=== PATIENT | female | born 1945 ===

== ENCOUNTER 2020-02-02 07:06 | Outpatient (REF) | payer MEDICARE, MEDICAID, SELFPAY ==
[2020-02-02 08:24] LABS: Alanine Aminotransferase 38 U/L (0-31); Albumin Level 3.8 g/dL (3.5-5.0); Alkaline Phosphatase 150 U/L (39-117); Anion Gap 13 (12-20); Aspartate Amino Transferase 25 U/L (5-31); Bilirubin Total 0.4 mg/dL (0.0-1.0); Blood Urea Nitrogen 14 mg/dL (9-16); Calcium 9.6 mg/dL (8.4-10.2); Carbon Dioxide 29 mmol/L (22-29); Chloride 102 mmol/L (96-108); Cholesterol 146 mg/dL; Estimated Glomerular Filt Rate > 60; Glucose Fasting 146 mg/dL (60-99); HDL Cholesterol 46 mg/dL; LDL Cholesterol Calculated 81 mg/dl; Potassium 4.8 mmol/l (3.3-5.1); Sodium 139 mmol/L (135-145); Total Protein 7.1 g/dL (6.5-8.0); Triglycerides 97 mg/dL
[2020-02-02 08:45] LABS: Vitamin D 25-OH Total 25.9 ng/mL (>30)
== END 2020-02-02 07:07 | disposition home or self-care (01) ==
LOC: HO.LAB 07:06
PROVIDERS: PCP Internal Medicine; Visit Provider Internal Medicine
DX: E78.00 Pure hypercholesterolemia, unspecified (principal); E03.9 Hypothyroidism, unspecified; E55.9 Vitamin D deficiency, unspecified; E11.9 Type 2 diabetes mellitus without complications
CPT/HCPCS: 80053; 80061; 82306; 84443

== ENCOUNTER → 2020-03-22 08:16 | Outpatient (BNVA) | payer MEDICARE, MEDICAID, SELFPAY | PROVIDERS: PCP Internal Medicine; Referring Provider Internal Medicine; Visit Provider Nurse Practitioner Gerontology | DX: Z13.89 Encounter for screening for other disorder (principal) | CPT/HCPCS: Q3014 ==

== ENCOUNTER → 2020-03-30 10:53 | Outpatient (BNV) | payer MEDICARE, MEDICAID, SELFPAY | PROVIDERS: PCP Internal Medicine; Referring Provider Internal Medicine; Visit Provider Internal Medicine | DX: Z86.718 Personal history of other venous thrombosis and embolism (principal) | CPT/HCPCS: 99202; 99203; 99213; 99442; G2211 ==

== ENCOUNTER 2020-03-31 14:22 | Outpatient (REF) | payer MEDICARE, MEDICAID, SELFPAY ==
--- NOTE | 2020-03-31 14:24 | MR_ITS ---
EXAMINATION: BRAIN MRI WITHOUT CONTRAST CLINICAL INFORMATION: Amnesia. COMPARISON: Brain MRI 01/03/2019. TECHNIQUE: Multiplanar MR imaging of the brain was performed without contrast. FINDINGS: There are scattered nonspecific foci of T2 FLAIR signal hyperintensity within the periventricular white matter. No acute territorial infarct. No pathological magnetic susceptibility artifact. Intracranial vascular flow voids are maintained. There is no intracranial mass effect or midline shift. No abnormal extra-axial collection. Of note there appears to be disproportionate loss of parenchymal volume within the temporal lobes causing ex vacuo enlargement of the temporal horns. No hydrocephalus. Midline structures including the cervicomedullary junction are normal. No acute bone marrow signal changes. There is no mastoid or middle ear effusion. No active paranasal sinus disease. MR/MR head/brain wo con IMPRESSION: There is disproportionate enlargement of parenchymal volume within the temporal lobes causing ex vacuo enlargement of the temporal horns. There are scattered chronic small vessel ischemic changes within the periventricular white matter. Otherwise unremarkable examination in that there is no evidence of acute territorial infarct or hemorrhage.
== END 2020-03-31 14:23 | disposition home or self-care (01) ==
LOC: HO.MRI 14:22
PROVIDERS: PCP Internal Medicine; Visit Provider Internal Medicine
DX: R41.3 Other amnesia (principal)
CPT/HCPCS: 70551

== ENCOUNTER → 2020-06-20 08:34 | Outpatient (BNVA) | payer MEDICARE, MEDICAID, SELFPAY | PROVIDERS: PCP Internal Medicine; Visit Provider Nurse Practitioner Gerontology | DX: E11.42 Type 2 diabetes mellitus with diabetic polyneuropathy (principal); E66.09 Other obesity due to excess calories; E78.5 Hyperlipidemia, unspecified; Z68.35 Body mass index [BMI] 35.0-35.9, adult; I10 Essential (primary) hypertension | CPT/HCPCS: 82947; Q3014 ==

== ENCOUNTER → 2020-06-23 09:45 | Outpatient (BNVA) | payer MEDICARE, MEDICAID, SELFPAY | PROVIDERS: PCP Internal Medicine; Visit Provider Obstetrics & Gynecology ==

== ENCOUNTER 2020-08-12 06:46 | Outpatient (REF) | payer MEDICARE, MEDICAID, SELFPAY ==
[2020-08-12 08:00] LABS: Alanine Aminotransferase 39 U/L (0-31); Albumin Level 3.7 g/dL (3.5-5.0); Alkaline Phosphatase 166 U/L (39-117); Anion Gap 15 (12-20); Aspartate Amino Transferase 26 U/L (5-31); Bilirubin Total 0.7 mg/dL (0.0-1.0); Blood Urea Nitrogen 16 mg/dL (9-16); Carbon Dioxide 27 mmol/L (22-29); Chloride 106 mmol/L (96-108); Cholesterol 104 mg/dL; Estimated Glomerular Filt Rate > 60; Glucose Fasting 131 mg/dL (60-99); HDL Cholesterol 36 mg/dL; LDL Cholesterol Calculated 57 mg/dl; Potassium 4.9 mmol/L (3.3-5.1); Sodium 143 mmol/L (135-145); Triglycerides 59 mg/dL
[2020-08-12 08:21] LABS: TSH reflex Free T4 2.49 uIU/mL (0.32-4.0)
[2020-08-12 08:26] LABS: Creatinine Urine 67.86 mg/dL; Microalbum/Creatinine Ratio Ur 10.3 ug/mg cr
[2020-08-12 09:22] LABS: Estimated Average Glucose 169 mg/dL; Hemoglobin A1c % 7.5 %
== END 2020-08-12 06:47 | disposition home or self-care (01) ==
LOC: HO.LAB 06:46
PROVIDERS: PCP Internal Medicine; Visit Provider Internal Medicine
DX: E11.42 Type 2 diabetes mellitus with diabetic polyneuropathy (principal); E78.5 Hyperlipidemia, unspecified; R41.3 Other amnesia
CPT/HCPCS: 36415; 80053; 80061; 82043; 83036; 84443

== ENCOUNTER → 2020-10-14 08:37 | Outpatient (BNVA) | payer MEDICARE, MEDICAID, SELFPAY | PROVIDERS: PCP Internal Medicine; Visit Provider Nurse Practitioner Gerontology | DX: E11.42 Type 2 diabetes mellitus with diabetic polyneuropathy (principal); E78.5 Hyperlipidemia, unspecified; E66.09 Other obesity due to excess calories; I10 Essential (primary) hypertension; Z68.35 Body mass index [BMI] 35.0-35.9, adult | CPT/HCPCS: 82947; 99212 ==

== ENCOUNTER 2020-12-09 08:15 | Outpatient (REF) | payer MEDICARE, MEDICAID, SELFPAY ==
--- NOTE | ~2020-12-09 | MM_ITS ---
EXAMINATION: MM SCREENING DIGITAL BREAST TOMOSYNTHESIS, BILATERAL CLINICAL INFORMATION: Screening. Asymptomatic. The lifetime risk of breast cancer based on the Tyrer-Cuzick Model is 3.0%. COMPARISON: Mammography: December 08, 2019 and studies dating back to April 26, 2016 TECHNIQUE: Digital breast tomosynthesis is performed in both the craniocaudal and mediolateral oblique views along with computer-aided detection (CAD). Synthesized 2D images are generated from the tomosynthesis. FINDINGS: There are scattered areas of fibroglandular density (ACR BI-RADS breast composition Category b). There are no significant masses, abnormal calcifications, or other abnormalities. MM/MM tomosynthesis screening BI IMPRESSION: There are no significant changes from prior study. ASSESSMENT: BI-RADS 1: Negative RECOMMENDATION: Routine annual mammography screening. This patient's information was entered into a reminder system with a target due date for their next mammogram.
--- NOTE | ~2020-12-09 | MM_ITS ---
EXAMINATION: BONE DENSITOMETRY CLINICAL INDICATION: Asymptomatic menopausal state. COMPARISON: None (current study represents initial baseline exam). TECHNIQUE: Using a [employer] DXA System (software version: 13.1) manufactured by [employer], dual-energy x-ray absorptiometry was performed of the lumbar spine and left hip. The images are of good technical quality. Summary results are attached. FINDINGS: AP SPINE L1-L4: BMD 1.018 g/cm2, Z-score -0.4, T-score -1.3, osteopenia. LEFT FEMUR, NECK: BMD 0.689 g/cm2, Z-score -1.0, T-score -2.5, osteoporosis. LEFT FEMUR, TOTAL: BMD 0.677 g/cm2, Z-score -1.4, T-score -2.6, osteoporosis. IDENTIFIED RISK FACTORS: Menopause. HISTORY OF FRACTURE: None listed. MEDICATIONS: Multivitamin. MM/XR DEXA axial skeleton IMPRESSION: 1. DIAGNOSIS: Osteoporosis based on the lowest T-score value of -2.6 in the total femur applying World Health Organization criteria. 2. 10-YEAR FRACTURE RISK PREDICTION, FRAX: Major osteoporotic fracture (clinical spine, forearm, hip or shoulder) 9.8%. Hip fracture 3.0%. 3. Treatment Recommendations: NOF guidelines recommend consideration for treatment in postmenopausal women and men age 50 and older presenting with the following: -A hip or vertebral (clinical or morphometric) fracture. -T-score less than or equal to -2.5 at the femoral neck or spine after appropriate evaluation to exclude secondary causes. -Low bone mass at the hip or spine and a 10-year fracture probability by FRAX of greater than or equal to 3% for hip fracture or greater than or equal to 20% for major osteoporotic fracture based on the [place] adapted WHO algorithm. 4. Other Recommendations: All treatment decisions require clinical judgment and consideration of individual patient factors, including patient preferences, comorbidities, previous drug use, risk factors not captured in the FRAX model (e.g. frailty, falls, vitamin D deficiency, increased bone turnover, interval significant decline in bone density) and possible under or overestimation of fracture risk by FRAX. Additional medical evaluation for secondary cause of low bone mineral density may be appropriate. FUTURE SCAN RECOMMENDATION: People with diagnosed cases of osteoporosis or at high risk for fracture should have regular bone mineral density tests. For patients eligible for Medicare, routine testing is allowed once every 2 years. The testing frequency can be increased to one year for patients who have rapidly progressing disease, those who are receiving or discontinuing medical therapy to restore bone mass, or have additional risk factors.
== END 2020-12-09 08:16 | disposition home or self-care (01) ==
LOC: HO.MAMMO 08:15
PROVIDERS: PCP Internal Medicine; Visit Provider Obstetrics & Gynecology
DX: Z12.31 Encounter for screening mammogram for malignant neoplasm of breast (principal); Z13.820 Encounter for screening for osteoporosis; Z78.0 Asymptomatic menopausal state
CPT/HCPCS: 77063; 77067; 77080

== ENCOUNTER → 2020-12-14 13:06 | Outpatient (BNVA) | payer MEDICARE, MEDICAID, SELFPAY | PROVIDERS: PCP Internal Medicine; Visit Provider Obstetrics & Gynecology | DX: M81.0 Age-related osteoporosis without current pathological fracture (principal) | CPT/HCPCS: 99212 ==

== ENCOUNTER 2021-02-18 07:03 | Outpatient (REF) | payer MEDICARE, MEDICAID, SELFPAY ==
[2021-02-18 07:15] LABS: MANUAL DIFF FLAG NO
[2021-02-18 08:00] LABS: Basophils Percent Auto 0.2 % (0-2); Eosinophils Absolute Auto 0.1 X10*3/uL (0.0-0.4); Eosinophils Percent Auto 1.1 % (0-4); Hematocrit 42.3 % (37.0-47.0); Hemoglobin 13.1 g/dl (12.0-16.0); Imm Gran Abs Auto 0.02 X10*3/uL (0.00-0.03); Imm Gran Pct Auto 0.2 % (0.0-0.4); Lymphocytes Absolute Auto 2.1 X10*3/uL (1.2-4.9); Lymphocytes Percent Auto 22.6 % (20-40); Mean Corpuscular Volume 87.2 fL (80.0-98.0); Mean Platelet Volume 10.2 fL (9.4-12.3); Monocytes Absolute Auto 0.7 X10*3/uL (0.1-1.2); Monocytes Percent Auto 6.9 % (2-11); Neutrophils Absolute Auto 6.5 x10*3/uL (2.0-8.3); Platelet Count 315 X10*3/uL (160-400); Red Blood Count 4.85 X10*6/uL (4.20-5.50); Red Cell Distribution Width 15.2 % (11.0-16.0); White Blood Count 9.4 X10*3/uL (4.8-10.8)
[2021-02-18 08:49] LABS: Alanine Aminotransferase 34 U/L (0-31); Albumin Level 3.9 g/dL (3.5-5.0); Alkaline Phosphatase 114 U/L (39-117); Anion Gap 16 (12-20); Aspartate Amino Transferase 25 U/L (5-31); Bilirubin Total 0.5 mg/dL (0.0-1.0); Blood Urea Nitrogen 14 mg/dL (9-16); Calcium 9.7 mg/dL (8.4-10.2); Carbon Dioxide 24 mmol/L (22-29); Chloride 105 mmol/L (96-108); Cholesterol 99 mg/dL; Estimated Glomerular Filt Rate > 60; Glucose Fasting 129 mg/dL (60-99); HDL Cholesterol 37 mg/dL; LDL Cholesterol Calculated 49 mg/dl; Potassium 4.1 mmol/L (3.3-5.1); Sodium 141 mmol/L (135-145); Total Protein 7.1 g/dL (6.5-8.0); Triglycerides 68 mg/dL
[2021-02-18 08:52] LABS: TSH reflex Free T4 3.45 uIU/mL (0.32-4.0)
[2021-02-18 09:49] LABS: Creatinine Urine 158.92 mg/dL; Microalbum/Creatinine Ratio Ur 40.2 ug/mg cr
[2021-02-20 09:31] LABS: Folate > 20.0 ng/mL (> or = 4.0); Vitamin B12 831 pg/mL (200-900)
[2021-02-21 17:37] LABS: Vitamin D 25-OH, D2 <4 ng/mL; Vitamin D 25-OH, D3 29 ng/mL; Vitamin D 25-OH, Total 29 ng/mL (30-100)
== END 2021-02-18 07:04 | disposition home or self-care (01) ==
LOC: HO.LAB 07:03
PROVIDERS: PCP Internal Medicine; Visit Provider Internal Medicine
DX: E55.9 Vitamin D deficiency, unspecified (principal); E11.42 Type 2 diabetes mellitus with diabetic polyneuropathy; R41.3 Other amnesia; E78.5 Hyperlipidemia, unspecified
CPT/HCPCS: 36415; 80053; 80061; 82043; 82306; 82607; 82746; 84443; 85025

== ENCOUNTER → 2021-03-01 08:46 | Outpatient (BNVA) | payer MEDICARE, MEDICAID, SELFPAY | PROVIDERS: PCP Internal Medicine; Visit Provider Nurse Practitioner Gerontology | DX: E11.42 Type 2 diabetes mellitus with diabetic polyneuropathy (principal); E78.5 Hyperlipidemia, unspecified; E66.09 Other obesity due to excess calories; I10 Essential (primary) hypertension; Z68.34 Body mass index [BMI] 34.0-34.9, adult; Z79.84 Long term (current) use of oral hypoglycemic drugs | CPT/HCPCS: 82947; 99212 ==

== ENCOUNTER → 2021-06-27 09:44 | Outpatient (BNVA) | payer MEDICARE, MEDICAID, SELFPAY | PROVIDERS: Visit Provider Obstetrics & Gynecology | DX: Z01.419 Encounter for gynecological examination (general) (routine) without abnormal findings (principal); M81.0 Age-related osteoporosis without current pathological fracture; Z90.710 Acquired absence of both cervix and uterus | CPT/HCPCS: 99212 ==

== ENCOUNTER 2021-11-17 06:43 | Outpatient (REF) | payer MEDICARE, MEDICAID, SELFPAY ==
[2021-11-17 07:46] LABS: Alanine Aminotransferase 16 U/L (0-31); Albumin Level 3.7 g/dL (3.5-5.0); Alkaline Phosphatase 88 U/L (39-117); Anion Gap 17 (12-20); Aspartate Amino Transferase 18 U/L (5-31); Bilirubin Total 0.6 mg/dL (0.0-1.0); Blood Urea Nitrogen 16 mg/dL (9-16); Calcium 9.2 mg/dL (8.4-10.2); Carbon Dioxide 22 mmol/L (22-29); Chloride 104 mmol/L (96-108); Cholesterol 113 mg/dL; Estimated Glomerular Filt Rate > 60; Glucose Fasting 113 mg/dL (60-99); HDL Cholesterol 37 mg/dL; LDL Cholesterol Calculated 55 mg/dl; Potassium 4.2 mmol/L (3.3-5.1); Sodium 139 mmol/L (135-145); Total Protein 6.7 g/dL (6.5-8.0); Triglycerides 109 mg/dL
[2021-11-17 08:07] LABS: Vitamin D 25-OH Total 45.7 ng/mL (>30)
[2021-11-17 09:09] LABS: Creatinine Urine 78.26 mg/dL; Microalbum/Creatinine Ratio Ur 16.6 ug/mg cr
== END 2021-11-17 06:44 | disposition home or self-care (01) ==
LOC: HO.LAB 06:43
PROVIDERS: PCP Internal Medicine; Visit Provider Internal Medicine
DX: E78.5 Hyperlipidemia, unspecified (principal); E55.9 Vitamin D deficiency, unspecified; M81.0 Age-related osteoporosis without current pathological fracture; E11.42 Type 2 diabetes mellitus with diabetic polyneuropathy
CPT/HCPCS: 36415; 80053; 80061; 82043; 82306

== ENCOUNTER 2021-12-22 08:43 | Outpatient (REF) | payer MEDICARE, MEDICAID, SELFPAY ==
--- NOTE | ~2021-12-22 | MM_ITS ---
EXAMINATION: MM SCREENING DIGITAL BREAST TOMOSYNTHESIS, BILATERAL CLINICAL INFORMATION: Screening. Asymptomatic. The lifetime risk of breast cancer based on the Tyrer-Cuzick Model is 3%. COMPARISON: Mammography: 12/09/2020, 12/08/2019, 12/02/2018, 11/13/2017, 04/26/2016 TECHNIQUE: Digital breast tomosynthesis is performed in both the craniocaudal and mediolateral oblique views along with computer-aided detection (CAD). Synthesized 2D images are generated from the tomosynthesis. FINDINGS: There are scattered areas of fibroglandular density (ACR BI-RADS breast composition Category b). There are no significant masses, abnormal calcifications, or other abnormalities. Parenchymal pattern is similar to prior studies. There is no developing density or architectural abnormality. There are scattered benign ductal secretory calcifications. Incidental small low left axillary tail nodes. There is a dermal lesion overlying the posterior 7:00 left breast again noted. No significant changes. MM/MM tomosynthesis screening BI IMPRESSION: No mammographic evidence of malignancy. ASSESSMENT: BI-RADS 2: Benign RECOMMENDATION: Routine annual mammography screening. This patient's information was entered into a reminder system with a target due date for their next mammogram.
== END 2021-12-22 08:44 | disposition home or self-care (01) ==
LOC: HO.MAMMO 08:43
PROVIDERS: PCP Internal Medicine; Visit Provider Internal Medicine
DX: Z12.31 Encounter for screening mammogram for malignant neoplasm of breast (principal)
CPT/HCPCS: 77063; 77067

== ENCOUNTER 2022-02-17 12:07 | Inpatient (IN) | payer MEDICARE, MEDICAID, SELFPAY ==
[2022-02-17] VITALS (8 sets, daily range): BP systolic 96–133; BP diastolic 42–58; PULSE 68–112; RESP 14–22; TEMP 32.8–36.8; O2SAT 96–100; BMI 34.5
--- NOTE | ~2022-02-17 | US_ITS ---
EXAMINATION: US ABDOMEN LIMITED CLINICAL INFORMATION: Elevated LFTs.. COMPARISON: None TECHNIQUE: Real-time imaging of the right upper quadrant abdominal viscera. FINDINGS: GALLBLADDER: The gallbladder is contracted. On some of the images there are echogenic dependent shadows suspicious for gravel. No wall thickening suspected. No pericystic fluid collection. US/US abdomen limited IMPRESSION: Limited exam as patient ate before the exam. Echogenic gravel suspected along the dependent portion of the gallbladder. The gallbladder is contracted.
--- NOTE | ~2022-02-17 | XR_ITS ---
EXAMINATION: XR CHEST CLINICAL INFORMATION: Altered mental status COMPARISON: None TECHNIQUE: 2 views of the chest were obtained. FINDINGS: No significant abnormality is noted involving the heart, lungs, mediastinum, bony thorax or soft tissues. XR/XR chest 2V IMPRESSION: Unremarkable examination.
--- NOTE | ~2022-02-17 | CT_ITS ---
EXAMINATION: CT head/brain wo IV con CLINICAL INFORMATION: Reason for Exam altered mental status COMPARISON: MR brain without contrast 03/31/2020 TECHNIQUE: Contiguous axial imaging was performed from the skull base to vertex without intravenous contrast. Sagittal and coronal reformatted images were obtained. This CT examination was performed using dose optimization techniques as appropriate, variously including the following: * Automated exposure control * Adjustment of mA and/or kV according to patient size (this includes techniques or standardized protocols for targeted exams where dose is matched to indication/reason for exam; i.e. extremities or head) Use of iterative reconstruction technique DLP: 560 mGy-cm FINDINGS: No acute osseous or soft tissue abnormality. The mastoid air cells and visualized portions of the paranasal sinuses are well aerated. There is no evidence of acute intracranial hemorrhage or territorial infarction. No abnormal mass effect or midline shift is seen. Flores to white matter differentiation is well preserved. No extra-axial fluid collections are identified. No hydrocephalus. Mild generalized volume loss with some disproportionate volume loss in the frontal and temporal lobes with ex vacuo dilatation of the frontal and temporal horns. Patchy periventricular and deep white matter hypoattenuation is consistent with mild small vessel ischemic changes. CT/CT head/brain wo IV con IMPRESSION: No acute intracranial abnormality including hemorrhage, mass effect, hydrocephalus, or acute territorial edematous infarction.
--- NOTE | 2022-02-17 12:15 | ED.GENADULT ---
HPI - General Adult General Chief complaint: Altered Mental Status Stated complaint: nerou complaints Time Seen by Provider: 02/17/22 12:54 Related Data Home Medications Medication Instructions Recorded Confirmed aspirin 81 mg tablet,delayed 81 mg PO DAILY 02/08/20 02/18/22 release (Adult Low Dose Aspirin) multivitamin 1 tab PO DAILY 03/22/20 02/18/22 donepezil 10 mg tablet 10 mg PO DAILY 11/20/21 02/18/22 Previous Rx's Medication Instructions Recorded dulaglutide 3 mg/0.5 mL 3 mg (0.5 mL) subcut QWEEK 84 days 03/01/21 subcutaneous pen injector #6 mL (Trulicity) omeprazole 20 mg capsule,delayed 20 mg PO DAILY 90 days #90 caps 03/11/21 release alendronate 70 mg tablet 70 mg PO QWEEK #14 tabs 06/27/21 atorvastatin 40 mg tablet 40 mg PO BEDTIME #90 tabs 09/04/21 amlodipine 2.5 mg tablet 2.5 mg PO DAILY #90 tabs 01/31/22 glipizide 5 mg tablet 5 mg PO DAILY #30 tabs 02/19/22 Allergies Allergy/AdvReac Type Severity Reaction Status Date / Time No Known Allergies Allergy Verified 11/20/21 08:18 [No Known Allergies*] [facility] Past Medical History Medical History Cough Diabetes mellitus Essential hypertension GERD (gastroesophageal reflux disease) History of DVT (deep vein thrombosis) Hyperlipidemia LDL goal <70 Long-term use of aspirin therapy Memory loss Microalbuminuria Obesity due to excess calories Type 2 diabetes mellitus with diabetic polyneuropathy Surgical History History of cataract surgery History of total abdominal hysterectomy and bilateral salpingo-oophorectomy Family History Family History Father No problems noted. Mother Colon cancer Son Diabetes Social History Social History Household Members: Caregiver Housing: Apartment Alcohol intake: never Patient Tobacco Use Status: Never used Tobacco e-Cigarette/Vaping Use: Never Used Second Hand Smoke Exposure: No Advance Directives Date on File: 02/23/21 service: No Current occupational status: disabled Cognitive needs: No Hearing needs: No Vision needs: No Physical Exam ED Vital Signs: Vital Signs - 24 hr 02/17/22 12:31 Pulse Rate 68 Respiratory Rate 18 Blood Pressure 96/42 L Pulse Oximetry 100 Oxygen Delivery Method Room Air BMI result Body Mass Index 34.5 Course Course Course Narrative: RME: Patient is a 76-year-old female with a past medical history type 2 diabetes, hypertension, GERD history of DVT, mild cognitive impairment presents emergency department for evaluation of altered mental status since yesterday morning per her son. He states that she is been having confusion with prepping food, take has been shaky typical for her. She seems to be off balance. Patient has denied any headache, dizziness, lightheadedness, chest pain, palpitations, shortness breath, nausea, vomiting, abdominal pain. Denies dysuria urinary frequency. Denies any numbness or tingling to the extremities PE: Move all extremities, no focal neurological deficits, follows commands. Oriented only to person. unable to obtain oral or axillary temperature despite multiple attempts, temporal 86.5. ABD exam benign, LS diminished bilaterally, no respiratory distress. Plan: CBC, CMP, EKG, troponin, chest x-ray, lactic acid, blood cultures, urinalysis, will require rectal temperature Medications Administered Discontinued Medications Generic Name Dose Route Start Last Admin Trade Name Chapinq PRN Reason Stop Dose Admin Amlodipine Besylate 2.5 mg 02/18/22 09:15 02/19/22 09:11 Amlodipine Besylate 2.5 Mg Tablet PO 2.5 mg DAILY HUGO Administration Protocol Aspirin 81 mg 02/18/22 09:15 02/19/22 09:11 Aspirin Enteric Coated 81 Mg Tablet. PO 81 mg DAILY HUGO Administration Atorvastatin Calcium 40 mg 02/18/22 21:00 02/18/22 21:11 Atorvastatin Calcium 40 Mg Tablet PO 40 mg BEDTIME HUGO Administration Donepezil HCl 10 mg 02/18/22 09:15 02/18/22 12:33 Donepezil Hcl 10 Mg Tablet PO 10 mg DAILY HUGO Administration Donepezil HCl 10 mg 02/18/22 21:00 02/18/22 21:12 Donepezil Hcl 10 Mg Tablet PO 10 mg BEDTIME HUGO Administration Enoxaparin Sodium 40 mg 02/17/22 18:00 02/18/22 20:14 Enoxaparin Sodium 40 Mg/0.4 Ml Syringe SUBCUT Not Given Q24H [facility] Sodium Chloride 1,000 mls @ 999 mls/hr 02/17/22 14:04 02/17/22 16:27 Ns IV 02/17/22 15:04 Infused .Q1H1M ONE Infusion Ceftriaxone Sodium 1 gm/ 50 mls @ 100 mls/hr 02/17/22 16:00 02/17/22 18:09 Sodium Chloride IV 02/17/22 16:29 Infused ONCE ONE Infusion Ceftriaxone Sodium 1 gm/ 50 mls @ 100 mls/hr 02/18/22 16:00 02/18/22 18:58 Sodium Chloride IV Infused Q24H [facility] Infusion Insulin Human Lispro 0 unit 02/17/22 21:00 02/19/22 11:19 Insulin Lispro 100 Unit/Ml 3 Ml Vial SUBCUT 4 unit QIDACHS [facility] Administration Protocol Levothyroxine Sodium 100 mcg 02/17/22 16:19 02/17/22 16:44 Levothyroxine Sodium 100 Mcg Tablet PO 02/17/22 16:20 100 mcg ONCE ONE Administration Multivitamins/Vitamin C 1 tab 02/18/22 09:15 02/19/22 09:11 Multivitamin Tablet PO 1 tab DAILY [facility] Administration Omeprazole 20 mg 02/19/22 09:00 02/19/22 09:11 Omeprazole 20 Mg Capsule.Dr PO 20 mg DAILY [facility] Administration Sodium Chloride 3 ml 02/18/22 00:00 02/19/22 09:12 0.9 % Sodium Chloride Flush 3 Ml Syringe IVFLUSH 3 ml QSHIFT [facility] Administration Medical Decision Making Lab Data Result diagrams: 02/19/22 07:02 02/19/22 07:02 Labs: Lab Results 02/17/22 02/17/22 02/17/22 Range/Units 13:01 13:01 13:01 WBC 7.0 (4.8-10.8) X10*3/uL RBC 4.75 (4.20-5.50) X10*6/uL Hgb 12.0 (12.0-16.0) g/dl Hct 38.9 (37.0-47.0) % MCV 81.9 (80.0-98.0) fL MCH 25.3 L (27.0-33.0) pg MCHC 30.8 L (31.0-35.0) g/dl RDW 15.6 (11.0-16.0) % Plt Count 249 (160-400) X10*3/uL MPV 9.8 (9.4-12.3) fL Immature Gran % (Auto) 0.4 (0.0-0.4) % Neut % (Auto) 82.0 H (45-73) % Lymph % (Auto) 13.2 L (20-40) % [place] % (Auto) 3.9 (2-11) % Eos % (Auto) 0.4 (0-4) % Baso % (Auto) 0.1 (0-2) % Lymph # (Auto) 0.9 L (1.2-4.9) X10*3/uL [place] # (Auto) 0.3 (0.1-1.2) X10*3/uL Eos # (Auto) 0.0 (0.0-0.4) X10*3/uL Baso # (Auto) 0.0 (0.0-0.2) X10*3/uL Abs Immat Gran (auto) 0.03 (0.00-0.03) X10*3/uL Absolute Neuts (auto) 5.7 (2.0-8.3) x10*3/uL Absolute Nucleated RBC 0.000 (0.0-0.012) X10*3/uL Nucleated RBC % (auto) 0.0 (0.0-0.2) /100WBC Sodium 140 (135-145) mmol/L Potassium 5.0 (3.3-5.1) mmol/L Chloride 105 (96-108) mmol/L Carbon Dioxide 21 L (22-29) mmol/L Anion Gap 19 (12-20) BUN 18 H (9-16) mg/dL Creatinine 0.69 (0.5-1.4) mg/dL Estim Creat Clear Calc 72.0 Estimated GFR > 60 Random Glucose 173 H (60-115) mg/dL Lactic Acid (0.5-2.0) mmol/L Lactic Acid F/U @ 2Hr (0.5-2.0) mmol/L Calcium 9.5 (8.4-10.2) mg/dL Magnesium 1.7 (1.6-2.6) mg/dL Total Bilirubin 0.2 (0.0-1.0) mg/dL AST 70 H (5-31) U/L ALT 124 H (0-31) U/L Alkaline Phosphatase 172 H D (39-117) U/L Troponin I High Sens 3.6 (<3.5-17.0) ng/L Total Protein 6.7 (6.5-8.0) g/dL Albumin 3.6 (3.5-5.0) g/dL TSH 4.76 H (0.32-4.0) uIU/mL Urine Color Urine Appearance Urine pH (5.0-9.0) Ur Specific [place] (1.005-1.025) Urine Protein (Neg-Trace) mg/dL Urine Glucose (UA) (Negative) mg/dL Urine Ketones (Negative) mg/dL Urine Blood (Negative) Urine Nitrite (Negative) Ur Leukocyte Esterase (Negative) Urine RBC (0-2) /HPF Urine WBC (0-5) /HPF Ur Squamous Epith Cells (0-2) /HPF Urine Bacteria (None Seen) Hyaline Casts (0-2) /LPF COVID-19 (JOHN) (Negative) COVID-19 Clin Com Influenza Type A (YUVAL) (Negative) Influenza Type B (YUVAL) (Negative) Influenza A & B Note 02/17/22 02/17/22 02/17/22 Range/Units 13:02 13:02 13:02 WBC (4.8-10.8) X10*3/uL RBC (4.20-5.50) X10*6/uL Hgb (12.0-16.0) g/dl Hct (37.0-47.0) % MCV (80.0-98.0) fL MCH (27.0-33.0) pg MCHC (31.0-35.0) g/dl RDW (11.0-16.0) % Plt Count (160-400) X10*3/uL MPV (9.4-12.3) fL Immature Gran % (Auto) (0.0-0.4) % Neut % (Auto) (45-73) % Lymph % (Auto) (20-40) % [place] % (Auto) (2-11) % Eos % (Auto) (0-4) % Baso % (Auto) (0-2) % Lymph # (Auto) (1.2-4.9) X10*3/uL [place] # (Auto) (0.1-1.2) X10*3/uL Eos # (Auto) (0.0-0.4) X10*3/uL Baso # (Auto) (0.0-0.2) X10*3/uL Abs Immat Gran (auto) (0.00-0.03) X10*3/uL Absolute Neuts (auto) (2.0-8.3) x10*3/uL Absolute Nucleated RBC (0.0-0.012) X10*3/uL Nucleated RBC % (auto) (0.0-0.2) /100WBC Sodium (135-145) mmol/L Potassium (3.3-5.1) mmol/L Chloride (96-108) mmol/L Carbon Dioxide (22-29) mmol/L Anion Gap (12-20) BUN (9-16) mg/dL Creatinine (0.5-1.4) mg/dL Estim Creat Clear Calc Estimated GFR Random Glucose (60-115) mg/dL Lactic Acid 6.4 H* (0.5-2.0) mmol/L Lactic Acid F/U @ 2Hr (0.5-2.0) mmol/L Calcium (8.4-10.2) mg/dL Magnesium (1.6-2.6) mg/dL Total Bilirubin (0.0-1.0) mg/dL AST (5-31) U/L ALT (0-31) U/L Alkaline Phosphatase (39-117) U/L Troponin I High Sens (<3.5-17.0) ng/L Total Protein (6.5-8.0) g/dL Albumin (3.5-5.0) g/dL TSH (0.32-4.0) uIU/mL Urine Color Urine Appearance Urine pH (5.0-9.0) Ur Specific [place] (1.005-1.025) Urine Protein (Neg-Trace) mg/dL Urine Glucose (UA) (Negative) mg/dL Urine Ketones (Negative) mg/dL Urine Blood (Negative) Urine Nitrite (Negative) Ur Leukocyte Esterase (Negative) Urine RBC (0-2) /HPF Urine WBC (0-5) /HPF Ur Squamous Epith Cells (0-2) /HPF Urine Bacteria (None Seen) Hyaline Casts (0-2) /LPF COVID-19 (JOHN) Negative (Negative) COVID-19 Clin Com See Note Influenza Type A (YUVAL) Negative (Negative) Influenza Type B (YUVAL) Negative (Negative) Influenza A & B Note See Note 02/17/22 02/17/22 02/17/22 Range/Units 14:37 15:53 15:53 WBC (4.8-10.8) X10*3/uL RBC (4.20-5.50) X10*6/uL Hgb (12.0-16.0) g/dl Hct (37.0-47.0) % MCV (80.0-98.0) fL MCH (27.0-33.0) pg MCHC (31.0-35.0) g/dl RDW (11.0-16.0) % Plt Count (160-400) X10*3/uL MPV (9.4-12.3) fL Immature Gran % (Auto) (0.0-0.4) % Neut % (Auto) (45-73) % Lymph % (Auto) (20-40) % [place] % (Auto) (2-11) % Eos % (Auto) (0-4) % Baso % (Auto) (0-2) % Lymph # (Auto) (1.2-4.9) X10*3/uL [place] # (Auto) (0.1-1.2) X10*3/uL Eos # (Auto) (0.0-0.4) X10*3/uL Baso # (Auto) (0.0-0.2) X10*3/uL Abs Immat Gran (auto) (0.00-0.03) X10*3/uL Absolute Neuts (auto) (2.0-8.3) x10*3/uL Absolute Nucleated RBC (0.0-0.012) X10*3/uL Nucleated RBC % (auto) (0.0-0.2) /100WBC Sodium (135-145) mmol/L Potassium (3.3-5.1) mmol/L Chloride (96-108) mmol/L Carbon Dioxide (22-29) mmol/L Anion Gap (12-20) BUN (9-16) mg/dL Creatinine (0.5-1.4) mg/dL Estim Creat Clear Calc Estimated GFR Random Glucose (60-115) mg/dL Lactic Acid (0.5-2.0) mmol/L Lactic Acid F/U @ 2Hr 5.7 H* (0.5-2.0) mmol/L Calcium (8.4-10.2) mg/dL Magnesium (1.6-2.6) mg/dL Total Bilirubin (0.0-1.0) mg/dL AST (5-31) U/L ALT (0-31) U/L Alkaline Phosphatase (39-117) U/L Troponin I High Sens (<3.5-17.0) ng/L Total Protein (6.5-8.0) g/dL Albumin (3.5-5.0) g/dL TSH 3.66 (0.32-4.0) uIU/mL Urine Color Yellow Urine Appearance Cloudy Urine pH 5.0 (5.0-9.0) Ur Specific [place] 1.025 (1.005-1.025) Urine Protein Trace (Neg-Trace) mg/dL Urine Glucose (UA) Negative (Negative) mg/dL Urine Ketones Trace (Negative) mg/dL Urine Blood Negative (Negative) Urine Nitrite Negative (Negative) Ur Leukocyte Esterase Moderate (2+) H (Negative) Urine RBC 0-2 (0-2) /HPF Urine WBC 6-10 (0-5) /HPF Ur Squamous Epith Cells 6-10 (0-2) /HPF Urine Bacteria None Seen (None Seen) Hyaline Casts 6-10 (0-2) /LPF COVID-19 (JOHN) (Negative) COVID-19 Clin Com Influenza Type A (YUVAL) (Negative) Influenza Type B (YUVAL) (Negative) Influenza A & B Note Discharge Plan Discharge Clinical Impression: Hypothermia, UTI (urinary tract infection), Acidosis, lactic Patient Disposition: Admitted As Inpatient Discharge Date/Time: 02/18/22 20:00
--- NOTE | 2022-02-17 12:31 | ECG_ITS ---
Test Reason : AMS Blood Pressure : / mmHG Vent. Rate : 072 BPM Atrial Rate : 072 BPM P-R Int : 198 ms QRS Dur : 078 ms QT Int : 410 ms P-R-T Axes : 039 007 046 degrees QTc Int : 448 ms Normal sinus rhythm Nonspecific ST abnormality Anterior leads Left axis deviation Abnormal ECG No previous ECGs available Referred By: Fany Calvo Electronically Signed By:SHABBIR LOWERY MD
[2022-02-17 13:09] LABS: MANUAL DIFF FLAG NO
[2022-02-17 13:13] LABS: Basophils Percent Auto 0.1 % (0-2); Eosinophils Percent Auto 0.4 % (0-4); Hematocrit 38.9 % (37.0-47.0); Imm Gran Abs Auto 0.03 X10*3/uL (0.00-0.03); Imm Gran Pct Auto 0.4 % (0.0-0.4); Lymphocytes Absolute Auto 0.9 X10*3/uL (1.2-4.9); Lymphocytes Percent Auto 13.2 % (20-40); Mean Corpuscular HGB Conc 30.8 g/dl (31.0-35.0); Mean Corpuscular Hemoglobin 25.3 pg (27.0-33.0); Mean Corpuscular Volume 81.9 fL (80.0-98.0); Mean Platelet Volume 9.8 fL (9.4-12.3); Monocytes Absolute Auto 0.3 X10*3/uL (0.1-1.2); Monocytes Percent Auto 3.9 % (2-11); Neutrophils Absolute Auto 5.7 x10*3/uL (2.0-8.3); Platelet Count 249 X10*3/uL (160-400); Red Blood Count 4.75 X10*6/uL (4.20-5.50); Red Cell Distribution Width 15.6 % (11.0-16.0)
[2022-02-17 13:29] LABS: COVID-19 Test Negative (Negative); IDNOW Serial# 16C4AD1C; IDNOW Serial# BCCEAD1C; Influenza A Negative (Negative); Influenza B2 Negative (Negative)
[2022-02-17 13:37] LABS: Alanine Aminotransferase 124 U/L (0-31); Albumin Level 3.6 g/dL (3.5-5.0); Alkaline Phosphatase 172 U/L (39-117); Anion Gap 19 (12-20); Aspartate Amino Transferase 70 U/L (5-31); Bilirubin Total 0.2 mg/dL (0.0-1.0); Blood Urea Nitrogen 18 mg/dL (9-16); Calcium 9.5 mg/dL (8.4-10.2); Carbon Dioxide 21 mmol/L (22-29); Chloride 105 mmol/L (96-108); Estimated Glomerular Filt Rate > 60; Glucose Random 173 mg/dL (60-115); Magnesium 1.7 mg/dL (1.6-2.6); Sodium 140 mmol/L (135-145); Total Protein 6.7 g/dL (6.5-8.0)
[2022-02-17 13:44] LABS: Troponin-I High Sensitivity 3.6 ng/L (<3.5-17.0)
--- NOTE | 2022-02-17 13:57 | ED_ITS ---
HPI - General Adult General Chief complaint: Altered Mental Status Stated complaint: nerou complaints Time Seen by Provider: 02/17/22 12:54 Source: patient and family (Son) Mode of arrival: ambulatory Limitations: no limitations History of Present Illness HPI narrative: 76-year-old female came in with her son for concern of patient being confused and forgetful and off balance. Son started to notice that since yesterday, patient otherwise has no complain, reportedly patient live in the building where it is cold with no heating system on, otherwise no fall or head injury, no CP, no SOB, no abdominal pain. Related Data Home Medications Medication Instructions Recorded Confirmed aspirin 81 mg tablet,delayed 81 mg PO DAILY 02/08/20 11/20/21 release (Adult Low Dose Aspirin) multivitamin 1 tab PO DAILY 03/22/20 11/20/21 calcium carbonate 600 mg-vitamin cap PO 02/21/21 11/20/21 D3 12.5 mcg (500 unit) capsule (Calcium 600 with Vitamin D3) donepezil 10 mg tablet 10 mg PO DAILY 11/20/21 11/20/21 Previous Rx's Medication Instructions Recorded dulaglutide 3 mg/0.5 mL 3 mg (0.5 mL) subcut QWEEK 84 days 03/01/21 subcutaneous pen injector #6 mL (Trulicity) lancets 28 gauge (FreeStyle 28 gauge miscellaneous DAILY 3 03/08/21 Lancets) months #100 caps omeprazole 20 mg capsule,delayed 20 mg PO DAILY 90 days #90 caps 03/11/21 release alendronate 70 mg tablet 70 mg PO QWEEK #14 tabs 06/27/21 atorvastatin 40 mg tablet 40 mg PO BEDTIME #90 tabs 09/04/21 metformin 500 mg tablet,extended 1,000 mg PO BID #360 tabs 01/06/22 release 24 hr amlodipine 2.5 mg tablet 2.5 mg PO DAILY #90 tabs 01/31/22 Allergies Allergy/AdvReac Type Severity Reaction Status Date / Time No Known Allergies Allergy Verified 11/20/21 08:18 [No Known Allergies*] Review of Systems Review of Systems: All other systems are reviewed and are negative Constitutional: Reports as per HPI and Reports no additional constitutional complaints Eyes: Reports as per HPI and Reports no additional eye complaints Reports system reviewed and no additional complaints, except as documented Cardiovascular: Reports as per HPI and Reports no additional cardiovascular complaints Respiratory: Reports as per HPI and Reports no additional respiratory complaints Gastrointestinal: Reports as per HPI and Reports no additional gastrointestinal complaints Genitourinary: Reports no additional female genitourinary complaints Musculoskeletal: Reports no additional musculoskeletal complaints Skin/Breast: Reports system reviewed and no additional complaints, except as docu Psychiatric: Reports no additional psychiatric complaints Endocrine: Reports no additional endocrine complaints Hematologic/Lymphatic: Reports no additional hematologic/lymphatic complaints Allergic/Immunologic: Reports no additional allergic/immunologic complaints Reports system reviewed and no additional complaints, except as documented and Reports Abnormal speech present [facility] Past Medical History Medical History Cough Diabetes mellitus Essential hypertension GERD (gastroesophageal reflux disease) History of DVT (deep vein thrombosis) Hyperlipidemia LDL goal <70 Long-term use of aspirin therapy Memory loss Microalbuminuria Obesity due to excess calories Type 2 diabetes mellitus with diabetic polyneuropathy Surgical History History of cataract surgery History of total abdominal hysterectomy and bilateral salpingo-oophorectomy Family History Family History Father No problems noted. Mother Colon cancer Son Diabetes Social History Social History Household Members: Family Housing: Apartment Alcohol intake: never Patient Tobacco Use Status: Never used Tobacco e-Cigarette/Vaping Use: Never Used Second Hand Smoke Exposure: No Advance Directives: Yes Advance Directives on File: Yes Advance Directives Date on File: 02/23/21 service: No Current occupational status: disabled Cognitive needs: No Hearing needs: No Vision needs: No Physical Exam ED Vital Signs: Vital Signs - 24 hr 02/17/22 12:31 02/17/22 13:17 02/17/22 14:11 Temperature 91.1 F L 91.3 F L Pulse Rate 68 69 Respiratory Rate 18 14 Blood Pressure 96/42 L 119/46 L Pulse Oximetry 100 100 Oxygen Delivery Method Room Air Room Air 02/17/22 16:03 Temperature 93.0 F L Pulse Rate 86 Respiratory Rate 17 Blood Pressure Pulse Oximetry 98 Oxygen Delivery Method Room Air BMI result Body Mass Index 34.5 Vital signs have been reviewed as appeared to be correct. Blood pressure normal. Heart rate normal. Respiration rate normal. Temperature hypothermic. Oxygen saturation normal. Appearance: Alert. Oriented X3. No acute distress. Head: Normal external exam. Normocephalic. Atraumatic. No Basilio signs noted. No raccoon eyes noted Eyes: PERRLA. EOMI. Conjunctiva and sclera normal. Eyelids normal. ENT: TM's Normal. Pharynx normal. Uvula midline. Moist mucous membranes. No trismus noted. No drooling noted. No muffled voice noted. Neck: Normal inspection. Neck supple. FROM. No adenopathy. Thyroid Normal. No meningeal signs. No neck mass noted. CVS: Normal heart rate and rhythm. Heart sound normal. No murmurs noted. Pulses normal throughout. Respiratory: No respiratory distress. Painless inspiration. Breath sounds normal . No wheezes/rales/rhonchi noted. Chest nontender. No accessory muscle usage noted or decreased air movement noted. Abdomen: Soft and nontender. Bowel sounds normal in all 4 quadrants. No distention noted. No organomegaly noted. No visible injury noted. Back: No CVA tenderness. Full range of motion noted. Skin: Skin warm and dry. Normal skin color. Normal skin turgor. No rashes/lesions/lacerations noted. Extremities: No lower extremity edema. Extremities exhibit normal range of motion. Extremities nontender. Neuro: Oriented. Cranial nerve exam: II-XII are grossly intact No motor deficit. No sensory deficit. Reflexes normal. Course Course Course Narrative: Hypothermia, lactic acidosis, mild UTI, hypothyroidism. Hypothermia unclear etiology no obvious source of infection except mild UTI patient was covered with ceftriaxone, patient did not meet criteria for SIRS and lactic acidosis is secondary to prolonged hypothermia and is improving after IV fluid no severe sepsis or septic shock. Will give a dose of levothyroxine, elevated LFTs with nondiagnostic ultrasound, well admit. Medications Administered Discontinued Medications Generic Name Dose Route Start Last Admin Trade Name Freq PRN Reason Stop Dose Admin Sodium Chloride 1,000 mls @ 999 mls/hr 02/17/22 14:04 02/17/22 14:42 Ns IV 02/17/22 15:04 999 mls/hr .Q1H1M ONE Administration Medical Decision Making Lab Data Lab results reviewed: Yes I reviewed the patient's lab results. Result diagrams: 02/17/22 13:01 02/17/22 13:01 Labs: Lab Results 02/17/22 02/17/22 02/17/22 Range/Units 13: 13: 13:01 WBC 7.0 (4.8-10.8) X10*3/uL RBC 4.75 (4.20-5.50) X10*6/uL Hgb 12.0 (12.0-16.0) g/dl Hct 38.9 (37.0-47.0) % MCV 81.9 (80.0-98.0) fL MCH 25.3 L (27.0-33.0) pg MCHC 30.8 L (31.0-35.0) g/dl RDW 15.6 (11.0-16.0) % Plt Count 249 (160-400) X10*3/uL MPV 9.8 (9.4-12.3) fL Immature Gran % (Auto) 0.4 (0.0-0.4) % Neut % (Auto) 82.0 H (45-73) % Lymph % (Auto) 13.2 L (20-40) % [place] % (Auto) 3.9 (2-11) % Eos % (Auto) 0.4 (0-4) % Baso % (Auto) 0.1 (0-2) % Lymph # (Auto) 0.9 L (1.2-4.9) X10*3/uL [place] # (Auto) 0.3 (0.1-1.2) X10*3/uL Eos # (Auto) 0.0 (0.0-0.4) X10*3/uL Baso # (Auto) 0.0 (0.0-0.2) X10*3/uL Abs Immat Gran (auto) 0.03 (0.00-0.03) X10*3/uL Absolute Neuts (auto) 5.7 (2.0-8.3) x10*3/uL Absolute Nucleated RBC 0.000 (0.0-0.012) X10*3/uL Nucleated RBC % (auto) 0.0 (0.0-0.2) /100WBC Sodium 140 (135-145) mmol/L Potassium 5.0 (3.3-5.1) mmol/L Chloride 105 (96-108) mmol/L Carbon Dioxide 21 L (22-29) mmol/L Anion Gap 19 (12-20) BUN 18 H (9-16) mg/dL Creatinine 0.69 (0.5-1.4) mg/dL Estim Creat Clear Calc 72.0 Estimated GFR > 60 Random Glucose 173 H (60-115) mg/dL Lactic Acid (0.5-2.0) mmol/L Lactic Acid F/U @ 2Hr (0.5-2.0) mmol/L Calcium 9.5 (8.4-10.2) mg/dL Magnesium 1.7 (1.6-2.6) mg/dL Total Bilirubin 0.2 (0.0-1.0) mg/dL AST 70 H (5-31) U/L ALT 124 H (0-31) U/L Alkaline Phosphatase 172 H D (39-117) U/L Troponin I High Sens 3.6 (<3.5-17.0) ng/L Total Protein 6.7 (6.5-8.0) g/dL Albumin 3.6 (3.5-5.0) g/dL TSH 4.76 H (0.32-4.0) uIU/mL Urine Color Urine Appearance Urine pH (5.0-9.0) Ur Specific [place] (1.005-1.025) Urine Protein (Neg-Trace) mg/dL Urine Glucose (UA) (Negative) mg/dL Urine Ketones (Negative) mg/dL Urine Blood (Negative) Urine Nitrite (Negative) Ur Leukocyte Esterase (Negative) Urine RBC (0-2) /HPF Urine WBC (0-5) /HPF Ur Squamous Epith Cells (0-2) /HPF Urine Bacteria (None Seen) Hyaline Casts (0-2) /LPF COVID-19 (JOHN) (Negative) COVID-19 Clin Com Influenza Type A (YUVAL) (Negative) Influenza Type B (YUVAL) (Negative) Influenza A & B Note 02/17/22 02/17/22 02/17/22 Range/Units 13:02 13:02 13:02 WBC (4.8-10.8) X10*3/uL RBC (4.20-5.50) X10*6/uL Hgb (12.0-16.0) g/dl Hct (37.0-47.0) % MCV (80.0-98.0) fL MCH (27.0-33.0) pg MCHC (31.0-35.0) g/dl RDW (11.0-16.0) % Plt Count (160-400) X10*3/uL MPV (9.4-12.3) fL Immature Gran % (Auto) (0.0-0.4) % Neut % (Auto) (45-73) % Lymph % (Auto) (20-40) % [place] % (Auto) (2-11) % Eos % (Auto) (0-4) % Baso % (Auto) (0-2) % Lymph # (Auto) (1.2-4.9) X10*3/uL [place] # (Auto) (0.1-1.2) X10*3/uL Eos # (Auto) (0.0-0.4) X10*3/uL Baso # (Auto) (0.0-0.2) X10*3/uL Abs Immat Gran (auto) (0.00-0.03) X10*3/uL Absolute Neuts (auto) (2.0-8.3) x10*3/uL Absolute Nucleated RBC (0.0-0.012) X10*3/uL Nucleated RBC % (auto) (0.0-0.2) /100WBC Sodium (135-145) mmol/L Potassium (3.3-5.1) mmol/L Chloride (96-108) mmol/L Carbon Dioxide (22-29) mmol/L Anion Gap (12-20) BUN (9-16) mg/dL Creatinine (0.5-1.4) mg/dL Estim Creat Clear Calc Estimated GFR Random Glucose (60-115) mg/dL Lactic Acid 6.4 H* (0.5-2.0) mmol/L Lactic Acid F/U @ 2Hr (0.5-2.0) mmol/L Calcium (8.4-10.2) mg/dL Magnesium (1.6-2.6) mg/dL Total Bilirubin (0.0-1.0) mg/dL AST (5-31) U/L ALT (0-31) U/L Alkaline Phosphatase (39-117) U/L Troponin I High Sens (<3.5-17.0) ng/L Total Protein (6.5-8.0) g/dL Albumin (3.5-5.0) g/dL TSH (0.32-4.0) uIU/mL Urine Color Urine Appearance Urine pH (5.0-9.0) Ur Specific [place] (1.005-1.025) Urine Protein (Neg-Trace) mg/dL Urine Glucose (UA) (Negative) mg/dL Urine Ketones (Negative) mg/dL Urine Blood (Negative) Urine Nitrite (Negative) Ur Leukocyte Esterase (Negative) Urine RBC (0-2) /HPF Urine WBC (0-5) /HPF Ur Squamous Epith Cells (0-2) /HPF Urine Bacteria (None Seen) Hyaline Casts (0-2) /LPF COVID-19 (JOHN) Negative (Negative) COVID-19 Clin Com See Note Influenza Type A (YUVAL) Negative (Negative) Influenza Type B (YUVAL) Negative (Negative) Influenza A & B Note See Note 02/17/22 02/17/22 Range/Units 14:37 15:53 WBC (4.8-10.8) X10*3/uL RBC (4.20-5.50) X10*6/uL Hgb (12.0-16.0) g/dl Hct (37.0-47.0) % MCV (80.0-98.0) fL MCH (27.0-33.0) pg MCHC (31.0-35.0) g/dl RDW (11.0-16.0) % Plt Count (160-400) X10*3/uL MPV (9.4-12.3) fL Immature Gran % (Auto) (0.0-0.4) % Neut % (Auto) (45-73) % Lymph % (Auto) (20-40) % [place] % (Auto) (2-11) % Eos % (Auto) (0-4) % Baso % (Auto) (0-2) % Lymph # (Auto) (1.2-4.9) X10*3/uL [place] # (Auto) (0.1-1.2) X10*3/uL Eos # (Auto) (0.0-0.4) X10*3/uL Baso # (Auto) (0.0-0.2) X10*3/uL Abs Immat Gran (auto) (0.00-0.03) X10*3/uL Absolute Neuts (auto) (2.0-8.3) x10*3/uL Absolute Nucleated RBC (0.0-0.012) X10*3/uL Nucleated RBC % (auto) (0.0-0.2) /100WBC Sodium (135-145) mmol/L Potassium (3.3-5.1) mmol/L Chloride (96-108) mmol/L Carbon Dioxide (22-29) mmol/L Anion Gap (12-20) BUN (9-16) mg/dL Creatinine (0.5-1.4) mg/dL Estim Creat Clear Calc Estimated GFR Random Glucose (60-115) mg/dL Lactic Acid (0.5-2.0) mmol/L Lactic Acid F/U @ 2Hr 5.7 H* (0.5-2.0) mmol/L Calcium (8.4-10.2) mg/dL Magnesium (1.6-2.6) mg/dL Total Bilirubin (0.0-1.0) mg/dL AST (5-31) U/L ALT (0-31) U/L Alkaline Phosphatase (39-117) U/L Troponin I High Sens (<3.5-17.0) ng/L Total Protein (6.5-8.0) g/dL Albumin (3.5-5.0) g/dL TSH (0.32-4.0) uIU/mL Urine Color Yellow Urine Appearance Cloudy Urine pH 5.0 (5.0-9.0) Ur Specific [place] 1.025 (1.005-1.025) Urine Protein Trace (Neg-Trace) mg/dL Urine Glucose (UA) Negative (Negative) mg/dL Urine Ketones Trace (Negative) mg/dL Urine Blood Negative (Negative) Urine Nitrite Negative (Negative) Ur Leukocyte Esterase Moderate (2+) H (Negative) Urine RBC 0-2 (0-2) /HPF Urine WBC 6-10 (0-5) /HPF Ur Squamous Epith Cells 6-10 (0-2) /HPF Urine Bacteria None Seen (None Seen) Hyaline Casts 6-10 (0-2) /LPF COVID-19 (JOHN) (Negative) COVID-19 Clin Com Influenza Type A (YUVAL) (Negative) Influenza Type B (YUVAL) (Negative) Influenza A & B Note Imaging Data Head CT: Attestation: I personally reviewed and interpreted this imaging study as follows: Radiologist's impression: No acute intracranial abnormality including hemorrhage, mass effect, hydrocephalus, or acute territorial edematous infarction. Chest x-ray: Attestation: I personally reviewed and interpreted this imaging study as follows: Radiologist's impression: Unremarkable examination. Abdominal ultrasound: Attestation: I personally reviewed and interpreted this imaging study as follows: Radiologist's impression: Limited due to gallbladder is contracted. Discharge Plan Discharge Clinical Impression: Hypothermia, UTI (urinary tract infection), Acidosis, lactic Patient Disposition: Admitted As Inpatient
[2022-02-17 14:02] LABS: Lactic Acid 6.4 mmol/L (0.5-2.0)
[2022-02-17 14:41] LABS: Thyroid Stimulating Hormone 4.76 uIU/mL (0.32-4.0)
[2022-02-17] MEDS: 0.9 % Sodium Chloride 1,000 ML 999 ML IV (14:42)
[2022-02-17 15:00] LABS: Appearance Urine Cloudy; Color Urine Yellow; Glucose Urine UA Negative (Negative); Leukocyte Esterase Urine Moderate (2+) (Negative); Nitrite Urine Negative (Negative); Specific Gravity - Urine 1.025 (1.005-1.025); UMIC TRIGGER UACC YES; Urine Blood Negative (Negative); Urine Ketones Trace mg/dL (Negative); Urine Protein Trace mg/dL (Neg-Trace)
[2022-02-17 15:06] LABS: Reflex Lactate? Lactic Acid Added
[2022-02-17 15:09] LABS: Bacteria Urine None Seen (None Seen); RBC Urine 0-2 /HPF (0-2); UACC Culture Trigger YES
[2022-02-17 16:17] LABS: ~Lactic Acid-LAB USE ONLY 5.7 mmol/L (0.5-2.0)
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
[2022-02-17 16:40] LABS: TSH reflex Free T4 3.66 uIU/mL (0.32-4.0)
[2022-02-17] MEDS: cefTRIAXone sodium 1 GM in 0.9 % Sodium Chloride 50 ML IV (16:42)
[2022-02-17] MEDS: Levothyroxine Sodium 100 MCG TABLET PO (16:44)
--- NOTE | 2022-02-17 17:14 | PM.IMHP ---
History of Present Illness Date of Service: 02/17/22 Attending physician on admission: Beck Weir Chief Complaint: AMS, off balance 76-year-old female with history of hypertension, woy-[id number] type 2 diabetes, hyperlipidemia, unspecified dementia, microalbuminuria, osteoporosis, and GERD presented to the ED earlier this morning with her son with complaints of confusion, forgetfulness, and gait imbalance. Her son provided most of the history to the ED provider and myself on the phone as patient is disoriented and unable to provide much history. Her son states that the building where she lives is very cold with an improper functioning heating system though the patient denies being cold. Denies any recent fall or injury. On arrival, temperature 91.1 degrees placed on Christian Hugger with improvement to 93.9 on admission. Heart rate tachycardic to 92, no hypotension or hypoxia. WBC 7.0, no anemia. Renal function and electrolyte levels normal. Glucose 173. Lactic acid 6.4 initially and 5.7 on 2 hour recheck. AST 70, ALT 124, alk-phos 172, bilirubin 0.2. Troponin negative. TSH 3.66. Urinalysis only remarkable for 2+ leukocytes, negative nitrites, negative blood, negative bacteria. She was given single dose 1 g ceftriaxone as well as levothyroxine 100 mcg. Review of Systems Review of Systems: Yes Unobtainable due to mental condition [facility] Medical History Cough Diabetes mellitus Essential hypertension GERD (gastroesophageal reflux disease) History of DVT (deep vein thrombosis) Hyperlipidemia LDL goal <70 Long-term use of aspirin therapy Memory loss Microalbuminuria Obesity due to excess calories Type 2 diabetes mellitus with diabetic polyneuropathy Family History Father No problems noted. Mother Colon cancer Son Diabetes Surgical History History of cataract surgery History of total abdominal hysterectomy and bilateral salpingo-oophorectomy Social History Household Members: Family Housing: Apartment Alcohol intake: never Patient Tobacco Use Status: Never used Tobacco e-Cigarette/Vaping Use: Never Used Second Hand Smoke Exposure: No Advance Directives: Yes Advance Directives on File: Yes Advance Directives Date on File: 02/23/21 service: No Current occupational status: disabled Cognitive needs: No Hearing needs: No Vision needs: No Meds Allergies Allergy/AdvReac Type Severity Reaction Status Date / Time No Known Allergies Allergy Verified 11/20/21 08:18 [No Known Allergies*] Active Medications: Current Medications Acetaminophen (Acetaminophen 325 Mg Tablet) 650 mg PO Q6H PRN PRN Reason: Pain, Mild (Pain Scale 1-3) Docusate Sodium (Docusate Sodium 100 Mg Capsule) 100 mg PO DAILY PRN PRN Reason: Constipation Enoxaparin Sodium (Enoxaparin Sodium 40 Mg/0.4 Ml Syringe) 40 mg SUBCUT Q24H HUGO Ceftriaxone Sodium 1 gm/ (Sodium Chloride) 50 mls @ 100 mls/hr IV Q24H HUGO Ondansetron HCl (Ondansetron Hcl 4 Mg/2 Ml Vial) 4 mg IVPUSH Q8H PRN PRN Reason: Nausea and Vomiting Pharmacy Consult (Consult Rx Perform Med Rec) 1 each MISCELLANE ONCE PRN PRN Reason: Consult order Sodium Chloride (0.9 % Sodium Chloride Flush 3 Ml Syringe) 3 ml IVFLUSH QSHIFT [facility] Home Medications Medication Instructions Recorded Confirmed Last Taken Type aspirin 81 mg tablet,delayed 81 mg PO DAILY 02/08/20 11/20/21 Unknown History release (Adult Low Dose Aspirin) multivitamin 1 tab PO DAILY 03/22/20 11/20/21 Unknown History calcium carbonate 600 mg-vitamin cap PO 02/21/21 11/20/21 Unknown History D3 12.5 mcg (500 unit) capsule (Calcium 600 with Vitamin D3) donepezil 10 mg tablet 10 mg PO DAILY 11/20/21 11/20/21 Unknown History Physical Exam Vital Signs and Narrative: Vital Signs: Last Vital Signs Temp 93.9 F L 02/17/22 16:35 Pulse 92 02/17/22 16:35 Resp 15 02/17/22 16:35 BP 126/58 L 02/17/22 16:35 Pulse Ox 98 02/17/22 16:35 O2 Del Method 02/17/22 16:35 BMI result Body Mass Index 34.5 Constitutional - Awake and Alert, No apparent distress Eyes - PERRLA, EOMI Cardiovascular - S1S2, RRR, No edema Respiratory - Normal lung expansion, Normal respiratory effort, No respiratory distress, CTA bilaterally Gastrointestinal - NT / ND; +BS; No rebound or guarding - No CVA tenderness Extremities - no calf tenderness bilaterally, no swelling Musculoskeletal - Normal inspection, normal ROM Skin - Warm/Dry Neurological - Alert & oriented to self only, able to answer simple questions with short answers, CN II-XII in tact,4/5 strength BUE and BLE Psychological - Appropriate affect Results Labs CBC and Chem 7: 02/17/22 13:01 02/17/22 13:01 Labs: Laboratory Results - last 24 hr 02/17/22 02/17/22 02/17/22 13:01 13:01 13:01 MCV 81.9 MCH 25.3 L MCHC 30.8 L RDW 15.6 Plt Count 249 MPV 9.8 Immature Gran % (Auto) 0.4 Neut % (Auto) 82.0 H Lymph % (Auto) 13.2 L [place] % (Auto) 3.9 Eos % (Auto) 0.4 Baso % (Auto) 0.1 Lymph # (Auto) 0.9 L [place] # (Auto) 0.3 Eos # (Auto) 0.0 Baso # (Auto) 0.0 Abs Immat Gran (auto) 0.03 Absolute Neuts (auto) 5.7 Absolute Nucleated RBC 0.000 Nucleated RBC % (auto) 0.0 Anion Gap 19 Estim Creat Clear Calc 72.0 Estimated GFR > 60 Random Glucose 173 H Lactic Acid Lactic Acid F/U @ 2Hr Calcium 9.5 Magnesium 1.7 Total Bilirubin 0.2 AST 70 H ALT 124 H Alkaline Phosphatase 172 H D Troponin I High Sens 3.6 Total Protein 6.7 Albumin 3.6 TSH 4.76 H Urine Color Urine Appearance Urine pH Ur Specific [place] Urine Protein Urine Glucose (UA) Urine Ketones Urine Blood Urine Nitrite Ur Leukocyte Esterase Urine RBC Urine WBC Ur Squamous Epith Cells Urine Bacteria Hyaline Casts COVID-19 (JOHN) COVID-19 Clin Com Influenza Type A (YUVAL) Influenza Type B (YUVAL) Influenza A & B Note 02/17/22 02/17/22 02/17/22 13:02 13:02 13:02 MCV MCH MCHC RDW Plt Count MPV Immature Gran % (Auto) Neut % (Auto) Lymph % (Auto) [place] % (Auto) Eos % (Auto) Baso % (Auto) Lymph # (Auto) [place] # (Auto) Eos # (Auto) Baso # (Auto) Abs Immat Gran (auto) Absolute Neuts (auto) Absolute Nucleated RBC Nucleated RBC % (auto) Anion Gap Estim Creat Clear Calc Estimated GFR Random Glucose Lactic Acid 6.4 H* Lactic Acid F/U @ 2Hr Calcium Magnesium Total Bilirubin AST ALT Alkaline Phosphatase Troponin I High Sens Total Protein Albumin TSH Urine Color Urine Appearance Urine pH Ur Specific [place] Urine Protein Urine Glucose (UA) Urine Ketones Urine Blood Urine Nitrite Ur Leukocyte Esterase Urine RBC Urine WBC Ur Squamous Epith Cells Urine Bacteria Hyaline Casts COVID-19 (JOHN) Negative COVID-19 Clin Com See Note Influenza Type A (YUVAL) Negative Influenza Type B (YUVAL) Negative Influenza A & B Note See Note 02/17/22 02/17/22 02/17/22 14:37 15:53 15:53 MCV MCH MCHC RDW Plt Count MPV Immature Gran % (Auto) Neut % (Auto) Lymph % (Auto) [place] % (Auto) Eos % (Auto) Baso % (Auto) Lymph # (Auto) [place] # (Auto) Eos # (Auto) Baso # (Auto) Abs Immat Gran (auto) Absolute Neuts (auto) Absolute Nucleated RBC Nucleated RBC % (auto) Anion Gap Estim Creat Clear Calc Estimated GFR Random Glucose Lactic Acid Lactic Acid F/U @ 2Hr 5.7 H* Calcium Magnesium Total Bilirubin AST ALT Alkaline Phosphatase Troponin I High Sens Total Protein Albumin TSH 3.66 Urine Color Yellow Urine Appearance Cloudy Urine pH 5.0 Ur Specific [place] 1.025 Urine Protein Trace Urine Glucose (UA) Negative Urine Ketones Trace Urine Blood Negative Urine Nitrite Negative Ur Leukocyte Esterase Moderate (2+) H Urine RBC 0-2 Urine WBC 6-10 Ur Squamous Epith Cells 6-10 Urine Bacteria None Seen Hyaline Casts 6-10 COVID-19 (JOHN) COVID-19 Clin Com Influenza Type A (YUVAL) Influenza Type B (YUVAL) Influenza A & B Note Imaging Radiologist's Impressions: Impressions Head CT 02/17/22 13:48 IMPRESSION: No acute intracranial abnormality including hemorrhage, mass effect, hydrocephalus, or acute territorial edematous infarction. Chest X-Ray 02/17/22 13:55 IMPRESSION: Unremarkable examination. Abdomen Ultrasound 02/17/22 15:09 IMPRESSION: Limited exam as patient ate before the exam. Echogenic gravel suspected along the dependent portion of the gallbladder. The gallbladder is contracted. Assessment and Plan (1) Hypothermia: Status: Acute (2) UTI (urinary tract infection): Status: Acute (3) Severe sepsis: Status: Acute Plan 76-year-old female with history of hypertension, [id number] type 2 diabetes, hyperlipidemia, unspecified dementia, microalbuminuria, osteoporosis, and GERD admitted for probable UTI with severe sepsis and hypothermia. #Severe sepsis- secondary to probable UTI -Hypothermic to 91.1 degrees with HR >90, and lactic acidosis 6.4 -> 5.7 following 1L IVF -Lactic acidosis also secondary to hypothermia, not infection alone -Repeat lactic acid pending -Admit to telemetry for close monitoring VS -Continue christian hugger #Probable UTI -UA 2+ leukocytes, negative nitrites, negative blood, no bacteria on UA -follow UC and blood cultures -continue ceftriaxone 1 g daily # metabolic encephalopathy with baseline unspecified dementia-likely secondary to UTI with severe sepsis -confusion increased from baseline per her son -CT head negative for any acute intracranial abnormality -continued in donepazil # yfq-heuanfo-cetniwacc type 2 diabetes -POC glucose -diabetic diet -Humalog on sliding scale -hold metformin # hypertension-reasonably controlled -continue amlodipine # hyperlipidemia -continue statin # osteoporosis -continue alendronate weekly # GERD -continue PPI DVT prophylaxis-Lovenox Full code her healthcare proxy, sonKemar Patient requires inpatient stay of at least 2 midnights for management of probable UTI with severe sepsis with metabolic encephalopathy and hypothermia requiring Christian Hugger, IV antibiotics, and IV fluids Quality Stroke Does the patient have a stroke diagnosis?: No VTE Prior VTE?: No VTE Risk Level:: Medical - moderate - high VTE Device Contraindication: Treatment Not Indicated VTE Drug Contraindication: N/A - Med Ordered
[2022-02-17 17:57] LABS: Reflex Lactate? 2 Y
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
[2022-02-17 18:27] LABS: ~Lactic Acid-LAB USE ONLY 3.4 mmol/L (0.5-2.0)
[2022-02-17 19:20] LABS: Glucose, Whole Blood 82 mg/dL (60-115)
--- NOTE | 2022-02-17 20:05 | PC.NURSE ---
Assumed care for pt. Pt alert and oriented to self and place. No apparent distress noted. Bear hugger in place. Current core temp 97.9F. Son, Yohannes Asher, at bedside. Pt and son aware of plan of care.
[2022-02-17] MEDS: Enoxaparin Sodium 40 MG/0.4 ML SYRINGE SUBCUT (20:08)
--- NOTE | 2022-02-17 20:45 | PC.NURSE ---
Thanh valdez removed. Current core temp 98.4F Pt aox3. No apparent distress noted. Pt and son aware of plan of care.
[2022-02-17 22:11] LABS: Glucose, Whole Blood 95 mg/dL (60-115)
[2022-02-17] MEDS: 0.9 % Sodium Chloride Flush 3 ML SYRINGE IVFLUSH (23:21)
--- NOTE | 2022-02-18 05:07 | PC.NURSE ---
Pt incontinent of urine. Pericare provided.
[2022-02-18 07:01] LABS: MANUAL DIFF FLAG NO
[2022-02-18 07:04] LABS: Basophils Percent Auto 0.1 % (0-2); Eosinophils Percent Auto 0.3 % (0-4); Hematocrit 35.8 % (37.0-47.0); Hemoglobin 11.1 g/dl (12.0-16.0); Imm Gran Abs Auto 0.02 X10*3/uL (0.00-0.03); Imm Gran Pct Auto 0.3 % (0.0-0.4); Lymphocytes Absolute Auto 1.5 X10*3/uL (1.2-4.9); Lymphocytes Percent Auto 21.5 % (20-40); Mean Corpuscular Hemoglobin 24.9 pg (27.0-33.0); Mean Corpuscular Volume 80.4 fL (80.0-98.0); Mean Platelet Volume 10.4 fL (9.4-12.3); Monocytes Absolute Auto 0.7 X10*3/uL (0.1-1.2); Monocytes Percent Auto 9.5 % (2-11); Neutrophils Absolute Auto 4.8 x10*3/uL (2.0-8.3); Neutrophils Percent Auto 68.3 % (45-73); Platelet Count 268 X10*3/uL (160-400); Red Blood Count 4.45 X10*6/uL (4.20-5.50); Red Cell Distribution Width 16.1 % (11.0-16.0)
[2022-02-18 07:09] VITALS: BP 127/52; PULSE 102; RESP 19; TEMP 36.7; O2SAT 95
[2022-02-18 07:27] LABS: Alanine Aminotransferase 118 U/L (0-31); Albumin Level 3.2 g/dL (3.5-5.0); Alkaline Phosphatase 145 U/L (39-117); Anion Gap 14 (12-20); Aspartate Amino Transferase 71 U/L (5-31); Bilirubin Total 0.2 mg/dL (0.0-1.0); Blood Urea Nitrogen 21 mg/dL (9-16); Calcium 9.1 mg/dL (8.4-10.2); Carbon Dioxide 23 mmol/L (22-29); Chloride 107 mmol/L (96-108); Creatinine Clr Calc Pharmacy 65.4; Estimated Glomerular Filt Rate > 60; Glucose Random 82 mg/dL (60-115); Potassium 4.9 mmol/L (3.3-5.1); Sodium 139 mmol/L (135-145); Total Protein 5.9 g/dL (6.5-8.0)
[2022-02-18 07:41] LABS: Glucose, Whole Blood 89 mg/dL (60-115)
--- NOTE | 2022-02-18 08:27 | PC.NURSE ---
report taken from liban rn pt here for si thoughts withut specific plan per previous shift rn. pt given medications to relax, resting at this time rr even unlabored w sitter at bedside for safety. bhn smart sheet sent for crisis eval by this rn. pt compliant with lab draw for tech, calm and cooperative at this time.
--- NOTE | 2022-02-18 08:31 | PC.NURSE ---
report taken from liban mcdonald pt here for cough and upper resp s/s, flu+. hx of diabetes and asthma, rr even unlabored on room air. offers no new complaints at this time, sts cough is improving. tolerating po without issue, seen by hospitalist today and fluids dc as well as advancing diet, potential for discharge this afternoon. pt agreeable to care plan at this time.
--- NOTE | 2022-02-18 08:41 | PHA.MEDREC ---
Pharmacy Consult ? Medication Reconciliation Pharmacy has completed the medication reconciliation. Patient's daughter has medication list that match claim history. Richard GibbsD
--- NOTE | 2022-02-18 09:13 | HO.PM.IMPN ---
Subjective Subjective Date of Service: 02/18/22 Interval History: Seen in follow up for hypothermia, AMS, ?UTI Interval history: Pt seen at bedside with her son who is healthcare proxy. He reports mental status today is baseline (oriented to self and place). Apparently there has been a question as to whether patient's heat has been working appropriately for some time and her son has not brought this up to the [facility]. Apparently when he has his sister go to the patient's apartment, they put sweatshirts on and are comfortable. The mother has asked for a blanket at times but has otherwise not stated she is cold. Today, the patient reports feeling much better than yesterday. Reports general weakness. No cp, palps, lightheadedness, sob, abd pain, n/v, diarrhea, or urinary symtoms. Review of Systems General: No fevers, malaise, unintentional weight loss HEENT: No blurred vision, diplopia. Cardiovascular: No chest pain, palpitations Respiratory: No shortness of breath, wheezing, cough GI: No abdominal pain, nausea, vomiting, diarrhea, constipation, melena, hematochezia : No dysuria, hematuria, increased urinary frequency MSK: No myalgia, back pain Neuro: +generalized weakness. No headaches, paresthesias Skin: No rashes or lesions Physical Exam Vital Signs: Vital Signs: Last Vital Signs Temp 98.0 F 02/18/22 07:09 Pulse 102 H 02/18/22 07:09 Resp 19 02/18/22 07:09 BP 127/52 L 02/18/22 07:09 Pulse Ox 95 02/18/22 07:09 O2 Del Method 02/18/22 07:09 BMI result Body Mass Index 34.5 Constitutional - Awake and Alert, No apparent distress Eyes - PERRLA, EOMI Cardiovascular - S1S2, RRR, 1+ ble edema Respiratory - Normal lung expansion, Normal respiratory effort, No respiratory distress, CTA bilaterally Gastrointestinal - NT / ND; +BS; No rebound or guarding Extremities - no calf tenderness bilaterally, no swelling Skin - Warm/Dry Neurological - Alert & oriented to self and place, able to answer simple questions, 4/5 strength BUE and 3/5 strength BLE Psychological - Appropriate affect Objective Data Active Medications Acetaminophen (Acetaminophen 325 Mg Tablet) 650 mg PO Q6H PRN PRN Reason: Pain, Mild (Pain Scale 1-3) Dextrose (Dextrose 50 % 25 Gm/50 Ml Syringe) 25 gm IVPUSH Q15M PRN; Protocol PRN Reason: per Hypoglycemia Standing Ord. Docusate Sodium (Docusate Sodium 100 Mg Capsule) 100 mg PO DAILY PRN PRN Reason: Constipation Enoxaparin Sodium (Enoxaparin Sodium 40 Mg/0.4 Ml Syringe) 40 mg SUBCUT Q24H [facility] Last Admin: 02/17/22 20:08 Dose: 40 mg Documented By: ANNABELLE Glucose (Glucose Gel 15 Gm Gel..Gram.) 15 gm PO Q15M PRN; Protocol PRN Reason: per Hypoglycemia Standing Ord. Ceftriaxone Sodium 1 gm/ (Sodium Chloride) 50 mls @ 100 mls/hr IV Q24H [facility] Insulin Human Lispro (Insulin Lispro 100 Unit/Ml 3 Ml Vial) 0 unit SUBCUT QIDACHS [facility]; Protocol Last Admin: 02/18/22 07:37 Dose: Not Given Documented By: EDUARDO Non-Admin Reason: No Insulin Coverage Ondansetron HCl (Ondansetron Hcl 4 Mg/2 Ml Vial) 4 mg IVPUSH Q8H PRN PRN Reason: Nausea and Vomiting Pharmacy Consult (Consult Rx Perform Med Rec) 1 each MISCELLANE ONCE PRN PRN Reason: Consult order Sodium Chloride (0.9 % Sodium Chloride Flush 3 Ml Syringe) 3 ml IVFLUSH QSHIFT [facility] Last Admin: 02/18/22 06:48 Dose: Not Given Documented By: EDUARDO Non-Admin Reason: Med Not Available Labs CBC & Chem 7: 02/18/22 06:19 02/18/22 06:19 Labs: Laboratory Results - last 24 hr 02/17/22 02/17/22 02/17/22 13:01 13:01 13:01 MCV 81.9 MCH 25.3 L MCHC 30.8 L RDW 15.6 Plt Count 249 MPV 9.8 Immature Gran % (Auto) 0.4 Neut % (Auto) 82.0 H Lymph % (Auto) 13.2 L [place] % (Auto) 3.9 Eos % (Auto) 0.4 Baso % (Auto) 0.1 Lymph # (Auto) 0.9 L [place] # (Auto) 0.3 Eos # (Auto) 0.0 Baso # (Auto) 0.0 Abs Immat Gran (auto) 0.03 Absolute Neuts (auto) 5.7 Absolute Nucleated RBC 0.000 Nucleated RBC % (auto) 0.0 Anion Gap 19 Estim Creat Clear Calc 72.0 Estimated GFR > 60 POC Glucose Random Glucose 173 H Lactic Acid Lactic Acid F/U @ 2Hr Lactic Acid F/U @ 4Hr Calcium 9.5 Magnesium 1.7 Total Bilirubin 0.2 AST 70 H ALT 124 H Alkaline Phosphatase 172 H D Troponin I High Sens 3.6 Total Protein 6.7 Albumin 3.6 TSH 4.76 H Urine Color Urine Appearance Urine pH Ur Specific [place] Urine Protein Urine Glucose (UA) Urine Ketones Urine Blood Urine Nitrite Ur Leukocyte Esterase Urine RBC Urine WBC Ur Squamous Epith Cells Urine Bacteria Hyaline Casts COVID-19 (JOHN) COVID-19 Clin Com Influenza Type A (YUVAL) Influenza Type B (YUVAL) Influenza A & B Note 02/17/22 02/17/22 02/17/22 13:02 13:02 13:02 MCV MCH MCHC RDW Plt Count MPV Immature Gran % (Auto) Neut % (Auto) Lymph % (Auto) [place] % (Auto) Eos % (Auto) Baso % (Auto) Lymph # (Auto) [place] # (Auto) Eos # (Auto) Baso # (Auto) Abs Immat Gran (auto) Absolute Neuts (auto) Absolute Nucleated RBC Nucleated RBC % (auto) Anion Gap Estim Creat Clear Calc Estimated GFR POC Glucose Random Glucose Lactic Acid 6.4 H* Lactic Acid F/U @ 2Hr Lactic Acid F/U @ 4Hr Calcium Magnesium Total Bilirubin AST ALT Alkaline Phosphatase Troponin I High Sens Total Protein Albumin TSH Urine Color Urine Appearance Urine pH Ur Specific [place] Urine Protein Urine Glucose (UA) Urine Ketones Urine Blood Urine Nitrite Ur Leukocyte Esterase Urine RBC Urine WBC Ur Squamous Epith Cells Urine Bacteria Hyaline Casts COVID-19 (JOHN) Negative COVID-19 [place] Com See Note Influenza Type A (YUVAL) Negative Influenza Type B (YUVAL) Negative Influenza A & B Note See Note 02/17/22 02/17/22 02/17/22 14:37 15:53 15:53 MCV MCH MCHC RDW Plt Count MPV Immature Gran % (Auto) Neut % (Auto) Lymph % (Auto) [place] % (Auto) Eos % (Auto) Baso % (Auto) Lymph # (Auto) [place] # (Auto) Eos # (Auto) Baso # (Auto) Abs Immat Gran (auto) Absolute Neuts (auto) Absolute Nucleated RBC Nucleated RBC % (auto) Anion Gap Estim Creat Clear Calc Estimated GFR POC Glucose Random Glucose Lactic Acid Lactic Acid F/U @ 2Hr 5.7 H* Lactic Acid F/U @ 4Hr Calcium Magnesium Total Bilirubin AST ALT Alkaline Phosphatase Troponin I High Sens Total Protein Albumin TSH 3.66 Urine Color Yellow Urine Appearance Cloudy Urine pH 5.0 Ur Specific [place] 1.025 Urine Protein Trace Urine Glucose (UA) Negative Urine Ketones Trace Urine Blood Negative Urine Nitrite Negative Ur Leukocyte Esterase Moderate (2+) H Urine RBC 0-2 Urine WBC 6-10 Ur Squamous Epith Cells 6-10 Urine Bacteria None Seen Hyaline Casts 6-10 COVID-19 (JOHN) COVID-19 Clin Com Influenza Type A (YUVAL) Influenza Type B (YUVAL) Influenza A & B Note 02/17/22 02/17/22 02/17/22 18:10 19:16 21:57 MCV MCH MCHC RDW Plt Count MPV Immature Gran % (Auto) Neut % (Auto) Lymph % (Auto) [place] % (Auto) Eos % (Auto) Baso % (Auto) Lymph # (Auto) [place] # (Auto) Eos # (Auto) Baso # (Auto) Abs Immat Gran (auto) Absolute Neuts (auto) Absolute Nucleated RBC Nucleated RBC % (auto) Anion Gap Estim Creat Clear Calc Estimated GFR POC Glucose 82 95 Random Glucose Lactic Acid Lactic Acid F/U @ 2Hr Lactic Acid F/U @ 4Hr 3.4 H* Calcium Magnesium Total Bilirubin AST ALT Alkaline Phosphatase Troponin I High Sens Total Protein Albumin TSH Urine Color Urine Appearance Urine pH Ur Specific [place] Urine Protein Urine Glucose (UA) Urine Ketones Urine Blood Urine Nitrite Ur Leukocyte Esterase Urine RBC Urine WBC Ur Squamous Epith Cells Urine Bacteria Hyaline Casts COVID-19 (JOHN) COVID-19 Clin Com Influenza Type A (YUVAL) Influenza Type B (YUVAL) Influenza A & B Note 02/18/22 02/18/22 02/18/22 06:19 06:19 07:15 MCV 80.4 MCH 24.9 L MCHC 31.0 RDW 16.1 H Plt Count 268 MPV 10.4 Immature Gran % (Auto) 0.3 Neut % (Auto) 68.3 Lymph % (Auto) 21.5 [place] % (Auto) 9.5 Eos % (Auto) 0.3 Baso % (Auto) 0.1 Lymph # (Auto) 1.5 [place] # (Auto) 0.7 Eos # (Auto) 0.0 Baso # (Auto) 0.0 Abs Immat Gran (auto) 0.02 Absolute Neuts (auto) 4.8 Absolute Nucleated RBC 0.000 Nucleated RBC % (auto) 0.0 Anion Gap 14 Estim Creat Clear Calc 65.4 Estimated GFR > 60 POC Glucose 89 Random Glucose 82 Lactic Acid Lactic Acid F/U @ 2Hr Lactic Acid F/U @ 4Hr Calcium 9.1 Magnesium Total Bilirubin 0.2 AST 71 H ALT 118 H Alkaline Phosphatase 145 H Troponin I High Sens Total Protein 5.9 L Albumin 3.2 L TSH Urine Color Urine Appearance Urine pH Ur Specific [place] Urine Protein Urine Glucose (UA) Urine Ketones Urine Blood Urine Nitrite Ur Leukocyte Esterase Urine RBC Urine WBC Ur Squamous Epith Cells Urine Bacteria Hyaline Casts COVID-19 (JOHN) COVID-19 Clin Com Influenza Type A (YUVAL) Influenza Type B (YUVAL) Influenza A & B Note Assessment and Plan (1) Severe sepsis: Status: Acute (2) Hypothermia: Status: Acute (3) UTI (urinary tract infection): Status: Acute Plan 76-year-old female with history of hypertension, [id number]-mleluembq type 2 diabetes, hyperlipidemia, unspecified dementia, microalbuminuria, osteoporosis, and GERD admitted for probable UTI with severe sepsis and hypothermia. #SIRS criteria- likely all secondary to hypothermia, rather than severe sepsis -Hypothermia has resolved, remains tachycardic which is in response to stress r/t the hypothermia. Lactic acid secondary to hypothermia, down to 3.4 likely due to oxidative stress -Admit to telemetry for close monitoring VS -Discontinue christian hugger- patient normothermic #Hypothermia- most likely environmental rather than related to severe sepsis -There is question of slight question of UTI, but patient is asymptomatic. Less likely to cause such a severe sepsis response -Discussed with son the heat in the patient's apt. It appears it has not been working well for some time. He and his sister requrie sweatshirts and his mother has asked for a blanket though does deny being cold. 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 Nursing has reported case to [facility] -I am recommending PT for pt given generalized weakness and considersation for STR while her housing/heat can be evaluated. -CPK 355. Trop negative. Treated with IVF. Encourage PO fluids -Continue telemetry #?UTI -UA 2+ leukocytes, negative nitrites, negative blood, no bacteria on UA -follow UC and blood cultures -continue ceftriaxone 1 g daily # metabolic encephalopathy- resolved to baseline unspecified dementia-likely secondary to hypothermia -CT head negative for any acute intracranial abnormality -continued in donepazil # nyp-yfnmxla-keibtsxoe type 2 diabetes -POC glucose -diabetic diet -Humalog on sliding scale -hold metformin # hypertension-reasonably controlled -continue amlodipine # hyperlipidemia -continue statin # osteoporosis -continue alendronate weekly # GERD -continue PPI DVT prophylaxis-Lovenox Full code her healthcare proxy, son, Kemar Patient requires ongoing inpt stay for management of hypothermia with patient still experiencing evidence of stress reaction to environmental hypothermia with tachycardia requiring ongoing cardiac monitoring as patient is at risk for arryhthmia. Quality Stroke Does the patient have a stroke diagnosis?: No VTE Prior VTE?: No VTE Risk Level:: Medical - moderate - high VTE Device Contraindication: Treatment Not Indicated VTE Drug Contraindication: N/A - Med Ordered
[2022-02-18 11:45] LABS: Glucose, Whole Blood 105 mg/dL (60-115)
[2022-02-18] MEDS: amLODIPine Besylate 2.5 MG TABLET PO (12:33)
[2022-02-18] MEDS: Multivitamin TABLET 1 TAB PO (12:33)
[2022-02-18] MEDS: Donepezil HCl 10 MG TABLET PO ×2 (12:33→21:12)
[2022-02-18] MEDS: Aspirin Enteric Coated 81 MG TABLET.DR PO (12:33)
[2022-02-18 14:20] VITALS: BP 146/60; PULSE 97; RESP 14; TEMP 36.8; O2SAT 98
[2022-02-18] MEDS: cefTRIAXone sodium 1 GM in 0.9 % Sodium Chloride 50 ML IV (17:19)
[2022-02-18 20:08] LABS: Glucose, Whole Blood 103 mg/dL (60-115)
[2022-02-18 20:52] LABS: Glucose, Whole Blood 190 mg/dL (60-115)
[2022-02-18 21:02] VITALS: BMI 34.5
[2022-02-18] MEDS: Atorvastatin Calcium 40 MG TABLET PO (21:11)
[2022-02-18] MEDS: Insulin Lispro 100 UNIT/ML 3 ML VIAL SUBCUT (21:12)
[2022-02-18] MEDS: 0.9 % Sodium Chloride Flush 3 ML SYRINGE IVFLUSH (21:20)
[2022-02-19] VITALS: BP 160/73; PULSE 96; RESP 18; TEMP 36.3; O2SAT 95
[2022-02-19 04:00] VITALS: BP 163/75; PULSE 96; RESP 18; TEMP 36.7; O2SAT 96
[2022-02-19 07:13] LABS: MANUAL DIFF FLAG NO
[2022-02-19 07:17] LABS: Basophils Percent Auto 0.2 % (0-2); Eosinophils Percent Auto 0.2 % (0-4); Hematocrit 36.3 % (37.0-47.0); Hemoglobin 11.4 g/dl (12.0-16.0); Imm Gran Abs Auto 0.02 X10*3/uL (0.00-0.03); Imm Gran Pct Auto 0.2 % (0.0-0.4); Lymphocytes Absolute Auto 2.2 X10*3/uL (1.2-4.9); Lymphocytes Percent Auto 26.5 % (20-40); Mean Corpuscular HGB Conc 31.4 g/dl (31.0-35.0); Mean Corpuscular Hemoglobin 25.1 pg (27.0-33.0); Mean Corpuscular Volume 79.8 fL (80.0-98.0); Mean Platelet Volume 9.6 fL (9.4-12.3); Monocytes Absolute Auto 0.8 X10*3/uL (0.1-1.2); Monocytes Percent Auto 9.5 % (2-11); Neutrophils Absolute Auto 5.3 x10*3/uL (2.0-8.3); Neutrophils Percent Auto 63.4 % (45-73); Platelet Count 258 X10*3/uL (160-400); Red Blood Count 4.55 X10*6/uL (4.20-5.50); Red Cell Distribution Width 16.2 % (11.0-16.0); White Blood Count 8.3 X10*3/uL (4.8-10.8)
[2022-02-19 07:32] LABS: Alanine Aminotransferase 127 U/L (0-31); Albumin Level 3.3 g/dL (3.5-5.0); Alkaline Phosphatase 146 U/L (39-117); Anion Gap 13 (12-20); Aspartate Amino Transferase 69 U/L (5-31); Bilirubin Total 0.3 mg/dL (0.0-1.0); Blood Urea Nitrogen 19 mg/dL (9-16); Calcium 9.4 mg/dL (8.4-10.2); Carbon Dioxide 24 mmol/L (22-29); Chloride 103 mmol/L (96-108); Creatinine Clr Calc Pharmacy 62.9; Estimated Glomerular Filt Rate > 60; Glucose Random 109 mg/dL (60-115); Potassium 4.5 mmol/L (3.3-5.1); Sodium 135 mmol/L (135-145); Total Protein 6.2 g/dL (6.5-8.0)
[2022-02-19 07:39] VITALS: BP 144/64; PULSE 91; RESP 20; TEMP 36.3; O2SAT 96
[2022-02-19 07:49] LABS: Glucose, Whole Blood 107 mg/dL (60-115)
[2022-02-19] MEDS: Omeprazole 20 MG CAPSULE.DR PO (09:11)
[2022-02-19] MEDS: Multivitamin TABLET 1 TAB PO (09:11)
[2022-02-19] MEDS: Aspirin Enteric Coated 81 MG TABLET.DR PO (09:11)
[2022-02-19] MEDS: amLODIPine Besylate 2.5 MG TABLET PO (09:11)
[2022-02-19] MEDS: 0.9 % Sodium Chloride Flush 3 ML SYRINGE IVFLUSH (09:12)
[2022-02-19 10:01] VITALS: BP 144/64; PULSE 91; O2SAT 96
[2022-02-19 11:07] LABS: Glucose, Whole Blood 226 mg/dL (60-115)
[2022-02-19] MEDS: Insulin Lispro 100 UNIT/ML 3 ML VIAL SUBCUT (11:19)
[2022-02-19 11:30] VITALS: BP 136/65; PULSE 83; RESP 20; TEMP 36.6; O2SAT 96
--- NOTE | 2022-02-19 12:59 | MHC.CM.PN ---
Addendum entered by Caity Josue 02/19/22 13:40: Her son is [employer] and HCP. Per MD Son will provide transportation at discharge. Spoke with patient via park interpreter. The patient stated that she was not cold at home. A message has been received from Tiffany XINTEC [phone]. A VM was left informing of discharge today. Contact info left for return call. Original Note: IMM 02/18/22 Female 76 Is discharged home today. Family provides assist. Patients son is [employer]
--- NOTE | 2022-02-19 13:18 | W.MHC.F2F ---
Service Date Service Date: 02/19/22 Encounter Date of encounter: 02/19/22 Reasons for Services Signs and symptoms assessed: generalized weakness/hypothermia Reason for intermediate: diabetic teaching and medication management Reason for occupational therapy: home safety and mobility and gait/transfer training Homebound: Leaving the home is medically contraindicated at this time without the asist of a device and/or another person due th the listed conditions above and below. Reason homebound: unsteady gait / fall risk Certification: Based on the above findings, I certify that this patient is confined to the home and needs intermittent intermediate care, physical therapy and/or speech therapy, or continues to need occupational therapy. The patient is under my care, and I have initiated the establishment of the plan of care. The patient will be followed by a physician who will periodically review the plan of care.
--- NOTE | 2022-02-19 13:20 | PM.DS ---
DS: Providers Provider Date of Service: 02/19/22 Date of admission: 02/17/22 17:05 Primary care physician: Rachna Lewis MD DS: Diagnosis Discharge Diagnosis (1) Severe sepsis: Status: Acute (2) Hypothermia: Status: Acute (3) UTI (urinary tract infection): Status: Acute DS: Summary Hospital Course Hospital Course: history of presenting illness Chief Complaint: AMS, off balance 76-year-old female with history of hypertension, pcd-iwjvhhy-bvxwfaeis type 2 diabetes, hyperlipidemia, unspecified dementia, microalbuminuria, osteoporosis, and GERD presented to the ED earlier this morning with her son with complaints of confusion, forgetfulness, and gait imbalance.? Her son provided most of the history to the ED provider and myself on the phone as patient is disoriented and unable to provide much history.? Her son states that the building where she lives is very cold with an improper functioning heating system though the patient denies being cold.? Denies any recent fall or injury.? On arrival, temperature 91.1 degrees placed on Estefanía Hugger with improvement to 93.9 on admission.? Heart rate tachycardic to 92, no hypotension or hypoxia.? WBC 7.0, no anemia.? Renal function and electrolyte levels normal.? Glucose 173.? Lactic acid 6.4 initially and 5.7 on 2 hour recheck.? AST 70, ALT 124, alk-phos 172, bilirubin 0.2.? Troponin negative.? TSH 3.66.? Urinalysis only remarkable for 2+ leukocytes, negative nitrites, negative blood, negative bacteria.? She was given single dose 1 g ceftriaxone as well as levothyroxine 100 mcg. hospital course 76-year-old female with history of hypertension, yzj-ehhglhq-gbnbwftoh type 2 diabetes, hyperlipidemia, unspecified dementia, microalbuminuria, osteoporosis, and GERD admitted for probable UTI and hypothermia. #SIRS criteria- likely all secondary to hypothermia, rather than severe sepsis, hypothermia and tachycardia resolved, lactic acid down to 3.4, recommended to stop metformin. #Hypothermia- most likely environmental rather than related to infection initially thought to have severe sepsis but that was ruled out, urine culture grew mixed ariane hypothermia resolved, hypothermia likely related to home heating not functioning well, as per son heat is functioning fine at home, patient seems to be at her baseline, was evaluated by Physical therapy due to generalized weakness they recommend home PT, at present patient is feeding herself offers no acute complaints, is hemodynamically stable therefore being discharged home with family son is healthcare proxy she is being discharged with VNA and PT service # metabolic encephalopathy- resolved to baseline unspecified dementia-likely secondary to hypothermia,CT head negative for any acute intracranial abnormality,continue donepazil # vfn-ihpjcyo-fpkztejpd type 2 diabetes, blood sugars stable due to elevated lactic acid will discontinue metformin and place patient on glipizide 5 mg daily dose of glipizide can be increased to b.i.d. recommend to continue diabetic diet and Trulicity # hypertension-continue amlodipine # hyperlipidemia -continue statin # osteoporosis -continue alendronate weekly # GERD -continue PPI Time Spent with Patient Time attestation: Total time spent providing and/or coordinating discharge services: Discharge coordination time: Greater than 30 minutes Quality: Safe Use of Opioids Does Pt have an Active Cancer Diagnosis on the Problem List?: No Quality: Stroke Does the patient have a stroke diagnosis?: No Physical Exam Vital Signs: Vital Signs: Last Vital Signs Temp 97.9 F 02/19/22 11:30 Pulse 83 02/19/22 11:30 Resp 20 02/19/22 11:30 BP 136/65 02/19/22 11:30 Pulse Ox 96 02/19/22 11:30 O2 Del Method 02/19/22 11:30 BMI result Body Mass Index 34.5 Const: Other: Constitutional - A wake and Alert, No apparent distress Cardiovascular - S1S2, RRR, 1+ ble edema Respiratory - Normal lung expa nsion, Normal resp iratory effort, No respiratory distr ess, CTA bilateral ly Gastrointestina l - soft nontende r bowel sounds aud ible Extremities - no calf tendernes s bilaterally, no swelling Skin - Wa rm/Dry Neurologica l - Alert & orient ed to self and irving ce, able to answer simple questions, 4/5 strength BUE and 3/5 strength B LE Psychological - Appropriate affec t DS: Data Data Completed and Pending Labs on day of discharge: Laboratory Results - last 24 hr 02/18/22 02/18/22 02/19/22 19:20 20:47 07:02 WBC 8.3 RBC 4.55 Hgb 11.4 L Hct 36.3 L MCV 79.8 L MCH 25.1 L MCHC 31.4 RDW 16.2 H Plt Count 258 MPV 9.6 Immature Gran % (Auto) 0.2 Neut % (Auto) 63.4 Lymph % (Auto) 26.5 [place] % (Auto) 9.5 Eos % (Auto) 0.2 Baso % (Auto) 0.2 Lymph # (Auto) 2.2 [place] # (Auto) 0.8 Eos # (Auto) 0.0 Baso # (Auto) 0.0 Abs Immat Gran (auto) 0.02 Absolute Neuts (auto) 5.3 Absolute Nucleated RBC 0.000 Nucleated RBC % (auto) 0.0 Sodium Potassium Chloride Carbon Dioxide Anion Gap BUN Creatinine Estim Creat Clear Calc Estimated GFR POC Glucose 103 190 H Random Glucose Calcium Total Bilirubin AST ALT Alkaline Phosphatase Total Protein Albumin 02/19/22 02/19/22 02/19/22 07:02 07:43 10:58 WBC RBC Hgb Hct MCV MCH MCHC RDW Plt Count MPV Immature Gran % (Auto) Neut % (Auto) Lymph % (Auto) [place] % (Auto) Eos % (Auto) Baso % (Auto) Lymph # (Auto) [place] # (Auto) Eos # (Auto) Baso # (Auto) Abs Immat Gran (auto) Absolute Neuts (auto) Absolute Nucleated RBC Nucleated RBC % (auto) Sodium 135 Potassium 4.5 Chloride 103 Carbon Dioxide 24 Anion Gap 13 BUN 19 H Creatinine 0.79 Estim Creat Clear Calc 62.9 Estimated GFR > 60 POC Glucose 107 226 H Random Glucose 109 Calcium 9.4 Total Bilirubin 0.3 AST 69 H ALT 127 H Alkaline Phosphatase 146 H Total Protein 6.2 L Albumin 3.3 L Preliminary micro results at discharge 02/17/22 13:00 Blood Culture - Preliminary Blood - Venous No growth after 24 hours. 02/17/22 13:01 Blood Culture - Preliminary Blood - Venous No growth after 24 hours. Discharge Plan Discharge Anticipated Discharge Date/Time: 02/19/22 13:02 Patient Disposition: Home Health Service Discharge Diagnosis: hypothermia lactic acidosis Referrals: Rachna Corral MD [Primary Care Provider] - 1 Week Discharge Medications: New glipizide 5 mg tablet 5 mg PO DAILY Qty: 30 0RF Continued omeprazole 20 mg capsule,delayed release(DR/EC) 20 mg PO DAILY 90 Days Qty: 90 3RF atorvastatin 40 mg tablet 40 mg PO BEDTIME Qty: 90 1RF amlodipine 2.5 mg tablet 2.5 mg PO DAILY Qty: 90 0RF aspirin [Adult Low Dose Aspirin] 81 mg tablet,delayed release (DR/EC) 81 mg PO DAILY donepezil 10 mg tablet 10 mg PO DAILY multivitamin Tablet 1 tab PO DAILY alendronate 70 mg tablet 70 mg PO QWEEK Qty: 14 3RF Trulicity 3 mg/0.5 mL pen injector 3 mg subcut QWEEK 84 Days Qty: 6 1RF Discontinued metformin 500 mg tablet extended release 24 hr 1,000 mg PO BID Qty: 360 1RF Discharge Orders: Discharge Order (Routine); Ordered 02/19/22 Ordered By: Tra Oscar Diet: Diabetic diet Activity on Discharge: As tolerated Stand Alone Forms: Patient Portal Discharge page Care Plan Goals: hypothermia resolved, stay warm, noted to have lactic acidosis stop using metformin you have been started on glipizide in place of metformin follow diabetic diet generalized weakness being discharged home with physical therapy Health Concerns: diabetes mellitus, unspecified dementia continue all home medication , stop metformin Plan of Treatment: outpatient follow-up with primary care physician call for appointment Assessment: as above
== END 2022-02-19 15:13 | disposition home health service (06) | DRG 922 ==
LOC: HO.ED 16:11 → HO.EDOVER 17:17 → HO.IMC 02-18 17:31
PROVIDERS: Nurse Practitioner Family; Admitting Provider Physician Assistant; Emergency Provider Emergency Medicine; PCP Internal Medicine; Visit Provider Hospitalist
DX: T68.XXXA Hypothermia, initial encounter (principal); G93.41 Metabolic encephalopathy; E87.20 Acidosis, unspecified; R65.10 Systemic inflammatory response syndrome (SIRS) of non-infectious origin without acute organ dysfunction; X31.XXXA Exposure to excessive natural cold, initial encounter; K21.9 Gastro-esophageal reflux disease without esophagitis; E78.5 Hyperlipidemia, unspecified; E03.9 Hypothyroidism, unspecified; F03.90 Unspecified dementia, unspecified severity, without behavioral disturbance, psychotic disturbance, mood disturbance, and anxiety; M81.0 Age-related osteoporosis without current pathological fracture; E11.42 Type 2 diabetes mellitus with diabetic polyneuropathy; Z86.718 Personal history of other venous thrombosis and embolism; Z79.82 Long term (current) use of aspirin; Z79.84 Long term (current) use of oral hypoglycemic drugs; Z79.899 Other long term (current) drug therapy
CPT/HCPCS: 36415; 70450; 71046; 76705; 80053; 81001; 81003; 82550; 82947; 83605; 83735; 84443; 84484; 85025; 87040; 87086; 87502; 87635; 93005; 97161; 99285; J0696; J1650

== ENCOUNTER 2022-05-29 06:53 | Outpatient (REF) | payer MEDICARE, MEDICAID, SELFPAY ==
[2022-05-29 08:18] LABS: Alanine Aminotransferase 30 U/L (0-31); Albumin Level 3.5 g/dL (3.5-5.0); Alkaline Phosphatase 196 U/L (39-117); Anion Gap 17 (12-20); Aspartate Amino Transferase 22 U/L (5-31); Bilirubin Total 0.4 mg/dL (0.0-1.0); Blood Urea Nitrogen 19 mg/dL (9-16); Calcium 9.4 mg/dL (8.4-10.2); Carbon Dioxide 24 mmol/L (22-29); Chloride 103 mmol/L (96-108); Cholesterol 194 mg/dL; Estimated Glomerular Filt Rate > 60; Glucose Fasting 116 mg/dL (60-99); HDL Cholesterol 53 mg/dL; LDL Cholesterol Calculated 126 mg/dl; Potassium 4.9 mmol/L (3.3-5.1); Sodium 139 mmol/L (135-145); Triglycerides 78 mg/dL
[2022-05-29 08:50] LABS: Folate 15.9 ng/mL (> or = 4.0); Thyroid Stimulating Hormone 7.71 uIU/mL (0.32-4.0); Vitamin B12 1554 pg/mL (200-900)
== END 2022-05-29 06:54 | disposition home or self-care (01) ==
LOC: HO.LAB 06:53
PROVIDERS: PCP Internal Medicine; Visit Provider Internal Medicine
DX: E11.9 Type 2 diabetes mellitus without complications (principal); E78.5 Hyperlipidemia, unspecified; E53.8 Deficiency of other specified B group vitamins; R41.3 Other amnesia; E55.9 Vitamin D deficiency, unspecified
CPT/HCPCS: 36415; 80053; 80061; 82306; 82607; 82746; 84443

== ENCOUNTER 2022-05-30 08:39 | Outpatient (REF) | payer MEDICARE, MEDICAID, SELFPAY ==
[2022-05-30 09:34] LABS: Creatinine Urine 25.68 mg/dL; Microalbumin Urine < 5.0 mg/L
== END 2022-05-30 08:40 | disposition home or self-care (01) ==
LOC: HO.LNP 08:39
PROVIDERS: Visit Provider Internal Medicine
DX: E11.9 Type 2 diabetes mellitus without complications (principal)
CPT/HCPCS: 82043

== ENCOUNTER 2022-07-20 06:45 | Outpatient (REF) | payer MEDICARE, MEDICAID, SELFPAY ==
[2022-07-20 08:19] LABS: Creatinine Urine 31.84 mg/dL; Microalbum/Creatinine Ratio Ur 18.8 ug/mg cr
[2022-07-20 09:24] LABS: Free T4 (Free Thyroxine) 0.92 ng/dL (0.71-1.85); Thyroid Stimulating Hormone 5.93 uIU/mL (0.32-4.0); Vitamin D 25-OH Total 42.6 ng/mL (>30)
[2022-07-20 10:12] LABS: Alanine Aminotransferase 28 U/L (0-31); Albumin Level 3.6 g/dL (3.5-5.0); Alkaline Phosphatase 185 U/L (39-117); Anion Gap 16 (12-20); Aspartate Amino Transferase 24 U/L (5-31); Bilirubin Total 0.3 mg/dL (0.0-1.0); Blood Urea Nitrogen 21 mg/dL (9-16); Calcium 9.4 mg/dL (8.4-10.2); Carbon Dioxide 24 mmol/L (22-29); Chloride 102 mmol/L (96-108); Cholesterol 180 mg/dL; Estimated Glomerular Filt Rate > 60; Glucose Fasting 122 mg/dL (60-99); HDL Cholesterol 47 mg/dL; LDL Cholesterol Calculated 115 mg/dl; Potassium 5.1 mmol/L (3.3-5.1); Sodium 137 mmol/L (135-145); Total Protein 7.2 g/dL (6.5-8.0); Triglycerides 94 mg/dL
[2022-07-23 13:13] LABS: Thyroglobulin Antibodies <1 IU/mL (< or = 1); Thyroid Peroxidase Antibodies <1 IU/mL (<9)
== END 2022-07-20 06:46 | disposition home or self-care (01) ==
LOC: HO.LAB 06:45
PROVIDERS: PCP Internal Medicine; Visit Provider Internal Medicine
DX: E55.9 Vitamin D deficiency, unspecified (principal); R79.89 Other specified abnormal findings of blood chemistry; E11.9 Type 2 diabetes mellitus without complications; E78.5 Hyperlipidemia, unspecified
CPT/HCPCS: 36415; 80053; 80061; 82043; 82306; 84439; 84443; 86376; 86800

== ENCOUNTER → 2022-09-26 10:19 | Outpatient (BNVA) | payer MEDICARE, MEDICAID, SELFPAY | PROVIDERS: PCP Internal Medicine; Visit Provider Obstetrics & Gynecology ==

== ENCOUNTER 2022-11-02 06:48 | Outpatient (REF) | payer MEDICARE, MEDICAID, SELFPAY ==
[2022-11-02 07:05] LABS: MANUAL DIFF FLAG NO
[2022-11-02 07:41] LABS: Basophils Percent Auto 0.4 % (0-2); Eosinophils Absolute Auto 0.2 X10*3/uL (0.0-0.4); Eosinophils Percent Auto 2.4 % (0-4); Hematocrit 36.9 % (37.0-47.0); Hemoglobin 10.9 g/dl (12.0-16.0); Imm Gran Abs Auto 0.03 X10*3/uL (0.00-0.03); Imm Gran Pct Auto 0.3 % (0.0-0.4); Lymphocytes Absolute Auto 1.8 X10*3/uL (1.2-4.9); Lymphocytes Percent Auto 18.5 % (20-40); Mean Corpuscular HGB Conc 29.5 g/dl (31.0-35.0); Mean Platelet Volume 9.8 fL (9.4-12.3); Monocytes Absolute Auto 0.8 X10*3/uL (0.1-1.2); Monocytes Percent Auto 7.8 % (2-11); Neutrophils Absolute Auto 6.9 x10*3/uL (2.0-8.3); Neutrophils Percent Auto 70.6 % (45-73); Platelet Count 321 X10*3/uL (160-400); Red Blood Count 4.73 X10*6/uL (4.20-5.50); Red Cell Distribution Width 18.1 % (11.0-16.0); White Blood Count 9.7 X10*3/uL (4.8-10.8)
[2022-11-02 08:04] LABS: Alanine Aminotransferase 35 U/L (0-31); Albumin Level 3.4 g/dL (3.5-5.0); Anion Gap 11 (12-20); Aspartate Amino Transferase 32 U/L (5-31); Bilirubin Total 0.4 mg/dL (0.0-1.0); Blood Urea Nitrogen 16 mg/dL (9-16); Calcium 9.6 mg/dL (8.4-10.2); Carbon Dioxide 26 mmol/L (22-29); Chloride 105 mmol/L (96-108); Cholesterol 94 mg/dL; Estimated Glomerular Filt Rate 57; Glucose Fasting 112 mg/dL (60-99); HDL Cholesterol 38 mg/dL; Iron 34 mcg/dL (30-160); LDL Cholesterol Calculated 39 mg/dl; Percent Iron Saturation 12 % (15-50); Potassium 4.3 mmol/L (3.3-5.1); Sodium 138 mmol/L (135-145); Total Iron Binding Capacity 277 mcg/dL (228-428); Total Protein 7.2 g/dL (6.5-8.0); Triglycerides 86 mg/dL; Unsaturated Iron Binding 243 ug/dL
[2022-11-02 08:05] LABS: Alkaline Phosphatase 136 U/L (39-117)
[2022-11-02 08:26] LABS: Free T4 (Free Thyroxine) 0.84 ng/dL (0.71-1.85); Thyroid Stimulating Hormone 2.93 uIU/mL (0.32-4.0); Vitamin D 25-OH Total 45.7 ng/mL (>30)
[2022-11-02 08:47] LABS: Appearance Urine Clear; Color Urine Yellow; Glucose Urine UA Negative (Negative); Leukocyte Esterase Urine Moderate (2+) (Negative); Nitrite Urine Negative (Negative); Specific Gravity - Urine <= 1.005 (1.005-1.025); UMIC TRIGGER UA YES; Urine Blood Negative (Negative); Urine Ketones Negative (Negative); Urine Protein Negative (Neg-Trace)
[2022-11-02 08:55] LABS: Bacteria Urine Trace (None Seen); Hyaline Casts Urine 0-2 /LPF (0-2); RBC Urine 0-2 /HPF (0-2); WBC Urine 0-5 /HPF (0-5)
[2022-11-02 09:29] LABS: Microalbumin Urine < 5.0 mg/L
== END 2022-11-02 06:49 | disposition home or self-care (01) ==
LOC: HO.LAB 06:48
PROVIDERS: Absent Provider Internal Medicine; PCP Internal Medicine; Visit Provider Internal Medicine Nephrology
DX: E78.5 Hyperlipidemia, unspecified (principal); R79.89 Other specified abnormal findings of blood chemistry; E11.22 Type 2 diabetes mellitus with diabetic chronic kidney disease; N18.2 Chronic kidney disease, stage 2 (mild); D63.1 Anemia in chronic kidney disease; E55.9 Vitamin D deficiency, unspecified
CPT/HCPCS: 36415; 80053; 80061; 81001; 82043; 82306; 83540; 84439; 84443; 85025

== ENCOUNTER → 2022-11-15 07:41 | Outpatient (BNVA) | payer MEDICARE, MEDICAID, SELFPAY | PROVIDERS: PCP Internal Medicine; Visit Provider Physician Assistant ==

== ENCOUNTER 2022-11-20 07:54 | Outpatient (AMB) | payer MEDICARE, MEDICAID, SELFPAY ==
--- NOTE | 2022-11-20 07:55 | MHC.PC.OV ---
Vital Signs 11/20/22 07:56 Height 5 ft 3 in Weight 208 lb BMI 36.8 BP 118/58 L Blood Pressure Location Lt brachial Position Sitting Intake Visit Reasons: dm Intake Note: Patient here for a follow up DM Physical Therapy Nurse Required: No Accompanied by: Son Allergies No Known Allergies [No Known Allergies*] Allergy (Verified 11/20/22 08:12) Medication List - Last Reconciled 11/20/22 by Rachna Lewis MD amlodipine 2.5 mg PO DAILY aspirin (Adult Low Dose Aspirin) 81 mg PO DAILY dulaglutide (Trulicity) 3 mg (0.5 mL) subcut QWEEK 90 days glipizide 5 mg PO DAILY 90 days memantine 10 mg PO BID 30 days multivitamin 1 tab PO DAILY omeprazole 20 mg PO DAILY 90 days peg-electrolyte soln 420 gram 240 mL PO ONCE PRN 1 day rosuvastatin 20 mg PO DAILY 90 days Tobacco use date assessed: 03/27/22 Fall risk assessment: No Falls in past year Last assessed Fall Risk: 11/20/22 Dental Screening Dental Screen Date: 11/20/22 Did you have a dental visit in the last 12 months?: No Did you have a dental problem in the last 6 months where you did not have access to dental care?: No Was dental information given to patient?: Patient has dentist HPI HPI Comments History of Present Illness Details This is a 77-year-old female with diabetes mellitus type 2, hypertension, hyperlipidemia and iron-deficiency anemia that comes today accompanied by son which is the student accounts coordinator for follow-up on her conditions. A1c within goal. LDL within goal. Blood pressure within goal being less than 130/80. Hemoglobin is decreasing with elevated MCV and RDW. I will start her on ferrous sulfate once a day along with vitamin-C. Last colonoscopy was 2016 and will have another colonoscopy soon. She denies any active bleeding. Will be referred to Hematology-Oncology for this matter. [facility] Medical History (Updated 11/20/22 @ 08:22 by Rachna Lewis MD) Cough Diabetes mellitus Essential hypertension GERD (gastroesophageal reflux disease) History of DVT (deep vein thrombosis) Hyperlipidemia LDL goal <70 Long-term use of aspirin therapy Memory loss Microalbuminuria Obesity due to excess calories Type 2 diabetes mellitus with diabetic polyneuropathy Surgical History History of cataract surgery History of total abdominal hysterectomy and bilateral salpingo-oophorectomy Family History Father No problems noted. Mother Colon cancer Son Diabetes Social History Household Members: Caregiver Housing: Apartment Alcohol intake: never Patient Tobacco Use Status: Never used Tobacco e-Cigarette/Vaping Use: Never Used Second Hand Smoke Exposure: No Advance Directives Date on File: 02/23/21 service: No Current occupational status: disabled Cognitive needs: No Hearing needs: No Vision needs: No Female Reproductive History Menstrual Age of Menarche: 11 Questionnaire Thrive Questionnaire Date Thrive assessed: 07/17/21 RICK-7 AMB Questionnaire RICK-7 Date RICK - 7 assessed: 03/27/22 Source: Developed by Drs. Han Hurley, Naya Forbes, Florencio Ahumada and colleagues, with an educational tony from [employer]. Review of Systems Const All systems reviewed & are unremarkable except as noted in HPI and below Eyes Reports no additional complaints, Denies change in vision and Denies other visual disturbances Card Denies chest pain at rest, Denies chest pain with activity, Denies edema, Denies irregular heart rhythm, Denies claudication, Denies dyspnea, Denies dyspnea on exertion, Denies orthopnea, Denies paroxysmal nocturnal dyspnea and Denies slow heart rate Resp Denies cough, Denies dyspnea and Denies dyspnea on exertion GI Reports abdominal pain, Reports bloating, Denies change in bowel habits, Denies excessive flatus, Denies nausea and Denies vomiting Denies urinary incontinence, Denies urinary hesitancy and Denies urinary urgency Musc Denies abnormal gait, Denies atrophy, Denies deformity and Denies limited range of motion Skin/Breast Denies bleeding lesions, Denies changing lesions and Denies rash Neuro Denies abnormal gait and Denies lack of coordination Physical exam (Primary Care) Vital Signs: Last Vital Signs BP 118/58 L 11/20/22 07:56 BMI result Body Mass Index 36.8 Tobacco/Smoking Status: Tobacco use Status Tobacco use date assessed 03/27/22 11/20/22 07:57 Patient Tobacco Use Status Never used Tobacco 11/20/22 07:57 e-Cigarette/Vaping Use Never Used 11/20/22 07:57 Thrive Assessment: Date of Thrive Assessment Date Thrive assessed 07/17/21 11/20/22 07:57 Eyes General: appearance normal, both eyes and all related structures Eyelids: Yes eyelids normal Conjunctivae: conjunctivae normal Neck Neck: Yes normal visual inspection and Yes supple Resp Effort & Inspection: normal respiratory effort Auscultation: clear to auscultation bilaterally Cardio Jugular venous distension: no JVD Rate: regular rate Rhythm: regular rhythm Heart sounds: S1 normal heart sound present and S2 normal heart sound present GI Inspection: Yes distended Palpation (GI): Tenderness to palpation present (GI) in the epigastrum, in the LLQ, in the RLQ, in the LUQ, in the RUQ and periumbilically Extrem General: Yes full ROM Results AMB Hemoglobin A1c AMB Hemoglobin A1c 6.4 % Last Edit by BETY Ayala on 11/20/22 08:11 Assessment and Plan Assessment & Plan (1) Diabetes mellitus: Code(s): E11.9 - Type 2 diabetes mellitus without complications Plan: Continue Trulicity and glipizide. A1c goal is equal or less than 7%. (2) Anemia: Comment: Mild iron deficiency History ulcer unclear Code(s): D64.9 - Anemia, unspecified Plan: Start ferrous sulfate once a day. Referred to Hematology-Oncology. (3) Essential hypertension: Code(s): I10 - Essential (primary) hypertension Plan: Continue amlodipine. Blood pressure goal is equal or less than 130/80. (4) Hyperlipidemia LDL goal <70: Code(s): E78.5 - Hyperlipidemia, unspecified Plan: Continue statins. LDL goal is less than 70. Orders: Orders US abdomen complete Today R10.9 - Unspecified abdominal pain Lipid Panel 4 Months E78.5 - Hyperlipidemia, unspecified Microalbumin, Random (w Creat) 4 Months E11.9 - Type 2 diabetes mellitus without complications Complete Blood Count Auto Diff 4 Months D64.9 - Anemia, unspecified IRON PROFILE 4 Months D64.9 - Anemia, unspecified Comprehensive [place]. Panel Fast 4 Months E11.9 - Type 2 diabetes mellitus without complications AMB Hemoglobin A1c Today E11.9 - Type 2 diabetes mellitus without complications Referrals Hematology & Oncology Referral D64.9 - Anemia, unspecified Medications: New ferrous sulfate 325 mg PO DAILY 90 days 90 tabs 1RF D64.9 - Anemia, unspecified ascorbic acid (vitamin C) 500 mg PO DAILY 90 days 90 caps 1RF Coding Level of Care Code Est Pt Level 4 (06981) Diagnoses Diabetes mellitus E11.9 Anemia D64.9 Essential hypertension I10 Hyperlipidemia LDL goal <70 E78.5 Time Spent (min) 23
[2022-11-20 07:56] VITALS: BP 118/58; BMI 36.8
== END 2022-11-20 08:22 | disposition home or self-care (01) ==
PROVIDERS: Visit Provider Internal Medicine
DX: E11.9 Type 2 diabetes mellitus without complications (principal); D64.9 Anemia, unspecified; I10 Essential (primary) hypertension; E78.5 Hyperlipidemia, unspecified
CPT/HCPCS: 83036; 99214

== ENCOUNTER 2022-12-20 08:02 | Outpatient (REF) | payer MEDICARE, MEDICAID, SELFPAY ==
--- NOTE | ~2022-12-20 | US_ITS ---
EXAMINATION: US ABDOMEN COMPLETE CLINICAL INFORMATION: Unspecified abdominal pain. COMPARISON: Ultrasound abdomen limited 02/17/2022. TECHNIQUE: Real-time imaging of the abdominal viscera. FINDINGS: PANCREAS: Visualized portions of the pancreas are unremarkable. The pancreatic tail is obscured by bowel gas. ABDOMINAL AORTA: Visualized aorta is normal in caliber however portions are obscured by bowel gas. INFERIOR VENA CAVA: Visualized portions are normal. LIVER: The liver is normal in size. The liver contour is normal. Parenchymal echogenicity is normal. No focal hepatic lesion. There is no intrahepatic biliary duct dilatation seen. GALLBLADDER: The gallbladder is physiologically distended. Multiple mobile gallstones are present. Mosaic Technician reports patient has tenderness however does not document if this elicited a sonographic Rios sign, and there is no evidence of gallbladder wall thickening or pericholecystic fluid. COMMON BILE DUCT: Normal in caliber measuring 0.6 cm in diameter. RIGHT KIDNEY: Normal. No hydronephrosis. No renal calculi or focal parenchymal lesions. The kidney measures 9.6 cm in maximum dimension. LEFT KIDNEY: Left kidney appears atrophic and malrotated. No hydronephrosis. No renal calculi or focal parenchymal lesions. The kidney measures 8.5 cm in maximum dimension. SPLEEN: Normal. The spleen measures 10.1 cm in maximum dimension. FREE FLUID: None. US/US abdomen complete IMPRESSION: 1. Cholelithiasis. Mosaic Technician reports patient has tenderness however does not document if this elicited a sonographic Rios sign, and there is no evidence of gallbladder wall thickening, pericholecystic fluid or significant gallbladder distention to favor an imaging diagnosis of acute cholecystitis however given reported symptoms of pain recommend correlation with clinical Rios sign and if any clinical concern a HIDA scan could be obtained. 2. Left kidney appears atrophic and malrotated.
== END 2022-12-20 08:03 | disposition home or self-care (01) ==
LOC: HO.US 08:02
PROVIDERS: PCP Internal Medicine; Visit Provider Internal Medicine
DX: R10.9 Unspecified abdominal pain (principal)
CPT/HCPCS: 76700

== ENCOUNTER 2022-12-25 08:40 | Outpatient (REF) | payer MEDICARE, MEDICAID, SELFPAY ==
--- NOTE | ~2022-12-25 | MM_ITS ---
EXAMINATION: MM SCREENING DIGITAL BREAST TOMOSYNTHESIS, BILATERAL CLINICAL INFORMATION: Screening. Asymptomatic. COMPARISON: Mammography: This study is compared with prior exams dating back to 2019. TECHNIQUE: Digital breast tomosynthesis is performed in both the craniocaudal and mediolateral oblique views along with computer-aided detection (CAD). Synthesized 2D images are generated from the tomosynthesis. FINDINGS: There are scattered areas of fibroglandular density (ACR BI-RADS breast composition Category b). There are no significant masses, abnormal calcifications, or other abnormalities. Few, benign, secretory calcifications are present in each breast. MM/MM tomosynthesis screening BI IMPRESSION: No mammographic evidence of malignancy. ASSESSMENT: BI-RADS BI-RADS 2 - Benign Findings RECOMMENDATION: Routine annual mammography screening. 1 year F/U This examination should not preclude the clinical evaluation of a suspicious palpable abnormality. This patient's information was entered into a reminder system with a target due date for their next mammogram.
== END 2022-12-25 08:41 | disposition home or self-care (01) ==
LOC: HO.MAMMO 08:40
PROVIDERS: PCP Internal Medicine; Visit Provider Obstetrics & Gynecology
DX: Z12.31 Encounter for screening mammogram for malignant neoplasm of breast (principal); Z13.820 Encounter for screening for osteoporosis; Z78.0 Asymptomatic menopausal state
CPT/HCPCS: 77063; 77067; 77080

== ENCOUNTER → 2022-12-25 09:15 | Outpatient (BNV) | payer MEDICARE, MEDICAID, SELFPAY | PROVIDERS: PCP Internal Medicine; Visit Provider Radiology Diagnostic Radiology | DX: Z12.31 Encounter for screening mammogram for malignant neoplasm of breast (principal) | CPT/HCPCS: 77063; 77067 ==

== ENCOUNTER 2023-01-08 10:29 | Outpatient (AMB) | payer MEDICARE, MEDICAID, SELFPAY ==
--- NOTE | 2023-01-08 10:30 | A.OFFVIS_ITS ---
Intake Vital Signs 01/08/23 10:33 Height 5 ft 3 in Weight 211 lb 10.3 oz BMI 37.5 BP 122/60 Intake Visit Reasons: DEXA results Part Time Flexible Clerk Required: Yes Part Time Flexible Clerk Language: Windows Architect Name: Mayra ALBERT Information Interpreted: non-clinical & clinical Accompanied by: Son Allergies No Known Allergies [No Known Allergies*] Allergy (Verified 01/08/23 10:34) Post menopausal: Yes HPI HPI Comments History of Present Illness Details The patient is presenting for follow up regarding DEXA scan results. T score @ spine and femoral Neck respectively were=-1.4 /-2.2 and 10 year FRAX risk for severe osteoporosis and fracture was not calculated. The patient has been on alendronate since 2020. BMD was +16.2% at the femur level and-0.5% at the spine level compared to 12/13 DEXA scan [facility] Medical History Diabetes mellitus Microalbuminuria GERD (gastroesophageal reflux disease) Hyperlipidemia LDL goal <70 Type 2 diabetes mellitus with diabetic polyneuropathy Obesity due to excess calories Memory loss Cough Essential hypertension Long-term use of aspirin therapy History of DVT (deep vein thrombosis) Surgical History History of total abdominal hysterectomy and bilateral salpingo-oophorectomy History of cataract surgery Family History Father No problems noted. Mother Colon cancer Son Diabetes Social History Household Members: Caregiver Housing: Apartment Alcohol intake: never Patient Tobacco Use Status: Never used Tobacco e-Cigarette/Vaping Use: Never Used Second Hand Smoke Exposure: No Advance Directives Date on File: 02/23/21 service: No Current occupational status: disabled Cognitive needs: No Hearing needs: No Vision needs: No Female Reproductive History Menstrual Age of Menarche: 11 Review of Systems Const All systems reviewed & are unremarkable except as noted in HPI and below Reports as per HPI and Reports no additional complaints GI Reports no additional complaints Reports no additional complaints Physical Exam Vital Signs: Last Vital Signs BP 122/60 01/08/23 10:33 BMI result Body Mass Index 37.5 Assessment & Plan Assessment & Plan (1) Osteopenia: Code(s): M85.80 - Other specified disorders of bone density and structure, unspecified site Plan: Discussed with the patient the DEXA results +16.5% BMD at the femur level and - 0.5% the spinal on alendronate recommended the patient to stay on alendronate 70 mg p.o. q.week with calcium/vitamin-D 1200 mg/800 international daily peer. The patient verbalized understanding and agreed plan will repeat DEXA in 2 years. Medications: New alendronate (Fosamax) 70 mg PO QWEEK 14 tabs 3RF Coding Level of Care Code Est Pt Level 3 (65945) Diagnoses Osteopenia M85.80
[2023-01-08 10:33] VITALS: BP 122/60; BMI 37.5
== END 2023-01-08 10:45 | disposition home or self-care (01) ==
PROVIDERS: PCP Internal Medicine; Visit Provider Obstetrics & Gynecology
DX: M85.80 Other specified disorders of bone density and structure, unspecified site (principal)
CPT/HCPCS: 99213

== ENCOUNTER → 2023-01-08 10:29 | Outpatient (BNVA) | payer MEDICARE, MEDICAID, SELFPAY | PROVIDERS: PCP Internal Medicine; Visit Provider Obstetrics & Gynecology | DX: M85.80 Other specified disorders of bone density and structure, unspecified site (principal); Z90.710 Acquired absence of both cervix and uterus; Z90.79 Acquired absence of other genital organ(s); Z90.722 Acquired absence of ovaries, bilateral | CPT/HCPCS: 99212 ==

== ENCOUNTER 2023-01-14 09:10 | Outpatient (AMB) | payer MEDICARE, MEDICAID, SELFPAY ==
--- NOTE | 2023-01-14 09:12 | MHC.OFFVIS ---
Intake Vital Signs 01/14/23 09:19 Height 5 ft 3 in Weight 213 lb BMI 37.7 BP 122/59 L Blood Pressure Location Rt brachial Position Sitting Intake Visit Reasons: calculus of gallbladder Intake Note: This patient presents for an assessment for calculus of the gallbladder. Patient c/o; reports no RUQ, reports no nausea or vomiting, reports no loss of appetite, reports changes in bowel habits. Telephone Plant Power Operator Required: Yes Telephone Plant Power Operator Language: Basket Filler Name: Declined seismic interpreter Accompanied by: Other Relationship Allergies No Known Allergies [No Known Allergies*] Allergy (Verified 01/14/23 09:20) Medication List - Last Reconciled 01/14/23 by Ifeanyi Cornejo MD alendronate (Fosamax) 70 mg PO QWEEK amlodipine 2.5 mg PO DAILY ascorbic acid (vitamin C) 500 mg PO DAILY 90 days aspirin (Adult Low Dose Aspirin) 81 mg PO DAILY dulaglutide (Trulicity) 3 mg (0.5 mL) subcut QWEEK 90 days ferrous sulfate 325 mg PO DAILY 90 days glipizide 5 mg PO DAILY 90 days memantine 10 mg PO BID 30 days multivitamin 1 tab PO DAILY omeprazole 20 mg PO DAILY 90 days peg-electrolyte soln 420 gram 240 mL PO ONCE PRN 1 day rosuvastatin 20 mg PO DAILY 90 days HPI calculus of gallbladder HPI Details 77-year-old female referred for gallstones. She apparently had an ultrasound last month periods her son says that this was done because he mention to him their family doctor that she seemed to have some abdominal distension. However, she denies any episodes of pain or tenderness. She has good oral intake. She denies any problems bowel movements. She says she feels well overall although does have multiple medical problems. She also mentions that her mother had been diagnosed with ovarian cancer. PENDING SALE TO [facility] Medical History (Updated 01/14/23 @ 09:42 by Ifeanyi Cornejo MD) Family history of ovarian cancer Diabetes mellitus Microalbuminuria GERD (gastroesophageal reflux disease) Hyperlipidemia LDL goal <70 Type 2 diabetes mellitus with diabetic polyneuropathy Obesity due to excess calories Memory loss Cough Essential hypertension Long-term use of aspirin therapy History of DVT (deep vein thrombosis) Surgical History History of total abdominal hysterectomy and bilateral salpingo-oophorectomy History of cataract surgery Family History Father No problems noted. Mother Colon cancer Son Diabetes Social History Household Members: Caregiver Housing: Apartment Alcohol intake: never Patient Tobacco Use Status: Never used Tobacco e-Cigarette/Vaping Use: Never Used Second Hand Smoke Exposure: No Advance Directives Date on File: 02/23/21 service: No Current occupational status: disabled Cognitive needs: No Hearing needs: No Vision needs: No Female Reproductive History Menstrual Age of Menarche: 11 Review of Systems Const Denies chills and Denies fever(s) Card Denies chest pain, Denies dyspnea and Denies dyspnea on exertion Resp Denies cough, Denies dyspnea and Denies dyspnea on exertion GI Denies hematochezia and Denies change in bowel habits Denies hematuria Musc Denies back pain and Denies limited range of motion Neuro Denies focal weakness and Denies convulsions Psych Denies depression and Denies mood swings Physical Exam Vital Signs: Last Vital Signs BP 122/59 L 01/14/23 09:19 BMI result Body Mass Index 37.7 Const Other: Obese General: comfortable and no acute distress Orientation/consciousness: patient oriented x3 Neck Neck: Yes no lymphadenopathy Resp Auscultation: clear to auscultation bilaterally Cardio Rhythm: regular rhythm GI Palpation (GI): Soft to palpation, nontender and no guarding Neuro General: patient oriented x3 Assessment & Plan Assessment & Plan (1) Cholelithiasis: Code(s): K80.20 - Calculus of gallbladder without cholecystitis without obstruction Plan: She had an ultrasound showing gallstones. The patient and her son however state that she really has had no pain or any symptoms that may be related to her gallbladder. Has good oral intake. She denies problems with bowel movements Physical exam does reveal any tenderness. I did explain to the patient and her son the option of laparoscopic cholecystectomy for symptomatic gallstones. I explained the technique of this procedure including the possibility of conversion to open procedure. I reviewed the risks, benefits, and alternatives They did stated that they would like to avoid any surgical intervention in view of the patient's multiple medical problems. They do understand that she may need to be re-evaluated for this option if she starts to have symptoms. (2) Family history of ovarian cancer: Code(s): Z80.41 - Family history of malignant neoplasm of ovary Plan: The patient's mother had ovarian cancer. I therefore explained to him the option of proceeding with genetic testing. I discussed the implications of this test to the patient and her family. She is interested so we will schedule her for counseling and genetic testing here in the office. Coding Level of Care Code New Pt Level 4 (46830) Diagnoses Cholelithiasis K80.20 Family history of ovarian cancer Z80.41
[2023-01-14 09:19] VITALS: BP 122/59; BMI 37.7
== END 2023-01-14 09:49 | disposition home or self-care (01) ==
PROVIDERS: PCP Internal Medicine; Visit Provider Surgery
DX: K80.20 Calculus of gallbladder without cholecystitis without obstruction (principal); Z80.41 Family history of malignant neoplasm of ovary
CPT/HCPCS: 99204

== ENCOUNTER → 2023-01-14 09:10 | Outpatient (BNVA) | payer MEDICARE, MEDICAID, SELFPAY | PROVIDERS: PCP Internal Medicine; Visit Provider Surgery ==

== ENCOUNTER → 2023-01-17 08:50 | Outpatient (BNVA) | payer MEDICARE, MEDICAID, SELFPAY | PROVIDERS: PCP Internal Medicine; Visit Provider Surgery | DX: Z13.79 Encounter for other screening for genetic and chromosomal anomalies (principal) | CPT/HCPCS: 99211 ==

== ENCOUNTER 2023-02-12 08:53 | Outpatient (AMB) | payer MEDICARE, MEDICAID, SELFPAY ==
--- NOTE | 2023-02-12 09:07 | A.OFFVIS_ITS ---
Intake Vital Signs 02/12/23 09:18 Height 5 ft 3 in Weight 217 lb 4 oz BMI 38.5 BP 120/60 Blood Pressure Location Lt brachial Position Sitting Pulse 90 Pulse Source Pulse Oximeter Pulse Oximetry (%) 98 Oxygen Delivery Method Room Air Intake Visit Reasons: AWV Intake Note: Patient is here for an Annual Wellness Visit. Occupational Health Nursing Director Required: Yes Occupational Health Nursing Director Language: Redevelopment Specialist Name: Yohannes (son) String Studies Director: String Studies Director Present and String Studies Director offered & declined Accompanied by: Self / Same As Patient Allergies No Known Allergies [No Known Allergies*] Allergy (Verified 02/12/23 09:29) Medication List - Last Reconciled 02/12/23 by JAYNA Mast alendronate (Fosamax) 70 mg PO QWEEK amlodipine 2.5 mg PO DAILY ascorbic acid (vitamin C) 500 mg PO DAILY 90 days aspirin (Adult Low Dose Aspirin) 81 mg PO DAILY dulaglutide (Trulicity) 3 mg (0.5 mL) subcut QWEEK 90 days ferrous sulfate 325 mg PO DAILY 90 days glipizide 5 mg PO DAILY 90 days memantine 10 mg PO BID 30 days multivitamin 1 tab PO DAILY omeprazole 20 mg PO DAILY 90 days peg-electrolyte soln 420 gram 240 mL PO ONCE PRN 1 day rosuvastatin 20 mg PO DAILY 90 days HPI AWV HPI Details Patient is a 77-year-old female who presents today for initial wellness visit. Patient of Dr. Parrish. Up-to-date with immunizations. Patient will be having colonoscopy at [facility] 04/2023. Mammogram normal 12/2022. Bone density screen 12/2022 with osteopenia. [place] of care was reviewed with the patient and her son and she was provided with a screening schedule. Healthcare proxy is on file and they were provided with a MOLST form. Patient is a Chinese-speaking and her son Kemar was helping with interpretation. [facility] Medical History Family history of ovarian cancer Diabetes mellitus Microalbuminuria GERD (gastroesophageal reflux disease) Hyperlipidemia LDL goal <70 Type 2 diabetes mellitus with diabetic polyneuropathy Obesity due to excess calories Memory loss Cough Essential hypertension Long-term use of aspirin therapy History of DVT (deep vein thrombosis) Surgical History History of total abdominal hysterectomy and bilateral salpingo-oophorectomy History of cataract surgery Family History Father No problems noted. Mother Colon cancer Son Diabetes Household Members: Caregiver Housing: Apartment Alcohol intake: never Patient Tobacco Use Status: Never used Tobacco e-Cigarette/Vaping Use: Never Used Second Hand Smoke Exposure: No Advance Directives Date on File: 02/23/21 service: No Current occupational status: disabled Cognitive needs: No Hearing needs: No Vision needs: No Female Reproductive History Menstrual Age of Menarche: 11 Questionnaire Medicare Wellness Checkup [age] What gender do you identify with?: female During the past 4 weeks, how much have you been bothered by emotional problems such as feeling anxious, depressed, irritable, sad or downhearted, and blue?: not at all During the past 4 weeks, has your physical & emotional health limited your social activities with family, friends, neighbors, or groups?: not at all During the past 4 weeks, how much bodily pain have you generally had?: no pain During the past 4 weeks, was someone available to help you if you needed & wanted help?: yes, as much as I wanted During the past 4 weeks, what was the hardest physical activity you could do for at least 2 minutes?: light Can you get to places out of walking distance without help? (For eg., can you travel alone on buses, taxis or drive your car?): No Can you go shopping for groceries or clothes without someone's help?: No Can you prepare your own meals?: Yes Can you do your housework without help?: No Because of any health problems, do you need the help of another person with your personal care needs such as eating, bathing, dressing or getting around the house?: No Can you handle your own money without help?: No During the past 4 weeks, how would you rate your health in general?: very good During the past 4 weeks how have things been going for you?: very well; could hardly better Are you having difficulties driving your car?: not applicable, I don't use a car Do you always fasten your seat belt when you are in a car?: yes, usually During past 4 weeks, have you been bothered by the following: never: Falling or dizzy when standing up, Sexual problems?, Trouble eating well?, Teeth or denture problems?, Problems using the telephone? and Tiredness or fatigue? Have you fallen 2 or more times in the past year?: No Are you a smoker?: no During the past 4 weeks, how many drinks of wine, beer, or other alcoholic beverages did you have?: no alcohol at all Do you exercise for about 20 minutes 3 or more times a week?: yes, most of the time Have you been given information to help with the following?: yes: Keeping track of your medications? and no: Hazards in your house that might hurt you? How often do you have trouble taking medicines the way you have been told to take them?: I always take medicine as prescribed How confident are you that you can control & manage most of your health problems?: very confident What is your race?: or origin or descent Mini Mental State Exam (MMSE) Orientation What is the (year) (season) (date) (day) (month)?: month (a and o x 2 ) Score Score: 1 Activity of Daily Living Bathing - sponge bath, tub bath or shower: receives no assistance (gets in/out by self, if usual bathing means Dressing - getting clothes from closets & drawers, including inner/outer garments & fasteners.: gets clothes & gets completely dressed without help Toileting - going to the 'toilet room' for urine/bowel elimination & cleaning self/arranging clothes: goes to toilet room, cleans self, arranges clothes without help Transfer: moves in & out of bed and chair without help (may use support object) Continence: controls urination/bowel movements completely by self Feeding: feeds self without help Total Score: 0 Information obtained from: patient Using telephone: independent Traveling: dependent Shopping: dependent Preparing meals: independent Housework: dependent Taking medicine: needs assistance Managing money: dependent PHQ-9 Over the last 2 weeks, how often have you been bothered by any of the following problems? 1. Little interest or pleasure in doing things: not at all 2. Feeling down, depressed, or hopeless: not at all 3. Trouble falling or staying asleep, or sleeping too much: not at all 4. Feeling tired or having little energy: not at all 5. Poor appetite or overeating: not at all 6. Feeling bad about yourself - or that you are a failure or have let yourself or your family down: not at all 7. Trouble concentrating on things, such as reading the newspaper or watching television: not at all 8. Moving or speaking so slowly that other people could have noticed. Or the opposite - being so fidgety or restless that you have been moving around a lot more than usual: not at all 9. Thoughts that you would be better off or of hurting yourself in some way: not at all Total score: 0 Depression Screening Interpretation: Negative Depression Screening Done: Yes 48584 - PHQ-9 Billing: Yes Source: Developed by Drs. Han Hurley, Naya Forbes, Florencio Ahumada and colleagues, with an educational tony from [employer]. Thrive Questionnaire Date Thrive assessed: 02/12/23 I am a: Patient What is your living situation today?: I have a steady place to live Within the past 12 months, did the food you bought not last and you didn't have the money to get more?: Never true Within the past 12 months, did you worry whether your food would run out before you got money to buy more?: Never true Do you have trouble paying for medicines?: No Do you have trouble getting transportation to medical appointments?: No Do you have trouble paying your heating and electricity bill?: No Do you have trouble taking care of your child, family member or friend?: No Do you have trouble with day-to-day activities such as bathing, preparing meals, shopping, managing finances, etc.?: No Are you currently unemployed and looking for a job?: No Are you interested in more education?: No Currently or been in a relationship where the following occur: no concerns reported RICK-7 AMB Questionnaire RICK-7 Date RICK - 7 assessed: 03/27/22 Source: Developed by Drs. Han Hurley, Naya Forbes, Florencio Ahumada and colleagues, with an educational tony from [employer]. Physical Exam Vital Signs: Last Vital Signs Pulse 90 02/12/23 09:18 BP 120/60 02/12/23 09:18 Pulse Ox 98 02/12/23 09:18 Oxygen Delivery Method Room Air 02/12/23 09:18 BMI result Body Mass Index 38.5 Const General: cooperative and no acute distress Orientation/consciousness: oriented to person and oriented to place HEENT Other: Whisper test: pass Neuro Other: Balance: Normal Get up and walk: unable to Romberg: negative Tandem gait: unable to General: oriented to person and oriented to place Results AMB Hemoglobin A1c AMB Hemoglobin A1c 7.4 % Last Edit by BETY Khan on 02/12/23 09:28 Assessment & Plan Assessment & Plan (1) Osteopenia: Code(s): M85.80 - Other specified disorders of bone density and structure, unspecified site Plan: On Fosamax (2) Anemia: Comment: Mild iron deficiency History ulcer unclear Code(s): D64.9 - Anemia, unspecified Plan: Continue to follow-up with Dr. Ford Continue iron (3) Mild cognitive impairment with memory loss: Code(s): G31.84 - Mild cognitive impairment of uncertain or unknown etiology Plan: Continue to follow-up with Dr. Gilliland On memantine (4) Subclinical hypothyroidism: Code(s): E03.8 - Other specified hypothyroidism Plan: Recent thyroid blood work stable (5) Diabetes mellitus: Code(s): E11.9 - Type 2 diabetes mellitus without complications Plan: A1c 7.4 today, goal less than 7 Continue current treatment Low-carbohydrate diet (6) GERD (gastroesophageal reflux disease): Code(s): K21.9 - Gastro-esophageal reflux disease without esophagitis Qualifiers: Esophagitis presence: esophagitis presence not specified Qualified Code(s): K21.9 - Gastro-esophageal reflux disease without esophagitis Plan: Continue omeprazole Avoid GERD trigger foods Do not lay down 2-3 hours after evening meal (7) Hyperlipidemia LDL goal <70: Code(s): E78.5 - Hyperlipidemia, unspecified Plan: Continue rosuvastatin Low-cholesterol diet (8) History of DVT (deep vein thrombosis): Code(s): Z86.718 - Personal history of other venous thrombosis and embolism Plan: Continue to follow-up with Hematology Dr. Ford (9) Medicare annual wellness visit, initial: Code(s): Z00.00 - Encounter for general adult medical examination without abnormal findings Plan: Repeat in 1 year Plan Keep appointment with PCP as scheduled Orders: Orders AMB Hemoglobin A1c Today E11.42 - Type 2 diabetes mellitus with diabetic polyneuropathy Quality Reporting (2019) Depression/Bipolar (159/160/161/177) PHQ-9: Total score: 0 Coding Level of Care Code Medicare Subsequent (G0439) Diagnoses Osteopenia M85.80 Anemia D64.9 Mild cognitive impairment with memory loss G31.84 Subclinical hypothyroidism E03.8 Diabetes mellitus E11.9 Gastroesophageal reflux disease, unspecified whether esophagitis present K21.9 Esophagitis presence: esophagitis presence not specified Hyperlipidemia LDL goal <70 E78.5 History of DVT (deep vein thrombosis) Z86.718 Medicare annual wellness visit, initial Z00.00 CPT Codes Advance Care Planning - Advance Care Planning discussion: On file, no changes ([id number]) Advance Care Planning - Time spent: 1-15 minutes, on File ([id number]) Advance Care Planning Advance Care Planning discussion: On file, no changes Date of discussion: 02/12/23 Who was present: pt, son, cook dessert Forms completed: None Time spent: 1-15 minutes, on File Actual minutes spent: 2 Did not discuss due to Cultural/Spiritual beliefs: No
[2023-02-12 09:18] VITALS: BP 120/60; PULSE 90; O2SAT 98; BMI 38.5
== END 2023-02-12 09:42 | disposition home or self-care (01) ==
PROVIDERS: PCP Internal Medicine; Visit Provider Nurse Practitioner Family
DX: M85.80 Other specified disorders of bone density and structure, unspecified site (principal); D64.9 Anemia, unspecified; G31.84 Mild cognitive impairment of uncertain or unknown etiology; E11.42 Type 2 diabetes mellitus with diabetic polyneuropathy; E03.8 Other specified hypothyroidism; K21.9 Gastro-esophageal reflux disease without esophagitis; E78.5 Hyperlipidemia, unspecified; Z86.718 Personal history of other venous thrombosis and embolism; Z00.00 Encounter for general adult medical examination without abnormal findings
CPT/HCPCS: 1123F; 83036; G0439

== ENCOUNTER → 2023-02-28 09:30 | Outpatient (BNVA) | payer MEDICARE, MEDICAID, SELFPAY | PROVIDERS: PCP Internal Medicine; Visit Provider Surgery ==

== ENCOUNTER 2023-03-09 14:16 | Inpatient (IN) | payer MEDICARE, MEDICAID, SELFPAY ==
--- NOTE | ~2023-03-09 | CT_ITS ---
EXAMINATION: CT HEAD WITHOUT CONTRAST CLINICAL INFORMATION: Dysarthria COMPARISON: CT head on 02/17/2022 TECHNIQUE: Contiguous axial imaging was performed from the skull base to vertex without intravenous administration of contrast. This CT examination was performed using dose optimization techniques as appropriate, variously including the following: *Automated exposure control *Adjustment of mA and/or kV according to patient size (this includes techniques or standardized protocols for targeted exams where dose is matched to indication/reason for exam; i.e. extremities or head) *Use of iterative reconstruction technique DLP: 587.30 mGy-cm FINDINGS: No acute intracranial hemorrhage or infarct. The sanchez-white matter differentiation is preserved. Diffuse widening of the sulci with associated ex vacuo dilation of the ventricles compatible with global cerebral atrophy. No midline shift or hydrocephalus. No acute extra-axial fluid collections. The osseous structures are unremarkable. Sequela bilateral lens replacement. Otherwise, no orbital pathology. The paranasal sinuses and mastoid air cells are clear. Atherosclerotic calcifications of the bilateral carotid siphons and visualized intracranial vertebral arteries. CT/CT head/brain wo IV con IMPRESSION: No acute intracranial pathology.
--- NOTE | ~2023-03-09 | MR_ITS ---
EXAMINATION: MRI OF THE BRAIN WITHOUT CONTRAST CLINICAL INFORMATION: Concern for TIA. COMPARISON: CT scan of the head 03/09/2023. MRI scan of the brain 03/31/2020. TECHNIQUE: MRI of the brain was obtained using routine sequences without contrast. FINDINGS: There is a punctate focus of increased diffusion signal with mildly decreased ADC map signal in the left periventricular white matter, consistent with a small acute infarct. At present, there is no corresponding abnormal T2 or FLAIR signal. There is no evidence of hemorrhage. No mass effect or midline shift is seen. The ventricles and sulci are commensurately prominent consistent with diffuse volume loss. As presented described, there is prominence of the temporal horns of the lateral ventricles bilaterally with loss of brain volume in the temporal lobes. There are also moderate scattered foci of hyperintense T2 and FLAIR signal in the periventricular subcortical white matter, slightly increased compared to prior imaging, consistent with mild progressive chronic microvascular ischemic disease. No extra-axial fluid collections are seen. The brainstem and cerebellum are normal. No pathologic magnetic susceptibility artifact is identified elsewhere on the gradient refocused acquisition. The craniovertebral junction, marrow signal, and midline structures are normal. The major intracranial flow-voids at the level of the [place] are preserved. The dural venous sinus flow-voids are maintained. There have been bilateral lens extractions. The mastoid air cells are well-aerated bilaterally. There is mild mucoperiosteal thickening in the bilateral ethmoid sinuses. MR/MR head/brain wo con IMPRESSION: 1. There is a punctate focus of increased diffusion signal with mildly decreased ADC map signal in the left periventricular white matter, consistent with a small acute infarct. There is no evidence of hemorrhage. 2. There is diffuse volume loss with prominence of the temporal horns of the lateral ventricles bilaterally. There is loss of brain volume in the temporal lobes bilaterally. 3. There are progressive chronic microvascular ischemic changes.
--- NOTE | ~2023-03-09 | XR_ITS ---
EXAMINATION: XR CHEST CLINICAL INFORMATION: Pain. COMPARISON: Chest x-ray 02/17/2022 TECHNIQUE: 2 views of the chest were obtained. FINDINGS: Lungs are well-expanded and clear. The heart size and pulmonary vascularity is normal. There is moderate spondylosis of dorsal spine. No aggressive lytic or sclerotic process seen. XR/XR chest 2V IMPRESSION: Unremarkable chest exam.
--- NOTE | ~2023-03-09 | US_ITS ---
EXAMINATION: US EXTRACRANIAL CAROTID DUPLEX, BILATERAL CLINICAL INFORMATION: Question TIA COMPARISON: None available. TECHNIQUE: Real-time ultrasound and Doppler techniques (integrating B-mode 2-D vascular images, Doppler spectral analysis and color-flow Doppler imaging) were utilized to interrogate the extracranial carotid arteries, the vertebral arteries and proximal subclavian arteries bilaterally. The degree of stenosis is determined by criteria similar to NASCET. FINDINGS: Right Side: 1. There is minimal atherosclerotic plaque seen in the bifurcation/proximal ICA region. 2. The common carotid artery PSV proximally is 77 cm/s and distally 77 cm/s. 3. The proximal internal carotid artery velocities are 71 cm/s systolic and 12 cm/s diastolic. 4. The proximal external carotid artery PSV is 111 cm/s. 5. The vertebral artery shows antegrade flow. Left Side: 1. There is minimal atherosclerotic plaque seen in the bifurcation/proximal ICA region. 2. The common carotid artery PSV proximally is 67 cm/s and distally 68 cm/s. 3. The proximal internal carotid artery velocities are 53 cm/s systolic and 8 cm/s diastolic. 4. The proximal external carotid artery PSV is 72 cm/s. 5. The vertebral artery shows antegrade flow. US/US carotid duplex BI IMPRESSION: 1. RIGHT: Minimal, non-hemodynamically significant stenosis of the proximal right internal carotid artery corresponding to a 0-49% stenosis by velocity criteria. 2. LEFT: Minimal, non-hemodynamically significant stenosis of the proximal left internal carotid artery corresponding to a 0-49% stenosis by velocity criteria.
--- NOTE | ~2023-03-09 | US_ITS ---
EXAMINATION: US ABDOMEN LIMITED CLINICAL INFORMATION: Elevated liver enzymes. COMPARISON: Ultrasound abdomen complete 12/20/2022. Ultrasound abdomen limited 02/17/2022. TECHNIQUE: Real-time imaging of the right upper quadrant abdominal viscera. FINDINGS: PANCREAS: Normal. LIVER: The liver is normal in size. The liver contour is normal. Increased hepatic echogenicity suggesting hepatic steatosis. No focal hepatic lesion. There is no intrahepatic biliary duct dilatation seen. GALLBLADDER: Intraluminal gallbladder calculi. The gallbladder is physiologically distended without evidence of sludge, polyps, wall thickening or pericholecystic fluid. Sonographic Rios sign is negative. COMMON BILE DUCT: Normal in caliber measuring 0.4 cm in diameter. RIGHT KIDNEY: Normal. No hydronephrosis. No renal calculi or focal parenchymal lesions. The kidney measures 10.1 cm in maximum dimension. FREE FLUID: None. US/US abdomen limited IMPRESSION: 1. Increased hepatic echogenicity suggesting hepatic steatosis. 2. Cholelithiasis without sonographic evidence of acute cholecystitis.
[2023-03-09 14:20] VITALS: BP 127/58; PULSE 84; RESP 18; TEMP 37.1; O2SAT 100; BMI 39.0
--- NOTE | 2023-03-09 14:23 | ECG_ITS ---
Test Reason : STROKE Blood Pressure : / mmHG Vent. Rate : 076 BPM Atrial Rate : 076 BPM P-R Int : 198 ms QRS Dur : 118 ms QT Int : 410 ms P-R-T Axes : 029 007 019 degrees QTc Int : 461 ms Normal sinus rhythm Incomplete right bundle branch block Borderline ECG When compared with ECG of 17-FEB-2022 14:54, Incomplete right bundle branch block is now Present Referred By: Chuck Dumont Electronically Signed By:Fausto Little
--- NOTE | 2023-03-09 14:23 | ED.GENADULT ---
HPI - General Adult General Chief complaint: Neuro Symptoms/Deficit Stated complaint: stroke? Time Seen by Provider: 03/09/23 18:15 Source: patient, family, RN notes reviewed and old records reviewed Mode of arrival: ambulatory History of Present Illness HPI narrative: 77-year-old female with a past medical history of diabetes, GERD, HLD, HTN, DVT, presenting to the ED complaining of altered mental status with increasing confusion, heavy tongue & slurred speech x2 days. History obtained from son who states patient has been withdrawn, slow, out of her normal routine/habits, does not remember seeing sister yesterday. Denies known injury, trauma or fall. Patient denies any complaints at present Onset (ago): day(s) Related Data Home Medications Medication Instructions Recorded Confirmed aspirin 81 mg tablet,delayed 81 mg PO DAILY 02/08/20 02/12/23 release (Adult Low Dose Aspirin) multivitamin 1 tab PO DAILY 03/22/20 02/12/23 Previous Rx's Medication Instructions Recorded omeprazole 20 mg capsule,delayed 20 mg PO DAILY 90 days #90 caps 03/10/22 release rosuvastatin 20 mg tablet 20 mg PO DAILY 90 days #90 tabs 07/24/22 dulaglutide 3 mg/0.5 mL 3 mg (0.5 mL) subcut QWEEK 90 days 09/05/22 subcutaneous pen injector #6.5 mL (Trulicity) peg-electrolyte solution 420 gram 240 ml PO ONCE PRN laxative effect 11/15/22 oral solution 1 day #4,000 mL ascorbic acid (vitamin C) 500 mg 500 mg PO DAILY 90 days #90 caps 11/20/22 capsule ferrous sulfate 325 mg (65 mg 325 mg PO DAILY 90 days #90 tabs 11/20/22 iron) tablet alendronate 70 mg tablet (Fosamax) 70 mg PO QWEEK #14 tabs 01/08/23 glipizide 5 mg tablet 5 mg PO DAILY 90 days #90 tabs 01/17/23 amlodipine 2.5 mg tablet 2.5 mg PO DAILY #90 tabs 02/01/23 memantine 10 mg tablet 10 mg PO BID 30 days #60 tabs 02/19/23 Allergies Allergy/AdvReac Type Severity Reaction Status Date / Time No Known Allergies Allergy Verified 02/28/23 09:33 [No Known Allergies*] Review of Systems Review of Systems: Neuro: +AMS ROS limited due to patient's acute mental status, history obtained from son. Please refer to HPI Yes all other systems are reviewed and are negative Constitutional: Constitutional: Reports as per HPI [facility] Past Medical History Attestation statement: The following information was validated with the patient. Source: old records reviewed Medical History Family history of ovarian cancer Diabetes mellitus Microalbuminuria GERD (gastroesophageal reflux disease) Hyperlipidemia LDL goal <70 Type 2 diabetes mellitus with diabetic polyneuropathy Obesity due to excess calories Memory loss Cough Essential hypertension Long-term use of aspirin therapy History of DVT (deep vein thrombosis) Surgical History History of total abdominal hysterectomy and bilateral salpingo-oophorectomy History of cataract surgery Family History Family History Father No problems noted. Mother Colon cancer Son Diabetes Social History Social History Household Members: Caregiver Housing: Apartment Alcohol intake: never Patient Tobacco Use Status: Never used Tobacco e-Cigarette/Vaping Use: Never Used Second Hand Smoke Exposure: No Advance Directives: Yes Advance Directives on File: Yes Advance Directives Date on File: 02/23/21 service: No Current occupational status: disabled Cognitive needs: No Hearing needs: No Vision needs: No Physical Exam ED Vital Signs: Vital Signs - 24 hr 03/09/23 14:20 Temperature 98.7 F Pulse Rate 84 Respiratory Rate 18 Blood Pressure 127/58 L Pulse Oximetry 100 Oxygen Delivery Method Room Air BMI result Body Mass Index 39.0 Const General: cooperative, healthy appearing and no acute distress Orientation/consciousness: oriented to place Limitations: no limitations HENMT Head: Yes normal to inspection and Yes atraumatic Ears: hearing grossly normal bilaterally General nose exam: Normal external nose present Face and sinus: Yes normal facial exam Eyes General: appearance normal, both eyes and all related structures EOM: EOMs intact bilaterally Neck Neck: Yes normal visual inspection and Yes no meningeal signs Resp Effort & Inspection: normal respiratory effort and no respiratory distress Auscultation: clear to auscultation bilaterally Cardio Rate: regular rate Heart sounds: S1 normal heart sound present and S2 normal heart sound present GI Inspection: Yes normal to inspection Palpation (GI): Soft to palpation, nontender, no guarding and not rigid General: Yes no CVA tenderness Back/Spine/Pelvis Back: no CVA tenderness Skin Rashes: no rashes Wounds: no wounds Neuro General: oriented to place, tone normal, moves all extremities and no meningeal signs Cranial nerves: Yes CN's II-XII intact bilaterally Cognition (Neuro): abnormal cognition Motor exam (neuro): 5/5 motor strength present throughout Extrem General: Yes normal to inspection NIH Stroke Scale Internal: Initial- Upon Arrival Level of Consciousness: Alert Level of Consciousness Questions: Answers one question correctly Level of Consciousness Commands: Performs both tasks correctly Best Gaze: Normal Visual: No visual loss Facial Palsy: Normal Motor Arm (Right): No drift Motor Arm (Left): No drift Motor Leg (Right): No drift Motor Leg (Left): No drift Limb Ataxia: Absent Sensory: Normal Best Language: No aphasia Dysarthia: Normal Extinction and Inattention: No abnormality Score: 1 Course Course Course Narrative: RME- 77 year old female presents for evaluation of altered mental status, slurred speech. Per the patient's son, the patient has seen ?slower and confused over the last 2 days. ? He feels as though her speech is not as clear as usual. On exam she has an NIH stroke score of 0. She is well-appearing. She is well outside of the window for TNK as her symptoms started 48 hours ago and her stroke score is 0. Plan for labs, CT brain -1818--no leukocytosis. H&H stable. BUN acute on chronically elevated. Troponin negative. -AST/ALT and alk-phos acute on chronically elevated -TSH elevated 7.88, T4 WNL -COVID/FLU/RSV negative XR chest 2V IMPRESSION: Unremarkable chest exam. CT head/brain wo IV con IMPRESSION: No acute intracranial pathology. > plan to admit for further management Medical Decision Making Medical Decision Making MDM Narrative: 77-year-old female with a past medical history of diabetes, GERD, HLD, HTN, DVT, presenting to the ED complaining of altered mental status with increasing confusion, heavy tongue & slurred speech x2 days. On exam vital signs stable, NAD, A&Ox2 (oriented to place) [son reports patient always incorrectly states birthday], no focal neuro deficits. Concern for subacute CVA vs metabolic/infectious etiology. Lower suspicion for ICH NIH stroke scale =1, patient is out of the window for TNK Plan: EKG, labs, UA, CXR, head CT, admission Please refer to course for remaining clinical decision making, interpretation of labs/imaging results, and discussions with consultants and/or family members. Differential Diagnosis Differential Diagnoses: The differential diagnosis associated with the presentation includes As above Admission/Observation Consideration of admission/observation: Escalation of care including admission/observation considered Consult Healthcare Provider Management of the patient was discussed with: Hospitalist Lab Data MDM Lab Attestation statement: I reviewed the patient's lab results. 03/09/23 14:37 03/09/23 14:37 Labs: Lab Results 03/09/23 Range/Units 14:37 WBC 7.5 (4.8-10.8) X10*3/uL RBC 5.37 (4.20-5.50) X10*6/uL Hgb 14.0 (12.0-16.0) g/dl Hct 44.3 (37.0-47.0) % MCV 82.5 (80.0-98.0) fL MCH 26.1 L (27.0-33.0) pg MCHC 31.6 (31.0-35.0) g/dl RDW 19.5 H (11.0-16.0) % Plt Count 149 L D (160-400) X10*3/uL MPV 9.9 (9.4-12.3) fL Immature Gran % (Auto) 0.1 (0.0-0.4) % Neut % (Auto) 81.6 H (45-73) % Lymph % (Auto) 11.8 L (20-40) % [place] % (Auto) 5.6 (2-11) % Eos % (Auto) 0.8 (0-4) % Baso % (Auto) 0.1 (0-2) % Lymph # (Auto) 0.9 L (1.2-4.9) X10*3/uL [place] # (Auto) 0.4 (0.1-1.2) X10*3/uL Eos # (Auto) 0.1 (0.0-0.4) X10*3/uL Baso # (Auto) 0.0 (0.0-0.2) X10*3/uL Abs Immat Gran (auto) 0.01 (0.00-0.03) X10*3/uL Absolute Neuts (auto) 6.1 (2.0-8.3) x10*3/uL Absolute Nucleated RBC 0.000 (0.0-0.012) X10*3/uL Nucleated RBC % (auto) 0.0 (0.0-0.2) /100WBC PT 11.9 (11.1-13.3) SEC INR 1.0 (0.9-1.1) APTT 39.7 H (26.0-36.4) SEC Sodium 139 (135-145) mmol/L Potassium 4.8 (3.3-5.1) mmol/L Chloride 106 (96-108) mmol/L Carbon Dioxide 24 (22-29) mmol/L Anion Gap 14 (12-20) BUN 26 H (9-16) mg/dL Creatinine 0.82 (0.5-1.4) mg/dL Estim Creat Clear Calc 63.7 Estimated GFR > 60 Random Glucose 121 H (60-115) mg/dL Calcium 10.0 (8.4-10.2) mg/dL Magnesium 2.0 (1.6-2.6) mg/dL Total Bilirubin 0.2 (0.0-1.0) mg/dL AST 78 H (5-31) U/L ALT 129 H (0-31) U/L Alkaline Phosphatase 245 H (39-117) U/L Troponin I High Sens < 2.7 (<3.5-17.0) ng/L Total Protein 7.6 (6.5-8.0) g/dL Albumin 3.6 (3.5-5.0) g/dL Lipase 60 (8-78) U/L TSH 7.88 H (0.32-4.0) uIU/mL Free T4 0.84 (0.71-1.85) ng/dL Influenza Type A (PCR) NEGATIVE (Negative) Influenza Type B (PCR) NEGATIVE (Negative) RSV RNA Qual (PCR) NEGATIVE (Negative) SARS-CoV-2 RNA (RT-PCR) NEGATIVE (Negative) Independent Interpretation I performed an independent interpretation of an: EKG (My interpretation EKG normal sinus rhythm rate of 76. WV interval 198. QTC 461. Incomplete right bundle-branch block now present) Radiology Impression Discussion of test interpretation with radiology: I have reviewed the radiologist's reading. Independent Historian Clinical information obtained from an independent historian. History obtained from or confirmed by: Other (Son) External Record Review External record reviewed: Inpatient record, Office record, Outpatient record, Prior outpatient labs, Prior outpatient radiology, Primary care record and Outside ED record Tests considered The following testing was considered but not selected: As above Chronic Conditions Patient?s care impacted by: Hypertension Critical Care Time Critical Care Time Critical Care Time: Yes Total Critical Care Time: 40 Attestation: I have personally provided critical care time exclusive of time spent on separately billable procedures. Time includes review of lab data, radiology results, discussion with consultants, and monitoring for potential decompensation. Intervention performed as documented. Discharge Plan Discharge Clinical Impression: Acute alteration in mental status Patient Disposition: Admitted As Inpatient
[2023-03-09 14:43] LABS: MANUAL DIFF FLAG NO
[2023-03-09 14:51] LABS: Prothrombin Time 11.9 SEC (11.1-13.3)
[2023-03-09 14:53] LABS: Partial Thromboplastin Time 39.7 SEC (26.0-36.4)
[2023-03-09 14:57] LABS: Basophils Percent Auto 0.1 % (0-2); Eosinophils Absolute Auto 0.1 X10*3/uL (0.0-0.4); Eosinophils Percent Auto 0.8 % (0-4); Hematocrit 44.3 % (37.0-47.0); Imm Gran Abs Auto 0.01 X10*3/uL (0.00-0.03); Imm Gran Pct Auto 0.1 % (0.0-0.4); Lymphocytes Absolute Auto 0.9 X10*3/uL (1.2-4.9); Lymphocytes Percent Auto 11.8 % (20-40); Mean Corpuscular HGB Conc 31.6 g/dl (31.0-35.0); Mean Corpuscular Hemoglobin 26.1 pg (27.0-33.0); Mean Corpuscular Volume 82.5 fL (80.0-98.0); Mean Platelet Volume 9.9 fL (9.4-12.3); Monocytes Absolute Auto 0.4 X10*3/uL (0.1-1.2); Monocytes Percent Auto 5.6 % (2-11); Neutrophils Absolute Auto 6.1 x10*3/uL (2.0-8.3); Neutrophils Percent Auto 81.6 % (45-73); Platelet Count 149 X10*3/uL (160-400); Red Blood Count 5.37 X10*6/uL (4.20-5.50); Red Cell Distribution Width 19.5 % (11.0-16.0); White Blood Count 7.5 X10*3/uL (4.8-10.8)
[2023-03-09 15:07] LABS: Alanine Aminotransferase 129 U/L (0-31); Albumin Level 3.6 g/dL (3.5-5.0); Alkaline Phosphatase 245 U/L (39-117); Anion Gap 14 (12-20); Aspartate Amino Transferase 78 U/L (5-31); Bilirubin Total 0.2 mg/dL (0.0-1.0); Blood Urea Nitrogen 26 mg/dL (9-16); Carbon Dioxide 24 mmol/L (22-29); Chloride 106 mmol/L (96-108); Creatinine Clr Calc Pharmacy 63.7; Estimated Glomerular Filt Rate > 60; Glucose Random 121 mg/dL (60-115); Lipase 60 U/L (8-78); Potassium 4.8 mmol/L (3.3-5.1); Sodium 139 mmol/L (135-145); Total Protein 7.6 g/dL (6.5-8.0)
[2023-03-09 15:17] LABS: Troponin-I High Sensitivity < 2.7 ng/L (<3.5-17.0)
[2023-03-09 15:21] LABS: Influenza A PCR NEGATIVE (Negative); Influenza B PCR NEGATIVE (Negative); Resp Syncy Virus RNA Qual PCR NEGATIVE (Negative); SARS COV2 PCR INHOUSE NEGATIVE (Negative)
[2023-03-09 15:29] LABS: TSH reflex Free T4 7.88 uIU/mL (0.32-4.0)
[2023-03-09 16:32] LABS: Free T4 (Free Thyroxine) 0.84 ng/dL (0.71-1.85)
[2023-03-09 20:00] VITALS: BP 144/69; PULSE 61; RESP 16; TEMP 36.8; O2SAT 98
[2023-03-09 20:01] LABS: Appearance Urine Clear; Color Urine Yellow; Glucose Urine UA Negative (Negative); Leukocyte Esterase Urine Negative (Negative); Nitrite Urine Negative (Negative); PH 5.5 (5.0-9.0); Urine Blood Negative (Negative); Urine Ketones Negative (Negative); Urine Protein Negative (Neg-Trace)
[2023-03-09 20:04] LABS: Bacteria Urine None Seen (None Seen); Hyaline Casts Urine 0-2 /LPF (0-2); WBC Urine 0-5 /HPF (0-5)
--- NOTE | 2023-03-09 20:05 | PC.NURSE ---
this rn assumed care pf pt @ 1900. pt ambulatory to restroom. difficulty following commands despite use of etcher photoengraving. pt repositioned back to bed
--- NOTE | 2023-03-09 21:36 | P.HPHOSP_ITS ---
History of Present Illness Date of Service: 03/09/23 Attending physician on admission: Shabbir Schwartz Chief Complaint: Slurred speech x1 day Patient is a 77 year old obese (BMI 39) female with PMH of dementia, type 2 diabetes mellitus, hypertension, hyperlipidemia and osteoporosis and who currently lives at home with son is brought to the ER for evaluation after her son noticed that her speech was slurred - she spoke with a heavy tongue and seemed to have word finding difficulty - which was new. He was also concerned that she appeared to be struggle when trying to stand up from a sitting position and was unsteady on her feet for a few moments after standing up. Yesterday, she did not recognize her daughter who lives next door and had come to see her. He was therefore concerned that she may be having a stroke and so brought her in for evaluation. Work up done in the emergency room has so far been unrevealing except for mildly elevated liver enzymes (AST 78; ALT 129 and ALP 245) and elevated TSH at 7.88 with a normal Free T4 (old). A CT scan of the brain did not show any acute pathology. During my evaluation, she denied any other symptoms and he speech was normal and fluent. Admission was requested for overnight observation. Review of Systems 2 Review of Systems: Yes all other systems are reviewed and are negative [facility] Medical History Family history of ovarian cancer Diabetes mellitus Microalbuminuria GERD (gastroesophageal reflux disease) Hyperlipidemia LDL goal <70 Type 2 diabetes mellitus with diabetic polyneuropathy Obesity due to excess calories Memory loss Cough Essential hypertension Long-term use of aspirin therapy History of DVT (deep vein thrombosis) Functional capacity: independent ambulation Patient : No Family History Father No problems noted. Mother Colon cancer Son Diabetes Surgical History History of total abdominal hysterectomy and bilateral salpingo-oophorectomy History of cataract surgery Social History Household Members: Caregiver Housing: Apartment Alcohol intake: never Patient Tobacco Use Status: Never used Tobacco e-Cigarette/Vaping Use: Never Used Second Hand Smoke Exposure: No Advance Directives Date on File: 02/23/21 service: No Current occupational status: disabled Cognitive needs: No Hearing needs: No Vision needs: No Meds Allergies Allergy/AdvReac Type Severity Reaction Status Date / Time No Known Allergies Allergy Verified 02/28/23 09:33 [No Known Allergies*] Home Medications Medication Instructions Recorded Confirmed Last Taken Type aspirin 81 mg tablet,delayed 81 mg PO DAILY 02/08/20 02/12/23 02/17/22 History release (Adult Low Dose Aspirin) multivitamin 1 tab PO DAILY 03/22/20 03/09/23 02/17/22 History metformin 500 mg tablet,extended 1,000 mg PO BID 03/09/23 03/09/23 Unknown History release 24 hr Physical Exam 2 Vital Signs and Narrative: Vital Signs: Last Vital Signs Temp 98.3 F 03/09/23 20:00 Pulse 61 03/09/23 20:00 Resp 16 03/09/23 20:00 BP 144/69 H 03/09/23 20:00 Pulse Ox 98 03/09/23 20:00 O2 Del Method Room Air 03/09/23 20:00 BMI result Body Mass Index 39.0 General: Well nourished. Awake, alert and oriented to person only. No apparent distress Eyes: No pallor or jaundice. PERRLA, EOMI HENT: Moist oral mucus membranes. No oropharyngeal lesions. Neck: Supple. No cervical adenopathy. No JVD Cardiovascular: Regular rate and rhythm. Normal heart sounds. No murmurs, rubs or gallops. No JVD. No peripheral edema. Respiratory: Normal respiratory effort with no accessory muscle use. CTAB. Gastrointestinal: Abdomen is soft, non-tender, non-distended. NABS. No hepatosplenomegaly Extremities: No edema. No calf tenderness. Good peripheral pulses Skin: Warm/Dry. No rashes. No mottling. Capillary refill is < 2 seconds Neurological: AAOx4. Intact speech & cognition. Normal gait & balance. CN II - XII grossly intact but not individually tested. No motor or sensory deficits Hematologic: No bleeding. No ecchymosis. No swollen or tender lymph nodes. Psychiatric: Cooperative. Appropriate mood and affect . Results Labs 03/09/23 14:37 03/09/23 14:37 Labs: Laboratory Results - last 24 hr 03/09/23 03/09/23 14:37 19:42 MCV 82.5 MCH 26.1 L MCHC 31.6 RDW 19.5 H Plt Count 149 L D MPV 9.9 Immature Gran % (Auto) 0.1 Neut % (Auto) 81.6 H Lymph % (Auto) 11.8 L [place] % (Auto) 5.6 Eos % (Auto) 0.8 Baso % (Auto) 0.1 Lymph # (Auto) 0.9 L [place] # (Auto) 0.4 Eos # (Auto) 0.1 Baso # (Auto) 0.0 Abs Immat Gran (auto) 0.01 Absolute Neuts (auto) 6.1 Absolute Nucleated RBC 0.000 Nucleated RBC % (auto) 0.0 PT 11.9 INR 1.0 APTT 39.7 H Anion Gap 14 Estim Creat Clear Calc 63.7 Estimated GFR > 60 Random Glucose 121 H Calcium 10.0 Magnesium 2.0 Total Bilirubin 0.2 AST 78 H ALT 129 H Alkaline Phosphatase 245 H Total Protein 7.6 Albumin 3.6 Lipase 60 TSH 7.88 H Free T4 0.84 Urine Color Yellow Urine Appearance Clear Urine pH 5.5 Ur Specific [place] 1.020 Urine Protein Negative Urine Glucose (UA) Negative Urine Ketones Negative Urine Blood Negative Urine Nitrite Negative Ur Leukocyte Esterase Negative Urine RBC 3-5 H Urine WBC 0-5 Ur Squamous Epith Cells 6-10 Urine Bacteria None Seen Hyaline Casts 0-2 Influenza Type A (PCR) NEGATIVE Influenza Type B (PCR) NEGATIVE RSV RNA Qual (PCR) NEGATIVE SARS-CoV-2 RNA (RT-PCR) NEGATIVE ECG ECG interpretation date: 03/09/23 ECG interpretation time: 22:54 Interpretation: NSR at 76 bpm with normal IA interval and no acute ischemic changes Imaging Radiologist's Impressions: Impressions Chest X-Ray 03/09/23 15:07 IMPRESSION: Unremarkable chest exam. Head CT 03/09/23 15:42 IMPRESSION: No acute intracranial pathology. Assessment and Plan (1) TIA (transient ischemic attack): Status: Acute (2) Dementia: Qualifiers: Dementia type: Alzheimer's Dementia severity: mild Dementia behavioral or psychological symptom: without behavioral, psychotic, or mood disturbance or anxiety Alzheimer's disease onset: late onset Qualified Code(s): G30.1 - Alzheimer's disease with late onset; F02.A0 - Dementia in other diseases classified elsewhere, mild, without behavioral disturbance, psychotic disturbance, mood disturbance, and anxiety Status: Acute (3) Weakness: Status: Acute (4) Hypertension, essential: Status: Acute (5) Hyperlipidemia: Qualifiers: Hyperlipidemia type: unspecified Qualified Code(s): E78.5 - Hyperlipidemia, unspecified Status: Acute (6) Type 2 diabetes mellitus: Qualifiers: Diabetes mellitus intermodal customer service insulin use: without intermodal customer service use Diabetes mellitus complication status: without complication Qualified Code(s): E11.9 - Type 2 diabetes mellitus without complications Status: Acute Plan 77 year old obese (BMI 39) female with PMH of dementia, type 2 diabetes mellitus, hypertension, hyperlipidemia and osteoporosis here with 1. TIA - noted with transient episode of slurred speech - work up is negative and speech is normal at this time - admit for TIA - consider getting MRI brain, MRA head and neck and 2 D echo - check lipid panel in AM - continue Aspirin 2. Dementia - with ongoing memory loss (could not remember daughter) - continue Namenda 3. Hypertension - BP control is fair - resume anti-hypertensive medications - Amlodipine 4. Hyperlipidemia ]- resume Rosuvastatin 5. Type 2 diabetes mellitus - resume Glipizide and Metformin DVT: SC Lovenox CODE STATUS: Full code Admission for observation for further evaluation opf possible TIA Total time managing care of this patient today: 55 minutes. Quality Stroke Does the patient have a stroke diagnosis?: No VTE Prior VTE?: No VTE Risk Level:: Medical - moderate - high VTE Device Contraindication: N/A - Device Ordered VTE Drug Contraindication: N/A - Med Ordered
[2023-03-09 22:00] VITALS: BP 144/61; PULSE 61; RESP 16; TEMP 36.7; O2SAT 98
[2023-03-09] MEDS: Enoxaparin Sodium 40 MG/0.4 ML SYRINGE SUBCUT (23:39)
[2023-03-09] MEDS: Memantine HCl 10 MG TABLET PO (23:40)
[2023-03-09] MEDS: 0.9 % Sodium Chloride Flush 3 ML SYRINGE IVFLUSH (23:40)
[2023-03-10] VITALS (7 sets, daily range): BP systolic 123–166; BP diastolic 56–74; PULSE 66–83; RESP 16–20; TEMP 36.2–37.2; O2SAT 94–100
--- NOTE | 2023-03-10 | PC.NURSE ---
swallow eval performed pt passed. pt medicated according to mar tolerated well. pt son remains at bedside
--- NOTE | 2023-03-10 01:00 | PC.NURSE ---
med rec performed by this rn utilizing medical record
--- NOTE | 2023-03-10 05:28 | PC.NURSE ---
written report given @ [phone]. this rn asked by accepting electrical discharge machine operator genia boyce to allow for time prior to transfer to floor. this rn discussed with electrical discharge machine operator and nursing pilot plant supervisor if this was okay. per charge and pilot plant supervisor this was okay.
[2023-03-10 07:08] LABS: MANUAL DIFF FLAG NO
[2023-03-10 07:11] LABS: Basophils Percent Auto 0.2 % (0-2); Eosinophils Absolute Auto 0.1 X10*3/uL (0.0-0.4); Eosinophils Percent Auto 1.2 % (0-4); Hematocrit 44.4 % (37.0-47.0); Imm Gran Abs Auto 0.01 X10*3/uL (0.00-0.03); Imm Gran Pct Auto 0.2 % (0.0-0.4); Lymphocytes Absolute Auto 0.9 X10*3/uL (1.2-4.9); Mean Corpuscular HGB Conc 31.5 g/dl (31.0-35.0); Mean Corpuscular Hemoglobin 25.9 pg (27.0-33.0); Mean Corpuscular Volume 82.2 fL (80.0-98.0); Mean Platelet Volume 9.5 fL (9.4-12.3); Monocytes Absolute Auto 0.5 X10*3/uL (0.1-1.2); Monocytes Percent Auto 9.3 % (2-11); Neutrophils Absolute Auto 4.2 x10*3/uL (2.0-8.3); Neutrophils Percent Auto 73.1 % (45-73); Platelet Count 141 X10*3/uL (160-400); Red Cell Distribution Width 19.3 % (11.0-16.0); White Blood Count 5.7 X10*3/uL (4.8-10.8)
[2023-03-10 07:26] LABS: Alanine Aminotransferase 119 U/L (0-31); Albumin Level 3.5 g/dL (3.5-5.0); Alkaline Phosphatase 222 U/L (39-117); Anion Gap 14 (12-20); Aspartate Amino Transferase 68 U/L (5-31); Bilirubin Total 0.3 mg/dL (0.0-1.0); Blood Urea Nitrogen 26 mg/dL (9-16); Calcium 9.9 mg/dL (8.4-10.2); Carbon Dioxide 23 mmol/L (22-29); Chloride 107 mmol/L (96-108); Cholesterol 111 mg/dL (<200); Estimated Glomerular Filt Rate > 60; Glucose Random 76 mg/dL (60-115); HDL Cholesterol 59 mg/dL (>40); LDL Cholesterol Calculated 43 mg/dL (<100); Magnesium 2.1 mg/dL (1.6-2.6); Sodium 139 mmol/L (135-145); Total Protein 7.2 g/dL (6.5-8.0); Triglycerides 45 mg/dL (<150)
--- NOTE | 2023-03-10 08:10 | PHA.MEDREC ---
Pharmacy Consult ? Medication Reconciliation Pharmacy has completed the medication reconciliation. Spoke to patient's son Yohannes to confirm meds.
[2023-03-10 09:16] LABS: Estimated Average Glucose 166 mg/dL; Hemoglobin A1c % 7.4 % (<6.0)
[2023-03-10] MEDS: 0.9 % Sodium Chloride Flush 3 ML SYRINGE IVFLUSH ×2 (10:04→23:27)
[2023-03-10] MEDS: Docusate Sodium 100 MG CAPSULE PO ×2 (10:04→20:33)
[2023-03-10] MEDS: Multivitamin TABLET 1 TAB PO (10:04)
[2023-03-10] MEDS: Atorvastatin Calcium 80 MG TABLET PO (10:04)
[2023-03-10] MEDS: Ascorbic Acid 500 MG TABLET PO (10:04)
[2023-03-10] MEDS: Omeprazole 20 MG CAPSULE.DR PO (10:04)
[2023-03-10] MEDS: Memantine HCl 10 MG TABLET PO ×2 (10:04→20:34)
[2023-03-10] MEDS: amLODIPine Besylate 2.5 MG TABLET PO (10:04)
[2023-03-10] MEDS: Aspirin 81 MG TAB.CHEW PO (10:05)
--- NOTE | 2023-03-10 13:32 | P.PNIM_ITS ---
Subjective Subjective Date of Service: 03/10/23 Interval History: disoriented- knows her name but not where she is, nor the date speech is fluent no weakness This history was taken in [place] from the patient and her family at bedside. Review of Systems Review of Systems: Yes all other systems are reviewed and are negative Physical Exam 2 Vital Signs: Vital Signs: Last Vital Signs Temp 98 F 03/10/23 07:04 Pulse 70 03/10/23 07:04 Resp 16 03/10/23 07:04 BP 152/74 H 03/10/23 07:04 Pulse Ox 94 03/10/23 07:04 O2 Del Method Room Air 03/10/23 07:04 BMI result Body Mass Index 39.0 Gen: in no acute distress HEENT: sclera anicteric, moist mucus membranes Neck: supple Lungs: clear to auscultation bilaterally Heart: regular rate and rhythm, no murmurs Abd: soft, non-tender, non-distended Ext: no edema Skin: warm/well-perfused Neuro: alert and oriented only to self, no focal weakness, no pronator drift Psych: impaired insight Objective Data Active Medications Acetaminophen (Acetaminophen 325 Mg Tablet) 650 mg PO Q6H PRN PRN Reason: Pain, Mild (Pain Scale 1-3) Amlodipine Besylate (Amlodipine Besylate 2.5 Mg Tablet) 2.5 mg PO DAILY [facility]; Protocol Last Admin: 03/10/23 10:04 Dose: 2.5 mg Documented By: DACIA Ascorbic Acid (Ascorbic Acid 500 Mg Tablet) 500 mg PO DAILY [facility] Last Admin: 03/10/23 10:04 Dose: 500 mg Documented By: DACIA Aspirin (Aspirin 81 Mg Tab.Chew) 81 mg PO DAILY [facility] Last Admin: 03/10/23 10:05 Dose: 81 mg Documented By: DACIA Atorvastatin Calcium (Atorvastatin Calcium 80 Mg Tablet) 80 mg PO DAILY [facility] Last Admin: 03/10/23 10:04 Dose: 80 mg Documented By: DACIA Dextrose (Dextrose 50 % 25 Gm/50 Ml Syringe) 25 gm IVPUSH Q15M PRN; Protocol PRN Reason: per Hypoglycemia Standing Ord. Dextrose (Dextrose 50 % 25 Gm/50 Ml Syringe) 25 gm IVPUSH Q15M PRN; Protocol PRN Reason: per Hypoglycemia Standing Ord. Docusate Sodium (Docusate Sodium 100 Mg Capsule) 100 mg PO BID [facility] Last Admin: 03/10/23 10:04 Dose: 100 mg Documented By: DACIA Enoxaparin Sodium (Enoxaparin Sodium 40 Mg/0.4 Ml Syringe) 40 mg SUBCUT Q24H [facility] Last Admin: 03/09/23 23:39 Dose: 40 mg Documented By: PETE Glucose (Glucose Gel 15 Gm Gel..Gram.) 15 gm PO Q15M PRN; Protocol PRN Reason: per Hypoglycemia Standing Ord. Insulin Human Lispro (Insulin Lispro 100 Unit/Ml 3 Ml Vial) 0 unit SUBCUT QIDACHS [facility]; Protocol Last Admin: 03/10/23 12:56 Dose: Not Given Documented By: DACIA Non-Admin Reason: off unit Melatonin (Melatonin 3 Mg Tablet) 6 mg PO BEDTIME PRN PRN Reason: Insomnia Memantine (Memantine Hcl 10 Mg Tablet) 10 mg PO BID [facility] Last Admin: 03/10/23 10:04 Dose: 10 mg Documented By: DACIA Multivitamins/Vitamin C (Multivitamin Tablet) 1 tab PO DAILY [facility] Last Admin: 03/10/23 10:04 Dose: 1 tab Documented By: DACIA Omeprazole (Omeprazole 20 Mg Capsule.Dr) 20 mg PO DAILY [facility] Last Admin: 03/10/23 10:04 Dose: 20 mg Documented By: DACIA Ondansetron HCl (Ondansetron Hcl 4 Mg/2 Ml Vial) 4 mg IVPUSH Q8H PRN PRN Reason: Nausea and Vomiting Sodium Chloride (0.9 % Sodium Chloride Flush 3 Ml Syringe) 3 ml IVFLUSH QSHIFT [facility] Last Admin: 03/10/23 10:04 Dose: 3 ml Documented By: DACIA Labs 03/10/23 06:50 03/10/23 06:50 Labs: Laboratory Results - last 24 hr 03/09/23 03/09/23 03/10/23 14:37 19:42 06:50 MCV 82.5 82.2 MCH 26.1 L 25.9 L MCHC 31.6 31.5 RDW 19.5 H 19.3 H Plt Count 149 L D 141 L MPV 9.9 9.5 Immature Gran % (Auto) 0.1 0.2 Neut % (Auto) 81.6 H 73.1 H Lymph % (Auto) 11.8 L 16.0 L [place] % (Auto) 5.6 9.3 Eos % (Auto) 0.8 1.2 Baso % (Auto) 0.1 0.2 Lymph # (Auto) 0.9 L 0.9 L [place] # (Auto) 0.4 0.5 Eos # (Auto) 0.1 0.1 Baso # (Auto) 0.0 0.0 Abs Immat Gran (auto) 0.01 0.01 Absolute Neuts (auto) 6.1 4.2 Absolute Nucleated RBC 0.000 0.000 Nucleated RBC % (auto) 0.0 0.0 PT 11.9 INR 1.0 APTT 39.7 H Anion Gap 14 14 Estim Creat Clear Calc 63.7 66.0 Estimated GFR > 60 > 60 Random Glucose 121 H 76 Estimat Average Glucose 166 Hemoglobin A1c % 7.4 H Calcium 10.0 9.9 Magnesium 2.0 2.1 Total Bilirubin 0.2 0.3 AST 78 H 68 H ALT 129 H 119 H Alkaline Phosphatase 245 H 222 H Total Protein 7.6 7.2 Albumin 3.6 3.5 Triglycerides 45 Cholesterol 111 LDL Cholesterol, Calc 43 HDL Cholesterol 59 Lipase 60 TSH 7.88 H Free T4 0.84 Urine Color Yellow Urine Appearance Clear Urine pH 5.5 Ur Specific [place] 1.020 Urine Protein Negative Urine Glucose (UA) Negative Urine Ketones Negative Urine Blood Negative Urine Nitrite Negative Ur Leukocyte Esterase Negative Urine RBC 3-5 H Urine WBC 0-5 Ur Squamous Epith Cells 6-10 Urine Bacteria None Seen Hyaline Casts 0-2 Influenza Type A (PCR) NEGATIVE Influenza Type B (PCR) NEGATIVE RSV RNA Qual (PCR) NEGATIVE SARS-CoV-2 RNA (RT-PCR) NEGATIVE Assessment and Plan (1) Acute alteration in mental status: Status: Acute Plan d2 77yo F with dementia, DM2, HTN, HLD presented after transient episode of slurred speech that has resolved transient aphasia - resolved; MRI/carotid doppler/TTE/Neuro consult/PT/OT/SETTER OFF pending; continue ASA/aspirin dementia, unspecified - continue memantine HTN - continue amlodipine HLD - continue statin DM2 - correction-dose lispro, hold OHGs VTE ppx - LMWH dispo - TBD In my clinical judgment, the patient requires continued inpatient hospitalization for the following reasons: TIA workup Total time managing care of this patient today: 40 minutes. Quality Stroke Does the patient have a stroke diagnosis?: No VTE Prior VTE?: No VTE Risk Level:: Medical - moderate - high VTE Device Contraindication: N/A - Device Ordered VTE Drug Contraindication: N/A - Med Ordered
--- NOTE | 2023-03-10 15:19 | MHC.CM.PN ---
05/11/22, PT S/P TIA AND DEMENTIA, CM MET W/PT'S SON/TAILOR APPRENTICE TIA AT BEDSIDE, TIA REPORTS HE LIVES W/PT AND IS HER DAILY PCAM PT AMBULATES INDEP, HAS A GLUCOMETER/GLIPIZIDE AND TRULICITY FOR DME AND HAS [employer] FOR TAILOR APPRENTICE AND CM WHO VISITS [facility]2M[facility], TIA REPORTS GOAL IS HOME W/SERVICES. PCP VERIFIED, TIA REPORTS HIS SISTER ASHIA AVILA [phone] IS PT'S HCP, COPY REQUESTED
[2023-03-10 16:34] LABS: Glucose, Whole Blood 123 mg/dL (60-115)
[2023-03-10 20:12] LABS: Glucose, Whole Blood 118 mg/dL (60-115)
[2023-03-10] MEDS: Enoxaparin Sodium 40 MG/0.4 ML SYRINGE SUBCUT (23:26)
[2023-03-11 03:36] VITALS: BP 140/71; PULSE 86; RESP 18; TEMP 36.6; O2SAT 97
--- NOTE | 2023-03-11 07:00 | CA_ITS ---
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 Normal LV ejection fraction of 60 65% with mild LVH with impaired relaxation filling pattern 2. Cardiac valvular Dopplers within normal limits 3. Normal RV systolic pressure 4. Trivial pericardial effusion Findings Procedure Information Contrast agent, definity, is being given per protocol without apparent complications. Left Ventricle Normal left ventricular size and systolic function. There is mildly increased left ventricular wall thickness. The visually estimated ejection fraction is between 60-65%. Spectral Doppler is indicative of an impaired relaxation filling pattern. E/E prime ratio is between 8 and 15 consistent with indeterminate filling pressures. Right Ventricle Normal right ventricular cavity size and systolic function. Atria The left atrium is normal in size. Interatrial shunt cannot be excluded. The right atrium was not well visualized. Aortic Valve Normal aortic valve structure and function. There is no aortic valve stenosis. There is no aortic valve regurgitation. Mitral Valve There is mild anterior and posterior mitral leaflet thickening. There is mild mitral annular calcification. There is trace mitral valve regurgitation. There is no mitral valve stenosis. Pulmonic Valve The pulmonic valve was not well visualized. Tricuspid Valve Likely normal tricuspid valve structure and function. There is mild tricuspid valve regurgitation. The right ventricular systolic pressure is normal. The right ventricular systolic pressure is 21 mmHg. Normal right atrial pressure. There is no evidence of pulmonary hypertension. Great Vessels The pulmonary artery was not well visualized. There is no dilatation of the ascending aorta. Venous The inferior vena cava is normal in size and collapses greater than 50% with inspiration. Pericardium/Pleural There is a trivial loculated pericardial effusion overlying the left ventricle. Prior Study Comparison No prior study available for comparison. Measurements 2D Linear Measurements IVSd: 1.31 0.6-0.9/0.6-1.0 cm LVIDd: 3.46 3.9-5.3/4.2-5.9 cm LVIDd Index: 1.72 2.4-3.2/2.2-3.1 cm/m2 LVIDs: 2.53 2.0-3.6 cm LVPWd: 1.31 0.7-1.1 cm LA Diam: 2.10 2.7-3.8/3.0-4.0 cm LAIDs Index: 1.04 1.5-2.3 cm/m2 LV Mass: 190.67 67-162/88-224 g LV Mass Index: 94.86 43-95/49-115 g/m2 LVOT Diam: 1.70 3.0+(-)1.3 cm Mitral Valve MV Pk E: 0.72 MV PK A: 1.12 MV Decel Time: 130.00 E/A: 0.60 E'Lateral: 5.33 E'Medial: 4.35 E/E' Med: 16.60 E/E' Lat: 13.60 PHT: 38.00 MVA PHT: 5.79 Decel [place]: 5.56 Aortic Valve AoV Pk Ricardo: 1.49 AoV Mn Ricardo: 0.93 AoV VTI: 0.31 AoV Pk Grad: 9.00 Aov Mn Grad: 4.00 WALDEMAR Cont.VTI: 1.45 LVOT LVOT Pk Ricardo: 0.87 LVOT Mn Ricardo: 0.55 LVOT VTI: 0.20 LVOT Pk Grad: 3.00 LVOT Mn Grad: 1.00 LVOT Diam: 1.70 LVOT Area: 2.27 Diastolic Function MV Pk E: 0.72 MV Pk A: 1.12 E/A: 0.60 E'Medial: 4.35 E/E' Med: 16.60 E' Laterial: 5.33 E/E' Lat: 13.60 Right Ventricle TAPSE (mm): 18.20 TVS' Ricardo: 9.90 Tricuspid Valve TR Pk Ricardo: 2.10 TR Pk Grad: 18.00 RA Press: 3.00 RVSP: 21.00 Great Vessels Aorta Sinus of Valsalva: 2.70 2.0-3.5 cm Ao Asc: 3.20 2.1-3.4 cm Updated in Other Vendor System with Status of Final Miguel Ortega MD electronically signed on 03/11/2023 4:32:13 PM with status of Final
[2023-03-11 07:22] VITALS: BP 122/59; PULSE 87; RESP 18; TEMP 36.7; O2SAT 96
[2023-03-11 07:57] LABS: Alanine Aminotransferase 119 U/L (0-31); Albumin Level 3.3 g/dL (3.5-5.0); Alkaline Phosphatase 250 U/L (39-117); Aspartate Amino Transferase 80 U/L (5-31); Bilirubin Direct 0.1 mg/dL (0.0-0.5); Bilirubin Total 0.3 mg/dL (0.0-1.0)
[2023-03-11 07:59] LABS: Glucose, Whole Blood 76 mg/dL (60-115)
[2023-03-11 08:17] LABS: HBS Num1 0.37 mIU/mL (0-7.99); HBc Num1 0.17 S/CO (0.00-0.79); HBsAGNum1 0.24 S/CO (0.00-0.99); Hepatitis B Core Antibody Nonreactive (Nonreactive); Hepatitis B Surface Antigen Negative (Negative); ~HepC Num1 0.33 S/CO (0.00-0.79); ~Hepatitis B Surface Antibody NONREACTIVE (Nonreactive); ~Hepatitis C Antibody Nonreactive (Nonreactive)
[2023-03-11] MEDS: Memantine HCl 10 MG TABLET PO ×2 (10:22→22:07)
[2023-03-11] MEDS: Ascorbic Acid 500 MG TABLET PO (10:23)
[2023-03-11] MEDS: Aspirin 81 MG TAB.CHEW PO (10:23)
[2023-03-11] MEDS: amLODIPine Besylate 2.5 MG TABLET PO (10:23)
[2023-03-11] MEDS: Atorvastatin Calcium 80 MG TABLET PO (10:23)
[2023-03-11] MEDS: Multivitamin TABLET 1 TAB PO (10:23)
[2023-03-11] MEDS: Omeprazole 20 MG CAPSULE.DR PO (10:23)
[2023-03-11] MEDS: 0.9 % Sodium Chloride Flush 3 ML SYRINGE IVFLUSH ×2 (10:24→22:07)
--- NOTE | 2023-03-11 10:40 | P.CNNE_ITS ---
History of Present Illness Data of Consult Service Date: 03/11/23 Primary Care Provider: Rachna Lewis MD [facility] Reason for consult: ?stroke 77 year old obese (BMI 39) female with PMH of dementia, type 2 diabetes mellitus, hypertension, hyperlipidemia and osteoporosis and who currently lives at home with son is brought to the ER for evaluation after her son noticed that her speech was slurred - she spoke with a heavy tongue and seemed to have word finding difficulty. The symptoms started few days prior to coming to hospital. Now she was feeling better with no active symptoms. There was no complaint of headache or cold or flu-like illness Review of Systems 2 Review of Systems: No recent cold or flu-like illness trauma or headache per PMFSH Past Medical History Medical History Family history of ovarian cancer Diabetes mellitus Microalbuminuria GERD (gastroesophageal reflux disease) Hyperlipidemia LDL goal <70 Type 2 diabetes mellitus with diabetic polyneuropathy Obesity due to excess calories Memory loss Cough Essential hypertension Long-term use of aspirin therapy History of DVT (deep vein thrombosis) Family History Family History Father No problems noted. Mother Colon cancer Son Diabetes Surgical History Surgical History History of total abdominal hysterectomy and bilateral salpingo-oophorectomy History of cataract surgery Social History Social History Household Members: Unknown / Unable to assess Housing: Unknown / Unable to assess Unable to assess alcohol history related to: Unknown Alcohol intake: never Patient Tobacco Use Status: Never used Tobacco Smoked in Last 30 Days: No e-Cigarette/Vaping Use: Never Used Second Hand Smoke Exposure: No Use of substances other than those prescribed or required for medical reasons: Unknown Currently Displaying Signs/Symptoms of Drug Intoxication Withdrawal: No Advance Directives: Yes Advance Directives on File: Yes Advance Directives Date on File: 02/23/21 Nutrition Risks: No Nutritional Risk Patient : No service: No Current occupational status: disabled Cognitive needs: No Hearing needs: No Vision needs: No Meds Allergies Allergy/AdvReac Type Severity Reaction Status Date / Time No Known Allergies Allergy Verified 02/28/23 09:33 [No Known Allergies*] Active Medications: Current Medications Acetaminophen (Acetaminophen 325 Mg Tablet) 650 mg PO Q6H PRN PRN Reason: Pain, Mild (Pain Scale 1-3) Amlodipine Besylate (Amlodipine Besylate 2.5 Mg Tablet) 2.5 mg PO DAILY [facility]; Protocol Last Admin: 03/11/23 10:23 Dose: 2.5 mg Ascorbic Acid (Ascorbic Acid 500 Mg Tablet) 500 mg PO DAILY [facility] Last Admin: 03/11/23 10:23 Dose: 500 mg Aspirin (Aspirin 81 Mg Tab.Chew) 81 mg PO DAILY [facility] Last Admin: 03/11/23 10:23 Dose: 81 mg Atorvastatin Calcium (Atorvastatin Calcium 80 Mg Tablet) 80 mg PO DAILY [facility] Last Admin: 03/11/23 10:23 Dose: 80 mg Dextrose (Dextrose 50 % 25 Gm/50 Ml Syringe) 25 gm IVPUSH Q15M PRN; Protocol PRN Reason: per Hypoglycemia Standing Ord. Dextrose (Dextrose 50 % 25 Gm/50 Ml Syringe) 25 gm IVPUSH Q15M PRN; Protocol PRN Reason: per Hypoglycemia Standing Ord. Docusate Sodium (Docusate Sodium 100 Mg Capsule) 100 mg PO BID [facility] Last Admin: 03/11/23 10:28 Dose: Not Given Enoxaparin Sodium (Enoxaparin Sodium 40 Mg/0.4 Ml Syringe) 40 mg SUBCUT Q24H [facility] Last Admin: 03/10/23 23:26 Dose: 40 mg Glucose (Glucose Gel 15 Gm Gel..Gram.) 15 gm PO Q15M PRN; Protocol PRN Reason: per Hypoglycemia Standing Ord. Insulin Human Lispro (Insulin Lispro 100 Unit/Ml 3 Ml Vial) 0 unit SUBCUT QIDACHS [facility]; Protocol Last Admin: 03/11/23 08:37 Dose: Not Given Melatonin (Melatonin 3 Mg Tablet) 6 mg PO BEDTIME PRN PRN Reason: Insomnia Memantine (Memantine Hcl 10 Mg Tablet) 10 mg PO BID [facility] Last Admin: 03/11/23 10:22 Dose: 10 mg Multivitamins/Vitamin C (Multivitamin Tablet) 1 tab PO DAILY [facility] Last Admin: 03/11/23 10:23 Dose: 1 tab Omeprazole (Omeprazole 20 Mg Capsule.Dr) 20 mg PO DAILY [facility] Last Admin: 03/11/23 10:23 Dose: 20 mg Ondansetron HCl (Ondansetron Hcl 4 Mg/2 Ml Vial) 4 mg IVPUSH Q8H PRN PRN Reason: Nausea and Vomiting Sodium Chloride (0.9 % Sodium Chloride Flush 3 Ml Syringe) 3 ml IVFLUSH QSHIFT [facility] Last Admin: 03/11/23 10:24 Dose: 3 ml Home Medications Medication Instructions Recorded Confirmed Last Taken Type aspirin 81 mg tablet,delayed 81 mg PO DAILY 02/08/20 03/10/23 03/09/23 History release (Adult Low Dose Aspirin) multivitamin 1 tab PO DAILY 03/22/20 03/10/23 03/09/23 History alendronate 70 mg tablet 70 mg PO WE@0900 03/10/23 03/10/23 03/06/23 History dulaglutide 3 mg/0.5 mL 3 mg subcut WE@0900 03/10/23 03/10/23 03/06/23 History subcutaneous pen injector (Trulicity) omeprazole 20 mg capsule,delayed 20 mg PO DAILY@0630 03/10/23 03/10/23 03/09/23 History release Physical Exam 2 Vital Signs: Vital Signs: Last Vital Signs Temp 98.1 F 03/11/23 07:22 Pulse 87 03/11/23 07:22 Resp 18 03/11/23 07:22 BP 122/59 L 03/11/23 07:22 Pulse Ox 96 03/11/23 07:22 O2 Del Method Room Air 03/11/23 07:22 BMI result Body Mass Index 39.0 Neuro: Other: He is alert and awake with normal spontaneity of speech fluency comprehension and affect. Face is symmetrical. There is no obvious focal weakness. Speech is normal. Visual lucia are full. Results Labs 03/10/23 06:50 03/10/23 06:50 Labs: Liver Function 03/11/23 Range/Units 07:07 Total Bilirubin 0.3 (0.0-1.0) mg/dL Direct Bilirubin 0.1 (0.0-0.5) mg/dL AST 80 H (5-31) U/L ALT 119 H (0-31) U/L Alkaline Phosphatase 250 H (39-117) U/L Albumin 3.3 L (3.5-5.0) g/dL MRI of brain revealed a small punctate left parietal white matter lesion probably a subacute infarct Assessment and Plan (1) Stroke: Qualifiers: CVA mechanism: unspecified Qualified Code(s): I63.9 - Cerebral infarction, unspecified Status: Acute 77 years old woman with a small subacute ischemic infarct of brain. This type of and infarcts could be atherothrombotic from hypertension blurred but could also be embolic. No significant residual deficit is expected from this. Mainstay of management is blood pressure control, anti-platelet agents and statin and exploration for cardiac source of embolism. Procedures Date of Service Date of Service: 03/11/23
--- NOTE | 2023-03-11 10:45 | MHC.SL.SWA ---
Speech Pathologist Impression: WFL Risk of Aspiration Due to: Neurological Condition Reduced Cognition Dysphasia Diet Status: No changes to diet order Liquid Consistency and Strategies for Safe Swallow: Liquid Intake Recommendation: Thin Liquid Intake Strategies: Small Sips Solid Food Consistency: Dietary Recommendations: Regular Additional Modifications to Solid Foods: Pt seen for bedside swallow eval. Pt and family member deny trouble swallowing. Pt reportedly passed nursing swallow screening previously. Pt seen at breakfast, was able to feed herself without difficulty. Pt has missing central incisors, but is still able to bite food, demonstrates mildly prolonged period of mastication, with good overall clearance and no overt s/s of aspiration. Pt tolerated sequential sips of thin liquid by straw. Recommend continue on REGULAR solids and THIN liquids, pills WHOLE in LIQUID, with aspiration precautions and periodic check ins to ensure tolerance. Further ST intervention is no longer warranted as pt is at reported baseline. Please re-refer with any changes or if MANAGER SHELL can be of further assistance. Oral Medication Intake: Whole with Liquid Please contact the pharmacy regarding appropriate crushable or liquid drug formulations that are available whenever modified delivery is recommended. Compensatory Strategies and Precautions to be Taken for Safe Swallow: Sitting Upright (90 deg) Double Swallow Small Bites and Sips Alternate Liquids/Solids Rate of Ingestion Change Avoid Specific Foods Supervision While Eating and Drinking for Safe Swallow: Intermittent Supervision Foods to Avoid: Hard, tough to chew textures Swallowing Recommended Treatments: Compens. Strategy Educat. Recommendation for Speech: NA:Typical Evaluation Contact Worker Lithography Clinican/Clinical Fellow: No Supervisory Statement: I have reviewed and agree with the student/clinical fellow's documentation: N/A Speech Language Pathologist: Ana Cannon M.A., CCC-MANAGER SHELL
[2023-03-11 10:59] LABS: Glucose, Whole Blood 101 mg/dL (60-115)
[2023-03-11 11:38] VITALS: BP 108/52; PULSE 88; RESP 16; TEMP 36.1; O2SAT 98
--- NOTE | 2023-03-11 13:13 | HO.PM.IMPN ---
Subjective Subjective Date of Service: 03/11/23 Interval History: disoriented- knows her name but not where she is, nor the date speech is fluent no weakness Review of Systems Review of Systems: Yes all other systems are reviewed and are negative Physical Exam Vital Signs: Vital Signs: Last Vital Signs Temp 97 F 03/11/23 11:38 Pulse 88 03/11/23 11:38 Resp 16 03/11/23 11:38 BP 108/52 L 03/11/23 11:38 Pulse Ox 98 03/11/23 11:38 O2 Del Method Room Air 03/11/23 11:38 BMI result Body Mass Index 39.0 Appearing in no acute distress lung sounds are clear to auscultation heart regular rate rhythm, clear S1, S2 positive bowel sounds, abdomen is soft, nontender neuro patient is alert x3, no focal deficits Objective Data Active Medications Acetaminophen (Acetaminophen 325 Mg Tablet) 650 mg PO Q6H PRN PRN Reason: Pain, Mild (Pain Scale 1-3) Amlodipine Besylate (Amlodipine Besylate 2.5 Mg Tablet) 2.5 mg PO DAILY [facility]; Protocol Last Admin: 03/11/23 10:23 Dose: 2.5 mg Documented By: MONIKA Ascorbic Acid (Ascorbic Acid 500 Mg Tablet) 500 mg PO DAILY [facility] Last Admin: 03/11/23 10:23 Dose: 500 mg Documented By: MONIKA Aspirin (Aspirin 81 Mg Tab.Chew) 81 mg PO DAILY [facility] Last Admin: 03/11/23 10:23 Dose: 81 mg Documented By: MONIKA Atorvastatin Calcium (Atorvastatin Calcium 80 Mg Tablet) 80 mg PO DAILY [facility] Last Admin: 03/11/23 10:23 Dose: 80 mg Documented By: MONIKA Dextrose (Dextrose 50 % 25 Gm/50 Ml Syringe) 25 gm IVPUSH Q15M PRN; Protocol PRN Reason: per Hypoglycemia Standing Ord. Dextrose (Dextrose 50 % 25 Gm/50 Ml Syringe) 25 gm IVPUSH Q15M PRN; Protocol PRN Reason: per Hypoglycemia Standing Ord. Docusate Sodium (Docusate Sodium 100 Mg Capsule) 100 mg PO BID [facility] Last Admin: 03/11/23 10:28 Dose: Not Given Documented By: MONIKA Non-Admin Reason: Patient Refused Enoxaparin Sodium (Enoxaparin Sodium 40 Mg/0.4 Ml Syringe) 40 mg SUBCUT Q24H [facility] Last Admin: 03/10/23 23:26 Dose: 40 mg Documented By: RANDI Glucose (Glucose Gel 15 Gm Gel..Gram.) 15 gm PO Q15M PRN; Protocol PRN Reason: per Hypoglycemia Standing Ord. Insulin Human Lispro (Insulin Lispro 100 Unit/Ml 3 Ml Vial) 0 unit SUBCUT QIDACHS [facility]; Protocol Last Admin: 03/11/23 11:09 Dose: Not Given Documented By: MONIKA Non-Admin Reason: No Insulin Coverage Melatonin (Melatonin 3 Mg Tablet) 6 mg PO BEDTIME PRN PRN Reason: Insomnia Memantine (Memantine Hcl 10 Mg Tablet) 10 mg PO BID [facility] Last Admin: 03/11/23 10:22 Dose: 10 mg Documented By: MONIKA Multivitamins/Vitamin C (Multivitamin Tablet) 1 tab PO DAILY [facility] Last Admin: 03/11/23 10:23 Dose: 1 tab Documented By: MONIKA Omeprazole (Omeprazole 20 Mg Capsule.Dr) 20 mg PO DAILY [facility] Last Admin: 03/11/23 10:23 Dose: 20 mg Documented By: MONIKA Ondansetron HCl (Ondansetron Hcl 4 Mg/2 Ml Vial) 4 mg IVPUSH Q8H PRN PRN Reason: Nausea and Vomiting Sodium Chloride (0.9 % Sodium Chloride Flush 3 Ml Syringe) 3 ml IVFLUSH QSHIFT [facility] Last Admin: 03/11/23 10:24 Dose: 3 ml Documented By: MONIKA Labs 03/10/23 06:50 03/10/23 06:50 Labs: Laboratory Results - last 24 hr 03/10/23 03/10/23 03/11/23 16:30 20:08 07:07 Hold Purple Top SEE NOTE POC Glucose 123 H 118 H Total Bilirubin 0.3 Direct Bilirubin 0.1 AST 80 H ALT 119 H Alkaline Phosphatase 250 H Total Protein 7.0 Albumin 3.3 L Hep Bs Antigen Negative Hep Bs Antibody NONREACTIVE Hep B Core Total Ab Nonreactive Hepatitis C Ab (EIA) Nonreactive 03/11/23 03/11/23 07:44 10:50 Hold Purple Top POC Glucose 76 101 Total Bilirubin Direct Bilirubin AST ALT Alkaline Phosphatase Total Protein Albumin Hep Bs Antigen Hep Bs Antibody Hep B Core Total Ab Hepatitis C Ab (EIA) Assessment and Plan (1) Acute alteration in mental status: Status: Acute Plan 77yo F with dementia, DM2, HTN, HLD after transient episode of slurred speech that has resolved Stroke MRI showing small acute infarct to left periventricular white matter no significant stenosis to carotid doppler Neuro consulted> main stay of care is better BP control, should probably have holter monitor o/p to rule out cardiac source of embolism continue aspirin, statin PT/OT pending speech back to baseline Dementia, unspecified continue memantine HTN continue amlodipine HLD continue statin DM2 ss, ada diet VTE ppx LMWH Attending Dr. Singh In my clinical judgment, the patient requires continued inpatient hospitalization for the following reasons: TIA workup Total time managing care of this patient today: 40 minutes. Quality Stroke Does the patient have a stroke diagnosis?: No VTE Prior VTE?: No VTE Risk Level:: Medical - moderate - high VTE Device Contraindication: N/A - Device Ordered VTE Drug Contraindication: N/A - Med Ordered
--- NOTE | 2023-03-11 14:03 | MHC.CM.PN ---
Pt DC plan is home with services, referral to [facility] updated. CM to follow and assist with DC plan.
[2023-03-11 16:00] VITALS: BP 142/61; PULSE 73; RESP 16; TEMP 36.6; O2SAT 97
[2023-03-11 16:43] LABS: Glucose, Whole Blood 87 mg/dL (60-115)
[2023-03-11 20:00] VITALS: BP 138/59; PULSE 84; RESP 19; TEMP 36.1; O2SAT 95
[2023-03-11 20:42] LABS: Glucose, Whole Blood 134 mg/dL (60-115)
[2023-03-11] MEDS: Melatonin 3 MG TABLET 6 MG PO (22:07)
[2023-03-11] MEDS: Docusate Sodium 100 MG CAPSULE PO (22:07)
[2023-03-11] MEDS: Enoxaparin Sodium 40 MG/0.4 ML SYRINGE SUBCUT (22:08)
[2023-03-11 23:52] VITALS: BP 120/55; PULSE 75; RESP 20; TEMP 35.9; O2SAT 96
[2023-03-12 03:09] VITALS: BP 119/46; PULSE 77; RESP 20; TEMP 36.4; O2SAT 94
[2023-03-12 07:21] LABS: Glucose, Whole Blood 85 mg/dL (60-115)
[2023-03-12 07:32] VITALS: BP 119/64; PULSE 75; RESP 20; TEMP 36.2; O2SAT 100
--- NOTE | 2023-03-12 07:36 | PM.DS ---
DS: Providers Provider Date of Service: 03/12/23 Date of admission: 03/11/23 10:09 Primary care physician: Rachna Lewis MD Consults: 03/09/23 23:07 Consult to Neurology Routine Consulting Provider: [facility] Reason for consultation: concern for TIA Has provider been notified: No DS: Diagnosis Discharge Diagnosis (1) Acute alteration in mental status: Status: Acute DS: Summary Hospital Course Hospital Course: Patient is a 77 year old obese (BMI 39) female with PMH of dementia, type 2 diabetes mellitus, hypertension, hyperlipidemia and osteoporosis and who currently lives at home with son is brought to the ER for evaluation after her son noticed that her speech was slurred - she spoke with a heavy tongue and seemed to have word finding difficulty - which was new. He was also concerned that she appeared to be struggle when trying to stand up from a sitting position and was unsteady on her feet for a few moments after standing up. Yesterday, she did not recognize her daughter who lives next door and had come to see her. He was therefore concerned that she may be having a stroke and so brought her in for evaluation. Work up done in the emergency room has so far been unrevealing except for mildly elevated liver enzymes (AST 78; ALT 129 and ALP 245) and elevated TSH at 7.88 with a normal Free T4 (old). A CT scan of the brain did not show any acute pathology. During my evaluation, she denied any other symptoms and he speech was normal and fluent. Admission was requested for overnight observation. 69-year-old woman with history of dementia treated for acute stroke. MRI showing small acute infarct to left periventricular white matter with no significant stenosis to carotid Doppler. Seen and evaluated by Neurology with recommendation for mainstay of better blood pressure control and Holter monitor outpatient rule out cardiac source of embolism noted. She should continue aspirin and statin. Physical therapy at home. Speech is back to baseline. She will be discharged with family Dementia. Continue home medication Hypertension. Continue amlodipine Hyperlipidemia. Continue statin Diabetes mellitus type 2. Continue glipizide Time Attestation Discharge coordination time: Greater than 30 minutes Quality: Safe Use of Opioids Does Pt have an Active Cancer Diagnosis on the Problem List?: No Quality: Stroke Does the patient have a stroke diagnosis?: No Physical Exam Vital Signs: Vital Signs: Last Vital Signs Temp 97.2 F 03/12/23 07:32 Pulse 75 03/12/23 07:32 Resp 20 03/12/23 07:32 BP 119/64 03/12/23 07:32 Pulse Ox 100 03/12/23 07:32 O2 Del Method Room Air 03/12/23 07:32 BMI result Body Mass Index 39.0 Appearing in no acute distress head is normocephalic atraumatic eyes pupils are PERRLA sclera is anicteric mouth throat mucous membranes are intact and moist neck is supple no lymphadenopathy, no JVD noted lung sounds are clear to auscultation heart regular rate rhythm, clear S1, S2 positive bowel sounds, abdomen is soft, nontender neuro patient is alert, confused, baseline dementia DS: Data Data Completed and Pending Labs on day of discharge: Laboratory Results - last 24 hr 03/11/23 03/11/23 03/11/23 07:07 07:44 10:50 POC Glucose 76 101 Total Bilirubin 0.3 Direct Bilirubin 0.1 AST 80 H ALT 119 H Alkaline Phosphatase 250 H Total Protein 7.0 Albumin 3.3 L Hep Bs Antigen Negative Hep Bs Antibody NONREACTIVE Hep B Core Total Ab Nonreactive Hepatitis C Ab (EIA) Nonreactive 03/11/23 03/11/23 03/12/23 16:19 20:35 07:18 POC Glucose 87 134 H 85 Total Bilirubin Direct Bilirubin AST ALT Alkaline Phosphatase Total Protein Albumin Hep Bs Antigen Hep Bs Antibody Hep B Core Total Ab Hepatitis C Ab (EIA) Discharge Plan Discharge Anticipated Discharge Date/Time: 03/12/23 07:33 Patient Disposition: Home Health Service Discharge Diagnosis: Stroke Referrals: Olivia LO [Outside] - 1 Day () Rachna Corral MD [Primary Care Provider] - 1 Week Discharge Medications: Continued glipizide 5 mg tablet 5 mg PO DAILY 90 Days Qty: 90 1RF amlodipine 2.5 mg tablet 2.5 mg PO DAILY Qty: 90 0RF memantine 10 mg tablet 10 mg PO BID 30 Days Qty: 60 0RF alendronate 70 mg tablet 70 mg PO WE@0900 omeprazole 20 mg capsule,delayed release(DR/EC) 20 mg PO DAILY@0630 Trulicity 3 mg/0.5 mL pen injector 3 mg subcut WE@0900 aspirin [Adult Low Dose Aspirin] 81 mg tablet,delayed release (DR/EC) 81 mg PO DAILY ferrous sulfate 325 mg (65 mg iron) tablet 325 mg PO DAILY 90 Days Qty: 90 1RF ascorbic acid (vitamin C) 500 mg capsule 500 mg PO DAILY 90 Days Qty: 90 1RF rosuvastatin 20 mg tablet 20 mg PO DAILY 90 Days Qty: 90 1RF multivitamin Tablet 1 tab PO DAILY Discharge Orders: Discharge Order (Routine); Ordered 03/12/23 Ordered By: Adriana Bone Diet: Advance to usual diet Activity on Discharge: As tolerated Stand Alone Forms: Patient Portal Discharge page Care Plan Goals: Physical therapy in home Health Concerns: Stroke Plan of Treatment: Follow up with primary care provider as needed take all medications as prescribed Assessment: see discharge summary
[2023-03-12] MEDS: Atorvastatin Calcium 80 MG TABLET PO (09:15)
[2023-03-12] MEDS: Memantine HCl 10 MG TABLET PO (09:15)
[2023-03-12] MEDS: Aspirin 81 MG TAB.CHEW PO (09:15)
[2023-03-12] MEDS: amLODIPine Besylate 2.5 MG TABLET PO (09:15)
[2023-03-12] MEDS: Ascorbic Acid 500 MG TABLET PO (09:16)
[2023-03-12] MEDS: Omeprazole 20 MG CAPSULE.DR PO (09:16)
[2023-03-12] MEDS: Multivitamin TABLET 1 TAB PO (09:16)
[2023-03-12] MEDS: Docusate Sodium 100 MG CAPSULE PO (09:16)
[2023-03-12] MEDS: 0.9 % Sodium Chloride Flush 3 ML SYRINGE IVFLUSH (09:24)
[2023-03-12 11:15] VITALS: BP 125/63; PULSE 73; RESP 18; TEMP 36.3; O2SAT 99
[2023-03-12 11:16] LABS: Glucose, Whole Blood 119 mg/dL (60-115)
--- NOTE | 2023-03-12 11:17 | MHC.CM.PN ---
Addendum entered by Marylou Bruce RN 03/12/23 16:17: [facility] UNABLE TO ACCOMMODATE PT AND COMFORT PLUS WILL SEE PT FOR HOME PT W/SOC TOMORROW 03/13. Original Note: PT MEDICALLY CLEARED FOR D/C HOME W/NEW [facility] FOR SN/OT/PT AND RESUMP OF [employer]UST[employer]AL [employer] SERVICES, PT'S SON/INDUSTRIAL ENG TIA FOR TRANSPORT
--- NOTE | 2023-03-12 16:15 | P.F2F_ITS ---
Service Date Service Date: 03/12/23 Encounter Date of encounter: 03/12/23 Reasons for Services Signs and symptoms assessed: Stroke aphagia-resolved mild balance deficits and decreased safety awareness Reason for prison: CV/CP assess and/or care Reason for physical therapy: home safety and mobility and gait/transfer training Homebound: Leaving the home is medically contraindicated at this time without the asist of a device and/or another person due th the listed conditions above and below. Reason homebound: unsteady gait / fall risk Certification: Based on the above findings, I certify that this patient is confined to the home and needs intermittent prison care, physical therapy and/or speech therapy, or continues to need occupational therapy. The patient is under my care, and I have initiated the establishment of the plan of care. The patient will be followed by a physician who will periodically review the plan of care. Time Spent With Patient Time: Total time managing care of this patient today ____ minutes.
== END 2023-03-12 14:56 | disposition home health service (06) | DRG 66 ==
LOC: HO.ED 18:23 → HO.EDOVER 21:46 → HO.IMC 03-10 03:45
PROVIDERS: Family Medicine; Physician Assistant; Admitting Provider Internal Medicine; Emergency Provider Emergency Medicine; PCP Internal Medicine; Visit Provider Nurse Practitioner Acute Care
DX: I63.9 Cerebral infarction, unspecified (principal); G30.1 Alzheimer's disease with late onset; R47.81 Slurred speech; F02.A0 Dementia in other diseases classified elsewhere, mild, without behavioral disturbance, psychotic disturbance, mood disturbance, and anxiety; K21.9 Gastro-esophageal reflux disease without esophagitis; R29.701 NIHSS score 1; E78.5 Hyperlipidemia, unspecified; I10 Essential (primary) hypertension; E11.9 Type 2 diabetes mellitus without complications; E66.09 Other obesity due to excess calories; Z68.39 Body mass index [BMI] 39.0-39.9, adult; Z20.822 Contact with and (suspected) exposure to COVID-19; Z79.84 Long term (current) use of oral hypoglycemic drugs; Z79.899 Other long term (current) drug therapy
CPT/HCPCS: 0241U; 36415; 70450; 70551; 71046; 76705; 80053; 80061; 80076; 81001; 82947; 83036; 83690; 83735; 84439; 84443; 84484; 85025; 85610; 85730; 86704; 86706; 86803; 87340; 92610; 93005; 93306; 93880; 97161; 97166; 97530; 99222; 99285; J1650; Q9957

== ENCOUNTER → 2023-03-09 14:23 | Outpatient (BNV) | payer MEDICARE, MEDICAID, SELFPAY | PROVIDERS: Admitting Provider Internal Medicine; Emergency Provider Emergency Medicine; PCP Internal Medicine; Visit Provider Internal Medicine Cardiovascular Disease | DX: I63.9 Cerebral infarction, unspecified (principal) | CPT/HCPCS: 93010 ==

== ENCOUNTER → 2023-03-09 21:27 | Outpatient (BNV) | payer MEDICARE, MEDICAID, SELFPAY | PROVIDERS: Admitting Provider Internal Medicine; Emergency Provider Emergency Medicine; PCP Internal Medicine; Visit Provider Internal Medicine | DX: R41.82 Altered mental status, unspecified (principal) | CPT/HCPCS: 99223; 99232; 99239; G0180 ==

== ENCOUNTER → 2023-03-11 07:00 | Outpatient (BNV) | payer MEDICARE, MEDICAID, SELFPAY | PROVIDERS: Admitting Provider Internal Medicine; Emergency Provider Emergency Medicine; PCP Internal Medicine; Visit Provider Internal Medicine Cardiovascular Disease | DX: G45.9 Transient cerebral ischemic attack, unspecified (principal) | CPT/HCPCS: 93306 ==

== ENCOUNTER 2023-03-27 07:41 | Outpatient (AMB) | payer MEDICARE, MEDICAID, SELFPAY ==
--- NOTE | 2023-03-27 07:55 | A.OFFPC_ITS ---
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 Required: No Accompanied by: son Allergies No Known Allergies [No Known Allergies*] Allergy (Verified 03/27/23 08:12) Medication List - Last Reconciled 03/27/23 by Rachna Lewis MD alendronate 70 mg PO WE@0900 amlodipine 2.5 mg PO DAILY ascorbic acid (vitamin C) 500 mg PO DAILY 90 days aspirin (Adult Low Dose Aspirin) 81 mg PO DAILY dulaglutide (Trulicity) 3 mg subcut WE@0900 ferrous sulfate 325 mg PO DAILY 90 days glipizide 5 mg PO DAILY 90 days memantine 10 mg PO BID 30 days multivitamin 1 tab PO DAILY omeprazole 20 mg PO DAILY@0630 rosuvastatin 20 mg PO DAILY 90 days Tobacco use date assessed: 03/27/22 Fall risk assessment: No Falls in past year Last assessed Fall Risk: 03/27/23 Dental Screening Dental Screen Date: 03/27/23 Did you have a dental visit in the last 12 months?: No Did you have a dental problem in the last 6 months where you did not have access to dental care?: No Was dental information given to patient?: Patient declined HPI HPI Comments History of Present Illness Details This is a 77-year-old female with diabetes mellitus type 2, hyperte nsion, hyperlipidemia and vascular dementia that comes accompanied by son for follow-up on her conditions. Last A1c was close to goal and son says that she has been doing better with fasting blood glucose less than 100. Blood pressure stable. Lipid panel will be order and her LDL goal should be less than 70. 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 She follows with Neurology for her vascular dementia. No chest pain or shortness of breath. Walks with no assistive device. Complains of some tinnitus and bilateral cerumen accumulation. [facility] Medical History (Updated 03/27/23 @ 08:29 by Rachna Lewis MD) Hypertension, essential Stroke Stroke Type 2 diabetes mellitus Hyperlipidemia Dementia Family history of ovarian cancer Diabetes mellitus Microalbuminuria GERD (gastroesophageal reflux disease) Hyperlipidemia LDL goal <70 Type 2 diabetes mellitus with diabetic polyneuropathy Obesity due to excess calories Memory loss Cough Essential hypertension Long-term use of aspirin therapy History of DVT (deep vein thrombosis) Surgical History History of total abdominal hysterectomy and bilateral salpingo-oophorectomy History of cataract surgery Family History Father No problems noted. Mother Colon cancer Son Diabetes Social History Household Members: Unknown / Unable to assess Housing: Unknown / Unable to assess Unable to assess alcohol history related to: Unknown Alcohol intake: never Patient Tobacco Use Status: Never used Tobacco e-Cigarette/Vaping Use: Never Used Second Hand Smoke Exposure: No Advance Directives Date on File: 02/23/21 service: No Current occupational status: disabled Cognitive needs: No Hearing needs: No Vision needs: No Female Reproductive History Menstrual Age of Menarche: 11 Questionnaire PHQ-9 Over the last 2 weeks, how often have you been bothered by any of the following problems? 1. Little interest or pleasure in doing things: not at all 2. Feeling down, depressed, or hopeless: not at all 3. Trouble falling or staying asleep, or sleeping too much: not at all 4. Feeling tired or having little energy: not at all 5. Poor appetite or overeating: not at all 6. Feeling bad about yourself - or that you are a failure or have let yourself or your family down: not at all 7. Trouble concentrating on things, such as reading the newspaper or watching television: not at all 8. Moving or speaking so slowly that other people could have noticed. Or the opposite - being so fidgety or restless that you have been moving around a lot more than usual: not at all 9. Thoughts that you would be better off or of hurting yourself in some way: not at all Total score: 0 Depression Screening Interpretation: Negative Depression Screening Done: Yes 41268 - PHQ-9 Billing: Yes Source: Developed by Drs. Han Hurley, Florencio Galvez and colleagues, with an educational tony from [employer]. Thrive Questionnaire Date Thrive assessed: 03/27/23 I am a: Patient What is your living situation today?: I have a steady place to live Within the past 12 months, did the food you bought not last and you didn't have the money to get more?: Never true Within the past 12 months, did you worry whether your food would run out before you got money to buy more?: Never true Do you have trouble paying for medicines?: No Do you have trouble getting transportation to medical appointments?: No Do you have trouble paying your heating and electricity bill?: No Do you have trouble taking care of your child, family member or friend?: No Do you have trouble with day-to-day activities such as bathing, preparing meals, shopping, managing finances, etc.?: No Are you currently unemployed and looking for a job?: No Are you interested in more education?: No Please select the resources that you would like help with: None Currently or been in a relationship where the following occur: no concerns reported AUDIT C Alcohol Use Questionnaire (AUDIT-C) 1. How often do you have a drink containing alcohol?: Never Total Score: 0 Score Reviewed/Action Taken: No RICK-7 AMB Questionnaire RICK-7 Date RICK - 7 assessed: 03/27/23 Feeling nervous, anxious, or on edge: 0 = Not at all Not being able to stop or control worryin = Not at all Worrying too much about different things: 0 = Not at all Trouble relaxin = Not at all Being so restless that it is hard to sit still: 0 = Not at all Becoming easily annoyed or irritable: 0 = Not at all Feeling afraid as if something awful might happen: 0 = Not at all Total RICK-7 score (0-4 normal; 5-9 mild; 10-14 moderate; 15-21 severe): 0 Source: Developed by Drs. Han Hurley, Florencio Galvez and colleagues, with an educational tony from [employer]. RICK-7 Assessment Billing RICK-7 Assessment Tool: RICK-7 Assessment 79934 Review of Systems Const All systems reviewed & are unremarkable except as noted in HPI and below Eyes Reports no additional complaints, Denies change in vision and Denies other visual disturbances Card Denies chest pain at rest, Denies chest pain with activity, Denies edema, Denies irregular heart rhythm, Denies claudication, Denies dyspnea, Denies dyspnea on exertion, Denies orthopnea, Denies paroxysmal nocturnal dyspnea and Denies slow heart rate Resp Denies cough, Denies dyspnea and Denies dyspnea on exertion GI Denies abdominal pain, Denies change in bowel habits, Denies excessive flatus, Denies nausea and Denies vomiting Denies urinary incontinence, Denies urinary hesitancy and Denies urinary urgency Musc Denies abnormal gait, Denies atrophy, Denies deformity and Denies limited range of motion Skin/Breast Denies bleeding lesions, Denies changing lesions and Denies rash Neuro Denies abnormal gait and Denies lack of coordination Physical exam (Primary Care) Vital Signs: Last Vital Signs BP 110/62 03/27/23 08:00 BMI result Body Mass Index 37.4 Tobacco/Smoking Status: Tobacco use Status Tobacco use date assessed 03/27/22 03/27/23 07:56 Patient Tobacco Use Status Never used Tobacco 03/27/23 07:56 e-Cigarette/Vaping Use Never Used 03/27/23 07:56 Depression Screening Interpretation: Negative Thrive Assessment: Date of Thrive Assessment Date Thrive assessed 03/10/23 03/27/23 07:56 Currently or been in a relationship where the following occur: no concerns reported Eyes General: appearance normal, both eyes and all related structures Eyelids: Yes eyelids normal Conjunctivae: conjunctivae normal Neck Neck: Yes normal visual inspection and Yes supple Resp Effort & Inspection: normal respiratory effort Auscultation: clear to auscultation bilaterally Cardio Jugular venous distension: no JVD Rate: regular rate Rhythm: regular rhythm Heart sounds: S1 normal heart sound present and S2 normal heart sound present Extrem General: Yes full ROM Assessment and Plan Assessment & Plan (1) Diabetes mellitus: Code(s): E11.9 - Type 2 diabetes mellitus without complications Plan: Continue Trulicity and glipizide. A1c goal is equal or less than 7%. (2) Hyperlipidemia LDL goal <70: Code(s): E78.5 - Hyperlipidemia, unspecified Plan: Continue statins. LDL goal is less than 70. (3) Hypertension, essential: Code(s): I10 - Essential (primary) hypertension Plan: Continue amlodipine. Blood pressure goal is equal or less than 130/80. (4) Vascular dementia: Code(s): F01.50 - Vascular dementia, unspecified severity, without behavioral disturbance, psychotic disturbance, mood disturbance, and anxiety Qualifiers: Dementia severity: mild Dementia behavioral or psychological symptom: without behavioral, psychotic, or mood disturbance or anxiety Qualified Code(s): F01.A0 - Vascular dementia, mild, without behavioral disturbance, psychotic disturbance, mood disturbance, and anxiety Plan: Continue memantine. Continue aspirin for secondary prophylaxis. Orders: Orders Lipid Panel Today E78.5 - Hyperlipidemia, unspecified Complete Blood Count Auto Diff Today D64.9 - Anemia, unspecified IRON PROFILE Today D64.9 - Anemia, unspecified Microalbumin, Random (w Creat) Today E11.9 - Type 2 diabetes mellitus without complications Vitamin D 25-OH Total Today E55.9 - Vitamin D deficiency, unspecified Vitamin B12 and Folate Today E53.8 - Deficiency of other specified B group vitamins Comprehensive [place]. Panel Fast Today E11.9 - Type 2 diabetes mellitus without complications Medications: New carbamide peroxide 6.5% (Murine Ear) 5 drps otic (ears) DAILY 4 days 15 mL 0RF Changed From alendronate 70 mg PO WE@0900 To alendronate 70 mg PO QWEEK 90 days 13 tabs 1RF Coding Level of Care Code Est Pt Level 4 (45305) Diagnoses Diabetes mellitus E11.9 Hyperlipidemia LDL goal <70 E78.5 Hypertension, essential I10 Mild vascular dementia without behavioral disturbance, psychotic disturbance, mood disturbance, or anxiety F01.A0 Dementia severity: mild Dementia behavioral or psychological symptom: without behavioral, psychotic, or mood disturbance or anxiety Additional Codes RICK-7 Assessment Billing - RICK-7 Assessment Tool: RICK-7 Assessment [id number] ([id number]) Time Spent (min) 23
[2023-03-27 08:00] VITALS: BP 110/62; BMI 37.4
== END 2023-03-27 08:24 | disposition home or self-care (01) ==
PROVIDERS: PCP Internal Medicine; Visit Provider Internal Medicine
DX: E11.42 Type 2 diabetes mellitus with diabetic polyneuropathy (principal); F01.A0 Vascular dementia, mild, without behavioral disturbance, psychotic disturbance, mood disturbance, and anxiety; E78.5 Hyperlipidemia, unspecified; I10 Essential (primary) hypertension
CPT/HCPCS: 99214

== ENCOUNTER 2023-05-02 07:07 | Day surgery (SDC) | payer MEDICARE, MEDICAID, SELFPAY ==
[2023-04-30 10:29] VITALS: BMI 37.4
--- NOTE | 2023-05-01 09:56 | HO.ANESPROP2 ---
Documented by User: Vandana Swartz NP 05/01/23 10:01 HPI - Anesthesia Eval Consult details Narrative: 77yo F for Upper Endoscopy and Colonoscopy Anesthesia Pre-Procedure Meds Is the patient on any of the following meds?: Dulaglutide (Trulicity) PMFSH Active Problems Active Problems: All Active Problems (Updated 03/27/23 @ 08:29 by Rachna Lewis MD) Vascular dementia (Acute) Hypertension, essential (Acute) Medicare annual wellness visit, initial (Acute) Osteopenia (Acute) Cholelithiasis (Acute) Abdominal discomfort (Acute) Anemia (Acute) History of adenomatous polyp of colon (Acute) Mild cognitive impairment with memory loss (Acute) Subclinical hypothyroidism (Acute) Elevated TSH (Acute) Hospital discharge follow-up (Acute) Osteoporosis (Acute) Perirectal ulcer (Acute) Menopause (Acute) Well woman exam (Acute) Family history of ovarian cancer (Acute) Diabetes mellitus (Acute) Microalbuminuria (Acute) GERD (gastroesophageal reflux disease) (Acute) Type 2 diabetes mellitus with diabetic polyneuropathy (Acute) Essential hypertension (Acute) Hyperlipidemia LDL goal <70 (Acute) Obesity due to excess calories (Acute) Memory loss (Acute) Cough (Acute) Long-term use of aspirin therapy (Acute) History of DVT (deep vein thrombosis) (Chronic) Past Medical History Medical History Hypertension, essential Stroke Stroke Type 2 diabetes mellitus Hyperlipidemia Dementia Family history of ovarian cancer Diabetes mellitus Microalbuminuria GERD (gastroesophageal reflux disease) Hyperlipidemia LDL goal <70 Type 2 diabetes mellitus with diabetic polyneuropathy Obesity due to excess calories Memory loss Cough Essential hypertension Long-term use of aspirin therapy History of DVT (deep vein thrombosis) Family History Family History Father No problems noted. Mother Colon cancer Son Diabetes Surgical History Surgical History History of total abdominal hysterectomy and bilateral salpingo-oophorectomy History of cataract surgery Social History Social History Household Members: Unknown / Unable to assess Housing: Unknown / Unable to assess Unable to assess alcohol history related to: Unknown Alcohol intake: never Patient Tobacco Use Status: Never used Tobacco e-Cigarette/Vaping Use: Never Used Second Hand Smoke Exposure: No Use of substances other than those prescribed or required for medical reasons: No Are you DNR?: No Advance Directives: No Advance Directives Information Provided: Yes Advance Directives Date on File: 02/23/21 service: No Current occupational status: disabled Cognitive needs: No Hearing needs: No Vision needs: No Meds Allergies Allergy/AdvReac Type Severity Reaction Status Date / Time No Known Allergies Allergy Verified 03/27/23 08:12 [No Known Allergies*] Home Medications Medication Instructions Recorded Confirmed Last Taken Type aspirin 81 mg tablet,delayed 81 mg PO DAILY 02/08/20 03/27/23 03/09/23 History release (Adult Low Dose Aspirin) multivitamin 1 tab PO DAILY 03/22/20 03/27/23 03/09/23 History dulaglutide 3 mg/0.5 mL 3 mg subcut WE@0900 03/10/23 03/27/23 03/06/23 History subcutaneous pen injector (Trulicity) Exam Height,Weight and Vital Signs: Height 5 ft 4 in Weight 98.883 kg Pertinent Lab Results Pertinent Lab Results: Laboratory Tests 03/10/23 06:50 WBC 5.7 Hgb 14.0 Hct 44.4 Plt Count 141 L Sodium 139 Potassium 5.0 Chloride 107 Carbon Dioxide 23 BUN 26 H Creatinine 0.79 Narrative Narrative: EKG 02/2023 Vent. Rate : 076 BPM Atrial Rate : 076 BPM P-R Int : 198 ms QRS Dur : 118 ms QT Int : 410 ms P-R-T Axes : 029 007 019 degrees QTc Int : 461 ms Normal sinus rhythm Incomplete right bundle branch block Borderline ECG When compared with ECG of 17-FEB-2022 14:54, Incomplete right bundle branch block is now Present ECHO 02/2023 Conclusions: - 1. Normal LV ejection fraction of 60 65% with mild LVH with impaired relaxation filling pattern 2. Cardiac valvular Dopplers within normal limits 3. Normal RV systolic pressure 4. Trivial pericardial effusion Assessment and Plan Assessment Anesthesia Assessment: Chart Reviewed Documented by User: Jesse Monroe MD 05/02/23 08:22 HPI - Anesthesia Eval Anesthesia Pre-Procedure Meds If Yes to any meds - educate patient: Pt education - increased risk of aspiration and Pt education - possibility of cancelled proc at provider's discretion PMFSH Past Medical History Medical History Hypertension, essential Stroke Stroke Type 2 diabetes mellitus Hyperlipidemia Dementia Family history of ovarian cancer Diabetes mellitus Microalbuminuria GERD (gastroesophageal reflux disease) Hyperlipidemia LDL goal <70 Type 2 diabetes mellitus with diabetic polyneuropathy Obesity due to excess calories Memory loss Cough Essential hypertension Long-term use of aspirin therapy History of DVT (deep vein thrombosis) Family History Family History Father No problems noted. Mother Colon cancer Son Diabetes Family history of problems with anesthesia: No Surgical History Surgical History History of total abdominal hysterectomy and bilateral salpingo-oophorectomy History of cataract surgery History of Problems with Anesthesia: No Social History Social History Household Members: Unknown / Unable to assess Housing: Unknown / Unable to assess Unable to assess alcohol history related to: Unknown Alcohol intake: never Patient Tobacco Use Status: Never used Tobacco e-Cigarette/Vaping Use: Never Used Second Hand Smoke Exposure: No Use of substances other than those prescribed or required for medical reasons: No Are you DNR?: No Advance Directives: No Advance Directives Information Provided: Yes Advance Directives Date on File: 02/23/21 service: No Current occupational status: disabled Cognitive needs: No Hearing needs: No Vision needs: No Meds Allergies Allergy/AdvReac Type Severity Reaction Status Date / Time No Known Allergies Allergy Verified 03/27/23 08:12 [No Known Allergies*] Home Medications Medication Instructions Recorded Confirmed Last Taken Type aspirin 81 mg tablet,delayed 81 mg PO DAILY 02/08/20 03/27/23 03/09/23 History release (Adult Low Dose Aspirin) multivitamin 1 tab PO DAILY 03/22/20 03/27/23 03/09/23 History dulaglutide 3 mg/0.5 mL 3 mg subcut WE@0900 03/10/23 03/27/23 03/06/23 History subcutaneous pen injector (Trulicity) Exam Airway Mallampati Class: III TM Dist: >3cm Neck ROM: Full Loose/Missing/Broken Teeth: Yes Heart: [id number] Lungs: cta b/l Assessment and Plan Assessment Anesthesia Assessment: Anesthesia Plan Discussed Final Anesthetic Review Family History of Problems with Anesthesia: No History of Problems with Anesthesia: No NPO: Yes ASA Class: III Final Preanesthetic Review: No Changes in Pt Med Stat, Meds/Allgs Chart Reviewed, Consent Obtained/Reviewed and Anes Risks/Benef Reviewed Patient Risk: Intermediate Procedure Risk: Intermediate Assessment/Block/Sedation in SS: Assess/Block/Sedation-SS Anesthetic Plan Anesthetic Plan: MAC: and Agree w/ Assess. and Plan Disposition: Standard PACU
[2023-05-02 08:05] VITALS: BMI 37.4
[2023-05-02 08:13] VITALS: BP 148/72; PULSE 81; RESP 16; TEMP 36.1; O2SAT 97
--- NOTE | 2023-05-02 08:18 | MHC.SHP ---
Pre-Procedural Eval Section A - 24 Hr Update-Section A only Date of Service: 05/02/23 Section B - Complete if H&P > 30 days Chief Complaint: Personal history of colonic polyps Details of Present Illness: mother had CRC Relevant Family History (Specify if Yes): Yes Relevant Social History: None Present Medications: see Short Stay Collaborative assessment Medical History: Significant History (Hypertension, essential Stroke Stroke Type 2 diabetes mellitus Hyperlipidemia Family history of ovarian cancer Diabetes mellitus Microalbuminuria GERD (gastroesophageal reflux disease) Hyperlipidemia LDL goal <70 Type 2 diabetes mellitus with diabetic polyneuropathy Obesity due to excess calories Me) History of Previous Operations: Relevant previous surgery/procedure and date(s) (History of total abdominal hysterectomy and bilateral salpingo-oophorectomy History of cataract surgery) Allergies: Allergies Allergy/AdvReac Type Severity Reaction Status Date / Time No Known Allergies Allergy Verified 03/27/23 08:12 [No Known Allergies*] Review of Systems Sugical H&P ROS: Negative: Constitution, Cardiovascular, Respiratory, Neurological, Psychiatric, Hem-Onc, Allergic/Immunologic, Gastrointestinal, Genitourinary, Musculoskeletal, Integumentary, Endocrine and Eyes/Ears/Nose/Throat Exam Surgical H&P Exam: Normal: HEENT, Normal: Heart, Normal: Lungs, Normal: Extremities, Normal: Abdomen, Normal: Skin and Normal: Neurological Plan Diagnosis/Plan: Unchanged I have reviewed the history and physical and performed a pertinent physical examination on my patient. No changes have occurred unless specified. Time Spent With Patient Time: Total time managing care of this patient today ____ minutes.
[2023-05-02] MEDS: Lactated Ringers 1,000 ML 100 ML IVCONT (08:26)
[2023-05-02 08:27] LABS: Glucose, Whole Blood 146 mg/dL (60-115)
--- NOTE | 2023-05-02 08:32 | W.PM.OPN ---
Operative Note Operative Note Date of Service: 05/02/23 Narrative: Operative Information Procedure Description: EGD, Colonoscopy Indication: prior hx of anemia, improved with iron rx Anesthesia: MAC FLEXIBLE TRANSORAL UPPER GASTROINTESTINAL ENDOSCOPY AND COLONOSCOPY PROCEDURE NOTE UPPER ENDOSCOPY Consent: Indications for the procedure and potential complications of bleeding, perforation, reaction to medications and missed diagnosis were discussed with the patient and informed consent was obtained. Instrument: Olympus GIF H 190 J mid size upper endoscope Monitoring: Vital signs and clinical assessment, continuous EKG monitoring, Pulse oximetry, Carbon Dioxide monitoring and blood pressure monitoring were done throughout the procedure. Procedure: The patient was placed in the left lateral decubitis position and pre-procedure medications were administered and a bite block was placed. The endoscope was inserted into the mouth and advanced under direct vision to the third part of duodenum. A careful inspection was made as the upper endoscope was withdrawn including a retroflexed examination of the proximal stomach; Findings and interventions are described below. Findings: Larynx:normal Esophagus: GE junction at 37 cm, diaphragm hiatus at 37 cm, normal mucosa Stomach: Granular mucosa with milde rythema. Biopsies were obtained. Grade 2 flap valve on retroflexed examination of the cardia. x2 sessile polyps 4-6 mm in proximal body of stomach removed with cold forceps, few small fundic gland polyps also seen Duodenum: Mild bulbar duodenitis Intervention: Biopsies as noted above COLONOSCOPY Instrument: Olympus variable stiffness pediatric scope 190L Colonoscopy Monitoring: Vital signs and clinical assessment, continuous EKG monitoring, Pulse oximetry, Carbon Dioxide monitoring and blood pressure monitoring were done throughout the procedure. Colon withdrawal time was 12 minutes. Procedure: The patient was placed in the left lateral decubitis position and pre-procedure medications were administered. After a digital rectal examination of the ano-rectum, the video colonoscope was inserted into the rectum and advanced through the colon to the cecum/TI. The colonoscope was slowly withdrawn in a retrograde panoramic fashion and the colon mucosa was carefully examined including a retroflexed view of the rectum. Findings and interventions are described below. Procedure Difficulty: Findings: Terminal Ileum-not intubated Cecum: 4-5 mm sessile polyp removed with cold forceps, x 1 small AVM ablated with soft tip coag Ascending Colon: normal Transverse Colon - 4-6 mm sessile polyp removed with cold forceps Descending Colon:normal Sigmoid Colon: 8-10 mm sessile polyp removed with cold snare Rectum: Retroflexion with small internal hemorrhoids, grade I Anorectum - normal Colon preparation: [place] Bowel Preparation Scale Right colon; 1-2 Transverse colon: 2 Left colon; 2 (0 = Unprepared colon segment with mucosa not seen due to solid stool that cannot be cleared. 1 = Portion of mucosa of the colon segment seen, but other areas of the colon segment not well seen due to staining, residual stool and/or opaque liquid. 2 = Minor amount of residual staining, small fragments of stool and/or opaque liquid, but mucosa of colon segment seen well. 3 = Entire mucosa of colon segment seen well with no residual staining, small fragments of stool or opaque liquid) Impression and Post Procedure Diagnosis: Endoscopy Findings: gastritis duodenitis Colonoscopy Findings: polyps internal hemorrhoids AVM Plan: Await Pathology results Repeat Colonoscopy in 1-2 years or earlier if clinically indicated High fiber diet leaflet avoid straining at stool, epsom salts and sitz bath, anusol supps or cream if H pylori pos then treat Above findings were reviewed with the patient and relevant handouts were provided if indicated.
[2023-05-02 09:33] VITALS: BP 97/55; PULSE 96; RESP 16; TEMP 36.1; O2SAT 97
[2023-05-02 09:48] VITALS: BP 123/70; PULSE 76; RESP 16; TEMP 36.3; O2SAT 97
--- NOTE | 2023-05-02 10:42 | PC.NURSE ---
surya from [employer] to review all discharge instructions with patient and son.
== END 2023-05-02 10:20 | disposition home or self-care (01) ==
PROVIDERS: PCP Internal Medicine; Visit Provider Internal Medicine Gastroenterology
PROC: (CPT 43239; principal; 2023-05-02 09:10)
DX: K31.7 Polyp of stomach and duodenum (principal); K29.70 Gastritis, unspecified, without bleeding; K29.80 Duodenitis without bleeding; Z12.11 Encounter for screening for malignant neoplasm of colon; D12.3 Benign neoplasm of transverse colon; D12.5 Benign neoplasm of sigmoid colon; K55.20 Angiodysplasia of colon without hemorrhage; K64.0 First degree hemorrhoids; Z86.010 Personal history of colon polyps; D64.9 Anemia, unspecified; E11.9 Type 2 diabetes mellitus without complications; I10 Essential (primary) hypertension; E78.5 Hyperlipidemia, unspecified; Z86.718 Personal history of other venous thrombosis and embolism; Z79.82 Long term (current) use of aspirin; Z79.85 Long-term (current) use of injectable non-insulin antidiabetic drugs; Z79.02 Long term (current) use of antithrombotics/antiplatelets; Z79.899 Other long term (current) drug therapy
CPT/HCPCS: 43239; 45388; 45380; 45385; 82947; 88305; 88313; 88342; J2704

== ENCOUNTER → 2023-05-02 07:07 | Outpatient (BNV) | payer MEDICARE, MEDICAID, SELFPAY | PROVIDERS: PCP Internal Medicine; Visit Provider Internal Medicine Gastroenterology | DX: D50.9 Iron deficiency anemia, unspecified (principal); K31.7 Polyp of stomach and duodenum; K29.70 Gastritis, unspecified, without bleeding; K29.80 Duodenitis without bleeding; D12.3 Benign neoplasm of transverse colon; D12.5 Benign neoplasm of sigmoid colon; Q27.33 Arteriovenous malformation of digestive system vessel; K64.0 First degree hemorrhoids | CPT/HCPCS: 43239; 45380; 45385; 45388 ==

== ENCOUNTER 2023-05-16 08:39 | Outpatient (AMB) | payer MEDICARE, MEDICAID, SELFPAY ==
[2023-05-16 08:46] VITALS: BP 105/61; PULSE 65; BMI 37.8
--- NOTE | 2023-05-16 08:46 | A.OFFVIS_ITS ---
Intake Vital Signs 05/16/23 08:46 Height 5 ft 4 in Weight 220 lb BMI 37.8 BP 105/61 Blood Pressure Location Lt brachial Position Sitting Pulse 65 Pulse Source Monitor Intake Visit Reasons: s/p egd/colon Intake Note: Patient son states shes been gaining weight more then usual and snoring a lot more. Patient son states shes been having some constipation but no unusual GI concerns at this time. 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 Required: No Accompanied by: Son Allergies No Known Allergies [No Known Allergies*] Allergy (Verified 05/16/23 08:50) Medication List - Last Reconciled 05/16/23 by RAMO Mccord-Nathan alendronate 70 mg PO QWEEK 90 days amlodipine 2.5 mg PO DAILY ascorbic acid (vitamin C) 500 mg PO DAILY 90 days aspirin (Adult Low Dose Aspirin) 81 mg PO DAILY dulaglutide (Trulicity) 3 mg (0.5 mL) subcut QWEEK 30 days ferrous sulfate 325 mg PO DAILY 90 days glipizide 5 mg PO DAILY 90 days memantine 10 mg PO BID 30 days multivitamin 1 tab PO DAILY omeprazole 20 mg PO DAILY@0630 rosuvastatin 20 mg PO DAILY 90 days HPI HPI Comments History of Present Illness Details A 77 y/o female f/u after EGD/ colon with polypectomy Her Gson interprets- he is very attentive and supportive She does have constipation time to time she is in some weight as she has sedentary lifestyle-he checks her blood sugars have been in good range Appetite is good-acid reflux well controlled Reviewed procedure report, pathology and recommendation No abdominal pain, Nausea, vomiting, hematemesis, hematochezia fever chills PFSH Medical History Hypertension, essential Stroke Stroke Type 2 diabetes mellitus Hyperlipidemia Dementia Family history of ovarian cancer Diabetes mellitus Microalbuminuria GERD (gastroesophageal reflux disease) Hyperlipidemia LDL goal <70 Type 2 diabetes mellitus with diabetic polyneuropathy Obesity due to excess calories Memory loss Cough Essential hypertension Long-term use of aspirin therapy History of DVT (deep vein thrombosis) Surgical History History of total abdominal hysterectomy and bilateral salpingo-oophorectomy History of cataract surgery Family History Father No problems noted. Mother Colon cancer Son Diabetes Social History (Updated 05/16/23 @ 09:42 by Venessa Fuller PA-C) Household Members: Unknown / Unable to assess Household Members Other:: lives with shahram shaver Housing: Unknown / Unable to assess Unable to assess alcohol history related to: Unknown Alcohol intake: never Patient Tobacco Use Status: Never used Tobacco e-Cigarette/Vaping Use: Never Used Second Hand Smoke Exposure: No Advance Directives Date on File: 02/23/21 service: No Current occupational status: disabled Cognitive needs: No Hearing needs: No Vision needs: No Female Reproductive History Menstrual Age of Menarche: 11 Review of Systems Const All systems reviewed & are unremarkable except as noted in HPI and below Reports weight gain Card Denies chest pain and Denies dyspnea Resp Denies dyspnea GI Denies abdominal pain, Denies change in bowel habits, Denies nausea and Denies vomiting Physical Exam Vital Signs: Last Vital Signs Pulse 65 05/16/23 08:46 BP 105/61 05/16/23 08:46 BMI result Body Mass Index 37.8 Const General: cooperative and comfortable Nutritional Appearance: overweight Orientation/consciousness: patient oriented x3 Limitations: language barrier Resp Effort & Inspection: normal respiratory effort and able to speak in complete sentences GI Inspection: Yes obesity Palpation (GI): Soft to palpation and nontender Neuro General: patient oriented x3 Extrem General: Yes full ROM Psych Appearance: well kempt Affect: normal affect Attitude: cooperative Results Reviewed Results Reviewed: Impression and Post Procedure Diagnosis: Endoscopy Findings: gastritis duodenitis Kassandra Colonoscopy Findings: polyps internal hemorrhoids AVM Plan: Await Pathology results Repeat Colonoscopy in 1-2 years or earlier if clinically indicated High fiber diet leaflet avoid straining at stool, epsom salts and sitz bath, anusol supps or cream if H pylori pos then treat Above findings were reviewed with the patient and relevant handouts were provided if indicated. me: Denise Escoto Age/Sex: 77/F Attending: Bar Cannon MD : 1945 Submitted by: Bar Cannon MD Copies to: Rachna Corral MD MR #: [id number] Status: [facility] Collected: 05/02/23 Location: [facility] Received: 05/02/23 Diagnosis A. Colon, transverse, polypectomy: Tubular adenoma; negative for high-grade dysplasia or carcinoma. B. Cecum, polypectomy: Clinically polypoid colonic mucosa within normal limits. C. Colon, sigmoid, polypectomy: Tubular adenoma; negative for high-grade dysplasia or carcinoma. D. Duodenum, biopsy: Duodenal mucosa within normal limits. E. Stomach, biopsy: Antral-type and oxyntic mucosa with mild chronic inactive inflammation; no Helicobacter organisms seen. F. Stomach, polyps: Fundic gland and hyperplastic polyps with background mild chronic inactive inflammation; no Helicobacter organisms seen. Clinical History Pre-Op Dx: Personal h/o colonic polyps Post-Op Dx: Colon polyps, diverticulosis, AVM, gastric polyps, gastritis, duodenitis Microscopic Description A-F. Microscopic sections examined. No metaplastic changes are seen, supported by AB/PAS stains (D and E); no Helicobacter organisms are seen, supported by H. pylori immunostain (E and F). Material Received A. Polyp transverse colon B. Cecal polyp C. Sigmoid colon polyp D. Duodenum bx E. Stomach bx F. Gastric polyps Gross Description Received in 6 parts. Part A: Received in formalin labeled ?polyp transverse colon? are 2 whipple irregular tissue fragments measuring 0.2 and 0.25 cm, submitted in toto in a cassette labeled A. Part B: Received in formalin labeled ?cecal polyp? are 2 whipple irregular tissue fragments measuring less Patient: Denise Escoto Age/Sex: 77/F MR#: [id number] Page 1 of 2 Assessment & Plan Assessment & Plan (1) History of adenomatous polyp of colon: Comment: adenomas 2017 , 2023 adenoma Code(s): Z86.010 - Personal history of colonic polyps Plan: Repeat colonoscopy 1-2 years if health allows (2) Sessile colonic polyp: Code(s): K63.5 - Polyp of colon Plan: adenoma (3) Fundic gland polyposis of stomach: Code(s): K31.7 - Polyp of stomach and duodenum Plan: Reviewed pathology Plan Repeat asymptomatic colonoscopy 1-2 years if health allows Maintain high-fiber diet Consistent bowel regimen Medications: New docusate sodium (Colace) 200 mg (2 x 100 mg) PO BEDTIME 60 caps 5RF polyethylene glycol 3350 (Miralax) 17 grams PO DAILY 30 days 510 grams 6RF Patient Instructions: Pleasant 77-year-old female follows up after recent EGD colonoscopy. Her grandson/agriculture professor, accompanies her interprets Repeat asymptomatic colonoscopy 1-2 years if health allows Maintain high-fiber diet-literature given Consistent bowel regimen-they will call with progress or any concerns Encouraged grandson to call with any questions or concerns Coding Level of Care Code Est Pt Level 3 (93380) Diagnoses History of adenomatous polyp of colon Z86.010 Sessile colonic polyp K63.5 Fundic gland polyposis of stomach K31.7 Time Spent (min) 30
== END 2023-05-16 10:35 | disposition home or self-care (01) ==
PROVIDERS: PCP Internal Medicine; Visit Provider Physician Assistant
DX: D12.3 Benign neoplasm of transverse colon (principal); K31.7 Polyp of stomach and duodenum
CPT/HCPCS: 99213

== ENCOUNTER → 2023-05-16 08:39 | Outpatient (BNVA) | payer MEDICARE, MEDICAID, SELFPAY | PROVIDERS: PCP Internal Medicine; Visit Provider Physician Assistant | DX: K63.5 Polyp of colon (principal); K31.7 Polyp of stomach and duodenum; Z86.010 Personal history of colon polyps | CPT/HCPCS: 99212 ==

== ENCOUNTER 2023-05-17 14:35 | Emergency (ER) | payer MEDICARE, MEDICAID, SELFPAY ==
--- NOTE | ~2023-05-17 | CT_ITS ---
EXAMINATION: CT HEAD WITHOUT CONTRAST CLINICAL INFORMATION: Rule out stroke COMPARISON: Previous head CT and brain MRI February 2023 TECHNIQUE: Contiguous axial imaging was performed from the skull base to vertex without intravenous administration of contrast. This CT examination was performed using dose optimization techniques as appropriate, variously including the following: *Automated exposure control *Adjustment of mA and/or kV according to patient size (this includes techniques or standardized protocols for targeted exams where dose is matched to indication/reason for exam; i.e. extremities or head) *Use of iterative reconstruction technique DLP: 653 mGy-cm FINDINGS: There is no evidence of an extra-axial collection. There is no evidence of intra or extra-axial hemorrhage. The ventricles and extra-axial CSF spaces are prominent suggestive of mild generalized atrophy. There is nonspecific periventricular white matter disease. No mass, mass effect or infarct is seen. No skull fracture. Inflammatory changes in the bilateral maxillary sinuses. CT/CT head/brain wo IV con IMPRESSION: No acute findings. Mild generalized atrophy and nonspecific periventricular white matter disease. maxillary sinus disease
--- NOTE | 2023-05-17 14:41 | ED_ITS ---
HPI - General Adult General Chief complaint: General Medical Stated complaint: ? Stroke Time Seen by Provider: 05/17/23 16:16 Source: patient Mode of arrival: ambulatory Limitations: no limitations History of Present Illness HPI narrative: Patient history of vascular dementia TIA in 03/24 diabetic hypertension noticed by family that patient is more slow speaking heavy speech since yesterday afternoon patient ambulatory as such no fever no no nausea no patient has been constipated no facial asymmetry no fever no chills no urinary complaint on arrival patient's speech was normal patient had similar presentation 03/16 had dry and carotid Doppler showed small infarct no LVO, patient is on baby aspirin Related Data Home Medications Medication Instructions Recorded Confirmed aspirin 81 mg tablet,delayed 81 mg PO DAILY 02/08/20 03/27/23 release (Adult Low Dose Aspirin) multivitamin 1 tab PO DAILY 03/22/20 03/27/23 Previous Rx's Medication Instructions Recorded rosuvastatin 20 mg tablet 20 mg PO DAILY 90 days #90 tabs 07/24/22 glipizide 5 mg tablet 5 mg PO DAILY 90 days #90 tabs 01/17/23 alendronate 70 mg tablet 70 mg PO QWEEK 90 days #13 tabs 03/27/23 memantine 10 mg tablet 10 mg PO BID 30 days #60 tabs 04/17/23 omeprazole 20 mg capsule,delayed 20 mg PO DAILY@0630 #90 caps 04/21/23 release amlodipine 2.5 mg tablet 2.5 mg PO DAILY #90 tabs 05/07/23 dulaglutide 3 mg/0.5 mL 3 mg (0.5 mL) subcut QWEEK 30 days 05/08/23 subcutaneous pen injector #2.5 mL (Trulicity) docusate sodium 100 mg capsule 200 mg (2 x 100 mg) PO BEDTIME #60 05/16/23 (Colace) caps polyethylene glycol 3350 17 17 g PO DAILY 30 days #510 grams 05/16/23 gram/dose oral powder (Miralax) ascorbic acid (vitamin C) 500 mg 500 mg PO DAILY 90 days #90 caps 05/17/23 capsule clopidogrel 75 mg tablet (Plavix) 75 mg PO DAILY #90 tabs 05/17/23 ferrous sulfate 325 mg (65 mg 325 mg PO DAILY 90 days #90 tabs 05/17/23 iron) tablet Allergies Allergy/AdvReac Type Severity Reaction Status Date / Time No Known Allergies Allergy Verified 05/17/23 14:46 [No Known Allergies*] Review of Systems 2 Review of Systems: Yes all other systems are reviewed and are negative [facility] Past Medical History Medical History Hypertension, essential Stroke Stroke Type 2 diabetes mellitus Hyperlipidemia Dementia Family history of ovarian cancer Diabetes mellitus Microalbuminuria GERD (gastroesophageal reflux disease) Hyperlipidemia LDL goal <70 Type 2 diabetes mellitus with diabetic polyneuropathy Obesity due to excess calories Memory loss Cough Essential hypertension Long-term use of aspirin therapy History of DVT (deep vein thrombosis) Surgical History History of total abdominal hysterectomy and bilateral salpingo-oophorectomy History of cataract surgery Family History Family History Father No problems noted. Mother Colon cancer Son Diabetes Social History Social History Household Members: Unknown / Unable to assess Household Members Other:: lives with gAmy shaver Housing: Unknown / Unable to assess Unable to assess alcohol history related to: Unknown Alcohol intake: never Patient Tobacco Use Status: Never used Tobacco e-Cigarette/Vaping Use: Never Used Second Hand Smoke Exposure: No Advance Directives: Yes Advance Directives on File: Yes Advance Directives Date on File: 02/23/21 service: No Current occupational status: disabled Cognitive needs: No Hearing needs: No Vision needs: No Physical Exam ED Vital Signs: Vital Signs - 24 hr 05/17/23 14:47 05/17/23 18:32 Temperature 98 F Pulse Rate 71 60 Respiratory Rate 17 18 Blood Pressure 151/57 H 142/64 H Pulse Oximetry 98 98 Oxygen Delivery Method Room Air Room Air BMI result Body Mass Index 37.8 Appearance: Alert. Oriented X2-3. No acute distress. Eyes: PERRLA, No Nystagmus ENT: Pharynx normal. Oral Mucosa moist Neck: Normal inspection. Neck supple. CVS: Normal heart rate and rhythm. Pulses normal. Respiratory: No respiratory distress. Equal air entry bilateral, no wheezing/rales/rhonchi Abdomen: Soft and nontender. Bowel sounds are present, no mass palpable, no CVA tenderness Skin: Skin warm and dry. Normal skin color. Normal skin turgor. Extremities: No lower extremity edema. No calf tenderness Neuro: Oriented X 2-3. No motor deficit. No sensory deficit.No cerebellar signs , cranial nerves II-XII intact NIH Stroke Scale Internal: Initial- Upon Arrival Level of Consciousness: Alert Level of Consciousness Questions: Answers both questions correctly Level of Consciousness Commands: Performs both tasks correctly Best Gaze: Normal Visual: No visual loss Facial Palsy: Normal Motor Arm (Right): No drift Motor Arm (Left): No drift Motor Leg (Right): No drift Motor Leg (Left): No drift Limb Ataxia: Absent Sensory: Normal Best Language: No aphasia Dysarthia: Normal Extinction and Inattention: No abnormality Score: 0 Course Course Course Narrative: RME:?77-year-old female with a past medical history of diabetes, GERD, HLD, HTN, DVT here w/ son for eval of heavy feeling to tongue, slowed responses, and slight AMS. Per son, patient began complaining of tongue heaviness yesterday. Additionally she could not remember the names of her 2 children which is not like her. Son endorses history of CVA approximately 2 months ago which presented with tongue heaviness and confusion. NIH score 2. Patient out of window for tnk. exam: no slurred speach. No pronator drift. No facial droop. Oriented to person/place. Strength 5/5 throughout. no focal neuro deficits. plan for labs/ imaging. Full HPI, ROS and PE to be performed by the primary ED provider. Medications Administered Discontinued Medications Generic Name Dose Route Start Last Admin Trade Name [place] PRN Reason Stop Dose Admin Clopidogrel Bisulfate 75 mg 05/17/23 16:44 05/17/23 17:21 Clopidogrel Bisulfate 75 Mg Tablet PO 05/17/23 16:45 75 mg ONCE ONE Administration Medical Decision Making Medical Decision Making [facility] Narrative: Patient with nonspecific symptoms likely had a minor TIA CT scan is negative for acute stroke patient taking baby aspirin will add Plavix daily Differential Diagnosis Differential Diagnoses: The differential diagnosis associated with the presentation includes TIA Admission/Observation Consideration of admission/observation: Escalation of care including admission/observation considered Consult Healthcare Provider Management of the patient was discussed with: Hospitalist Lab Data 05/17/23 15:21 05/17/23 15:20 Labs: Lab Results 02/05/17/23 05/17/23 Range/Units 15:20 15:21 17:18 WBC 8.0 (4.8-10.8) X10*3/uL RBC 4.86 (4.20-5.50) X10*6/uL Hgb 13.3 (12.0-16.0) g/dl Hct 41.0 (37.0-47.0) % MCV 84.4 (80.0-98.0) fL MCH 27.4 (27.0-33.0) pg MCHC 32.4 (31.0-35.0) g/dl RDW 16.7 H (11.0-16.0) % Plt Count 149 L (160-400) X10*3/uL MPV 9.7 (9.4-12.3) fL Immature Gran % (Auto) 0.4 (0.0-0.4) % Neut % (Auto) 80.6 H (45-73) % Lymph % (Auto) 13.3 L (20-40) % [place] % (Auto) 4.3 (2-11) % Eos % (Auto) 1.3 (0-4) % Baso % (Auto) 0.1 (0-2) % Lymph # (Auto) 1.1 L (1.2-4.9) X10*3/uL [place] # (Auto) 0.3 (0.1-1.2) X10*3/uL Eos # (Auto) 0.1 (0.0-0.4) X10*3/uL Baso # (Auto) 0.0 (0.0-0.2) X10*3/uL Abs Immat Gran (auto) 0.03 (0.00-0.03) X10*3/uL Absolute Neuts (auto) 6.5 (2.0-8.3) x10*3/uL Absolute Nucleated RBC 0.000 (0.0-0.012) X10*3/uL Nucleated RBC % (auto) 0.0 (0.0-0.2) /100WBC PT 12.3 (11.1-13.3) SEC INR 1.0 (0.9-1.1) Sodium 134 L (135-145) mmol/L Potassium 5.1 (3.3-5.1) mmol/L Chloride 102 (96-108) mmol/L Carbon Dioxide 27 (22-29) mmol/L Anion Gap 10 L (12-20) BUN 18 H (9-16) mg/dL Creatinine 0.82 (0.5-1.4) mg/dL Estim Creat Clear Calc 64.9 Estimated GFR > 60 Random Glucose 203 H (60-115) mg/dL Calcium 9.5 (8.4-10.2) mg/dL Magnesium 2.0 (1.6-2.6) mg/dL Total Bilirubin 0.2 (0.0-1.0) mg/dL AST 90 H (5-31) U/L ALT 112 H (0-31) U/L Alkaline Phosphatase 308 H (39-117) U/L Total Protein 7.4 (6.5-8.0) g/dL Albumin 3.3 L (3.5-5.0) g/dL Urine Color Yellow Urine Appearance Cloudy Urine pH 6.0 (5.0-9.0) Ur Specific [place] 1.015 (1.005-1.025) Urine Protein Negative (Neg-Trace) mg/dL Urine Glucose (UA) Negative (Negative) mg/dL Urine Ketones Negative (Negative) mg/dL Urine Blood Negative (Negative) Urine Nitrite Negative (Negative) Ur Leukocyte Esterase Negative (Negative) Independent Interpretation I performed an independent interpretation of an: CT Scan Radiology Impression Discussion of test interpretation with radiology: I have reviewed the radiologist's reading. Discharge Plan Discharge Clinical Impression: TIA (transient ischemic attack) Patient Disposition: Home, Self-Care Instructions: Transient Ischemic Attack (ED) Additional Instructions: It is possible that you might have a small mini stroke Your CT scan is negative for acute stroke Continue to take your aspirin Start taking Plavix 1 tablet daily Follow with your PCP as needed Es posible que tengas un lino?o mini derrame cerebral. Meier tomograf?a computarizada es negativa para accidente cerebrovascular yohana Contin?e tomando meier aspirina Empiece a pranav Plavix 1 comprimido al d?a. Rosie un seguimiento con meier PCP seg?n sea necesario Prescriptions: New clopidogrel [Plavix] 75 mg tablet 75 mg PO DAILY Qty: 90 0RF No Action glipizide 5 mg tablet 5 mg PO DAILY 90 Days Qty: 90 1RF memantine 10 mg tablet 10 mg PO BID 30 Days Qty: 60 0RF omeprazole 20 mg capsule,delayed release(DR/EC) 20 mg PO DAILY@0630 Qty: 90 3RF amlodipine 2.5 mg tablet 2.5 mg PO DAILY Qty: 90 0RF Trulicity 3 mg/0.5 mL pen injector 3 mg subcut QWEEK 30 Days Qty: 2.5 1RF ferrous sulfate 325 mg (65 mg iron) tablet 325 mg PO DAILY 90 Days Qty: 90 1RF ascorbic acid (vitamin C) 500 mg capsule 500 mg PO DAILY 90 Days Qty: 90 1RF aspirin [Adult Low Dose Aspirin] 81 mg tablet,delayed release (DR/EC) 81 mg PO DAILY rosuvastatin 20 mg tablet 20 mg PO DAILY 90 Days Qty: 90 1RF alendronate 70 mg tablet 70 mg PO QWEEK 90 Days Qty: 13 1RF multivitamin Tablet 1 tab PO DAILY docusate sodium [Colace] 100 mg capsule 200 mg PO BEDTIME Qty: 60 5RF polyethylene glycol 3350 [Miralax] 17 gram/dose powder 17 g PO DAILY 30 Days Qty: 510 6RF Interventions: ED Discharge Assessment Last Done: 05/17/23 18:46 Discharge Date/Time: 05/17/23 18:49 Print Language: Bolivian
[2023-05-17 14:47] VITALS: BP 151/57; PULSE 71; RESP 17; TEMP 36.6; O2SAT 98; BMI 37.8
[2023-05-17 15:24] LABS: MANUAL DIFF FLAG NO
[2023-05-17 15:29] LABS: Basophils Percent Auto 0.1 % (0-2); Eosinophils Absolute Auto 0.1 X10*3/uL (0.0-0.4); Eosinophils Percent Auto 1.3 % (0-4); Hemoglobin 13.3 g/dl (12.0-16.0); Imm Gran Abs Auto 0.03 X10*3/uL (0.00-0.03); Imm Gran Pct Auto 0.4 % (0.0-0.4); Lymphocytes Absolute Auto 1.1 X10*3/uL (1.2-4.9); Lymphocytes Percent Auto 13.3 % (20-40); Mean Corpuscular HGB Conc 32.4 g/dl (31.0-35.0); Mean Corpuscular Hemoglobin 27.4 pg (27.0-33.0); Mean Corpuscular Volume 84.4 fL (80.0-98.0); Mean Platelet Volume 9.7 fL (9.4-12.3); Monocytes Absolute Auto 0.3 X10*3/uL (0.1-1.2); Monocytes Percent Auto 4.3 % (2-11); Neutrophils Absolute Auto 6.5 x10*3/uL (2.0-8.3); Neutrophils Percent Auto 80.6 % (45-73); Platelet Count 149 X10*3/uL (160-400); Red Blood Count 4.86 X10*6/uL (4.20-5.50); Red Cell Distribution Width 16.7 % (11.0-16.0)
[2023-05-17 15:32] LABS: Prothrombin Time 12.3 SEC (11.1-13.3)
[2023-05-17 15:41] LABS: Alanine Aminotransferase 112 U/L (0-31); Albumin Level 3.3 g/dL (3.5-5.0); Alkaline Phosphatase 308 U/L (39-117); Anion Gap 10 (12-20); Aspartate Amino Transferase 90 U/L (5-31); Bilirubin Total 0.2 mg/dL (0.0-1.0); Blood Urea Nitrogen 18 mg/dL (9-16); Calcium 9.5 mg/dL (8.4-10.2); Carbon Dioxide 27 mmol/L (22-29); Chloride 102 mmol/L (96-108); Creatinine Clr Calc Pharmacy 64.9; Estimated Glomerular Filt Rate > 60; Glucose Random 203 mg/dL (60-115); Potassium 5.1 mmol/L (3.3-5.1); Sodium 134 mmol/L (135-145); Total Protein 7.4 g/dL (6.5-8.0)
[2023-05-17] MEDS: Clopidogrel Bisulfate 75 MG TABLET PO (17:21)
[2023-05-17 17:24] LABS: Appearance Urine Cloudy; Color Urine Yellow; Glucose Urine UA Negative (Negative); Leukocyte Esterase Urine Negative (Negative); Nitrite Urine Negative (Negative); Specific Gravity - Urine 1.015 (1.005-1.025); Urine Blood Negative (Negative); Urine Ketones Negative (Negative); Urine Protein Negative (Neg-Trace)
[2023-05-17 18:32] VITALS: BP 142/64; PULSE 60; RESP 18; O2SAT 98
== END 2023-05-17 18:49 | disposition home or self-care (01) ==
PROVIDERS: Physician Assistant Medical; Emergency Provider Internal Medicine; PCP Internal Medicine
DX: G45.9 Transient cerebral ischemic attack, unspecified (principal); R47.9 Unspecified speech disturbances; I10 Essential (primary) hypertension; E11.9 Type 2 diabetes mellitus without complications; Z86.718 Personal history of other venous thrombosis and embolism; Z86.73 Personal history of transient ischemic attack (TIA), and cerebral infarction without residual deficits
CPT/HCPCS: 36415; 70450; 80053; 81003; 83735; 85025; 85610; 99284

== ENCOUNTER 2023-05-20 05:31 | Inpatient (IN) | payer MEDICARE, MEDICAID, SELFPAY ==
[2023-05-20] VITALS (9 sets, daily range): BP systolic 126–164; BP diastolic 58–82; PULSE 63–100; RESP 13–20; TEMP 33.2–36.9; O2SAT 96–100; BMI 42.8; BMI 42.9
--- NOTE | 2023-05-20 | EEG_ITS ---
FINDINGS: Waking background activity consists of a [id number] voltage 8 to 9 hertz posterior alpha frequency intermixed with low voltage fast frequencies anteriorly. Scattered theta slowing of 6-7 hertz appeared over both hemisphere intermittently. Some sharp configuration activities occasionally seen over both hemisphere with some triphasic morphology. Photic stimulation is without activation. Hyperventilation was omitted. Drowsiness accentuate the background slowing. IMPRESSION: This EEG is considered mildly abnormal due to mild scattered slowing. This is consistent with a mild encephalopathic process. No epileptiform discharges are seen. MD GRETEL Royal/CHRIS / [id number]
--- NOTE | ~2023-05-20 | XR_ITS ---
EXAMINATION: XR CHEST CLINICAL INFORMATION: AMS. COMPARISON: None available. TECHNIQUE: Frontal view of the chest was obtained. FINDINGS: The lungs are well-expanded and clear. The heart size and pulmonary vascularity is normal. There is moderate spondylosis of dorsal spine. No aggressive lytic or sclerotic process seen. XR/XR chest 1V IMPRESSION: Unremarkable examination.
--- NOTE | ~2023-05-20 | CT_ITS ---
EXAMINATION: CT HEAD WITHOUT CONTRAST CLINICAL INFORMATION: Seizure COMPARISON: 05/17/2023 TECHNIQUE: Contiguous axial imaging was performed from the skull base to vertex without intravenous administration of contrast. This CT examination was performed using dose optimization techniques as appropriate, variously including the following: *Automated exposure control *Adjustment of mA and/or kV according to patient size (this includes techniques or standardized protocols for targeted exams where dose is matched to indication/reason for exam; i.e. extremities or head) *Use of iterative reconstruction technique DLP: 623 mGy-cm FINDINGS: There is no evidence of acute intracranial hemorrhage or territorial infarction. No abnormal mass-effect or midline shift is seen. Flores to white matter differentiation is well preserved. No extra-axial fluid collections are identified. The ventricles are normal in size. There is mild periventricular white matter hypoattenuation consistent with chronic small vessel ischemic disease. Mild volume loss is noted. The osseous structures and soft tissues are normal. The mastoid air cells are well-aerated. Mucosal thickening throughout the paranasal sinuses, most prominently in the maxillary sinuses. CT/CT head/brain wo IV con IMPRESSION: No acute intracranial pathology. Chronic small vessel ischemic disease and volume loss.
[2023-05-20 05:47] LABS: Glucose, Whole Blood 61 mg/dL (60-115)
--- NOTE | 2023-05-20 05:54 | ECG_ITS ---
Test Reason : WEAKNESS Blood Pressure : / mmHG Vent. Rate : 064 BPM Atrial Rate : 064 BPM P-R Int : 262 ms QRS Dur : 130 ms QT Int : 412 ms P-R-T Axes : 023 -08 018 degrees QTc Int : 425 ms Sinus rhythm with 1st degree A-V block Right bundle branch block Abnormal ECG When compared with ECG of 09-MAR-2023 14:43, ME interval has increased Referred By: Generic ED Physician Electronically Signed By:JAY PEGUERO
[2023-05-20 06:06] LABS: MANUAL DIFF FLAG NO
[2023-05-20 06:08] LABS: Basophils Percent Auto 0.1 % (0-2); Eosinophils Absolute Auto 0.1 X10*3/uL (0.0-0.4); Eosinophils Percent Auto 0.9 % (0-4); Hemoglobin 14.2 g/dl (12.0-16.0); Imm Gran Abs Auto 0.04 X10*3/uL (0.00-0.03); Imm Gran Pct Auto 0.5 % (0.0-0.4); Lymphocytes Absolute Auto 0.8 X10*3/uL (1.2-4.9); Lymphocytes Percent Auto 10.2 % (20-40); Mean Corpuscular Hemoglobin 27.7 pg (27.0-33.0); Mean Platelet Volume 9.6 fL (9.4-12.3); Monocytes Absolute Auto 0.5 X10*3/uL (0.1-1.2); Monocytes Percent Auto 5.7 % (2-11); NRBC Pct Auto 0.2 /100WBC (0.0-0.2); Neutrophils Absolute Auto 6.6 x10*3/uL (2.0-8.3); Neutrophils Percent Auto 82.6 % (45-73); Platelet Count 141 X10*3/uL (160-400); Red Blood Count 5.12 X10*6/uL (4.20-5.50); Red Cell Distribution Width 16.9 % (11.0-16.0)
--- NOTE | 2023-05-20 06:24 | PC.NURSE ---
pt provided w/ snack per verbal from to try to increase her sugar. IF this does not work will consider giving additional D50.
[2023-05-20 06:25] LABS: Troponin-I High Sensitivity 3.2 ng/L (<3.5-17.0)
[2023-05-20 06:26] LABS: Potassium 6.1 mmol/L (3.3-5.1)
[2023-05-20 06:27] LABS: Anion Gap 12 (12-20); Blood Urea Nitrogen 18 mg/dL (9-16); Calcium 9.7 mg/dL (8.4-10.2); Carbon Dioxide 25 mmol/L (22-29); Chloride 100 mmol/L (96-108); Creatinine Clr Calc Pharmacy 70.7; Estimated Glomerular Filt Rate > 60; Glucose Random 70 mg/dL (60-115); Sodium 131 mmol/L (135-145)
[2023-05-20] MEDS: Sodium Zirconium Cyclosilicate 10 GM POWD.PACK PO (06:46)
--- NOTE | 2023-05-20 06:55 | ED_ITS ---
HPI - Weakness General Chief complaint: Weakness Stated complaint: weakness Time Seen by Provider: 05/20/23 06:32 Source: patient and RN notes reviewed Mode of arrival: ambulatory Limitations: no limitations History of Present Illness HPI Narrative: This is a 77-year-old female, with a history of diabetes and dementia, CVA in November, and recent TIA on saturday started on Plavix, presenting to the emergency department via EMS from home with increased weakness, confusion, and difficulty managing blood sugar levels. Patient was seen in the emergency department 3 days ago after being diagnosed with a TIA and was discharged home. Family reports that since Saturday she has had difficulty with ambulation word- finding, and activities of daily living. Family also reports that over this past month they have had difficulty managing her blood glucose level. They state that in the morning her blood glucose levels are very low, typically in the 40s. Family reports that she has not been coughing, had any recent fevers, nausea, vomiting or diarrhea. Relieving factors: none Exacerbating factors: none Context: new medication Associated symptoms: confusion Related Data Home Medications Medication Instructions Recorded Confirmed multivitamin 1 tab PO DAILY 03/22/20 05/20/23 Previous Rx's Medication Instructions Recorded rosuvastatin 20 mg tablet 20 mg PO DAILY 90 days #90 tabs 07/24/22 glipizide 5 mg tablet 5 mg PO DAILY 90 days #90 tabs 01/17/23 alendronate 70 mg tablet 70 mg PO QWEEK 90 days #13 tabs 03/27/23 memantine 10 mg tablet 10 mg PO BID 30 days #60 tabs 04/17/23 omeprazole 20 mg capsule,delayed 20 mg PO DAILY@0630 #90 caps 04/21/23 release amlodipine 2.5 mg tablet 2.5 mg PO DAILY #90 tabs 05/07/23 dulaglutide 3 mg/0.5 mL 3 mg (0.5 mL) subcut QWEEK 30 days 05/08/23 subcutaneous pen injector #2.5 mL (Trulicity) docusate sodium 100 mg capsule 200 mg (2 x 100 mg) PO BEDTIME #60 05/16/23 (Colace) caps polyethylene glycol 3350 17 17 g PO DAILY 30 days #510 grams 05/16/23 gram/dose oral powder (Miralax) ascorbic acid (vitamin C) 500 mg 500 mg PO DAILY 90 days #90 caps 05/17/23 capsule ferrous sulfate 325 mg (65 mg 325 mg PO DAILY 90 days #90 tabs 05/17/23 iron) tablet Allergies Allergy/AdvReac Type Severity Reaction Status Date / Time No Known Allergies Allergy Verified 05/20/23 06:12 [No Known Allergies*] Review of Systems 2 Review of Systems: Yes all other systems are reviewed and are negative Constitutional: Constitutional: Reports as per [facility] [facility] Past Medical History Attestation statement: The following information was validated with the patient. Medical History Hypertension, essential Stroke Stroke Type 2 diabetes mellitus Hyperlipidemia Dementia Family history of ovarian cancer Diabetes mellitus Microalbuminuria GERD (gastroesophageal reflux disease) Hyperlipidemia LDL goal <70 Type 2 diabetes mellitus with diabetic polyneuropathy Obesity due to excess calories Memory loss Cough Essential hypertension Long-term use of aspirin therapy History of DVT (deep vein thrombosis) Surgical History History of total abdominal hysterectomy and bilateral salpingo-oophorectomy History of cataract surgery Family History Family History Father No problems noted. Mother Colon cancer Son Diabetes Social History Social History Household Members: Unknown / Unable to assess Household Members Other:: lives with shahram shaver Housing: Unknown / Unable to assess Unable to assess alcohol history related to: Unknown Alcohol intake: never Patient Tobacco Use Status: Never used Tobacco Smoked in Last 30 Days: No e-Cigarette/Vaping Use: Never Used Second Hand Smoke Exposure: No Use of substances other than those prescribed or required for medical reasons: No Advance Directives: Yes Advance Directives on File: Yes Advance Directives Date on File: 02/23/21 service: No Current occupational status: disabled Cognitive needs: No Hearing needs: No Vision needs: No Physical Exam 2 Vital Signs: Vital Signs: Last Vital Signs Temp 98.4 F 05/20/23 10:45 Pulse 67 05/20/23 10:45 Resp 14 05/20/23 10:45 BP 155/62 H 05/20/23 10:45 Pulse Ox 98 05/20/23 10:45 O2 Del Method Room Air 05/20/23 05:39 BMI result Body Mass Index 42.8 Const: General: cooperative, comfortable and no acute distress O rientation/consciousness: oriented to person and oriented to place L imitations: other limitations (Limitations secondary to patient's dementia) HEENT: Head: Yes normal to inspection, Yes normocephalic and Yes atraumatic Ears: hearing grossly normal bilaterally General nose exam: Normal external nose present Face and sinus: Yes normal facial exam Mouth: Normal oral and palatal mucosa present, oropharynx normal and moist mucous membranes Throat: Yes posterior oropharynx normal Eyes: General: appearance normal, both eyes and all related structures E yelids: Yes eyelids normal Conjunctivae: conjunctivae normal Sclerae: s clerae normal Pupils: Equal, round and reactive pupils present EOM: EOMs intact bilaterally Neck: Neck: Yes normal visual inspection, Yes full ROM and Yes no lymphadenopathy Lymphatic: no lymphadenopathy noted Chest: Chest palpation & inspection: normal inspection of the chest Resp: Effort & Inspection: normal respiratory effort and able to speak in complete sentences Auscultation: clear to auscultation bilaterally, no crackles, no rales, no rhonchi and no wheezes Cardio: Rate: regular rate Rhythm: regular rhythm Heart sounds: S1 normal heart sound present and S2 normal heart sound present GI: Other: Abdomen is soft, nontender, nondistended Inspection: Yes normal to inspection Skin: General skin exam: no rashes or lesions noted Trauma: no lacerations or abrasions Wounds: no wounds Neuro: Other: Upper and lower extremities 4/5 bilaterally. General: oriented to person, oriented to place and moves all extremities Cranial nerves: Yes CN's II-XII intact bilaterally, Yes Equal, round and reactive pupils present, Yes Normal facial strength present and Yes Midline tongue present Extrem: Other: No LE edema noted General: Yes normal to inspection Right upper extremity: normal to inspection Left upper extremity: normal to inspection Right lower extremity: normal to inspection Left lower extremity: normal to inspection Course Reevaluation(s) Reevaluation #1: Patient tested positive for COVID. Chest x-ray unremarkable. UA pending Time: 08:07 Reevaluation #2: UA returns, noninfected. Given difficulty managing blood glucose level with associated hypoglycemia as well as COVID, my attending physician reports that she would benefit with a hospital admission. Family is agreeable. Transfer of care initiated. Time: 10:11 Medications Administered Discontinued Medications Generic Name Dose Route Start Last Admin Trade Name Emily PRN Reason Stop Dose Admin Sodium Zirconium Cyclosilicate 10 gm 05/20/23 06:34 05/20/23 06:46 Sodium Zirconium Cyclosilicate 10 Gm Powd.Pack PO 05/20/23 06:35 10 gm ONCE ONE Administration Medical Decision Making Medical Decision Making [facility] Narrative: This is a 77-year-old female, with a history of diabetes and dementia, presenting to the emergency department via EMS with family with concerns for hypoglycemia, altered mental status and confusion. Patient was seen here 3 days ago and was discharged home after being diagnosed a. Family reports that since then she has had increased weakness, difficulty with word finding. Patient was found to have a level of hypoglycemia in the 40s this morning. They state that they have had a difficult time managing her blood glucose level for the last month. On arrival, patient alert, oriented and cooperative. Patient mildly hypertensive at 144/71. She is alert and oriented x2, she is moving all extremities, smile symmetric, tongue midline. Labs were performed prior to me seeing her, she is mildly hyponatremic and hyperkalemic at 6.1. I discussed this with my attending physician, recommending Lokelma. Given patient was seen on Saturday for TIA, and she has a history of CVA in November, or symptoms are likely due to hypoglycemia, I do not suspect that this is an acute stroke. Will obtain UA, chest x-ray, blood cultures, and likely would benefit from hospital admission given difficulty with managing blood glucose level. Differential Diagnosis Differential Diagnoses: The differential diagnosis associated with the presentation includes Hypoglycemia, UTI, pneumonia, COVID, flu Admission/Observation Consideration of admission/observation: Escalation of care including admission/observation considered Lab Data [facility] Lab Attestation statement: I reviewed the patient's lab results. No leukocytosis, stable H&H, hyponatremic at 1:1 a.m., potassium 6.1, BUN 18, COVID positive 05/20/23 05:56 05/20/23 05:56 Labs: Lab Results 05/20/23 05/20/23 05/20/23 Range/Units 05:39 05:56 07:33 WBC 8.0 (4.8-10.8) X10*3/uL RBC 5.12 (4.20-5.50) X10*6/uL Hgb 14.2 (12.0-16.0) g/dl Hct 43.0 (37.0-47.0) % MCV 84.0 (80.0-98.0) fL MCH 27.7 (27.0-33.0) pg MCHC 33.0 (31.0-35.0) g/dl RDW 16.9 H (11.0-16.0) % Plt Count 141 L (160-400) X10*3/uL MPV 9.6 (9.4-12.3) fL Immature Gran % (Auto) 0.5 H (0.0-0.4) % Neut % (Auto) 82.6 H (45-73) % Lymph % (Auto) 10.2 L (20-40) % [place] % (Auto) 5.7 (2-11) % Eos % (Auto) 0.9 (0-4) % Baso % (Auto) 0.1 (0-2) % Lymph # (Auto) 0.8 L (1.2-4.9) X10*3/uL [place] # (Auto) 0.5 (0.1-1.2) X10*3/uL Eos # (Auto) 0.1 (0.0-0.4) X10*3/uL Baso # (Auto) 0.0 (0.0-0.2) X10*3/uL Abs Immat Gran (auto) 0.04 H (0.00-0.03) X10*3/uL Absolute Neuts (auto) 6.6 (2.0-8.3) x10*3/uL Absolute Nucleated RBC 0.020 H (0.0-0.012) X10*3/uL Nucleated RBC % (auto) 0.2 (0.0-0.2) /100WBC Sodium 131 L (135-145) mmol/L Potassium 6.1 H* (3.3-5.1) mmol/L Chloride 100 (96-108) mmol/L Carbon Dioxide 25 (22-29) mmol/L Anion Gap 12 (12-20) BUN 18 H (9-16) mg/dL Creatinine 0.75 (0.5-1.4) mg/dL Estim Creat Clear Calc 70.7 Estimated GFR > 60 POC Glucose 61 (60-115) mg/dL Random Glucose 70 (60-115) mg/dL Calcium 9.7 (8.4-10.2) mg/dL Troponin I High Sens 3.2 (<3.5-17.0) ng/L Urine Color Urine Appearance Urine pH (5.0-9.0) Ur Specific [place] (1.005-1.025) Urine Protein (Neg-Trace) mg/dL Urine Glucose (UA) (Negative) mg/dL Urine Ketones (Negative) mg/dL Urine Blood (Negative) Urine Nitrite (Negative) Ur Leukocyte Esterase (Negative) COVID-19 (JOHN) Positive A (Negative) COVID-19 Clin Com See Note Influenza Type A (YUVAL) Negative (Negative) Influenza Type B (YUVAL) Negative (Negative) Influenza A & B Note See Note 05/20/23 Range/Units 09:54 WBC (4.8-10.8) X10*3/uL RBC (4.20-5.50) X10*6/uL Hgb (12.0-16.0) g/dl Hct (37.0-47.0) % MCV (80.0-98.0) fL MCH (27.0-33.0) pg MCHC (31.0-35.0) g/dl RDW (11.0-16.0) % Plt Count (160-400) X10*3/uL MPV (9.4-12.3) fL Immature Gran % (Auto) (0.0-0.4) % Neut % (Auto) (45-73) % Lymph % (Auto) (20-40) % [place] % (Auto) (2-11) % Eos % (Auto) (0-4) % Baso % (Auto) (0-2) % Lymph # (Auto) (1.2-4.9) X10*3/uL [place] # (Auto) (0.1-1.2) X10*3/uL Eos # (Auto) (0.0-0.4) X10*3/uL Baso # (Auto) (0.0-0.2) X10*3/uL Abs Immat Gran (auto) (0.00-0.03) X10*3/uL Absolute Neuts (auto) (2.0-8.3) x10*3/uL Absolute Nucleated RBC (0.0-0.012) X10*3/uL Nucleated RBC % (auto) (0.0-0.2) /100WBC Sodium (135-145) mmol/L Potassium (3.3-5.1) mmol/L Chloride (96-108) mmol/L Carbon Dioxide (22-29) mmol/L Anion Gap (12-20) BUN (9-16) mg/dL Creatinine (0.5-1.4) mg/dL Estim Creat Clear Calc Estimated GFR POC Glucose (60-115) mg/dL Random Glucose (60-115) mg/dL Calcium (8.4-10.2) mg/dL Troponin I High Sens (<3.5-17.0) ng/L Urine Color Yellow Urine Appearance Clear Urine pH 6.5 (5.0-9.0) Ur Specific [place] <= 1.005 (1.005-1.025) Urine Protein Negative (Neg-Trace) mg/dL Urine Glucose (UA) Negative (Negative) mg/dL Urine Ketones Negative (Negative) mg/dL Urine Blood Negative (Negative) Urine Nitrite Negative (Negative) Ur Leukocyte Esterase Negative (Negative) COVID-19 (JOHN) (Negative) COVID-19 Clin Com Influenza Type A (YUVAL) (Negative) Influenza Type B (YUVAL) (Negative) Influenza A & B Note Independent Interpretation I performed an independent interpretation of an: EKG Interpretation: EKG sinus rhythm with a first-degree AV block, right bundle branch block noted at a ventricular rate of 64 beats per minute, IL interval 262, QTC 425, similar appearing EKG from previous from March 09, 2023 I reviewed chest x-ray and agree with the radiology report. Radiology Impression Discussion of test interpretation with radiology: I have reviewed the radiologist's reading. Radiologist Impression: EXAMINATION: XR CHEST CLINICAL INFORMATION: AMS. COMPARISON: None available. TECHNIQUE: Frontal view of the chest was obtained. FINDINGS: The lungs are well-expanded and clear. The heart size and pulmonary vascularity is normal. There is moderate spondylosis of dorsal spine. No aggressive lytic or sclerotic process seen. XR/XR chest 1V IMPRESSION: Unremarkable examination. Dictated By: Erik Rojas MD Independent Historian Clinical information obtained from an independent historian. History obtained from or confirmed by: Other (Family) Chronic Conditions Patient?s care impacted by: Diabetes Critical Care Time Critical Care Time Critical Care Time: Yes Total Critical Care Time: 35 Attestation: I have personally provided critical care time exclusive of time spent on separately billable procedures. Time includes review of lab data, radiology results, discussion with consultants, and monitoring for potential decompensation. Intervention performed as documented. Discharge Plan Discharge Clinical Impression: COVID-19, Diabetes mellitus with hypoglycemia, Acute hyperkalemia Patient Disposition: Still a Patient Prescriptions: No Action glipizide 5 mg tablet 5 mg PO DAILY 90 Days Qty: 90 1RF memantine 10 mg tablet 10 mg PO BID 30 Days Qty: 60 0RF omeprazole 20 mg capsule,delayed release(DR/EC) 20 mg PO DAILY@0630 Qty: 90 3RF amlodipine 2.5 mg tablet 2.5 mg PO DAILY Qty: 90 0RF Trulicity 3 mg/0.5 mL pen injector 3 mg subcut QWEEK 30 Days Qty: 2.5 1RF ferrous sulfate 325 mg (65 mg iron) tablet 325 mg PO DAILY 90 Days Qty: 90 1RF ascorbic acid (vitamin C) 500 mg capsule 500 mg PO DAILY 90 Days Qty: 90 1RF rosuvastatin 20 mg tablet 20 mg PO DAILY 90 Days Qty: 90 1RF alendronate 70 mg tablet 70 mg PO QWEEK 90 Days Qty: 13 1RF multivitamin Tablet 1 tab PO DAILY docusate sodium [Colace] 100 mg capsule 200 mg PO BEDTIME Qty: 60 5RF polyethylene glycol 3350 [Miralax] 17 gram/dose powder 17 g PO DAILY 30 Days Qty: 510 6RF
[2023-05-20 07:53] LABS: COVID-19 Test Positive (Negative); IDNOW Serial# 55D5AD1C
[2023-05-20 08:01] LABS: IDNOW Serial# 16C4AD1C; Influenza A Negative (Negative); Influenza B2 Negative (Negative)
[2023-05-20 10:07] LABS: Appearance Urine Clear; Color Urine Yellow; Glucose Urine UA Negative (Negative); Leukocyte Esterase Urine Negative (Negative); Nitrite Urine Negative (Negative); PH 6.5 (5.0-9.0); Specific Gravity - Urine <= 1.005 (1.005-1.025); Urine Blood Negative (Negative); Urine Ketones Negative (Negative); Urine Protein Negative (Neg-Trace)
--- NOTE | 2023-05-20 11:57 | PHA.MEDREC ---
Pharmacy Consult ? Medication Reconciliation Pharmacy has completed the medication reconciliation. Used protein purification scientist. Patient did not know anything, not even where they knot picker cloth medications. Used pharmacy claims.
--- NOTE | 2023-05-20 12:28 | P.HPHOSP_ITS ---
<Statement entered by Mone Mayorga MD - 05/20/23 14:41> The patient was seen and evaluated with RAMO Ambrose. I agree with her note, assessment and plan with the following. In summary, A 77 years old lady with PMH of vascular dementia, HTN, hypothyroidism, CVA,, Hx DVT, type 2 diabetes among others who is presenting with encephalopathy and hypoglycemia. tested positive for covid. Acute metabolic encepahloapthy 2/2 Covid and hypoglycemia Not hypoxic, monitor resp status Hold PO Glipizide encourage PO intake recurrent reorientation hypoglycemia protocol Rest of evaluations by RAMO note. History of Present Illness Date of Service: 05/20/23 Attending physician on admission: Mone Mayorga Chief Complaint: ams 77-year-old female with history of hypertension, osteopenia, vascular dementia, subclinical hypothyroidism, history of CVA,, history of DVT, hga-knnuzfk-zcvyjoqui type 2 diabetes, hyperlipidemia presented to the ED earlier today from home accompanied by her son who assists with history and is her caregiver, for evaluation of altered mental status. Per her son, the patient has been confused from baseline with increased weakness, decreased responsiveness, and has been mostly nonverbal for several days. She was brought to the ED on 05/17 due to slow speech and AMS with concern for TIA. Head CT was negative and CTA was negative for any large vessel occlusion or hemodynamically significant stenosis. She was discharged home on Plavix. The son reports that altered mental status has worsened since then. He also reports that she has been experiencing hypoglycemic episodes so he discontinued her glipizide but then resumed this. Last night, glucose was 150 and he gave her soda and then in the middle of the night, her glucose was 47. She has been reporting a sore throat but he denies any known fevers or chills. Has not had any complaints and there are no sick contacts at home. In the ED, VSS, afebrile and no hypoxia. Hematology studies unremarkable except for a chronic thrombocytopenia. Renal function baseline, sodium 131, potassium 6.1. Urinalysis unremarkable. Positive for COVID-19, negative for influenza. Chest x-ray unremarkable. EKG shows NSR, rate 64 with first-degree AV cheikh block and right bundle branch block. NO ADA or depressions. In the ED, given 10g lokelma. Glucose in ED 61. Review of Systems 2 Review of Systems: Yes Unobtainable due to mental status PMFSH Medical History Hypertension, essential Stroke Stroke Type 2 diabetes mellitus Hyperlipidemia Dementia Family history of ovarian cancer Diabetes mellitus Microalbuminuria GERD (gastroesophageal reflux disease) Hyperlipidemia LDL goal <70 Type 2 diabetes mellitus with diabetic polyneuropathy Obesity due to excess calories Memory loss Cough Essential hypertension Long-term use of aspirin therapy History of DVT (deep vein thrombosis) Family History Father No problems noted. Mother Colon cancer Son Diabetes Surgical History History of total abdominal hysterectomy and bilateral salpingo-oophorectomy History of cataract surgery Social History Household Members: Unknown / Unable to assess Household Members Other:: lives with g. son Housing: Unknown / Unable to assess Unable to assess alcohol history related to: Unknown Alcohol intake: never Patient Tobacco Use Status: Never used Tobacco Smoked in Last 30 Days: No e-Cigarette/Vaping Use: Never Used Second Hand Smoke Exposure: No Use of substances other than those prescribed or required for medical reasons: No Advance Directives: Yes Advance Directives on File: Yes Advance Directives Date on File: 02/23/21 service: No Current occupational status: disabled Cognitive needs: No Hearing needs: No Vision needs: No Meds Allergies Allergy/AdvReac Type Severity Reaction Status Date / Time No Known Allergies Allergy Verified 05/20/23 06:12 [No Known Allergies*] Active Medications: Current Medications Acetaminophen (Acetaminophen 325 Mg Tablet) 650 mg PO Q6H PRN PRN Reason: Pain, Mild (Pain Scale 1-3) Sodium Chloride (Ns) 1,000 mls @ 100 mls/hr IV .Q10H HUGO Stop: 05/20/23 22:29 Ondansetron HCl (Ondansetron Hcl 4 Mg/2 Ml Vial) 4 mg IVPUSH Q8H PRN PRN Reason: Nausea and Vomiting Senna (Sennosides 8.6 Mg Tablet) 17.2 mg PO BEDTIME PRN PRN Reason: Constipation Sodium Chloride (0.9 % Sodium Chloride Flush 3 Ml Syringe) 3 ml IVFLUSH QSHIFT [facility] Home Medications Medication Instructions Recorded Confirmed Last Taken Type multivitamin 1 tab PO DAILY 03/22/20 05/20/23 03/09/23 History Physical Exam 2 Vital Signs and Narrative: Vital Signs: Last Vital Signs Temp 98.4 F 05/20/23 10:45 Pulse 67 05/20/23 10:45 Resp 14 05/20/23 10:45 BP 155/62 H 05/20/23 10:45 Pulse Ox 98 05/20/23 10:45 O2 Del Method Room Air 05/20/23 05:39 BMI result Body Mass Index 42.8 Constitutional - Awake and Alert, No apparent distress Eyes - PERRLA, EOMI Cardiovascular - S1S2, RRR, No edema Respiratory - Normal lung expansion, Normal respiratory effort, No respiratory distress, CTA bilaterally Gastrointestinal - NT / ND; +BS; No rebound or guarding Extremities - no calf tenderness bilaterally, no swelling Skin - Warm/Dry Neurological - Alert & oriented to self only, largely nonverbal not answering most questions even with interpretor and son present. symmetric 3/5 strength ble, 4/5 strength BUE, symmetric patellar reflexes, CN II-XII in tact. Psychological - Appropriate affect Results Labs 05/20/23 05:56 05/20/23 05:56 Labs: Laboratory Results - last 24 hr 05/20/23 05/20/23 05/20/23 05:39 05:56 07:33 MCV 84.0 MCH 27.7 MCHC 33.0 RDW 16.9 H Plt Count 141 L MPV 9.6 Immature Gran % (Auto) 0.5 H Neut % (Auto) 82.6 H Lymph % (Auto) 10.2 L [place] % (Auto) 5.7 Eos % (Auto) 0.9 Baso % (Auto) 0.1 Lymph # (Auto) 0.8 L [place] # (Auto) 0.5 Eos # (Auto) 0.1 Baso # (Auto) 0.0 Abs Immat Gran (auto) 0.04 H Absolute Neuts (auto) 6.6 Absolute Nucleated RBC 0.020 H Nucleated RBC % (auto) 0.2 Anion Gap 12 Estim Creat Clear Calc 70.7 Estimated GFR > 60 POC Glucose 61 Random Glucose 70 Calcium 9.7 Troponin I High Sens 3.2 Urine Color Urine Appearance Urine pH Ur Specific [place] Urine Protein Urine Glucose (UA) Urine Ketones Urine Blood Urine Nitrite Ur Leukocyte Esterase COVID-19 (JOHN) Positive A COVID-19 Clin Com See Note Influenza Type A (YUVAL) Negative Influenza Type B (YUVAL) Negative Influenza A & B Note See Note 05/20/23 09:54 MCV MCH MCHC RDW Plt Count MPV Immature Gran % (Auto) Neut % (Auto) Lymph % (Auto) [place] % (Auto) Eos % (Auto) Baso % (Auto) Lymph # (Auto) [place] # (Auto) Eos # (Auto) Baso # (Auto) Abs Immat Gran (auto) Absolute Neuts (auto) Absolute Nucleated RBC Nucleated RBC % (auto) Anion Gap Estim Creat Clear Calc Estimated GFR POC Glucose Random Glucose Calcium Troponin I High Sens Urine Color Yellow Urine Appearance Clear Urine pH 6.5 Ur Specific [place] <= 1.005 Urine Protein Negative Urine Glucose (UA) Negative Urine Ketones Negative Urine Blood Negative Urine Nitrite Negative Ur Leukocyte Esterase Negative COVID-19 (JOHN) COVID-19 Clin Com Influenza Type A (YUVAL) Influenza Type B (YUVAL) Influenza A & B Note Imaging Radiologist's Impressions: Impressions Chest X-Ray 05/20/23 07:26 IMPRESSION: Unremarkable examination. Assessment and Plan (1) Acute hyperkalemia: Status: Acute (2) Diabetes mellitus with hypoglycemia: Status: Acute (3) COVID-19: Status: Acute Plan 77-year-old female with history of hypertension, osteopenia, vascular dementia, subclinical hypothyroidism, history of CVA,, history of DVT, cyy-tqvhgtt-vffbaexzt type 2 diabetes, hyperlipidemia admitted for COVID 19 with acute metabolic encephalopathy and hypoglycemia #COVID-19 with acute metabolic encepahloapthy -no hypoxia- steroids and antiviral therapy not indicated -monitor mentation -symptomatic management -airborne/contact precautions # ipv-[id number] type 2 diabetes with hypoglycemia -hypoglycemia likely secondary to glipizide as well as acute infection -POC glucose, diabetic diet -hypoglycemia protocol -Humalog on sliding scale as glucose levels improve -hold glipizide, GLP 1 #Acute hyperkalemia -given lokelma in ed -IVF -EKG without peaked t waves -Monitor on tele, follow lytes # weakness -related to COVID-19 -PT eval #HTN -bp reasonably controlled -continue amlodipine #Vascular dementia -as above, monitor mentation #History CVA -continue DAPT DVT prophylaxis- lovenox full code pt requires inpt stay at least 2 midnights due to covid19 with acute metabolic encephalopathy and hypoglycemia requiring close monitoring of mentation and prevention of hypoglyemic episodes Quality Stroke Does the patient have a stroke diagnosis?: No VTE Prior VTE?: No VTE Risk Level:: Medical - moderate - high VTE Device Contraindication: Treatment Not Indicated VTE Drug Contraindication: N/A - Med Ordered
[2023-05-20 13:50] LABS: Glucose, Whole Blood 104 mg/dL (60-115)
[2023-05-20 15:48] LABS: Glucose, Whole Blood 102 mg/dL (60-115)
[2023-05-20] MEDS: levETIRAcetam in NaCl (iso-os) 1,500 MG/100 ML PIGGYBACK 400 MG IV (15:51)
--- NOTE | 2023-05-20 15:54 | P.EN_ITS ---
Event Note Date of Service: 05/20/23 Event Note: [employer] TECHNICIAN called due to witnessed tonic clonic seizure while admitted awaiting inpt bed in ED. No known history of seizures. Per nursing, seziure lasted about 45-60 seconds and stopped without medication intervention. On arrival, pt somnolent but opens eyes to tactile stimulus. Nonverbal. O2 sat 100% on nonrebreather. POC 115. No arrythmia noted on tele monitor. Ordered for 1500mg IV keppra. Head CT ordered. Stat BMP and mag ordered. EEG ordered. Neuro consult. Defer decision for MRI to neurology. Time Spent With Patient Time: Total time managing care of this patient today ____ minutes.
[2023-05-20 15:58] LABS: Glucose, Whole Blood 115 mg/dL (60-115)
[2023-05-20] MEDS: 0.9 % Sodium Chloride 1,000 ML 100 ML IV (16:00)
--- NOTE | 2023-05-20 16:26 | PC.NURSE ---
at approx 1540 staff were made aware by pts family that pt was acting weird pt found to be having a seziure, placed on her side, suction in place, pt cyanotic O2 dropped to 44% - several breaths administered via BVM, pt transitioned to Oxymask, sezure lasted approx 45 seconds. 1,500 mg Keppra administered via IV. pt POC 103 initially rrepeat 113. MD Watts and Lorin RALPH paged to bedside, ER MD Gaines at bedside, CC Louise at beside to assist as well. at this time pt drowsy, remains on oxymask, VSS.
[2023-05-20 16:46] LABS: Anion Gap 16 (12-20); Blood Urea Nitrogen 17 mg/dL (9-16); Calcium 9.6 mg/dL (8.4-10.2); Carbon Dioxide 21 mmol/L (22-29); Chloride 102 mmol/L (96-108); Creatinine Clr Calc Pharmacy 68.9; Estimated Glomerular Filt Rate > 60; Glucose Random 114 mg/dL (60-115); Magnesium 2.1 mg/dL (1.6-2.6); Potassium 5.4 mmol/L (3.3-5.1); Sodium 134 mmol/L (135-145)
[2023-05-20 17:07] LABS: Glucose, Whole Blood 111 mg/dL (60-115)
[2023-05-20] MEDS: Dextrose 5 % and 0.9 % NaCl 1,000 ML 100 ML IVCONT (18:43)
[2023-05-20 19:59] LABS: Glucose, Whole Blood 147 mg/dL (60-115)
[2023-05-21] VITALS (8 sets, daily range): BP systolic 102–151; BP diastolic 53–66; PULSE 85–99; RESP 16–20; TEMP 35.8–36.9; O2SAT 95–99
[2023-05-21 00:01] LABS: Glucose, Whole Blood 127 mg/dL (60-115)
[2023-05-21] MEDS: 0.9 % Sodium Chloride Flush 3 ML SYRINGE IVFLUSH ×2 (04:33→21:28)
[2023-05-21] MEDS: Dextrose 5 % and 0.9 % NaCl 1,000 ML 100 ML IVCONT ×2 (04:34→15:11)
[2023-05-21 07:40] LABS: Glucose, Whole Blood 83 mg/dL (60-115)
--- NOTE | 2023-05-21 08:56 | P.PNIM_ITS ---
Subjective Subjective Date of Service: 05/21/23 Interval History: Seen and evaluated this morning Denies fever or chills No reported overnight seizures Temp improved with ahmet valdez Review of Systems Review of Systems: Yes all other systems are reviewed and are negative Physical Exam 2 Vital Signs: Vital Signs: Last Vital Signs Temp 98.1 F 05/21/23 07:27 Pulse 99 05/21/23 07:27 Resp 20 05/21/23 07:27 BP 105/53 L 05/21/23 07:27 Pulse Ox 96 05/21/23 07:27 O2 Del Method Room Air 05/21/23 07:27 O2 Flow Rate 5 05/20/23 16:00 BMI result Body Mass Index 42.9 Const: Other: Constitutional : Awake, interactive, obese, not in distress Neck : Normal inspection, Supple Cardiovascular : RRR, no JVP, no lower extremity edema Respiratory : good bilateral air entry, no crackles, wheezes or rhonchi Gastrointestinal: soft, lax, Normal bowel sounds, Non tender Skin : Warm, Dry Neurological : Alert & oriented x3, No focal deficit Objective Data Active Medications Acetaminophen (Acetaminophen 325 Mg Tablet) 650 mg PO Q6H PRN PRN Reason: Pain, Mild (Pain Scale 1-3) Amlodipine Besylate (Amlodipine Besylate 2.5 Mg Tablet) 2.5 mg PO DAILY [facility]; Protocol Ascorbic Acid (Ascorbic Acid 500 Mg Tablet) 500 mg PO DAILY [facility] Atorvastatin Calcium (Atorvastatin Calcium 80 Mg Tablet) 80 mg PO DAILY [facility] Benzocaine (Throat Lozenge, Medicated Lozenge) 1 lozenge MUCOUS MEM Q2H PRN PRN Reason: Sore Throat Dextrose (Dextrose 50 % 25 Gm/50 Ml Syringe) 25 gm IVPUSH Q15M PRN; Protocol PRN Reason: per Hypoglycemia Standing Ord. Docusate Sodium (Docusate Sodium 100 Mg Capsule) 200 mg PO BEDTIME [facility]GO Last Admin: 05/20/23 19:29 Dose: Not Given Documented By: MALGORZATA Non-Admin Reason: NPO Ferrous Sulfate (Ferrous Sulfate 324 Mg Tablet.Dr) 324 mg PO DAILY [facility] Glucose (Glucose Gel 15 Gm Gel..Gram.) 15 gm PO Q15M PRN; Protocol PRN Reason: per Hypoglycemia Standing Ord. Guaifenesin (Guaifenesin 200 Mg/10 Ml 10 Ml Liquid) 10 ml PO Q6H PRN PRN Reason: Cough Dextrose/Sodium Chloride (D5ns) 1,000 mls @ 100 mls/hr IVCONT .Q10H [facility] Last Admin: 05/21/23 04:34 Dose: 100 mls/hr Documented By: MALGORZATA Insulin Human Lispro (Insulin Lispro 100 Unit/Ml 3 Ml Vial) 0 unit SUBCUT QIDACHS [facility]; Protocol Memantine (Memantine Hcl 10 Mg Tablet) 10 mg PO BID [facility] Last Admin: 05/20/23 21:00 Dose: Not Given Documented By: MALGORZATA Non-Admin Reason: NPO Multivitamins/Vitamin C (Multivitamin Tablet) 1 tab PO DAILY [facility] Omeprazole (Omeprazole 20 Mg Capsule.Dr) 20 mg PO DAILY@0630 [facility] Last Admin: 05/21/23 05:42 Dose: Not Given Documented By: MALGORZATA Non-Admin Reason: NPO Ondansetron HCl (Ondansetron Hcl 4 Mg/2 Ml Vial) 4 mg IVPUSH Q8H PRN PRN Reason: Nausea and Vomiting Polyethylene Glycol (Polyethylene Glycol 3350 17 Gm Powd.Pack) 17 gm PO DAILY [facility] Senna (Sennosides 8.6 Mg Tablet) 17.2 mg PO BEDTIME PRN PRN Reason: Constipation Sodium Chloride (0.9 % Sodium Chloride Flush 3 Ml Syringe) 3 ml IVFLUSH QSHIFT [facility] Last Admin: 05/21/23 04:33 Dose: 3 ml Documented By: MALGORZATA Labs 05/20/23 05:56 05/20/23 16:20 Labs: Laboratory Results - last 24 hr 05/20/23 05/20/23 05/20/23 09:54 13:46 15:45 Anion Gap Estim Creat Clear Calc Estimated GFR POC Glucose 104 102 Random Glucose Calcium Magnesium Urine Color Yellow Urine Appearance Clear Urine pH 6.5 Ur Specific Farnam <= 1.005 Urine Protein Negative Urine Glucose (UA) Negative Urine Ketones Negative Urine Blood Negative Urine Nitrite Negative Ur Leukocyte Esterase Negative 05/20/23 05/20/23 05/20/23 15:53 16:20 16:58 Anion Gap 16 Estim Creat Clear Calc 68.9 Estimated GFR > 60 POC Glucose 115 111 Random Glucose 114 Calcium 9.6 Magnesium 2.1 Urine Color Urine Appearance Urine pH Ur Specific Farnam Urine Protein Urine Glucose (UA) Urine Ketones Urine Blood Urine Nitrite Ur Leukocyte Esterase 05/20/23 05/20/23 05/21/23 19:27 23:47 07:33 Anion Gap Estim Creat Clear Calc Estimated GFR POC Glucose 147 H 127 H 83 Random Glucose Calcium Magnesium Urine Color Urine Appearance Urine pH Ur Specific Farnam Urine Protein Urine Glucose (UA) Urine Ketones Urine Blood Urine Nitrite Ur Leukocyte Esterase Assessment and Plan (1) Acute hyperkalemia: Status: Acute (2) Diabetes mellitus with hypoglycemia: Status: Acute (3) COVID-19: Status: Acute (4) Seizure: Status: Acute Plan 77-year-old female with history of hypertension, osteopenia, vascular dementia, subclinical hypothyroidism, history of CVA,, history of DVT, wxa-hpsuizb-nzmgrfodv type 2 diabetes, hyperlipidemia admitted for COVID 19 with acute metabolic encephalopathy and hypoglycemia # Acute metabolic encepahloapthy 2/2 Covid19 infx, hypoglycemia and possible seizure Mentation improved back to baseline today No hypoxia ; steroids and antiviral therapy not indicated Blood sugar improved with holding Glipizide Keep seizure precautions pending further eval recurrent orientation # New onset seizure One episode noticed in ED, wittnessed tonic clonic Loaded with Keppra, not on any seizure med now CT head showing chronic microangiopathy but no masses\stroke EEG seizure precautions Neurology consult PRN Ativan for breakthrough seizure # Hypothermia related to Covid infection fairly controlled with bear hugger continue to monitor for any other source of infection # ifi-hgqtouu-udkachlrb type 2 diabetes with hypoglycemia likely secondary to glipizide as well as acute infection POC glucose, diabetic diet hypoglycemia protocol Humalog on sliding scale as glucose levels improve DC glipizide, hold GLP 1 #Acute hyperkalemia Give Lokelma Follow BMP # Generalized weakness related to COVID-19 PT eval #HTN Amlodipine #History CVA continue DAPT DVT prophylaxis- lovenox full code pt requires inpt stay overnight due to covid19 with acute metabolic encephalopathy and hypoglycemia requiring close monitoring of mentation and prevention of hypoglyemic episodes Quality Stroke Does the patient have a stroke diagnosis?: No VTE Prior VTE?: No VTE Risk Level:: Medical - moderate - high VTE Device Contraindication: Treatment Not Indicated VTE Drug Contraindication: N/A - Med Ordered
[2023-05-21] MEDS: Sodium Zirconium Cyclosilicate 10 GM POWD.PACK PO (09:04)
[2023-05-21] MEDS: Multivitamin TABLET 1 TAB PO (09:04)
[2023-05-21] MEDS: amLODIPine Besylate 2.5 MG TABLET PO (09:04)
[2023-05-21] MEDS: Atorvastatin Calcium 80 MG TABLET PO (09:04)
[2023-05-21] MEDS: Memantine HCl 10 MG TABLET PO ×2 (09:04→21:08)
[2023-05-21] MEDS: Ascorbic Acid 500 MG TABLET PO (09:04)
[2023-05-21] MEDS: Ferrous Sulfate 324 MG TABLET.DR PO (09:04)
[2023-05-21] MEDS: polyethylene glycoL 3350 17 GM POWD.PACK PO (09:04)
--- NOTE | 2023-05-21 09:59 | MHC.CM.PN ---
IMM 05/21/22 DELIVERED TO SON/CAREGIVER VIA [phone], TIA REPORTS HE WILL BE IN TO [facility]MM WHEN HE BRINGS IN COPY OF HCP, PT W/[facility] LIVES W/SON TIA WHO PROVIDES 24HR CARE FOR PT, TIA REPORTS HIS SISTER ASSISTS WHEN HE NEEDS HER TOO, PT WALKS W/OUT ASSISTIVE DEVICE, HAS GLUCOMETER/TRULICITY AND GLIPIZIDE FOR DME. PT'S SISTER MARLEN AVILA [phone] IS HCP, TIA REPORTS HE WILL BRING IN A COPY, PCP ON FILE VERIFIED.
[2023-05-21 11:29] LABS: Glucose, Whole Blood 86 mg/dL (60-115)
[2023-05-21] MEDS: Aspirin Enteric Coated 81 MG TABLET.DR PO (11:49)
[2023-05-21] MEDS: Clopidogrel Bisulfate 75 MG TABLET PO (11:49)
[2023-05-21 16:19] LABS: Glucose, Whole Blood 108 mg/dL (60-115)
--- NOTE | 2023-05-21 17:25 | PM.NEUROCN ---
History of Present Illness Data of Consult Service Date: 05/21/23 Primary Care Provider: Rachna Lewis MD [facility] Reason for consult: Wrseing mental status This is a 77-year-old female with history of hypertension, osteopenia, vascular dementia, subclinical hypothyroidism, history of CVA,, history of DVT, zft-loaihna-qjimrlzjl type 2 diabetes, hyperlipidemia presented to the ED for evaluation of altered mental status. Per her son, the patient has been more confused from baseline with increased weakness, decreased responsiveness, and has been mostly nonverbal for several days. She was brought to the ED on 05/17 due to slow speech and AMS with concern for TIA. Head CT was negative and CTA was negative for any large vessel occlusion or hemodynamically significant stenosis. She was discharged home on Plavix. The son reports that altered mental status has worsened since then. He also reports that she has been experiencing hypoglycemic episodes. In the middle of the night, her glucose was 47. She has been reporting a sore throat but he denies any known fevers or chills. Has not had any complaints and there are no sick contacts at home. Labs with chronic thrombocytopenia. Renal function baseline, sodium 131, potassium 6.1. Urinalysis unremarkable. Positive for COVID-19. CT shows previously noted microvascular white matter disease and atrophy. EEG shows mild diffuse slowing Review of Systems Review of Systems: Yes all other systems are reviewed and are negative and Unobtainable due to mental status Constitutional: Constitutional: Reports as per HPI [facility] Past Medical History Medical History Hypertension, essential Stroke Stroke Type 2 diabetes mellitus Hyperlipidemia Dementia Family history of ovarian cancer Diabetes mellitus Microalbuminuria GERD (gastroesophageal reflux disease) Hyperlipidemia LDL goal <70 Type 2 diabetes mellitus with diabetic polyneuropathy Obesity due to excess calories Memory loss Cough Essential hypertension Long-term use of aspirin therapy History of DVT (deep vein thrombosis) Family History Family History Father No problems noted. Mother Colon cancer Son Diabetes Surgical History Surgical History History of total abdominal hysterectomy and bilateral salpingo-oophorectomy History of cataract surgery Social History Social History Household Members: Family Household Members Other:: lives with shahram shaver Housing: Apartment Do you presently have visiting nurse or other home services: No Unable to assess alcohol history related to: Unknown Alcohol intake: never Patient Tobacco Use Status: Never used Tobacco e-Cigarette/Vaping Use: Never Used Second Hand Smoke Exposure: No Advance Directives Date on File: 02/23/21 service: No Current occupational status: disabled Cognitive needs: No Hearing needs: No Vision needs: No Meds Allergies Allergy/AdvReac Type Severity Reaction Status Date / Time No Known Allergies Allergy Verified 05/20/23 06:12 [No Known Allergies*] Active Medications: Current Medications Acetaminophen (Acetaminophen 325 Mg Tablet) 650 mg PO Q6H PRN PRN Reason: Pain, Mild (Pain Scale 1-3) Amlodipine Besylate (Amlodipine Besylate 2.5 Mg Tablet) 2.5 mg PO DAILY [facility]; Protocol Last Admin: 05/21/23 09:04 Dose: 2.5 mg Ascorbic Acid (Ascorbic Acid 500 Mg Tablet) 500 mg PO DAILY [facility] Last Admin: 05/21/23 09:04 Dose: 500 mg Aspirin (Aspirin Enteric Coated 81 Mg Tablet.) 81 mg PO DAILY [facility] Last Admin: 05/21/23 11:49 Dose: 81 mg Atorvastatin Calcium (Atorvastatin Calcium 80 Mg Tablet) 80 mg PO DAILY [facility] Last Admin: 05/21/23 09:04 Dose: 80 mg Benzocaine (Throat Lozenge, Medicated Lozenge) 1 lozenge MUCOUS MEM Q2H PRN PRN Reason: Sore Throat Clopidogrel Bisulfate (Clopidogrel Bisulfate 75 Mg Tablet) 75 mg PO DAILY [facility] Last Admin: 05/21/23 11:49 Dose: 75 mg Dextrose (Dextrose 50 % 25 Gm/50 Ml Syringe) 25 gm IVPUSH Q15M PRN; Protocol PRN Reason: per Hypoglycemia Standing Ord. Docusate Sodium (Docusate Sodium 100 Mg Capsule) 200 mg PO BEDTIME [facility] Last Admin: 05/20/23 19:29 Dose: Not Given Ferrous Sulfate (Ferrous Sulfate 324 Mg Tablet.) 324 mg PO DAILY [facility] Last Admin: 05/21/23 09:04 Dose: 324 mg Glucose (Glucose Gel 15 Gm Gel..Gram.) 15 gm PO Q15M PRN; Protocol PRN Reason: per Hypoglycemia Standing Ord. Guaifenesin (Guaifenesin 200 Mg/10 Ml 10 Ml Liquid) 10 ml PO Q6H PRN PRN Reason: Cough Dextrose/Sodium Chloride (D5ns) 1,000 mls @ 100 mls/hr IVCONT .Q10H [facility] Last Admin: 05/21/23 15:11 Dose: 100 mls/hr Insulin Human Lispro (Insulin Lispro 100 Unit/Ml 3 Ml Vial) 0 unit SUBCUT QIDACHS [facility]; Protocol Lorazepam (Lorazepam 2 Mg/Ml Vial) 2 mg IVPUSH ONCE PRN PRN Reason: Seizures Memantine (Memantine Hcl 10 Mg Tablet) 10 mg PO BID [facility] Last Admin: 05/21/23 09:04 Dose: 10 mg Multivitamins/Vitamin C (Multivitamin Tablet) 1 tab PO DAILY [facility] Last Admin: 05/21/23 09:04 Dose: 1 tab Omeprazole (Omeprazole 20 Mg Capsule.Dr) 20 mg PO DAILY@0630 [facility] Last Admin: 05/21/23 05:42 Dose: Not Given Ondansetron HCl (Ondansetron Hcl 4 Mg/2 Ml Vial) 4 mg IVPUSH Q8H PRN PRN Reason: Nausea and Vomiting Polyethylene Glycol (Polyethylene Glycol 3350 17 Gm Powd.Pack) 17 gm PO DAILY [facility] Last Admin: 05/21/23 09:04 Dose: 17 gm Senna (Sennosides 8.6 Mg Tablet) 17.2 mg PO BEDTIME PRN PRN Reason: Constipation Sodium Chloride (0.9 % Sodium Chloride Flush 3 Ml Syringe) 3 ml IVFLUSH QSHIFT [facility] Last Admin: 05/21/23 15:12 Dose: Not Given Home Medications Medication Instructions Recorded Confirmed Last Taken Type multivitamin 1 tab PO DAILY 03/22/20 05/20/23 03/09/23 History aspirin 81 mg tablet,delayed 81 mg PO DAILY 05/21/23 05/21/23 Unknown History release clopidogrel 75 mg tablet 75 mg DAILY 05/21/23 05/21/23 Unknown History Physical Exam Vital Signs: Vital Signs: Last Vital Signs Temp 97.1 F 05/21/23 15:14 Pulse 85 05/21/23 15:14 Resp 18 05/21/23 15:14 BP 104/53 L 05/21/23 15:14 Pulse Ox 96 05/21/23 15:14 O2 Del Method Room Air 05/21/23 15:14 O2 Flow Rate 5 05/20/23 16:00 BMI result Body Mass Index 42.9 Const: Other: Constitutional : Awake, interactive, obese, not in distress Neck : Normal inspection, Supple Cardiovascular : RRR, no JVP, no lower extremity edema Respiratory : good bilateral air entry, no crackles, wheezes or rhonchi Gastrointestinal: soft, lax, Normal bowel sounds, Non tender Skin : Warm, Dry Neurological : Alert & oriented x3, No focal deficit General: cooperative, comfortable and no acute distress Orientation/consciousness: oriented to person Limitations: other limitations (Limitations secondary to patient's dementia) HEENT: Head: Yes normal to inspection, Yes normocephalic and Yes atraumatic Ears: hearing grossly normal bilaterally General nose exam: Normal external nose present Face and sinus: Yes normal facial exam Mouth: Normal oral and palatal mucosa present, oropharynx normal and moist mucous membranes Throat: Yes posterior oropharynx normal Eyes: General: appearance normal, both eyes and all related structures Eyelids: Yes eyelids normal Conjunctivae: conjunctivae normal Sclerae: sclerae normal Pupils: Equal, round and reactive pupils present EOM: EOMs intact bilaterally Neck: Neck: Yes normal visual inspection, Yes full ROM and Yes no lymphadenopathy Lymphatic: no lymphadenopathy noted Chest: Chest palpation & inspection: normal inspection of the chest Resp: Effort & Inspection: normal respiratory effort and able to speak in complete sentences Auscultation: clear to auscultation bilaterally, no crackles, no rales, no rhonchi and no wheezes Cardio: Rate: regular rate Rhythm: regular rhythm Heart sounds: S1 normal heart sound present and S2 normal heart sound present GI: Other: Abdomen is soft, nontender, nondistended Inspection: Yes normal to inspection Skin: General skin exam: no rashes or lesions noted Trauma: no lacerations or abrasions Wounds: no wounds Neuro: Other: The patient is confused and poorly responsive. Limited neurological examination is nonfocal. She moves all 4 extremities. Neck is supple. Plantar response are flexor and reflexes are hhypoactive. She will occasionally follow one-step commands. She does not verbalize. General: oriented to person and moves all extremities Cranial nerves: Yes CN's II-XII intact bilaterally, Yes Equal, round and reactive pupils present, Yes Normal facial strength present and Yes Midline tongue present Extrem: Other: No LE edema noted General: Yes normal to inspection Right upper extremity: normal to inspection Left upper extremity: normal to inspection Right lower extremity: normal to inspection Left lower extremity: normal to inspection Results Labs 05/20/23 05:56 05/20/23 16:20 Microbiology Microbiology Results: Microbiology 05/20/23 07:33 Blood - Venous Blood Culture - Preliminary No growth after 24 hours. 05/20/23 07:11 Blood - Venous Blood Culture - Preliminary No growth after 24 hours. Assessment and Plan (1) Vascular dementia: Qualifiers: Dementia severity: mild Dementia behavioral or psychological symptom: without behavioral, psychotic, or mood disturbance or anxiety Qualified Code(s): F01.A0 - Vascular dementia, mild, without behavioral disturbance, psychotic disturbance, mood disturbance, and anxiety Status: Acute I believe the worsening of her mental status is related to her Covid infectioon superimposed on vascular dementia. There is no clinical report of a seizure and her EEG does not show any seizure activity. Her CT scan is also unremarkable and was personally reviewed. It is unchanged from the MRI of February 2023. I've also personally interpreted the EEG and gone over her labs. Recommendation: General supportive care. Correction of hyponatremia. Consider Paxlovid (2) Diabetes mellitus with hypoglycemia: Status: Acute (3) COVID-19: Status: Acute Plan # New onset seizure One episode noticed in ED, wittnessed tonic clonic Loaded with Keppra, not on any seizure med now pt requires inpt stay overnight due to covid19 with acute metabolic encephalopathy and hypoglycemia requiring close monitoring of mentation and prevention of hypoglyemic episodes Procedures Date of Service Date of Service: 05/21/23
[2023-05-21 20:53] LABS: Glucose, Whole Blood 112 mg/dL (60-115)
[2023-05-21] MEDS: Docusate Sodium 100 MG CAPSULE 200 MG PO (21:08)
[2023-05-22] VITALS (7 sets, daily range): BP systolic 106–142; BP diastolic 52–70; PULSE 67–83; RESP 18–20; TEMP 35.6–36.6; O2SAT 95–99
[2023-05-22] MEDS: Dextrose 5 % and 0.9 % NaCl 1,000 ML 100 ML IVCONT (00:19)
[2023-05-22 00:25] LABS: Glucose, Whole Blood 117 mg/dL (60-115)
[2023-05-22] MEDS: Omeprazole 20 MG CAPSULE.DR PO (06:18)
[2023-05-22 06:59] LABS: Hematocrit 38.5 % (37.0-47.0); Hemoglobin 12.4 g/dl (12.0-16.0); Mean Corpuscular HGB Conc 32.2 g/dl (31.0-35.0); Mean Corpuscular Hemoglobin 27.2 pg (27.0-33.0); Mean Corpuscular Volume 84.4 fL (80.0-98.0); Mean Platelet Volume 10.3 fL (9.4-12.3); Platelet Count 108 X10*3/uL (160-400); Red Blood Count 4.56 X10*6/uL (4.20-5.50); Red Cell Distribution Width 17.7 % (11.0-16.0); White Blood Count 7.7 X10*3/uL (4.8-10.8)
[2023-05-22 07:13] LABS: Anion Gap 10 (12-20); Blood Urea Nitrogen 28 mg/dL (9-16); Calcium 8.7 mg/dL (8.4-10.2); Carbon Dioxide 23 mmol/L (22-29); Chloride 108 mmol/L (96-108); Creatinine Clr Calc Pharmacy 45.1; Estimated Glomerular Filt Rate 44; Glucose Random 119 mg/dL (60-115); Potassium 4.8 mmol/L (3.3-5.1); Sodium 136 mmol/L (135-145)
[2023-05-22] MEDS: Ferrous Sulfate 324 MG TABLET.DR PO (09:10)
[2023-05-22] MEDS: Clopidogrel Bisulfate 75 MG TABLET PO (09:10)
[2023-05-22] MEDS: Ascorbic Acid 500 MG TABLET PO (09:10)
[2023-05-22] MEDS: 0.9 % Sodium Chloride Flush 3 ML SYRINGE IVFLUSH ×2 (09:10→21:11)
[2023-05-22] MEDS: Memantine HCl 10 MG TABLET PO ×2 (09:10→21:11)
[2023-05-22] MEDS: Multivitamin TABLET 1 TAB PO (09:10)
[2023-05-22] MEDS: Atorvastatin Calcium 80 MG TABLET PO (09:10)
[2023-05-22] MEDS: Aspirin Enteric Coated 81 MG TABLET.DR PO (09:10)
[2023-05-22] MEDS: polyethylene glycoL 3350 17 GM POWD.PACK PO (09:11)
--- NOTE | 2023-05-22 10:37 | MHC.CM.PN ---
CM met with pt. and her family, son Yohannes is HCP and speaks Martiniquais. We discussed that PT has rec STR and family is in agreement for pt. to go and ask for a [place] STR, referrals have been made. HCP has been added to chart. CM to continue to follow for anticipated DC date of 05/23/23.
--- NOTE | 2023-05-22 11:25 | HO.PM.IMPN ---
Subjective Subjective Date of Service: 05/22/23 Interval History: no comlaints Physical Exam Vital Signs: Vital Signs: Last Vital Signs Temp 97.5 F 05/22/23 07:47 Pulse 75 05/22/23 11:04 Resp 18 05/22/23 07:47 BP 118/52 L 05/22/23 11:04 Pulse Ox 95 05/22/23 11:04 O2 Del Method Room Air 05/22/23 07:47 O2 Flow Rate 5 05/20/23 16:00 BMI result Body Mass Index 42.9 Const: Other: Constitutional : Awake, interactive, obese, not in distress Neck : Normal inspection, Supple Cardiovascular : RRR, no JVP, no lower extremity edema Respiratory : good bilateral air entry, no crackles, wheezes or rhonchi Gastrointestinal: soft, lax, Normal bowel sounds, Non tender Skin : Warm, Dry Neurological : Alert & oriented x3, No focal deficit General: cooperative, comfortable and no acute distress Orientation/consciousness: oriented to person Limitations: other limitations (Limitations secondary to patient's dementia) HEENT: Head: Yes normal to inspection, Yes normocephalic and Yes atraumatic Ears: hearing grossly normal bilaterally General nose exam: Normal external nose present Face and sinus: Yes normal facial exam Mouth: Normal oral and palatal mucosa present, oropharynx normal and moist mucous membranes Throat: Yes posterior oropharynx normal Eyes: General: appearance normal, both eyes and all related structures Eyelids: Yes eyelids normal Conjunctivae: conjunctivae normal Sclerae: sclerae normal Pupils: Equal, round and reactive pupils present EOM: EOMs intact bilaterally Neck: Neck: Yes normal visual inspection, Yes full ROM and Yes no lymphadenopathy Lymphatic: no lymphadenopathy noted Chest: Chest palpation & inspection: normal inspection of the chest Resp: Effort & Inspection: normal respiratory effort and able to speak in complete sentences Auscultation: clear to auscultation bilaterally, no crackles, no rales, no rhonchi and no wheezes Cardio: Rate: regular rate Rhythm: regular rhythm Heart sounds: S1 normal heart sound present and S2 normal heart sound present GI: Other: Abdomen is soft, nontender, nondistended Inspection: Yes normal to inspection Skin: General skin exam: no rashes or lesions noted Trauma: no lacerations or abrasions Wounds: no wounds Neuro: Other: The patient is confused and poorly responsive. Limited neurological examination is nonfocal. She moves all 4 extremities. Neck is supple. Plantar response are flexor and reflexes are hhypoactive. She will occasionally follow one-step commands. She does not verbalize. General: oriented to person and moves all extremities Cranial nerves: Yes CN's II-XII intact bilaterally, Yes Equal, round and reactive pupils present, Yes Normal facial strength present and Yes Midline tongue present Extrem: Other: No LE edema noted General: Yes normal to inspection Right upper extremity: normal to inspection Left upper extremity: normal to inspection Right lower extremity: normal to inspection Left lower extremity: normal to inspection Objective Data Active Medications Acetaminophen (Acetaminophen 325 Mg Tablet) 650 mg PO Q6H PRN PRN Reason: Pain, Mild (Pain Scale 1-3) Amlodipine Besylate (Amlodipine Besylate 2.5 Mg Tablet) 2.5 mg PO DAILY [facility]; Protocol Last Admin: 05/21/23 09:04 Dose: 2.5 mg Documented By: MYRTLE Ascorbic Acid (Ascorbic Acid 500 Mg Tablet) 500 mg PO DAILY [facility] Last Admin: 05/22/23 09:10 Dose: 500 mg Documented By: JESSICA Aspirin (Aspirin Enteric Coated 81 Mg Tablet.) 81 mg PO DAILY [facility] Last Admin: 05/22/23 09:10 Dose: 81 mg Documented By: JESSICA Atorvastatin Calcium (Atorvastatin Calcium 80 Mg Tablet) 80 mg PO DAILY [facility] Last Admin: 05/22/23 09:10 Dose: 80 mg Documented By: JESSICA Benzocaine (Throat Lozenge, Medicated Lozenge) 1 lozenge MUCOUS MEM Q2H PRN PRN Reason: Sore Throat Clopidogrel Bisulfate (Clopidogrel Bisulfate 75 Mg Tablet) 75 mg PO DAILY [facility] Last Admin: 05/22/23 09:10 Dose: 75 mg Documented By: JESSICA Dextrose (Dextrose 50 % 25 Gm/50 Ml Syringe) 25 gm IVPUSH Q15M PRN; Protocol PRN Reason: per Hypoglycemia Standing Ord. Docusate Sodium (Docusate Sodium 100 Mg Capsule) 200 mg PO BEDTIME [facility] Last Admin: 05/21/23 21:08 Dose: 200 mg Documented By: NICOLAS Enoxaparin Sodium (Enoxaparin Sodium 40 Mg/0.4 Ml Syringe) 40 mg SUBCUT Q24H [facility] Ferrous Sulfate (Ferrous Sulfate 324 Mg Tablet.) 324 mg PO DAILY [facility] Last Admin: 05/22/23 09:10 Dose: 324 mg Documented By: JESSICA Glucose (Glucose Gel 15 Gm Gel..Gram.) 15 gm PO Q15M PRN; Protocol PRN Reason: per Hypoglycemia Standing Ord. Guaifenesin (Guaifenesin 200 Mg/10 Ml 10 Ml Liquid) 10 ml PO Q6H PRN PRN Reason: Cough Dextrose/Sodium Chloride (D5ns) 1,000 mls @ 100 mls/hr IVCONT .Q10H [facility] Last Admin: 05/22/23 00:19 Dose: 100 mls/hr Documented By: NICOLAS Insulin Human Lispro (Insulin Lispro 100 Unit/Ml 3 Ml Vial) 0 unit SUBCUT QIDACHS [facility]; Protocol Lorazepam (Lorazepam 2 Mg/Ml Vial) 2 mg IVPUSH ONCE PRN PRN Reason: Seizures Memantine (Memantine Hcl 10 Mg Tablet) 10 mg PO BID [facility] Last Admin: 05/22/23 09:10 Dose: 10 mg Documented By: JESSICA Multivitamins/Vitamin C (Multivitamin Tablet) 1 tab PO DAILY [facility] Last Admin: 05/22/23 09:10 Dose: 1 tab Documented By: JESSICA Omeprazole (Omeprazole 20 Mg Capsule.) 20 mg PO DAILY@0630 [facility] Last Admin: 05/22/23 06:18 Dose: 20 mg Documented By: NICOLAS Ondansetron HCl (Ondansetron Hcl 4 Mg/2 Ml Vial) 4 mg IVPUSH Q8H PRN PRN Reason: Nausea and Vomiting Polyethylene Glycol (Polyethylene Glycol 3350 17 Gm Powd.Pack) 17 gm PO DAILY [facility] Last Admin: 05/22/23 09:11 Dose: 17 gm Documented By: JESSICA Senna (Sennosides 8.6 Mg Tablet) 17.2 mg PO BEDTIME PRN PRN Reason: Constipation Sodium Chloride (0.9 % Sodium Chloride Flush 3 Ml Syringe) 3 ml IVFLUSH QSHIFT [facility] Last Admin: 05/22/23 09:10 Dose: 3 ml Documented By: JESSICA Labs 05/22/23 06:04 05/22/23 06:04 Labs: Laboratory Results - last 24 hr 05/21/23 05/21/23 05/21/23 11:14 16:11 20:46 MCV MCH MCHC RDW Plt Count MPV Absolute Nucleated RBC Nucleated RBC % (auto) Anion Gap Estim Creat Clear Calc Estimated GFR POC Glucose 86 108 112 Random Glucose Calcium 05/22/23 05/22/23 00:20 06:04 MCV 84.4 MCH 27.2 MCHC 32.2 RDW 17.7 H Plt Count 108 L MPV 10.3 Absolute Nucleated RBC 0.000 Nucleated RBC % (auto) 0.0 Anion Gap 10 L Estim Creat Clear Calc 45.1 Estimated GFR 44 POC Glucose 117 H Random Glucose 119 H Calcium 8.7 D Microbiology Microbiology Results: Microbiology 05/20/23 07:33 Blood Culture - Preliminary Blood - Venous No growth after 48 hours. 05/20/23 07:11 Blood Culture - Preliminary Blood - Venous No growth after 48 hours. Assessment and Plan (1) Acute hyperkalemia: Status: Acute (2) Diabetes mellitus with hypoglycemia: Status: Acute (3) COVID-19: Status: Acute (4) Seizure: Status: Acute Plan 77F PMH hypertension, osteopenia, vascular dementia, subclinical hypothyroidism, history of CVA,, history of DVT, dyy-mavnwch-svtbxpajj type 2 diabetes, hyperlipidemia presented with ams, found to have covid, hypoglycemia, course copmlicated by tonic clonic event. Acute metabolic encepahloapthy 2/2 Covid19 infx, acute hypoglycemia and possible seizure Mentation improved back to baseline No hypoxia ; steroids and antiviral therapy not indicated Blood sugar improved with holding Glipizide Keep seizure precautions EEG unremarkable d/w neuro - hold off on AEDs for now unless has another event Hypothermia related to Covid infection resolved pxn-fyyjfry-[id number] type 2 diabetes with hypoglycemia likely secondary to glipizide as well as acute infection POC glucose, diabetic diet hypoglycemia protocol Humalog on sliding scale as glucose levels improve DC glipizide, hold GLP 1 Acute hyperkalemia resolved Generalized weakness related to COVID-19 PT recommending STR HTN Amlodipine History CVA continue DAPT, statin history of DVT ? not on AC DVT prophylaxis- lovenox full code reason for continued hospitalization:continue to monitor for further hypoglycemia, seizures while off d5 Quality Stroke Does the patient have a stroke diagnosis?: No VTE Prior VTE?: No VTE Risk Level:: Medical - moderate - high VTE Device Contraindication: Treatment Not Indicated VTE Drug Contraindication: N/A - Med Ordered
[2023-05-22] MEDS: Enoxaparin Sodium 40 MG/0.4 ML SYRINGE SUBCUT (12:29)
[2023-05-22 12:41] LABS: Glucose, Whole Blood 160 mg/dL (60-115)
[2023-05-22 15:55] LABS: Glucose, Whole Blood 91 mg/dL (60-115)
[2023-05-22 19:42] LABS: Glucose, Whole Blood 166 mg/dL (60-115)
[2023-05-22] MEDS: Docusate Sodium 100 MG CAPSULE 200 MG PO (21:11)
[2023-05-23] VITALS (7 sets, daily range): BP systolic 123–159; BP diastolic 56–68; PULSE 69–79; RESP 18–20; TEMP 35–36.7; O2SAT 95–100
[2023-05-23] MEDS: Omeprazole 20 MG CAPSULE.DR PO (05:28)
[2023-05-23 07:50] LABS: Glucose, Whole Blood 100 mg/dL (60-115)
[2023-05-23] MEDS: 0.9 % Sodium Chloride Flush 3 ML SYRINGE IVFLUSH ×2 (08:50→21:20)
[2023-05-23] MEDS: Enoxaparin Sodium 40 MG/0.4 ML SYRINGE SUBCUT (08:50)
[2023-05-23] MEDS: polyethylene glycoL 3350 17 GM POWD.PACK PO (08:50)
[2023-05-23] MEDS: Aspirin Enteric Coated 81 MG TABLET.DR PO (08:50)
[2023-05-23] MEDS: Atorvastatin Calcium 80 MG TABLET PO (08:50)
[2023-05-23] MEDS: Ferrous Sulfate 324 MG TABLET.DR PO (08:50)
[2023-05-23] MEDS: Multivitamin TABLET 1 TAB PO (08:50)
[2023-05-23] MEDS: Memantine HCl 10 MG TABLET PO ×2 (08:50→21:20)
[2023-05-23] MEDS: Ascorbic Acid 500 MG TABLET PO (08:50)
[2023-05-23] MEDS: Clopidogrel Bisulfate 75 MG TABLET PO (08:50)
--- NOTE | 2023-05-23 09:40 | P.DS_ITS ---
DS: Providers Provider Date of Service: 05/24/23 Date of admission: 05/20/23 12:18 Primary care physician: Rachna Lewis MD Consults: 05/20/23 15:56 Consult to Neurology Routine Consulting Provider: [facility] Reason for consultation: new onset seizure DS: Diagnosis Discharge Diagnosis (1) Acute hyperkalemia: Status: Acute (2) Diabetes mellitus with hypoglycemia: Status: Acute (3) COVID-19: Status: Acute (4) Seizure: Status: Acute DS: Summary Hospital Course Hospital Course: from initial hpi: 77-year-old female with history of hypertension, osteopenia, vascular dementia, subclinical hypothyroidism, history of CVA,, history of DVT, non-insulin- dependent type 2 diabetes, hyperlipidemia presented to the ED earlier today from home accompanied by her son who assists with history and is her caregiver, for evaluation of altered mental status. Per her son, the patient has been confused from baseline with increased weakness, decreased responsiveness, and has been mostly nonverbal for several days. She was brought to the ED on 05/17 due to slow speech and AMS with concern for TIA. Head CT was negative and CTA was negative for any large vessel occlusion or hemodynamically significant stenosis. She was discharged home on Plavix. The son reports that altered mental status has worsened since then. He also reports that she has been experiencing hypoglycemic episodes so he discontinued her glipizide but then resumed this. Last night, glucose was 150 and he gave her soda and then in the middle of the night, her glucose was 47. She has been reporting a sore throat but he denies any known fevers or chills. Has not had any complaints and there are no sick contacts at home. In the ED, VSS, afebrile and no hypoxia. Hematology studies unremarkable except for a chronic thrombocytopenia. Renal function baseline, sodium 131, potassium 6.1. Urinalysis unremarkable. Positive for COVID-19, negative for influenza. Chest x-ray unremarkable. EKG shows NSR, rate 64 with first-degree AV cheikh block and right bundle branch block. NO ADA or depressions. In the ED, given 10g lokelma. Glucose in ED 61. hospital course: patient was admitted for acute metabolic encephalopathy and seizure due to DM with acute hypoglycemia vs epilepsy associated with alzheimers dementia. EEG was negative, glipizide and trulicity have been stopped, can use metformin as outpatient. no further events. neurology recommended holding off on antiepi leptics unless another episode is witnessed. patient noted to have acute hypothermia due to covid. has resolved. was not hyopxic. for acute hyperkalemia, resolved with lokelma. for htn continued on amlodipine. for history of cva on dapt and statin. patient will be discharged to SNF for STR. Time Attestation Discharge coordination time: Greater than 30 minutes Quality: Safe Use of Opioids Does Pt have an Active Cancer Diagnosis on the Problem List?: No Quality: Stroke Does the patient have a stroke diagnosis?: No Physical Exam Vital Signs: Vital Signs: Last Vital Signs Temp 96.8 F 05/23/23 07:20 Pulse 77 05/23/23 09:33 Resp 20 05/23/23 07:20 BP 137/63 05/23/23 09:33 Pulse Ox 100 05/23/23 09:33 O2 Del Method Oxymask 05/23/23 07:20 O2 Flow Rate 2 05/23/23 07:20 BMI result Body Mass Index 42.9 Const: Other: Constitutional : Awake, interactive, obese, not in distress Neck : Normal inspection, Supple Cardiovascular : RRR, no JVP, no lower extremity edema Respiratory : good bilateral air entry, no crackles, wheezes or rhonchi Gastrointestinal: soft, lax, Normal bowel sounds, Non tender Skin : Warm, Dry Neurological : Alert & oriented x3, No focal deficit General: cooperative, comfortable and no acute distress Orientation/consciousness: oriented to person Limitations: other limitations (Limitations secondary to patient's dementia) HEENT: Head: Yes normal to inspection, Yes normocephalic and Yes atraumatic Ears: hearing grossly normal bilaterally General nose exam: Normal external nose present Face and sinus: Yes normal facial exam Mouth: Normal oral and palatal mucosa present, oropharynx normal and moist mucous membranes Throat: Yes posterior oropharynx normal Eyes: General: appearance normal, both eyes and all related structures Eyelids: Yes eyelids normal Conjunctivae: conjunctivae normal Sclerae: sclerae normal Pupils: Equal, round and reactive pupils present EOM: EOMs intact bilaterally Neck: Neck: Yes normal visual inspection, Yes full ROM and Yes no lymphadenopathy Lymphatic: no lymphadenopathy noted Chest: Chest palpation & inspection: normal inspection of the chest Resp: Effort & Inspection: normal respiratory effort and able to speak in complete sentences Auscultation: clear to auscultation bilaterally, no crackles, no rales, no rhonchi and no wheezes Cardio: Rate: regular rate Rhythm: regular rhythm Heart sounds: S1 normal heart sound present and S2 normal heart sound present GI: Other: Abdomen is soft, nontender, nondistended Inspection: Yes normal to inspection Skin: General skin exam: no rashes or lesions noted Trauma: no lacerations or abrasions Wounds: no wounds Neuro: Other: The patient is confused and poorly responsive. Limited neurological examination is nonfocal. She moves all 4 extremities. Neck is supple. Plantar response are flexor and reflexes are hhypoactive. She will occasionally follow one-step commands. She does not verbalize. General: oriented to person and moves all extremities Cranial nerves: Yes CN's II-XII intact bilaterally, Yes Equal, round and reactive pupils present, Yes Normal facial strength present and Yes Midline tongue present Extrem: Other: No LE edema noted General: Yes normal to inspection Right upper extremity: normal to inspection Left upper extremity: normal to inspection Right lower extremity: normal to inspection Left lower extremity: normal to inspection DS: Data Data Completed and Pending Labs on day of discharge: Laboratory Results - last 24 hr 05/22/23 05/22/23 05/22/23 12:28 15:46 19:38 POC Glucose 160 H 91 166 H 05/23/23 07:23 POC Glucose 100 Preliminary micro results at discharge 05/20/23 07:33 Blood Culture - Preliminary Blood - Venous No growth after 48 hours. 05/20/23 07:11 Blood Culture - Preliminary Blood - Venous No growth after 48 hours. Discharge Plan Discharge Anticipated Discharge Date/Time: 05/23/23 09:37 Patient Disposition: Xfer SNF Discharge Diagnosis: covid, seizure [facility]: [facility] [Outside] - 1 Week Rachna Corral MD [Primary Care Provider] - 1 Week Discharge Medications: New metformin 500 mg tablet 500 mg PO BIDWMEAL Qty: 30 0RF Continued memantine 10 mg tablet 10 mg PO BID 30 Days Qty: 60 0RF omeprazole 20 mg capsule,delayed release(DR/EC) 20 mg PO DAILY@0630 Qty: 90 3RF amlodipine 2.5 mg tablet 2.5 mg PO DAILY Qty: 90 0RF ferrous sulfate 325 mg (65 mg iron) tablet 325 mg PO DAILY 90 Days Qty: 90 1RF ascorbic acid (vitamin C) 500 mg capsule 500 mg PO DAILY 90 Days Qty: 90 1RF clopidogrel 75 mg tablet 75 mg DAILY aspirin 81 mg Tablet,Delayed Release (Dr/Ec) 81 mg PO DAILY rosuvastatin 20 mg tablet 20 mg PO DAILY 90 Days Qty: 90 1RF alendronate 70 mg tablet 70 mg PO QWEEK 90 Days Qty: 13 1RF multivitamin Tablet 1 tab PO DAILY docusate sodium [Colace] 100 mg capsule 200 mg PO BEDTIME Qty: 60 5RF polyethylene glycol 3350 [Miralax] 17 gram/dose powder 17 g PO DAILY 30 Days Qty: 510 6RF Discontinued glipizide 5 mg tablet 5 mg PO DAILY 90 Days Qty: 90 1RF Trulicity 3 mg/0.5 mL pen injector 3 mg subcut QWEEK 30 Days Qty: 2.5 1RF Discharge Orders: Discharge Order (Routine); Ordered 05/24/23 Ordered By: Milton Rowe Diet: Advance to usual diet Activity on Discharge: As tolerated Stand Alone Forms: Patient Portal Discharge page Care Plan Goals: recovery Health Concerns: low sugars, seizure, covid Plan of Treatment: stop trulicity and glipizide, can use metformin for now, monitor sugars no anti seizure meds for now unless another event witnessed does not appear symptomatic for covid Assessment: see above
--- NOTE | 2023-05-23 10:19 | MHC.CM.PN ---
Pt has been medically cleared for DC, she will go to [facility] for STR via Ambulance today.
[2023-05-23 11:32] LABS: Glucose, Whole Blood 145 mg/dL (60-115)
--- NOTE | 2023-05-23 11:52 | HO.PM.IMPN ---
Subjective Subjective Date of Service: 05/23/23 Interval History: feeling better, but now hypthermic again 95 rectal Physical Exam Vital Signs: Vital Signs: Last Vital Signs Temp 95.0 F L 05/23/23 11:26 Pulse 74 05/23/23 11:26 Resp 20 05/23/23 11:26 BP 154/65 H 05/23/23 11:26 Pulse Ox 97 05/23/23 11:26 O2 Del Method Room Air 05/23/23 11:26 O2 Flow Rate 2 05/23/23 07:20 BMI result Body Mass Index 42.9 Const: Other: Constitutional : Awake, interactive, obese, not in distress Neck : Normal inspection, Supple Cardiovascular : RRR, no JVP, no lower extremity edema Respiratory : good bilateral air entry, no crackles, wheezes or rhonchi Gastrointestinal: soft, lax, Normal bowel sounds, Non tender Skin : Warm, Dry Neurological : Alert & oriented x3, No focal deficit General: cooperative, comfortable and no acute distress Orientation/consciousness: oriented to person Limitations: other limitations (Limitations secondary to patient's dementia) HEENT: Head: Yes normal to inspection, Yes normocephalic and Yes atraumatic Ears: hearing grossly normal bilaterally General nose exam: Normal external nose present Face and sinus: Yes normal facial exam Mouth: Normal oral and palatal mucosa present, oropharynx normal and moist mucous membranes Throat: Yes posterior oropharynx normal Eyes: General: appearance normal, both eyes and all related structures Eyelids: Yes eyelids normal Conjunctivae: conjunctivae normal Sclerae: sclerae normal Pupils: Equal, round and reactive pupils present EOM: EOMs intact bilaterally Neck: Neck: Yes normal visual inspection, Yes full ROM and Yes no lymphadenopathy Lymphatic: no lymphadenopathy noted Chest: Chest palpation & inspection: normal inspection of the chest Resp: Effort & Inspection: normal respiratory effort and able to speak in complete sentences Auscultation: clear to auscultation bilaterally, no crackles, no rales, no rhonchi and no wheezes Cardio: Rate: regular rate Rhythm: regular rhythm Heart sounds: S1 normal heart sound present and S2 normal heart sound present GI: Other: Abdomen is soft, nontender, nondistended Inspection: Yes normal to inspection Skin: General skin exam: no rashes or lesions noted Trauma: no lacerations or abrasions Wounds: no wounds Neuro: Other: The patient is confused and poorly responsive. Limited neurological examination is nonfocal. She moves all 4 extremities. Neck is supple. Plantar response are flexor and reflexes are hhypoactive. She will occasionally follow one-step commands. She does not verbalize. General: oriented to person and moves all extremities Cranial nerves: Yes CN's II-XII intact bilaterally, Yes Equal, round and reactive pupils present, Yes Normal facial strength present and Yes Midline tongue present Extrem: Other: No LE edema noted General: Yes normal to inspection Right upper extremity: normal to inspection Left upper extremity: normal to inspection Right lower extremity: normal to inspection Left lower extremity: normal to inspection Objective Data Active Medications Acetaminophen (Acetaminophen 325 Mg Tablet) 650 mg PO Q6H PRN PRN Reason: Pain, Mild (Pain Scale 1-3) Amlodipine Besylate (Amlodipine Besylate 2.5 Mg Tablet) 2.5 mg PO DAILY [facility]; Protocol Last Admin: 05/21/23 09:04 Dose: 2.5 mg Documented By: MYRTLE Ascorbic Acid (Ascorbic Acid 500 Mg Tablet) 500 mg PO DAILY [facility] Last Admin: 05/23/23 08:50 Dose: 500 mg Documented By: TAD Aspirin (Aspirin Enteric Coated 81 Mg Tablet.) 81 mg PO DAILY [facility] Last Admin: 05/23/23 08:50 Dose: 81 mg Documented By: TAD Atorvastatin Calcium (Atorvastatin Calcium 80 Mg Tablet) 80 mg PO DAILY [facility] Last Admin: 05/23/23 08:50 Dose: 80 mg Documented By: TAD Benzocaine (Throat Lozenge, Medicated Lozenge) 1 lozenge MUCOUS MEM Q2H PRN PRN Reason: Sore Throat Clopidogrel Bisulfate (Clopidogrel Bisulfate 75 Mg Tablet) 75 mg PO DAILY [facility] Last Admin: 05/23/23 08:50 Dose: 75 mg Documented By: TAD Dextrose (Dextrose 50 % 25 Gm/50 Ml Syringe) 25 gm IVPUSH Q15M PRN; Protocol PRN Reason: per Hypoglycemia Standing Ord. Docusate Sodium (Docusate Sodium 100 Mg Capsule) 200 mg PO BEDTIME [facility] Last Admin: 05/22/23 21:11 Dose: 200 mg Documented By: LEXUS Enoxaparin Sodium (Enoxaparin Sodium 40 Mg/0.4 Ml Syringe) 40 mg SUBCUT Q24H [facility] Last Admin: 05/23/23 08:50 Dose: 40 mg Documented By: TAD Ferrous Sulfate (Ferrous Sulfate 324 Mg Tablet.) 324 mg PO DAILY [facility] Last Admin: 05/23/23 08:50 Dose: 324 mg Documented By: TAD Glucose (Glucose Gel 15 Gm Gel..Gram.) 15 gm PO Q15M PRN; Protocol PRN Reason: per Hypoglycemia Standing Ord. Guaifenesin (Guaifenesin 200 Mg/10 Ml 10 Ml Liquid) 10 ml PO Q6H PRN PRN Reason: Cough Insulin Human Lispro (Insulin Lispro 100 Unit/Ml 3 Ml Vial) 0 unit SUBCUT QIDACHS [facility]; Protocol Lorazepam (Lorazepam 2 Mg/Ml Vial) 2 mg IVPUSH ONCE PRN PRN Reason: Seizures Memantine (Memantine Hcl 10 Mg Tablet) 10 mg PO BID [facility] Last Admin: 05/23/23 08:50 Dose: 10 mg Documented By: TAD Multivitamins/Vitamin C (Multivitamin Tablet) 1 tab PO DAILY [facility] Last Admin: 05/23/23 08:50 Dose: 1 tab Documented By: ATD Omeprazole (Omeprazole 20 Mg Capsule.) 20 mg PO DAILY@0630 [facility] Last Admin: 05/23/23 05:28 Dose: 20 mg Documented By: LEXUS Ondansetron HCl (Ondansetron Hcl 4 Mg/2 Ml Vial) 4 mg IVPUSH Q8H PRN PRN Reason: Nausea and Vomiting Polyethylene Glycol (Polyethylene Glycol 3350 17 Gm Powd.Pack) 17 gm PO DAILY [facility] Last Admin: 05/23/23 08:50 Dose: 17 gm Documented By: TAD Senna (Sennosides 8.6 Mg Tablet) 17.2 mg PO BEDTIME PRN PRN Reason: Constipation Sodium Chloride (0.9 % Sodium Chloride Flush 3 Ml Syringe) 3 ml IVFLUSH QSHIFT [facility] Last Admin: 05/23/23 08:50 Dose: 3 ml Documented By: TAD Labs 05/22/23 06:04 05/22/23 06:04 Labs: Laboratory Results - last 24 hr 05/22/23 05/22/23 05/22/23 12:28 15:46 19:38 POC Glucose 160 H 91 166 H 05/23/23 05/23/23 07:23 11:26 POC Glucose 100 145 H Microbiology Microbiology Results: Microbiology 05/20/23 07:33 Blood Culture - Preliminary Blood - Venous No growth after 48 hours. 05/20/23 07:11 Blood Culture - Preliminary Blood - Venous No growth after 48 hours. Assessment and Plan (1) Acute hyperkalemia: Status: Acute (2) Diabetes mellitus with hypoglycemia: Status: Acute (3) COVID-19: Status: Acute (4) Seizure: Status: Acute Plan 77F PMH hypertension, osteopenia, vascular dementia, subclinical hypothyroidism, history of CVA,, history of DVT, [id number] type 2 diabetes, hyperlipidemia presented with ams, found to have covid, hypoglycemia, course copmlicated by tonic clonic event. Acute metabolic encepahloapthy 2/2 Covid19 infx, acute hypoglycemia and possible seizure Mentation improved back to baseline No hypoxia ; steroids and antiviral therapy not indicated Blood sugar improved with holding Glipizide Keep seizure precautions EEG unremarkable d/w neuro - hold off on AEDs for now unless has another event Hypothermia related to Covid infection resolved initially, was off placido hugger for 48hrs was planning on dishcarge and noted to be 95 rectally, asymptomatic dishcarge placed on hold, will continue to monitor warm blankers check tsh oka-nuyavzj-hnasdnlsl type 2 diabetes with hypoglycemia likely secondary to glipizide as well as acute infection POC glucose, diabetic diet hypoglycemia protocol Humalog on sliding scale as glucose levels improve DC glipizide, hold GLP 1 Acute hyperkalemia resolved Generalized weakness related to COVID-19 PT recommending STR HTN Amlodipine History CVA continue DAPT, statin history of DVT ? not on AC DVT prophylaxis- lovenox full code reason for continued hospitalization:hypothermia Quality Stroke Does the patient have a stroke diagnosis?: No VTE Prior VTE?: No VTE Risk Level:: Medical - moderate - high VTE Device Contraindication: Treatment Not Indicated VTE Drug Contraindication: N/A - Med Ordered
[2023-05-23 12:34] LABS: Hematocrit 40.8 % (37.0-47.0); Hemoglobin 13.2 g/dl (12.0-16.0); Mean Corpuscular HGB Conc 32.4 g/dl (31.0-35.0); Mean Corpuscular Hemoglobin 27.6 pg (27.0-33.0); Mean Corpuscular Volume 85.2 fL (80.0-98.0); Mean Platelet Volume 9.5 fL (9.4-12.3); Platelet Count 121 X10*3/uL (160-400); Red Blood Count 4.79 X10*6/uL (4.20-5.50); Red Cell Distribution Width 17.3 % (11.0-16.0); White Blood Count 11.9 X10*3/uL (4.8-10.8)
[2023-05-23 12:55] LABS: Alanine Aminotransferase 129 U/L (0-31); Albumin Level 3.2 g/dL (3.5-5.0); Alkaline Phosphatase 389 U/L (39-117); Anion Gap 11 (12-20); Aspartate Amino Transferase 86 U/L (5-31); Bilirubin Direct 0.2 mg/dL (0.0-0.5); Bilirubin Total 0.4 mg/dL (0.0-1.0); Blood Urea Nitrogen 24 mg/dL (9-16); Calcium 9.8 mg/dL (8.4-10.2); Carbon Dioxide 24 mmol/L (22-29); Chloride 108 mmol/L (96-108); Creatinine Clr Calc Pharmacy 50.2; Estimated Glomerular Filt Rate 50; Glucose Random 116 mg/dL (60-115); Potassium 4.9 mmol/L (3.3-5.1); Sodium 138 mmol/L (135-145); Total Protein 7.2 g/dL (6.5-8.0)
[2023-05-23 14:19] LABS: Free T4 (Free Thyroxine) 0.83 ng/dL (0.71-1.85)
[2023-05-23 16:16] LABS: Glucose, Whole Blood 128 mg/dL (60-115)
[2023-05-23 20:13] LABS: Glucose, Whole Blood 159 mg/dL (60-115)
[2023-05-23] MEDS: Docusate Sodium 100 MG CAPSULE 200 MG PO (21:20)
[2023-05-24 03:32] VITALS: BP 140/66; PULSE 79; RESP 20; TEMP 36.1; O2SAT 99
[2023-05-24] MEDS: Omeprazole 20 MG CAPSULE.DR PO (05:30)
[2023-05-24 07:25] VITALS: BP 124/59; PULSE 78; RESP 16; TEMP 36; O2SAT 97
[2023-05-24 07:32] LABS: Glucose, Whole Blood 107 mg/dL (60-115)
[2023-05-24] MEDS: 0.9 % Sodium Chloride Flush 3 ML SYRINGE IVFLUSH (10:13)
[2023-05-24] MEDS: Ferrous Sulfate 324 MG TABLET.DR PO (10:13)
[2023-05-24] MEDS: Ascorbic Acid 500 MG TABLET PO (10:13)
[2023-05-24] MEDS: Clopidogrel Bisulfate 75 MG TABLET PO (10:13)
[2023-05-24] MEDS: Enoxaparin Sodium 40 MG/0.4 ML SYRINGE SUBCUT (10:13)
[2023-05-24] MEDS: Aspirin Enteric Coated 81 MG TABLET.DR PO (10:13)
[2023-05-24] MEDS: Memantine HCl 10 MG TABLET PO (10:13)
[2023-05-24] MEDS: polyethylene glycoL 3350 17 GM POWD.PACK PO (10:13)
[2023-05-24] MEDS: Atorvastatin Calcium 80 MG TABLET PO (10:13)
[2023-05-24] MEDS: Multivitamin TABLET 1 TAB PO (10:13)
[2023-05-24 10:53] VITALS: BP 124/59; PULSE 78; O2SAT 97
--- NOTE | 2023-05-24 10:59 | MHC.CM.PN ---
Second IMM, pt has been medically cleared for DC, she will transfer to [facility] today via ambulance, family aware and in agreement.
[2023-05-24 12:00] VITALS: BP 119/60; PULSE 80; RESP 16; TEMP 36; O2SAT 99
[2023-05-24 12:11] LABS: Glucose, Whole Blood 115 mg/dL (60-115)
== END 2023-05-24 13:03 | disposition skilled nursing facility (03) | DRG 637 ==
LOC: HO.ED 10:13 → HO.EDOVER 13:02 → HO.IMC 16:12
PROVIDERS: Physician Assistant Medical; Student in an Organized Health Care Education/Training Program; Admitting Provider Physician Assistant; Emergency Provider Emergency Medicine Emergency Medical Services; PCP Internal Medicine; Visit Provider Internal Medicine
DX: E11.649 Type 2 diabetes mellitus with hypoglycemia without coma (principal); G93.41 Metabolic encephalopathy; U07.1 COVID-19; E87.1 Hypo-osmolality and hyponatremia; F01.A0 Vascular dementia, mild, without behavioral disturbance, psychotic disturbance, mood disturbance, and anxiety; E87.5 Hyperkalemia; R56.9 Unspecified convulsions; E11.42 Type 2 diabetes mellitus with diabetic polyneuropathy; I10 Essential (primary) hypertension; R68.0 Hypothermia, not associated with low environmental temperature; Z86.718 Personal history of other venous thrombosis and embolism; Z79.02 Long term (current) use of antithrombotics/antiplatelets; Z79.82 Long term (current) use of aspirin; Z79.84 Long term (current) use of oral hypoglycemic drugs; Z79.899 Other long term (current) drug therapy
CPT/HCPCS: 36415; 70450; 71045; 80048; 80053; 80076; 81003; 82947; 83735; 84439; 84443; 84484; 85025; 85027; 85610; 87040; 87502; 87635; 92610; 93005; 95816; 97110; 97116; 97161; 99284; 99285; J1650; J1953

== ENCOUNTER → 2023-05-20 05:54 | Outpatient (BNV) | payer MEDICARE, MEDICAID, SELFPAY | PROVIDERS: Admitting Provider Physician Assistant; Emergency Provider Emergency Medicine Emergency Medical Services; PCP Internal Medicine; Visit Provider Internal Medicine | DX: I44.0 Atrioventricular block, first degree (principal) | CPT/HCPCS: 93010 ==

== ENCOUNTER → 2023-05-20 12:18 | Outpatient (BNV) | payer MEDICARE, MEDICAID, SELFPAY | PROVIDERS: Admitting Provider Physician Assistant; Emergency Provider Emergency Medicine Emergency Medical Services; PCP Internal Medicine; Visit Provider Psychiatry & Neurology Neurology | DX: F01.A0 Vascular dementia, mild, without behavioral disturbance, psychotic disturbance, mood disturbance, and anxiety (principal); E11.649 Type 2 diabetes mellitus with hypoglycemia without coma; U07.1 COVID-19 | CPT/HCPCS: 99222 ==

== ENCOUNTER → 2023-05-20 12:18 | Outpatient (BNV) | payer MEDICARE, MEDICAID, SELFPAY | PROVIDERS: Admitting Provider Physician Assistant; Emergency Provider Emergency Medicine Emergency Medical Services; PCP Internal Medicine; Visit Provider Physician Assistant | DX: U07.1 COVID-19 (principal); E11.649 Type 2 diabetes mellitus with hypoglycemia without coma; R56.9 Unspecified convulsions; E87.5 Hyperkalemia | CPT/HCPCS: 99223; 99232; 99233; 99238 ==

== ENCOUNTER 2023-06-26 11:19 | Outpatient (AMB) | payer MEDICARE, MEDICAID, SELFPAY ==
--- NOTE | 2023-06-26 11:22 | MHC.PC.OV ---
Vital Signs 06/26/23 11:23 Height 5 ft 2 in Weight 97.976 kg BMI 39.5 BP 108/60 Blood Pressure Location Lt brachial Position Sitting Pulse 70 Pulse Source Pulse Oximeter Pulse Oximetry (%) 98 Oxygen Delivery Method Room Air Intake Visit Reasons: Discharge Pipe Moran 06/12/23 Stroke/ seizures Systems Software Engineer Required: Yes Print Developer: Present Accompanied by: Son Allergies No Known Allergies [No Known Allergies*] Allergy (Verified 06/26/23 11:23) Tobacco use date assessed: 06/26/23 Fall risk assessment: No Falls in past year Last assessed Fall Risk: 06/26/23 Dental Screening Dental Screen Date: 03/27/23 HPI HPI Comments History of Present Illness Details 78-year-old female with history of hypertension, osteopenia, vascular dementia, subclinical hypothyroidism, history of CVA, history of DVT, [id number]-gcyaohspn type 2 diabetes, hyperlipidemia presents to the office today accompanied by her son who is also her caregiver and assists with history for hospital discharge follow-up. Discharge medications have been reviewed and reconciled. The patient was admitted to [facility] from 05/20-05/23 due to acute metabolic encephalopathy secondary to COVID-19. There was no hypoxia and patient was managed conservatively for the COVID-19. Hospital course was complicated by a seizure likely due to type 2 diabetes with acute hypoglycemia with glucose of 61. EEG was negative and glipizide and Trulicity were discontinued while in the hospital. Advised to resume metformin as outpatient. Neurology recommended holding off on antiepileptics unless another seizure episode was witnessed. On admission, did also have acute hyperkalemia which resolved with Lokelma. She was discharged to not worry for short-term rehab. She has now been discharged home under the care of her son. VNA has been set up an intake will take place this week. Per her son, glucose levels have been elevated around 180 every morning. Trulicity remains on hold but has continued metformin. Follows diabetic diet. Last hemoglobin A1c was 7.4%. Remains off of glipizide. [facility] Medical History Hypertension, essential Stroke Stroke Type 2 diabetes mellitus Hyperlipidemia Dementia Family history of ovarian cancer Diabetes mellitus Microalbuminuria GERD (gastroesophageal reflux disease) Hyperlipidemia LDL goal <70 Type 2 diabetes mellitus with diabetic polyneuropathy Obesity due to excess calories Memory loss Cough Essential hypertension Long-term use of aspirin therapy History of DVT (deep vein thrombosis) Surgical History History of total abdominal hysterectomy and bilateral salpingo-oophorectomy History of cataract surgery Family History Father No problems noted. Mother Colon cancer Son Diabetes Social History Household Members: Family Household Members Other:: lives with shahram shaver Housing: Apartment Do you presently have visiting nurse or other home services: No Unable to assess alcohol history related to: Unknown Alcohol intake: never Comment: family at bedside. Patient Tobacco Use Status: Never used Tobacco e-Cigarette/Vaping Use: Never Used Second Hand Smoke Exposure: No Advance Directives Date on File: 02/23/21 service: No Current occupational status: disabled Cognitive needs: No Hearing needs: No Vision needs: No Female Reproductive History Menstrual Age of Menarche: 11 Questionnaire Thrive Questionnaire Date Thrive assessed: 05/21/23 RICK-7 AMB Questionnaire RICK-7 Date RICK - 7 assessed: 03/27/23 Source: Developed by Drs. Han Hurley, Naya Forbes, Florencio Ahumada and colleagues, with an educational tony from [employer]. Review of Systems Const All systems reviewed & are unremarkable except as noted in HPI and below Physical exam (Primary Care) Vital Signs: Last Vital Signs Pulse 70 06/26/23 11:23 BP 108/60 06/26/23 11:23 Pulse Ox 98 06/26/23 11:23 Oxygen Delivery Method Room Air 06/26/23 11:23 BMI result Body Mass Index 39.5 Tobacco/Smoking Status: Tobacco use Status Tobacco use date assessed 06/26/23 06/26/23 11:24 Patient Tobacco Use Status Never used Tobacco 06/26/23 11:24 e-Cigarette/Vaping Use Never Used 06/26/23 11:24 Thrive Assessment: Date of Thrive Assessment Date Thrive assessed 05/21/23 06/26/23 11:24 Const Other: Constitutional - Awake and Alert, No apparent distress Eyes - PERRLA, EOMI Cardiovascular - S1S2, RRR, No edema Respiratory - Normal lung expansion, Normal respiratory effort, No respiratory distress, CTA bilaterally Extremities - no calf tenderness bilaterally, no swelling Skin - Warm/Dry Neurological - Alert & oriented x self, 4/5 strenght bue and ble Psychological - Appropriate affect Results Reviewed Results Reviewed: CBC, BMP, urinalysis, head CT, CXR, blood cultures, neurology consult, hospitalist discharge summary Assessment and Plan Assessment & Plan (1) Generalized weakness: Code(s): R53.1 - Weakness Plan: Due to hospital stay and COVID-19 infection. Discharged from short-term rehab. Recommend further PT/OT in the home for further functional rehabilitation due to ongoing weakness as well as for home safety evaluation. (2) COVID-19: Code(s): U07.1 - COVID-19 Plan: Resolved. Complicated by acute metabolic encephalopathy, mentation has returned to baseline. No hypoxia. Not treated with antiviral therapy. (3) Vascular dementia: Code(s): F01.50 - Vascular dementia, unspecified severity, without behavioral disturbance, psychotic disturbance, mood disturbance, and anxiety Qualifiers: Dementia severity: mild Dementia behavioral or psychological symptom: without behavioral, psychotic, or mood disturbance or anxiety Qualified Code(s): F01.A0 - Vascular dementia, mild, without behavioral disturbance, psychotic disturbance, mood disturbance, and anxiety Plan: Mentation baseline. Follow-up with PCP as scheduled. (4) Type 2 diabetes mellitus with diabetic polyneuropathy: Code(s): E11.42 - Type 2 diabetes mellitus with diabetic polyneuropathy Qualifiers: Diabetes mellitus penitentiary insulin use: without terminal block assembler use Qualified Code(s): E11.42 - Type 2 diabetes mellitus with diabetic polyneuropathy Plan: Previously controlled with hemoglobin A1c of 7.4%. However, since hospitalization, fasting glucose levels have been elevated around 180. Glipizide was discontinued due to hypoglycemia resulting in seizure activity. EEG was negative for epileptic seizure activity. Glipizide is discontinued. Continue metformin. Will resume Trulicity at 0.75 mg weekly. Continue diabetic diet. Medications: New multivit, Ca, min-FA-soy isofl 400-60 mcg-mg (One-A-Day Menopause Formula) 1 tab PO DAILY 90 tabs 0RF dulaglutide (Trulicity) 0.75 mg (0.5 mL) subcut QWEEK 2 mL 0RF Coding Level of Care Code Est Pt Level 5 (89406) Diagnoses Generalized weakness R53.1 COVID-19 U07.1 Mild vascular dementia without behavioral disturbance, psychotic disturbance, mood disturbance, or anxiety F01.A0 Dementia severity: mild Dementia behavioral or psychological symptom: without behavioral, psychotic, or mood disturbance or anxiety Type 2 diabetes mellitus with diabetic polyneuropathy, without long-term current use of insulin E11.42 Diabetes mellitus penitentiary insulin use: without penitentiary use Time Spent (min) 48 Comment Time spent reviewing above, interview/exam with patient/son, documentation time
[2023-06-26 11:23] VITALS: BP 108/60; PULSE 70; O2SAT 98; BMI 39.5
== END 2023-06-26 12:07 | disposition home or self-care (01) ==
PROVIDERS: PCP Internal Medicine; Visit Provider Physician Assistant
DX: R53.1 Weakness (principal); U07.1 COVID-19; F01.A0 Vascular dementia, mild, without behavioral disturbance, psychotic disturbance, mood disturbance, and anxiety; E11.42 Type 2 diabetes mellitus with diabetic polyneuropathy
CPT/HCPCS: 99215

== ENCOUNTER 2023-07-25 07:18 | Outpatient (REF) | payer MEDICARE, MEDICAID, SELFPAY ==
[2023-07-25 07:36] LABS: MANUAL DIFF FLAG NO
[2023-07-25 08:21] LABS: Basophils Percent Auto 0.4 % (0-2); Eosinophils Absolute Auto 0.2 X10*3/uL (0.0-0.4); Eosinophils Percent Auto 2.6 % (0-4); Hematocrit 42.2 % (37.0-47.0); Hemoglobin 13.1 g/dl (12.0-16.0); Imm Gran Abs Auto 0.02 X10*3/uL (0.00-0.03); Imm Gran Pct Auto 0.3 % (0.0-0.4); Lymphocytes Absolute Auto 1.3 X10*3/uL (1.2-4.9); Lymphocytes Percent Auto 19.3 % (20-40); Mean Corpuscular Hemoglobin 28.4 pg (27.0-33.0); Mean Corpuscular Volume 91.3 fL (80.0-98.0); Mean Platelet Volume 10.1 fL (9.4-12.3); Monocytes Absolute Auto 0.5 X10*3/uL (0.1-1.2); Monocytes Percent Auto 7.7 % (2-11); Neutrophils Absolute Auto 4.8 x10*3/uL (2.0-8.3); Neutrophils Percent Auto 69.7 % (45-73); Platelet Count 271 X10*3/uL (160-400); Red Blood Count 4.62 X10*6/uL (4.20-5.50); Red Cell Distribution Width 16.1 % (11.0-16.0); White Blood Count 6.9 X10*3/uL (4.8-10.8)
[2023-07-25 09:12] LABS: Vitamin D 25-OH Total 26.5 ng/mL (>30)
[2023-07-25 09:19] LABS: Alanine Aminotransferase 20 U/L (0-31); Albumin Level 3.6 g/dL (3.5-5.0); Alkaline Phosphatase 201 U/L (39-117); Anion Gap 15 (12-20); Aspartate Amino Transferase 17 U/L (5-31); Bilirubin Total 0.3 mg/dL (0.0-1.0); Blood Urea Nitrogen 32 mg/dL (9-16); Calcium 9.8 mg/dL (8.4-10.2); Carbon Dioxide 20 mmol/L (22-29); Chloride 107 mmol/L (96-108); Cholesterol 87 mg/dL (<200); Estimated Glomerular Filt Rate 35; Glucose Fasting 163 mg/dL (60-99); HDL Cholesterol 35 mg/dL (>40); Iron 61 mcg/dL (30-160); LDL Cholesterol Calculated 36 mg/dL (<100); Percent Iron Saturation 27 % (15-50); Potassium 3.8 mmol/L (3.3-5.1); Sodium 138 mmol/L (135-145); Total Iron Binding Capacity 223 mcg/dL (228-428); Total Protein 7.6 g/dL (6.5-8.0); Triglycerides 81 mg/dL (<150); Unsaturated Iron Binding 162 ug/dL
[2023-07-25 10:04] LABS: Folate 14.3 ng/mL (> or = 4.0); Vitamin B12 905 pg/mL (200-900)
[2023-07-25 11:19] LABS: Creatinine Urine 78.48 mg/dL; Microalbum/Creatinine Ratio Ur 66.2 ug/mg cr (<30)
== END 2023-07-25 07:19 | disposition home or self-care (01) ==
LOC: HO.LAB 07:18
PROVIDERS: PCP Internal Medicine; Visit Provider Internal Medicine
DX: E78.5 Hyperlipidemia, unspecified (principal); E11.9 Type 2 diabetes mellitus without complications; D64.9 Anemia, unspecified; E55.9 Vitamin D deficiency, unspecified; E53.8 Deficiency of other specified B group vitamins
CPT/HCPCS: 36415; 80053; 80061; 82043; 82306; 82570; 82607; 82746; 83540; 85025

== ENCOUNTER 2023-07-29 07:48 | Outpatient (AMB) | payer MEDICARE, MEDICAID, SELFPAY ==
[2023-07-29 08:07] VITALS: BP 112/48; BMI 39.1
--- NOTE | 2023-07-29 08:07 | MHC.PC.OV ---
Vital Signs 07/29/23 08:07 Height 5 ft 2 in Weight 214 lb BMI 39.1 BP 112/48 L Blood Pressure Location Lt brachial Position Sitting Intake Visit Reasons: dm Intake Note: Patient here for a follow up DM Bioinformatics Software Engineer Required: No Accompanied by: Son Allergies No Known Allergies [No Known Allergies*] Allergy (Verified 07/29/23 08:16) Medication List - Last Reconciled 07/29/23 by Rachna Lewis MD alendronate 70 mg PO QWEEK 90 days amlodipine 2.5 mg PO DAILY ascorbic acid (vitamin C) 500 mg PO DAILY 90 days aspirin 81 mg PO DAILY clopidogrel 75 mg DAILY docusate sodium (Colace) 200 mg (2 x 100 mg) PO BEDTIME dulaglutide (Trulicity) 0.75 mg (0.5 mL) subcut QWEEK empagliflozin (Jardiance) 10 mg PO DAILY ferrous sulfate 325 mg PO DAILY 90 days memantine 10 mg PO BID 30 days metformin 500 mg PO BIDWMEAL multivit, Ca, min-FA-soy isofl 400-60 mcg-mg (One-A-Day Menopause Formula) 1 tab PO DAILY omeprazole 20 mg PO DAILY@0630 polyethylene glycol 3350 (Miralax) 17 grams PO DAILY 30 days rosuvastatin 20 mg PO DAILY 90 days Tobacco use date assessed: 06/26/23 Fall risk assessment: No Falls in past year Last assessed Fall Risk: 07/29/23 Dental Screening Dental Screen Date: 03/27/23 HPI HPI Comments History of Present Illness Details This is a 78-year-old female with diabetes mellitus type 2, vascular dementia, hypertension and hyperlipidemia that comes today for follow-up on her conditions. A1c elevated and I will increase Trulicity. Vascular dementia is follow by Neurology and she is awake, alert and oriented to person and place but not to time. Accompanied by son which is the baseball glove stuffer. Blood pressure is low and I will discontinue amlodipine. LDL within goal and I will decrease rosuvastatin from 20 mg to 10 mg. Denies any chest pain or shortness of breath. Takes ferrous sulfate every other day as per Hematology-Oncology due to improvement in the hemoglobin. No occult bleeding identified. [facility] Medical History Hypertension, essential Stroke Stroke Type 2 diabetes mellitus Hyperlipidemia Dementia Family history of ovarian cancer Diabetes mellitus Microalbuminuria GERD (gastroesophageal reflux disease) Hyperlipidemia LDL goal <70 Type 2 diabetes mellitus with diabetic polyneuropathy Obesity due to excess calories Memory loss Cough Essential hypertension Long-term use of aspirin therapy History of DVT (deep vein thrombosis) Surgical History History of total abdominal hysterectomy and bilateral salpingo-oophorectomy History of cataract surgery Family History Father No problems noted. Mother Colon cancer Son Diabetes Social History Household Members: Family Household Members Other:: lives with g. son Housing: Apartment Do you presently have visiting nurse or other home services: No Unable to assess alcohol history related to: Unknown Alcohol intake: never Comment: family at bedside. Patient Tobacco Use Status: Never used Tobacco e-Cigarette/Vaping Use: Never Used Second Hand Smoke Exposure: No Advance Directives Date on File: 02/23/21 service: No Current occupational status: disabled Cognitive needs: No Hearing needs: No Vision needs: No Female Reproductive History Menstrual Age of Menarche: 11 Questionnaire Thrive Questionnaire Date Thrive assessed: 05/21/23 RICK-7 AMB Questionnaire RICK-7 Date RICK - 7 assessed: 03/27/23 Source: Developed by Drs. Han Hurley, Naya Forbes, Florencio Ahumada and colleagues, with an educational tony from [employer]. Review of Systems Const All systems reviewed & are unremarkable except as noted in HPI and below Eyes Reports no additional complaints, Denies change in vision and Denies other visual disturbances Card Denies chest pain at rest, Denies chest pain with activity, Denies edema, Denies irregular heart rhythm, Denies claudication, Denies dyspnea, Denies dyspnea on exertion, Denies orthopnea, Denies paroxysmal nocturnal dyspnea and Denies slow heart rate Resp Denies cough, Denies dyspnea and Denies dyspnea on exertion Physical exam (Primary Care) Vital Signs: Last Vital Signs BP 112/48 L 07/29/23 08:07 BMI result Body Mass Index 39.1 BMI Assessment/Plan discussion: High Tobacco/Smoking Status: Tobacco use Status Tobacco use date assessed 06/26/23 07/29/23 08:11 Patient Tobacco Use Status Never used Tobacco 07/29/23 08:11 e-Cigarette/Vaping Use Never Used 07/29/23 08:11 Thrive Assessment: Date of Thrive Assessment Date Thrive assessed 05/21/23 07/29/23 08:11 Const Orientation/consciousness: oriented to person and oriented to place Resp Effort & Inspection: normal respiratory effort Auscultation: clear to auscultation bilaterally Cardio Jugular venous distension: no JVD Rate: regular rate Rhythm: regular rhythm Heart sounds: S1 normal heart sound present and S2 normal heart sound present Neuro General: oriented to person, oriented to place and no focal motor deficits Extrem General: Yes full ROM Psych Appearance: grossly normal Results AMB Hemoglobin A1c AMB Hemoglobin A1c 7.8 % Last Edit by BETY Ayala on 07/29/23 08:15 Results Reviewed Results Reviewed: Laboratory Last Values Hgb A1c (Clinic) 7.8 % (4.0-6.0) H 07/29/23 08:12 Assessment and Plan Assessment & Plan (1) Vascular dementia: Code(s): F01.50 - Vascular dementia, unspecified severity, without behavioral disturbance, psychotic disturbance, mood disturbance, and anxiety Qualifiers: Dementia severity: mild Dementia behavioral or psychological symptom: without behavioral, psychotic, or mood disturbance or anxiety Qualified Code(s): F01.A0 - Vascular dementia, mild, without behavioral disturbance, psychotic disturbance, mood disturbance, and anxiety Plan: Continue memantine. Follow-up with Neurology. (2) Diabetes mellitus: Code(s): E11.9 - Type 2 diabetes mellitus without complications Plan: Continue metformin and Jardiance. Increase Trulicity. A1c goal is equal or less than 7%. (3) Hyperlipidemia LDL goal <70: Code(s): E78.5 - Hyperlipidemia, unspecified Plan: Decrease statin. LDL goal is less than 70. (4) Essential hypertension: Code(s): I10 - Essential (primary) hypertension Plan: Discontinue amlodipine. Keep blood pressure less than 130/80. Orders: Orders AMB Hemoglobin A1c Today E11.9 - Type 2 diabetes mellitus without complications Lipid Panel 4 Months E78.5 - Hyperlipidemia, unspecified Comprehensive Lee. Panel Fast 4 Months E11.9 - Type 2 diabetes mellitus without complications Microalbumin, Random (w Creat) 4 Months E11.9 - Type 2 diabetes mellitus without complications Medications: New rosuvastatin 10 mg PO DAILY 90 tabs 1RF 90 days dulaglutide (Trulicity) 1.5 mg (0.5 mL) subcut QWEEK 6.5 mL 0RF 90 days Discontinued amlodipine Discontinued Reason: Patient Completed Course 2.5 mg PO DAILY 90 tabs 0RF rosuvastatin Discontinued Reason: Patient Completed Course 20 mg PO DAILY 90 days 90 tabs 1RF dulaglutide (Trulicity) Discontinued Reason: Patient Completed Course 0.75 mg (0.5 mL) subcut QWEEK 2 mL 0RF Coding Level of Care Code Est Pt Level 4 (45800) Diagnoses Mild vascular dementia without behavioral disturbance, psychotic disturbance, mood disturbance, or anxiety F01.A0 Dementia severity: mild Dementia behavioral or psychological symptom: without behavioral, psychotic, or mood disturbance or anxiety Diabetes mellitus E11.9 Hyperlipidemia LDL goal <70 E78.5 Essential hypertension I10 Time Spent (min) 25
== END 2023-07-29 08:28 | disposition home or self-care (01) ==
PROVIDERS: PCP Internal Medicine; Visit Provider Internal Medicine
DX: F01.A0 Vascular dementia, mild, without behavioral disturbance, psychotic disturbance, mood disturbance, and anxiety (principal); E11.9 Type 2 diabetes mellitus without complications; E78.5 Hyperlipidemia, unspecified; I10 Essential (primary) hypertension
CPT/HCPCS: 83036; 99214

== ENCOUNTER 2023-11-26 08:41 | Outpatient (AMB) | payer MEDICARE, MEDICAID, SELFPAY ==
[2023-11-26 08:47] VITALS: BP 124/62; BMI 35.2
--- NOTE | 2023-11-26 08:47 | MHC.OFFVIS ---
Vital Signs 11/26/23 08:47 Height 5 ft 4 in Weight 205 lb 0.478 oz BMI 35.2 BP 124/62 Intake Visit Reasons: annual/DO NOT RS Granite Fabricator Required: Yes Granite Fabricator Language: [employer] Professor Services: Granite Fabricator Present (in person) Granite Fabricator Name: Mayra ALBERT Information Interpreted: non-clinical & clinical Bunch Maker Hand: Bunch Maker Hand Present (Mayra ALBERT) Accompanied by: Son Allergies No Known Allergies [No Known Allergies*] Allergy (Verified 11/26/23 08:53) Post menopausal: Yes HPI Comments Details: Presenting for annual exam. No complaints. Last Pap/HPV, long time ago the patient is status post hysterectomy for benign causes , no history of abnormal Pap smears in the past Last Mammogram was BI-RADS 2 in 01/14 Last Colonoscopy was in 05/18 Last DEXA scan was in 01/14 [facility] Medical History Hypertension, essential Stroke Stroke Type 2 diabetes mellitus Hyperlipidemia Dementia Family history of ovarian cancer Diabetes mellitus Microalbuminuria GERD (gastroesophageal reflux disease) Hyperlipidemia LDL goal <70 Type 2 diabetes mellitus with diabetic polyneuropathy Obesity due to excess calories Memory loss Cough Essential hypertension Long-term use of aspirin therapy History of DVT (deep vein thrombosis) Surgical History History of total abdominal hysterectomy and bilateral salpingo-oophorectomy History of cataract surgery Family History Father No problems noted. Mother Colon cancer Son Diabetes Social History Household Members: Family Household Members Other:: lives with shahram shaver Housing: Apartment Do you presently have visiting nurse or other home services: No Unable to assess alcohol history related to: Unknown Alcohol intake: never Comment: family at bedside. Patient Tobacco Use Status: Never used Tobacco e-Cigarette/Vaping Use: Never Used Second Hand Smoke Exposure: No Advance Directives Date on File: 02/23/21 service: No Current occupational status: disabled Cognitive needs: No Hearing needs: No Vision needs: No Female Reproductive History Menstrual Age of Menarche: 11 Review of Systems Const All systems reviewed & are unremarkable except as noted in HPI and below Card Reports as per HPI and Reports no additional complaints Resp Reports as per HPI and Reports no additional complaints GI Reports as per HPI and Reports no additional complaints Reports as per HPI Physical Exam Vital Signs: Last Vital Signs BP 124/62 11/26/23 08:47 BMI result Body Mass Index 35.2 Const General: cooperative, healthy appearing and comfortable Other: Suboptimal exam due to body habitus General: Yes bladder normal to palpation External Female Exam: No lesion Speculum Exam - Vagina: normal appearance of the vagina, normal vaginal discharge and not erythematous Speculum Exam - Cervix: Cervix absent Bimanual exam- vagina & uterus: bladder normal to palpation and uterus absent Bimanual Exam- Adnexa, other: Other (No masses detected) Assessment & Plan Assessment & Plan (1) Well woman exam: Code(s): Z01.419 - Encounter for gynecological examination (general) (routine) without abnormal findings Category: Medical Plan: Co testing not indicated since the patient is status post hysterectomy with no history of abnormal Pap smear Counseled the patient about the recommended dietary allowance of 1200 mg of Calcium & 800 IU of vitamin D. Instructions given to patient her son to schedule next screening Mammogram in 01/15. The patient was instructed to perform monthly self-breast exams and to schedule an annual exam in a year; All questions answered and the patient verbalized understanding. Coding Level of Care Code Est Pt Prev Care >65y(17148) Diagnoses Well woman exam Z01.419
== END 2023-11-26 09:32 | disposition home or self-care (01) ==
LOC: HO.HWS 08:42
PROVIDERS: PCP Internal Medicine; Visit Provider Obstetrics & Gynecology
DX: Z01.419 Encounter for gynecological examination (general) (routine) without abnormal findings (principal)
CPT/HCPCS: G0101

== ENCOUNTER → 2023-11-26 08:41 | Outpatient (BNVA) | payer MEDICARE, MEDICAID, SELFPAY | PROVIDERS: PCP Internal Medicine; Visit Provider Obstetrics & Gynecology | DX: Z01.419 Encounter for gynecological examination (general) (routine) without abnormal findings (principal) | CPT/HCPCS: G0101 ==

== ENCOUNTER 2023-12-07 07:03 | Outpatient (REF) | payer MEDICARE, MEDICAID, SELFPAY ==
[2023-12-07 07:55] LABS: Alanine Aminotransferase 23 U/L (0-31); Albumin Level 3.6 g/dL (3.5-5.0); Alkaline Phosphatase 130 U/L (39-117); Anion Gap 11 (12-20); Aspartate Amino Transferase 18 U/L (5-31); Bilirubin Total 0.4 mg/dL (0.0-1.0); Blood Urea Nitrogen 15 mg/dL (9-16); Calcium 9.9 mg/dL (8.4-10.2); Carbon Dioxide 28 mmol/L (22-29); Chloride 106 mmol/L (96-108); Cholesterol 88 mg/dL (<200); Estimated Glomerular Filt Rate 54; Glucose Fasting 153 mg/dL (60-99); HDL Cholesterol 40 mg/dL (>40); Iron 66 mcg/dL (30-160); LDL Cholesterol Calculated 32 mg/dL (<100); Percent Iron Saturation 30 % (15-50); Potassium 4.3 mmol/L (3.3-5.1); Sodium 141 mmol/L (135-145); Total Iron Binding Capacity 221 mcg/dL (228-428); Triglycerides 82 mg/dL (<150); Unsaturated Iron Binding 155 ug/dL
[2023-12-07 10:04] LABS: Creatinine Urine 71.63 mg/dL; Microalbum/Creatinine Ratio Ur 8.3 ug/mg cr (<30)
== END 2023-12-07 07:04 | disposition home or self-care (01) ==
LOC: HO.LAB 07:03
PROVIDERS: PCP Internal Medicine; Visit Provider Internal Medicine
DX: E11.9 Type 2 diabetes mellitus without complications (principal); E78.5 Hyperlipidemia, unspecified; D64.9 Anemia, unspecified
CPT/HCPCS: 36415; 80053; 80061; 82043; 82570; 83540

== ENCOUNTER 2023-12-09 07:57 | Outpatient (AMB) | payer MEDICARE, MEDICAID, SELFPAY ==
--- NOTE | 2023-12-09 08:06 | A.OFFPC_ITS ---
Vital Signs 12/09/23 08:09 Height 5 ft 4 in Weight 201 lb BMI 34.5 BP 112/60 Blood Pressure Location Lt brachial Position Sitting Intake Visit Reasons: dm Wet Process Miller Head Assistant Required: No Accompanied by: Self / Same As Patient Allergies No Known Allergies [No Known Allergies*] Allergy (Verified 12/09/23 08:23) Medication List - Last Reconciled 12/09/23 by Rachna Lewis MD alendronate 70 mg PO QWEEK 90 days ascorbic acid (vitamin C) 500 mg PO DAILY 90 days aspirin 81 mg PO DAILY clopidogrel 75 mg PO DAILY docusate sodium (Colace) 200 mg (2 x 100 mg) PO BEDTIME dulaglutide (Trulicity) 3 mg (0.5 mL) subcut QWEEK 90 days empagliflozin (Jardiance) 10 mg PO DAILY 90 days ferrous sulfate 325 mg PO DAILY 90 days memantine 10 mg PO BID 30 days metformin 500 mg PO BIDWMEAL 90 days multivit, Ca, min-FA-soy isofl 400-60 mcg-mg (One-A-Day Menopause Formula) 1 tab PO DAILY polyethylene glycol 3350 (Miralax) 17 grams PO DAILY 30 days rosuvastatin 10 mg PO DAILY 90 days Tobacco use date assessed: 06/26/23 Dental Screening Dental Screen Date: 03/27/23 HPI HPI Comments History of Present Illness Details This is a 78-year-old female with diabetes mellitus type 2, hyperlipidemia, vascular dementia and osteoporosis that comes today accompanied by son for follow-up on her conditions. A1c not on goal and I will increase Jardiance from 10 mg to 25 mg. LDL within goal. On memantine for her vascular dementia and follow by Neurology which has not been any significant changes. On alendronate for her osteoporosis in which last DEXA scan was 2022. Next DEXA scan should be 2024. No chest pain or shortness on breath. [facility] Medical History (Updated 12/09/23 @ 08:37 by Rachna Lewis MD) Hypertension, essential Stroke Stroke Type 2 diabetes mellitus Hyperlipidemia Dementia Family history of ovarian cancer Diabetes mellitus Microalbuminuria GERD (gastroesophageal reflux disease) Hyperlipidemia LDL goal <70 Type 2 diabetes mellitus with diabetic polyneuropathy Obesity due to excess calories Memory loss Cough Essential hypertension Long-term use of aspirin therapy History of DVT (deep vein thrombosis) Surgical History History of total abdominal hysterectomy and bilateral salpingo-oophorectomy History of cataract surgery Family History Father No problems noted. Mother Colon cancer Son Diabetes Social History Household Members: Family Household Members Other:: lives with g. son Housing: Apartment Do you presently have visiting nurse or other home services: No Unable to assess alcohol history related to: Unknown Alcohol intake: never Comment: family at bedside. Patient Tobacco Use Status: Never used Tobacco e-Cigarette/Vaping Use: Never Used Second Hand Smoke Exposure: No Advance Directives Date on File: 02/23/21 service: No Current occupational status: disabled Cognitive needs: No Hearing needs: No Vision needs: No Female Reproductive History Menstrual Age of Menarche: 11 Questionnaire Thrive Questionnaire Date Thrive assessed: 05/21/23 Are you currently unemployed and looking for a job?: No RICK-7 AMB Questionnaire RICK-7 Date RICK - 7 assessed: 03/27/23 Source: Developed by Drs. Han Hurley, Naya Forbes, Florencio Ahumada and colleagues, with an educational tony from [employer]. Review of Systems Const All systems reviewed & are unremarkable except as noted in HPI and below Card Denies chest pain at rest, Denies chest pain with activity, Denies edema, Denies irregular heart rhythm, Denies claudication, Denies dyspnea, Denies dyspnea on exertion, Denies orthopnea, Denies paroxysmal nocturnal dyspnea and Denies slow heart rate Resp Denies cough, Denies dyspnea and Denies dyspnea on exertion GI Denies abdominal pain, Denies change in bowel habits, Denies excessive flatus, Denies nausea and Denies vomiting Denies urinary incontinence, Denies urinary hesitancy and Denies urinary urgency Musc Denies abnormal gait, Denies atrophy, Denies deformity and Denies limited range of motion Skin/Breast Denies bleeding lesions, Denies changing lesions and Denies rash Neuro Denies abnormal gait, Denies behavioral changes and Denies lack of coordination Psych Denies behavioral changes Physical exam (Primary Care) Vital Signs: Last Vital Signs BP 112/60 12/09/23 08:09 BMI result Body Mass Index 34.5 BMI Assessment/Plan discussion: High BMI High, discussed plan: lifestyle, weight reduction, dietary and physical activity Tobacco/Smoking Status: Tobacco use Status Tobacco use date assessed 06/26/23 12/09/23 08:07 Patient Tobacco Use Status Never used Tobacco 12/09/23 08:07 e-Cigarette/Vaping Use Never Used 12/09/23 08:07 Thrive Assessment: Date of Thrive Assessment Date Thrive assessed 05/21/23 12/09/23 08:07 Resp Effort & Inspection: normal respiratory effort Auscultation: clear to auscultation bilaterally Cardio Jugular venous distension: no JVD Rate: regular rate Rhythm: regular rhythm Heart sounds: S1 normal heart sound present and S2 normal heart sound present Extrem General: Yes full ROM Results AMB Hemoglobin A1c AMB Hemoglobin A1c 8.4 % Last Edit by BETY Ayala on 12/09/23 08:2 6 Assessment and Plan Assessment & Plan (1) Vascular dementia: Code(s): F01.50 - Vascular dementia, unspecified severity, without behavioral disturbance, psychotic disturbance, mood disturbance, and anxiety Qualifiers: Dementia severity: mild Dementia behavioral or psychological symptom: without behavioral, psychotic, or mood disturbance or anxiety Qualified Code(s): F01.A0 - Vascular dementia, mild, without behavioral disturbance, psychotic disturbance, mood disturbance, and anxiety Plan: Continue aspirin for secondary prophylaxis. (2) Diabetes mellitus: Code(s): E11.9 - Type 2 diabetes mellitus without complications Plan: Continue metformin and Trulicity. Increase Jardiance from 10 mg to 25 mg. A1c goal is equal or less than 7%. (3) Hyperlipidemia LDL goal <70: Code(s): E78.5 - Hyperlipidemia, unspecified Plan: Continue statins. LDL goal is less than 70. (4) Osteoporosis: Code(s): M81.0 - Age-related osteoporosis without current pathological fracture Plan: Continue alendronate once a week. Repeat DEXA scan 2024. Orders: Orders AMB Hemoglobin A1c Today E11.9 - Type 2 diabetes mellitus without complications, Z13.9 - Encounter for screening, unspecified Medications: New empagliflozin (Jardiance) 25 mg PO DAILY 90 days 90 tabs 1RF Discontinued ascorbic acid (vitamin C) Discontinued Reason: Patient Completed Course 500 mg PO DAILY 90 days 90 caps 1RF ferrous sulfate Discontinued Reason: Patient Completed Course 325 mg PO DAILY 90 days 90 tabs 1RF D64.9 - Anemia, unspecified empagliflozin (Jardiance) Discontinued Reason: Patient Completed Course 10 mg PO DAILY 90 days 90 tabs 1RF Coding Level of Care Code Est Pt Level 4 (97358) Complex EM visit Add On G2211 Diagnoses Mild vascular dementia without behavioral disturbance, psychotic disturbance, mood disturbance, or anxiety F01.A0 Dementia severity: mild Dementia behavioral or psychological symptom: without behavioral, psychotic, or mood disturbance or anxiety Diabetes mellitus E11.9 Hyperlipidemia LDL goal <70 E78.5 Osteoporosis M81.0 Time Spent (min) 22
[2023-12-09 08:09] VITALS: BP 112/60; BMI 34.5
== END 2023-12-09 08:30 | disposition home or self-care (01) ==
PROVIDERS: PCP Internal Medicine; Visit Provider Internal Medicine
DX: F01.A0 Vascular dementia, mild, without behavioral disturbance, psychotic disturbance, mood disturbance, and anxiety (principal); E11.9 Type 2 diabetes mellitus without complications; E78.5 Hyperlipidemia, unspecified; M81.0 Age-related osteoporosis without current pathological fracture; Z13.9 Encounter for screening, unspecified

== ENCOUNTER → 2023-12-09 07:57 | Outpatient (BNVA) | payer MEDICARE, MEDICAID, SELFPAY | PROVIDERS: PCP Internal Medicine; Visit Provider Internal Medicine | DX: E11.9 Type 2 diabetes mellitus without complications (principal); F01.A0 Vascular dementia, mild, without behavioral disturbance, psychotic disturbance, mood disturbance, and anxiety; M81.0 Age-related osteoporosis without current pathological fracture; E78.5 Hyperlipidemia, unspecified; Z79.85 Long-term (current) use of injectable non-insulin antidiabetic drugs | CPT/HCPCS: 83036; 99212 ==

== ENCOUNTER 2024-02-17 13:42 | Outpatient (AMB) | payer MEDICARE, MEDICAID, SELFPAY ==
[2024-02-17 13:55] VITALS: BP 116/64; BMI 33.6
--- NOTE | 2024-02-17 13:55 | AM.OFFVISMDC ---
Intake Vital Signs 02/17/24 13:55 Height 5 ft 4 in Weight 196 lb BMI 33.6 BP 116/64 Blood Pressure Location Lt brachial Position Sitting Intake Visit Reasons: Sawv Intake Note: Patient here for a subsequent annual wellness visit Traffic Safety Administrator Required: No Accompanied by: Son Allergies No Known Allergies [No Known Allergies*] Allergy (Verified 02/17/24 14:20) Medication List - Last Reconciled 02/17/24 by Rachna Lewis MD alendronate 70 mg PO QWEEK 90 days aspirin 81 mg PO DAILY clopidogrel 75 mg PO DAILY docusate sodium (Colace) 200 mg (2 x 100 mg) PO BEDTIME dulaglutide (Trulicity) 3 mg (0.5 mL) subcut QWEEK 90 days empagliflozin (Jardiance) 25 mg PO DAILY 90 days memantine 10 mg PO BID 30 days metformin 500 mg PO BIDWMEAL 90 days multivit, Ca, min-FA-soy isofl 400-60 mcg-mg (One-A-Day Menopause Formula) 1 tab PO DAILY polyethylene glycol 3350 (Miralax) 17 grams PO DAILY 30 days rosuvastatin 10 mg PO DAILY 90 days HPI HPI Comments History of Present Illness Details The patient is a 78-year-old female presenting for her Medicare annual wellness exam. Her primary concerns involve the management of her chronic conditions and updating preventive care. The patient has a history of osteoporosis for which she takes Alendronate 70 mg once a week; previously managed with calcium and vitamin D until the diagnosis of osteopenia last year on bone densitometry. She also has Type 2 Diabetes Mellitus treated with Trulicity 3 mg once weekly, Metformin 500 mg twice daily, and recently increased Jardiance to 25 mg daily due to an elevated HbA1c of 8.4% in November. She is hypertensive with well-controlled blood pressure, currently managed with Rosuvastatin 10 mg daily for hyperlipidemia. Her memory is supported with Memantine 10 mg twice daily. No significant exacerbations have been reported with these chronic conditions. She denies any recent symptoms such as chest pain or dyspnea. Past surgical history includes hysterectomy for benign conditions and cataract surgery. In family history, her mother at age 85 from colon cancer, which necessitated a colonoscopy earlier this year revealing a tubular adenoma that was removed. The patient maintains routine screenings and vaccinations as recommended. PPP handed to patient. [place] of care reviewed. - Pneumonia vaccine received in 2018. - Tetanus vaccine received in 2015; next due in 2025. - Colonoscopy conducted in April with tubular adenoma removal. - Last eye exam date not specified; scheduling needed. - Bone densitometry indicated osteopenia, last performed in December of the previous year, next due in 2024. [facility] Medical History (Updated 02/17/24 @ 21:12 by Rachna Lewis MD) Hypertension, essential Stroke Stroke Type 2 diabetes mellitus Hyperlipidemia Dementia Family history of ovarian cancer Diabetes mellitus Microalbuminuria GERD (gastroesophageal reflux disease) Hyperlipidemia LDL goal <70 Type 2 diabetes mellitus with diabetic polyneuropathy Obesity due to excess calories Memory loss Cough Essential hypertension Long-term use of aspirin therapy History of DVT (deep vein thrombosis) Surgical History History of total abdominal hysterectomy and bilateral salpingo-oophorectomy History of cataract surgery Family History Father No problems noted. Mother Colon cancer Son Diabetes Social History Household Members: Family Household Members Other:: lives with g. son Housing: Apartment Do you presently have visiting nurse or other home services: No Unable to assess alcohol history related to: Unknown Alcohol intake: never Comment: family at bedside. Patient Tobacco Use Status: Never used Tobacco e-Cigarette/Vaping Use: Never Used Second Hand Smoke Exposure: No Advance Directives Date on File: 02/23/21 service: No Current occupational status: disabled Cognitive needs: No Hearing needs: No Vision needs: No Female Reproductive History Menstrual Age of Menarche: 11 Questionnaire Medicare Wellness Checkup What [age] What gender do you identify with?: female During the past 4 weeks, how much have you been bothered by emotional problems such as feeling anxious, depressed, irritable, sad or downhearted, and blue?: not at all During the past 4 weeks, has your physical & emotional health limited your social activities with family, friends, neighbors, or groups?: not at all During the past 4 weeks, how much bodily pain have you generally had?: no pain During the past 4 weeks, was someone available to help you if you needed & wanted help?: yes, as much as I wanted During the past 4 weeks, what was the hardest physical activity you could do for at least 2 minutes?: very light Can you get to places out of walking distance without help? (For eg., can you travel alone on buses, taxis or drive your car?): No Can you go shopping for groceries or clothes without someone's help?: No Can you prepare your own meals?: No Can you do your housework without help?: No Because of any health problems, do you need the help of another person with your personal care needs such as eating, bathing, dressing or getting around the house?: Yes Can you handle your own money without help?: No During the past 4 weeks, how would you rate your health in general?: good During the past 4 weeks how have things been going for you?: very well; could hardly better Are you having difficulties driving your car?: not applicable, I don't use a car Do you always fasten your seat belt when you are in a car?: yes, usually During past 4 weeks, have you been bothered by the following: never: Falling or dizzy when standing up, Sexual problems?, Trouble eating well? and Teeth or denture problems?, seldom: Tiredness or fatigue? and always: Problems using the telephone? Have you fallen 2 or more times in the past year?: No Are you afraid of falling?: No Are you a smoker?: no During the past 4 weeks, how many drinks of wine, beer, or other alcoholic beverages did you have?: no alcohol at all Do you exercise for about 20 minutes 3 or more times a week?: no, I usually do not exercise this much Have you been given information to help with the following?: yes: Hazards in your house that might hurt you? and yes: Keeping track of your medications? How often do you have trouble taking medicines the way you have been told to take them?: I always take medicine as prescribed How confident are you that you can control & manage most of your health problems?: very confident What is your race?: or origin or descent Mini Mental State Exam (MMSE) Orientation What is the (year) (season) (date) (day) (month)?: year, season, date and month Where are we (state) (county) (town or city) (hospital) (floor)?: county, town or city and hospital/clinic Registration Name of 3 unrelated objects clearly and slowly, then ask patient to repeat all 3 of them. (1st repeat determines score. Make sure they can repeat all three): object 1, object 2 and object 3 Attention & Calculation (CHOOSE ONE) Spell WORLD backwards (DLROW): 5 letters Language Show patient a wristwatch & ask what it is. Repeat for pencil.: watch and pencil Ask the patient to repeat the phrase 'No ifs, ands, or buts' after you.: correct Ask the patient to 'take a piece of paper with their right hand' 'fold paper in half' 'place paper on floor': take paper in right hand, fold paper in half and place paper on floor Print the sentence 'CLOSE YOUR EYES' on a piece. If patient actually closes eyes then score.: followed written direction Give patient a blank piece of paper & ask to write a sentence. Score if it contains a noun & verb.: sentence contains subject and verb Score Score: 23 Activity of Daily Living Bathing - sponge bath, tub bath or shower: receives help in bathing only one body part (such as back or leg) Dressing - getting clothes from closets & drawers, including inner/outer garments & fasteners.: gets clothes & gets dressed without help, except for help tying shoes Toileting - going to the 'toilet room' for urine/bowel elimination & cleaning self/arranging clothes: receives help going to toilet room, cleaning self or arranging clothes Transfer: moves in & out of bed and chair without help (may use support object) Continence: controls urination/bowel movements completely by self Feeding: feeds self without help Total Score: 0 Information obtained from: patient Using telephone: dependent Traveling: dependent Shopping: dependent Preparing meals: dependent Housework: dependent Taking medicine: dependent Managing money: dependent PHQ-9 Over the last 2 weeks, how often have you been bothered by any of the following problems? 1. Little interest or pleasure in doing things: not at all 2. Feeling down, depressed, or hopeless: not at all 3. Trouble falling or staying asleep, or sleeping too much: not at all 4. Feeling tired or having little energy: not at all 5. Poor appetite or overeating: not at all 6. Feeling bad about yourself - or that you are a failure or have let yourself or your family down: not at all 7. Trouble concentrating on things, such as reading the newspaper or watching television: not at all 8. Moving or speaking so slowly that other people could have noticed. Or the opposite - being so fidgety or restless that you have been moving around a lot more than usual: not at all 9. Thoughts that you would be better off or of hurting yourself in some way: not at all Total score: 0 Depression Screening Interpretation: Negative Depression Screening Done: Yes 30441 - PHQ-9 Billing: Yes Source: Developed by Drs. Han Hurley, Naya Forbes, Florencio Ahumada and colleagues, with an educational tony from [employer]. RICK-7 AMB Questionnaire RICK-7 Date RICK - 7 assessed: 02/17/24 Feeling nervous, anxious, or on edge: 0 = Not at all Not being able to stop or control worryin = Not at all Worrying too much about different things: 0 = Not at all Trouble relaxin = Not at all Being so restless that it is hard to sit still: 0 = Not at all Becoming easily annoyed or irritable: 0 = Not at all Feeling afraid as if something awful might happen: 0 = Not at all Total RICK-7 score (0-4 normal; 5-9 mild; 10-14 moderate; 15-21 severe): 0 Source: Developed by Drs. Han Hurley, Naya Forbes, Florencio Ahumada and colleagues, with an educational tony from [employer]. RICK-7 Assessment Billing RICK-7 Assessment Tool: RICK-7 Assessment 43826 AUDIT C Alcohol Use Questionnaire (AUDIT-C) 1. How often do you have a drink containing alcohol?: Never Total Score: 0 Score Reviewed/Action Taken: No Thrive Questionnaire Date Thrive assessed: 02/17/24 I am a: Parent/Caregiver What is your living situation today?: I have a steady place to live Within the past 12 months, did the food you bought not last and you didn't have the money to get more?: Never true Within the past 12 months, did you worry whether your food would run out before you got money to buy more?: Never true Do you have trouble paying for medicines?: No Do you have trouble getting transportation to medical appointments?: No Do you have trouble paying your heating and electricity bill?: No Do you have trouble taking care of your child, family member or friend?: No Do you have trouble with day-to-day activities such as bathing, preparing meals, shopping, managing finances, etc.?: No Are you currently unemployed and looking for a job?: No Are you interested in more education?: No Please select the resources that you would like help with: None Currently or been in a relationship where the following occur: No concerns reported THRIVE Score: 0 Fall Risk Assessment Fall Risk Assessment Fall risk assessment: No Falls in past year Review of Systems Const All systems reviewed & are unremarkable except as noted in HPI and below Card Denies chest pain at rest, Denies chest pain with activity, Denies edema, Denies irregular heart rhythm, Denies claudication, Denies dyspnea, Denies dyspnea on exertion, Denies orthopnea, Denies paroxysmal nocturnal dyspnea and Denies slow heart rate Resp Denies cough, Denies dyspnea and Denies dyspnea on exertion GI Denies abdominal pain, Denies change in bowel habits, Denies excessive flatus, Denies nausea and Denies vomiting Denies urinary incontinence, Denies urinary hesitancy and Denies urinary urgency Musc Denies abnormal gait, Denies atrophy, Denies deformity and Denies limited range of motion Skin/Breast Denies bleeding lesions, Denies changing lesions and Denies rash Neuro Denies abnormal gait, Denies behavioral changes and Denies lack of coordination Psych Denies behavioral changes Physical Exam Vital Signs: Last Vital Signs BP 116/64 02/17/24 13:55 BMI result Body Mass Index 33.6 Const Orientation/consciousness: oriented to person and oriented to time Neuro General: oriented to person and oriented to time Gait exam (Neuro): Normal gait present Romberg Test: Negative Assessment & Plan Assessment & Plan (1) Medicare annual wellness visit, subsequent: Code(s): Z00.00 - Encounter for general adult medical examination without abnormal findings (2) Vascular dementia: Code(s): F01.50 - Vascular dementia, unspecified severity, without behavioral disturbance, psychotic disturbance, mood disturbance, and anxiety Qualifiers: Dementia severity: mild Dementia behavioral or psychological symptom: without behavioral, psychotic, or mood disturbance or anxiety Qualified Code(s): F01.A0 - Vascular dementia, mild, without behavioral disturbance, psychotic disturbance, mood disturbance, and anxiety (3) Type 2 diabetes mellitus with diabetic polyneuropathy: Code(s): E11.42 - Type 2 diabetes mellitus with diabetic polyneuropathy Qualifiers: Diabetes mellitus vermin exterminator insulin use: without custodial use Qualified Code(s): E11.42 - Type 2 diabetes mellitus with diabetic polyneuropathy Plan - Osteoporosis: Continue Alendronate 70 mg weekly, monitor bone density. - Type 2 Diabetes Mellitus: Continue current medications, with Jardiance titrated at 25 mg daily; monitor HbA1c periodically. - Hypertension: Continue current blood pressure management. - Hyperlipidemia: Continue Rosuvastatin; lipid panel to be repeated as per schedule. - Memory Impairment: Continue Memantine; re-evaluate cognitive function annually. - Constipation: Continue daily Miralax. - Surveillance of preventive screenings and vaccinations according to guidelines. - Continue regular follow-up visits for chronic disease management. Patient was informed and verbally consented to the use of an ambient scribe for clinic note documentation during this visit. During this visit, I discussed with the patient the management plan for her chronic conditions. We reviewed the continuation of Alendronate due to osteoporosis and the adjustments made for her diabetes management with Jardiance. The importance of maintaining regular screenings and check-ups, such as the eye exam and her next bone density test in 2024, was emphasized. I addressed the outcomes of her colonoscopy and her family history of colon cancer, reinforcing the preventive measures taken. We talked through the results of her recent vaccinations and their schedule. Moreover, cognitive function maintenance with Memantine was confirmed, and I ensured she understands her treatment plan and any support systems in place for her daily living activities. Orders: Orders Lipid Panel 4 Months E78.5 - Hyperlipidemia, unspecified Microalbumin, Random (w Creat) 4 Months R80.9 - Proteinuria, unspecified Comprehensive [place]. Panel Fast 4 Months F01.A0 - Vascular dementia, mild, without behavioral disturbance, psychotic disturbance, mood disturbance, and anxiety Patient Instructions: - Continue all current medications as prescribed. - Schedule and attend regular follow-up appointments as needed for chronic condition monitoring. - Repeat eye exam and follow mammography scheduling recommendations. - Maintain current exercise and dietary regimen. - Seek assistance for daily activities if necessary and ensure a supportive home environment. - Contact the healthcare provider with any new symptoms or concerns. Quality Reporting (2019) Fall Risk Screening ([facility] 139) Fall risk assessment: No Falls in past year Depression/Bipolar (159/160/161/177) PHQ-9: Total score: 0 Coding Level of Care Code Medicare Subsequent (G0439) Diagnoses Medicare annual wellness visit, subsequent Z00.00 Mild vascular dementia without behavioral disturbance, psychotic disturbance, mood disturbance, or anxiety F01.A0 Dementia severity: mild Dementia behavioral or psychological symptom: without behavioral, psychotic, or mood disturbance or anxiety Type 2 diabetes mellitus with diabetic polyneuropathy, without long-term current use of insulin E11.42 Diabetes mellitus vermin exterminator insulin use: without vermin exterminator use Additional Codes RICK-7 Assessment Billing - RICK-7 Assessment Tool: RICK-7 Assessment 91838 ([id number]) PHQ-9 - 39677 - PHQ-9 Billing: Yes ([id number]) Time Spent (min) 35
== END 2024-02-17 14:42 | disposition home or self-care (01) ==
PROVIDERS: PCP Internal Medicine; Visit Provider Internal Medicine
DX: Z00.00 Encounter for general adult medical examination without abnormal findings (principal); F01.A0 Vascular dementia, mild, without behavioral disturbance, psychotic disturbance, mood disturbance, and anxiety; E11.42 Type 2 diabetes mellitus with diabetic polyneuropathy

== ENCOUNTER → 2024-02-17 13:42 | Outpatient (BNVA) | payer MEDICARE, MEDICAID, SELFPAY | PROVIDERS: PCP Internal Medicine; Visit Provider Internal Medicine | DX: Z00.00 Encounter for general adult medical examination without abnormal findings (principal); F01.A0 Vascular dementia, mild, without behavioral disturbance, psychotic disturbance, mood disturbance, and anxiety; E11.42 Type 2 diabetes mellitus with diabetic polyneuropathy; E78.5 Hyperlipidemia, unspecified; R80.9 Proteinuria, unspecified | CPT/HCPCS: 96127 ==

== ENCOUNTER 2024-04-09 17:29 | Emergency (ER) | payer MEDICARE, MEDICAID, SELFPAY ==
[2024-04-09 17:44] VITALS: BP 108/48; PULSE 100; RESP 18; TEMP 36.7; O2SAT 100; BMI 34.0
[2024-04-09 19:18] LABS: Alanine Aminotransferase 53 U/L (0-31); Albumin Level 3.4 g/dL (3.5-5.0); Alkaline Phosphatase 175 U/L (39-117); Anion Gap 13 (12-20); Aspartate Amino Transferase 37 U/L (5-31); Bilirubin Total 0.3 mg/dL (0.0-1.0); Blood Urea Nitrogen 33 mg/dL (9-16); Carbon Dioxide 18 mmol/L (22-29); Chloride 109 mmol/L (96-108); Creatinine Clr Calc Pharmacy 52.4; Estimated Glomerular Filt Rate 60; Glucose Random 242 mg/dL (60-115); Potassium 5.3 mmol/L (3.3-5.1); Sodium 135 mmol/L (135-145); Total Protein 7.2 g/dL (6.5-8.0)
[2024-04-09 19:32] LABS: Basophils Absolute Auto 0.1 X10*3/uL (0.0-0.2); Basophils Percent Auto 0.5 % (0-2); Eosinophils Percent Auto 0.1 % (0-4); Hematocrit 47.4 % (37.0-47.0); Hemoglobin 15.2 g/dl (12.0-16.0); Imm Gran Abs Auto 0.03 X10*3/uL (0.00-0.03); Imm Gran Pct Auto 0.3 % (0.0-0.4); Lymphocytes Absolute Auto 0.2 X10*3/uL (1.2-4.9); Lymphocytes Percent Auto 1.7 % (20-40); Mean Corpuscular HGB Conc 32.1 g/dl (31.0-35.0); Mean Corpuscular Hemoglobin 28.6 pg (27.0-33.0); Mean Corpuscular Volume 89.3 fL (80.0-98.0); Mean Platelet Volume 9.9 fL (9.4-12.3); Monocytes Absolute Auto 0.3 X10*3/uL (0.1-1.2); Monocytes Percent Auto 2.4 % (2-11); Neutrophils Absolute Auto 11.3 x10*3/uL (2.0-8.3); Platelet Count 172 X10*3/uL (160-400); Red Blood Count 5.31 X10*6/uL (4.20-5.50); Red Cell Distribution Width 14.7 % (11.0-16.0); SCAN SMEAR FLAG 1; White Blood Count 11.9 X10*3/uL (4.8-10.8)
[2024-04-09 19:42] LABS: Influenza A PCR NEGATIVE (Negative); Influenza B PCR NEGATIVE (Negative); Resp Syncy Virus RNA Qual PCR NEGATIVE (Negative); SARS COV2 PCR INHOUSE NEGATIVE (Negative)
[2024-04-09 19:54] LABS: MANUAL DIFF FLAG SCAN; SLIDE REVIEW VERIFIED
--- NOTE | 2024-04-09 20:34 | ECG_ITS ---
Test Reason : HYPERKALEMIA Blood Pressure : */* mmHG Vent. Rate : 118 BPM Atrial Rate : 118 BPM P-R Int : 174 ms QRS Dur : 102 ms QT Int : 322 ms P-R-T Axes : 40 -23 15 degrees QTcB Int : 451 ms Sinus tachycardia Incomplete right bundle branch block Possible Anterolateral infarct , age undetermined Abnormal ECG When compared with ECG of 20-May-2023 06:10, NH interval has decreased Vent. rate has increased by 54 bpm Incomplete right bundle branch block has replaced Right bundle branch block Referred By: Raeann Flanagan Electronically Signed By: VERONICA SYED MD
[2024-04-09 21:05] LABS: Troponin-I High Sensitivity < 2.7 ng/L (<3.5-17.0)
--- OUTSIDE RECORDS SUMMARY | 2024-04-09 21:16 | XMS_ITS | Clinical Summary ---
Author Organization Unknown Care Team Providers Care Topographical Drafter Name Role Phone LENARD KWOK MD, MARIAH Unavailable Unavailable JACKSON CALI, KHURRAM Unavailable Unavail able MINDI RN, BRADEN Unavailable Unavailable ZBIGNIEW RN, KRISH Unavailable Unavailable Payers Payer Name Policy Type Policy Number Effective Date Expira tion Date MEDICARE - [place] [id number] MEDICAID [facility] [id number] Problems Condition Name Condition Details Condition Category Status Onset Date Resolution Date Last Treatment Date Treating Clinician Comments TYPE 2 DIABETES MELLITUS WITH HYPOGLYCEMIA WITHOUT COMA Active 06-24 00:00: 00 EPILEPSY, UNSP, NOT INTRACTABLE, WITHOUT STATUS EPILEPTICUS Active 06-24 00:00: 00 ESSENTIAL (PRIMARY) HYPERTENSION Active 06-24 00:00: 00 GASTRO-ESOPH AGEAL REFLUX DISEASE WITHOUT ESOPHAGITIS Active 06-24 00:00: 00 HYPOTHYROIDI SM, UNSPECIFIED Active 06-24 00:00: 00 DEM IN OTHER DIS CLASSD ELSWHR, MOD, W/O BEH/PSYCH/MO OD/ANX Active 06-24 00:00: 00 CONSTIPATION , UNSPECIFIED Active 06-24 00:00: 00 ANEMIA, UNSPECIFIED Active 06-24 00:00: 00 OTHER SECONDARY THROMBOCYTOP ENIA Active 06-24 00:00: 00 AGE-RELATED OSTEOPOROSIS W/O CURRENT PATHOLOGICAL FRACTURE Active 06-24 00:00: 00 HYPERLIPIDEM IA, UNSPECIFIED Active 06-24 00:00: 00 OBESITY, UNSPECIFIED Active 06-24 00:00: 00 PERSONAL HISTORY OF COVID-19 Active 06-24 00:00: 00 PRSNL HX OF TIA (TIA), AND CEREB INFRC W/O RESID DEFICITS Active 06-24 00:00: 00 PERSONAL HISTORY OF OTHER VENOUS THROMBOSIS AND EMBOLISM Active 06-24 00:00: 00 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 Active 06-24 00:00: 00 CONNIE CLEANER (CURRENT) USE OF ASPIRIN Active 06-24 00:00: 00 CONNIE CLEANER (CURRENT) USE OF ANTITHROMBOT ICS/ANTIPLAT ELETS Active 06-24 00:00: 00 SENIOR CARE (CURRENT) USE OF ORAL HYPOGLYCEMIC DRUGS Active 06-24 00:00: 00 Problems related to health literacy Active 06-24 00:00: 00 BODY MASS INDEX [BMI]40.0-44 .9, ADULT Active 06-24 00:00: 00 COVID-19 Active 05-23 00:00: 00 Allergies, Adverse Reactions, Alerts Allergy Name Allergy Type Status Severity Reaction(s) Onset Date Inactive Date Treating Clinician Comments NKA Propensity to adverse reactions Active 2023-06 19:07:0 7 Medications Ordered Medication Name Filled Medication Name Start Date Stop Date Current Medication? Ordering Clinician Indication Dosage Frequency Signature (SIG) Comments Components alendronate 70 mg tablet 06-24 00:00: 00 Yes [id number] 1 tablet WEEKLY 1 tablet WEEKLY (route: oral) Med Classific ation: Endocrine amlodipine 2.5 mg tablet 06-24 00:00: 00 07-29 23:59 :00 No [id number] 1 tablet DAILY 1 tablet DAILY (route: oral) Med Classific ation: Cardiovas cular Therapy Agents Aspirin Childrens 81 mg chewable tablet 06-24 00:00: 00 Yes [id number] 1 tablet DAILY 1 tablet DAILY (route: oral) Med Classific ation: Hematolog ical Agents clopidogrel 75 mg tablet 06-24 00:00: 00 Yes [id number] 1 tablet DAILY 1 tablet DAILY (route: oral) Med Classific ation: Hematolog ical Agents Colace 100 mg capsule 06-24 00:00: 00 Yes [id number] 1 capsule DAILY 1 capsule DAILY (route: oral) Med Classific ation: Gastroint estinal Therapy Agents Farxiga 5 mg tablet 06-24 00:00: 00 Yes [id number] 1 tablet DAILY 1 tablet DAILY (route: oral) Med Classific ation: Endocrine ferrous sulfate 325 mg (65 mg iron) tablet 06-24 00:00: 00 Yes [id number] 1 tablet DAILY 1 tablet DAILY (route: oral) Med Classific ation: Electroly te Balance-N utritiona l Products memantine 10 mg tablet 06-24 00:00: 00 Yes [id number] 1 tablet 2 TIMES DAILY 1 tablet 2 TIMES DAILY (route: oral) Med Classific ation: Cognitive Disorder Therapy metformin 500 mg tablet 06-24 00:00: 00 Yes [id number] 1 tablet 2 TIMES DAILY 1 tablet 2 TIMES DAILY (route: oral) Med Classific ation: Endocrine Miralax 17 gram oral powder packet 06-24 00:00: 00 Yes [id number] 1 packet DAILY 1 packet DAILY (route: oral) Med Classific ation: Gastroint estinal Therapy Agents multivitami n tablet 06-24 00:00: 00 Yes [id number] 1 tablet DAILY 1 tablet DAILY (route: oral) Med Classific ation: Electroly te Balance-N utritiona l Products omeprazole 20 mg capsule,del ayed release 06-24 00:00: 00 Yes [id number] 1 capsule DAILY 1 capsule DAILY (route: oral) Med Classific ation: Gastroint estinal Therapy Agents rosuvastati n 20 mg tablet 06-24 00:00: 00 07-29 23:59 :00 No [id number] 1 tablet BEDTIME 1 tablet BEDTIME (route: oral) Med Classific ation: Cardiovas cular Therapy Agents Vitamin C 250 mg tablet 06-24 00:00: 00 Yes [id number] 2 tablet DAILY 2 tablet DAILY (route: oral) Med Classific ation: Electroly te Balance-N utritiona l Products Trulicity 0.75 mg/0.5 mL subcutaneou s pen injector 06-26 00:00: 00 07-29 23:59 :00 No [id number] 0.75 mg WEEKLY 0.75 mg WEEKLY (route: subcutaneo us) Med Classific ation: Endocrine rosuvastati n 10 mg tablet 07-29 00:00: 00 Yes [id number] 10 mg BEDTIME 10 mg BEDTIME (route: oral) Med Classific ation: Cardiovas cular Therapy Agents Trulicity 1.5 mg/0.5 mL subcutaneou s pen injector 07-29 00:00: 00 Yes [id number] 1.5 mL WEEKLY 1.5 mL WEEKLY (route: subcutaneo us) Med Classific ation: Endocrine Immunizations Ordered Immunization Name Filled Immunization Name Date Status Comments Refusal Reason INFLUENZA, TIV (INACTIVATED) 2023-06-03 00:00:00 COVID-19, COVID-19 2023-02-11 00:00:00 PNEUMOCOCCAL (PPV), PPV 2020-04-11 00:00:00 Vital Signs Vital Name Observation Time Observation Value Commen ts Temperature 2023-08-22 12:12:00.000 97.4 [degF] Temperature 2023-08-12 20:35:00.000 98.3 [degF] Temperature 2023-08-07 11:49:00.000 98.3 [degF] Temperature 2023-08-01 14:00:00.000 97.6 [degF] Temperature 2023-07-31 15:19:00.000 98.6 [degF] Temperature 2023-07-30 13:58:00.000 96.7 [degF] Temperature 2023-07-22 17:14:00.000 97.6 [degF] Temperature 2023-07-18 17:13:00.000 98.3 [degF] Temperature 2023-07-18 15:34:00.000 97.9 [degF] Temperature 2023-07-16 14:05:00.000 98.4 [degF] Temperature 2023-07-12 19:57:00.000 98.3 [degF] Temperature 2023-07-11 13:34:00.000 98.4 [degF] Temperature 2023-07-08 13:37:00.000 97 [degF] Temperature 2023-07-05 09:11:00.000 98.1 [degF] Temperature 2023-06-28 16:09:00.000 96.9 [degF] Temperature 2023-06-25 13:14:00.000 97.6 [degF] BMI (%) 2023-06-25 13:14:00.000 40 kg/m2 Height 2023-06-25 13:14:00.000 63 [in_us] Pulse 2023-08-22 12:12:00.000 77 /min Pulse 2023-08-12 20:35:00.000 80 /min Pulse 2023-08-07 11:49:00.000 72 /min Pulse 2023-08-01 14:00:00.000 68 /min Pulse 2023-07-31 15:19:00.000 72 /min Pulse 2023-07-30 13:58:00.000 80 /min Pulse 2023-07-22 17:14:00.000 89 /min Pulse 2023-07-18 17:13:00.000 68 /min Pulse 2023-07-18 15:34:00.000 80 /min Pulse 2023-07-16 14:05:00.000 76 /min Pulse 2023-07-12 19:57:00.000 68 /min Pulse 2023-07-11 13:34:00.000 84 /min Pulse 2023-07-08 13:37:00.000 70 /min Pulse 2023-07-05 09:11:00.000 67 /min Pulse 2023-06-28 09:20:00.000 72 /min Pulse 2023-06-25 13:14:00.000 70 /min O2 Saturation (%) 2023-08-22 12:12:00.000 96 % O2 Saturation (%) 2023-08-12 20:35:00.000 98 % O2 Saturation (%) 2023-08-07 11:50:00.000 98 % O2 Saturation (%) 2023-08-01 14:00:00.000 97 % O2 Saturation (%) 2023-07-31 15:19:00.000 100 % O2 Saturation (%) 2023-07-30 13:58:00.000 98 % O2 Saturation (%) 2023-07-22 17:14:00.000 98 % O2 Saturation (%) 2023-07-18 17:14:00.000 98 % O2 Saturation (%) 2023-07-18 15:34:00.000 98 % O2 Saturation (%) 2023-07-16 14:05:00.000 96 % O2 Saturation (%) 2023-07-12 19:57:00.000 98 % O2 Saturation (%) 2023-07-11 13:34:00.000 98 % O2 Saturation (%) 2023-07-08 13:37:00.000 95 % O2 Saturation (%) 2023-07-05 09:11:00.000 95 % O2 Saturation (%) 2023-06-28 09:20:00.000 97 % O2 Saturation (%) 2023-06-25 13:14:00.000 98 % Respirations 2023-08-22 12:12:00.000 16 /min Respirations 2023-08-12 20:35:00.000 18 /min Respirations 2023-08-07 11:49:00.000 18 /min Respirations 2023-08-01 14:00:00.000 20 /min Respirations 2023-07-31 15:19:00.000 20 /min Respirations 2023-07-30 13:58:00.000 20 /min Respirations 2023-07-22 17:14:00.000 20 /min Respirations 2023-07-18 17:13:00.000 18 /min Respirations 2023-07-18 15:34:00.000 18 /min Respirations 2023-07-16 14:05:00.000 18 /min Respirations 2023-07-12 19:57:00.000 18 /min Respirations 2023-07-11 13:34:00.000 20 /min Respirations 2023-07-08 13:37:00.000 20 /min Respirations 2023-07-05 09:11:00.000 20 /min Respirations 2023-06-28 09:20:00.000 16 /min Respirations 2023-06-25 13:14:00.000 20 /min Weight (lbs) 2023-06-25 13:14:00.000 231.4 [lb_av] Systolic Blood Pressure 2023-08-22 12:12:00.000 128 mm [Hg] Systolic Blood Pressure 2023-08-12 20:35:00.000 132 mm [Hg] Systolic Blood Pressure 2023-08-07 11:49:00.000 130 mm [Hg] Systolic Blood Pressure 2023-08-01 14:00:00.000 122 mm [Hg] Systolic Blood Pressure 2023-07-31 15:19:00.000 112 mm [Hg] Systolic Blood Pressure 2023-07-30 13:58:00.000 122 mm [Hg] Systolic Blood Pressure 2023-07-22 17:14:00.000 126 mm [Hg] Systolic Blood Pressure 2023-07-18 17:13:00.000 122 mm [Hg] Systolic Blood Pressure 2023-07-18 15:34:00.000 118 mm [Hg] Systolic Blood Pressure 2023-07-16 14:05:00.000 118 mm [Hg] Systolic Blood Pressure 2023-07-12 19:57:00.000 132 mm [Hg] Systolic Blood Pressure 2023-07-11 13:34:00.000 124 mm [Hg] Systolic Blood Pressure 2023-07-08 13:37:00.000 124 mm [Hg] Systolic Blood Pressure 2023-07-05 09:11:00.000 122 mm [Hg] Systolic Blood Pressure 2023-06-28 09:20:00.000 108 mm [Hg] Systolic Blood Pressure 2023-06-25 13:14:00.000 122 mm [Hg] Diastolic Blood Pressure 2023-08-22 12:12:00.000 80 mm [Hg] Diastolic Blood Pressure 2023-08-12 20:35:00.000 74 mm [Hg] Diastolic Blood Pressure 2023-08-07 11:49:00.000 60 mm [Hg] Diastolic Blood Pressure 2023-08-01 14:00:00.000 74 mm [Hg] Diastolic Blood Pressure 2023-07-31 15:19:00.000 62 mm [Hg] Diastolic Blood Pressure 2023-07-30 13:58:00.000 70 mm [Hg] Diastolic Blood Pressure 2023-07-22 17:14:00.000 74 mm [Hg] Diastolic Blood Pressure 2023-07-18 17:13:00.000 64 mm [Hg] Diastolic Blood Pressure 2023-07-18 15:34:00.000 76 mm [Hg] Diastolic Blood Pressure 2023-07-16 14:05:00.000 74 mm [Hg] Diastolic Blood Pressure 2023-07-12 19:57:00.000 60 mm [Hg] Diastolic Blood Pressure 2023-07-11 13:34:00.000 70 mm [Hg] Diastolic Blood Pressure 2023-07-08 13:37:00.000 64 mm [Hg] Diastolic Blood Pressure 2023-07-05 09:11:00.000 64 mm [Hg] Diastolic Blood Pressure 2023-06-28 09:20:00.000 62 mm [Hg] Diastolic Blood Pressure 2023-06-25 13:14:00.000 70 mm [Hg] Plan of Treatment Planned Activity Planned Date Details Comments Future Scheduled Test SKILLED NU RSE TO EVALUATE PATIENT, IDENTIFY PRIMARY AND CO-MORBID CONDITIONS CODED PER CODING GUIDELINES, AND DEVELOP PATIENT SPECIFIC PLAN OF CARE THAT INCLUDES PATIENT GOAL FOR HOME HEALTH. [code = SKILLED NURSE TO EVALUATE PATIENT, IDENTIFY PRIMARY AND CO-MORBID CONDITIONS CODED PER CODING GUIDELINES, AND DEVELOP PATIENT SPECIFIC PLAN OF CARE THAT INCLUDES PATIENT GOAL FOR HOME HEALTH.] Future Scheduled Test SKILLED NU RSE TO REVIEW PATIENT MEDICATIONS. INSTRUCT PATIENT/CAREGIVER ON MONITORING OF EFFECTIVENESS, ADVERSE DRUG REACTIONS, SIDE EFFECTS OF ALL MEDICATIONS (PRESCRIPTION/-OTC), AND HOW AND WHEN TO REPORT PROBLEMS. [code = SKILLED NURSE TO REVIEW PATIENT MEDICATIONS. INSTRUCT PATIENT/CAREGIVER ON MONITORING OF EFFECTIVENESS, ADVERSE DRUG REACTIONS, SIDE EFFECTS OF ALL MEDICATIONS (PRESCRIPTION/-OTC), AND HOW AND WHEN TO REPORT PROBLEMS.] Future Scheduled Test SKILLED NU RSE FOR O/A, TEACHING RELATED TO GERD, CONSTIPATION FOR EARLY IDENTIFICATION OF EXACERBATION OF DISEASE PROCESS. [code = SKILLED NURSE FOR O/A, TEACHING RELATED TO GERD, CONSTIPATION FOR EARLY IDENTIFICATION OF EXACERBATION OF DISEASE PROCESS.] Future Scheduled Test SKILLED NU RSE FOR O/A OF RESPIRATORY SYSTEM TO IDENTIFY CHANGES ASSOCIATED WITH EXACERBATION AND TO PROVIDE SKILLED TEACHING ON MANAGEMENT OF RESPIRATORY DISEASE PROCESS. [code = SKILLED NURSE FOR O/A OF RESPIRATORY SYSTEM TO IDENTIFY CHANGES ASSOCIATED WITH EXACERBATION AND TO PROVIDE SKILLED TEACHING ON MANAGEMENT OF RESPIRATORY DISEASE PROCESS.] Future Scheduled Test NEED FOR S KILLED TEACHING AND INTERVENTION RELATED TO DTI L HEEL SKILLED NURSE OR TRAINED PATIENT/CAREGIVER TO PERFORM WOUND CARE USING ASEPTIC TECHNIQUE, CLEANSE/IRRIGATE WITH NS PAT DRY WITH GUAZE, APPLY SKIN PREP TO PERIWOUND, APPLY BETADINE TO WOUND BED, LEAVE STOCK DIGGER. WOUND CARE TO BE PERFORMED EVERY DAY AND PRN IF SOILED OR DISLODGED. 1-2 PRN SKILLED NURSE VISITS FOR WOUND CARE DUE TO COMPLICATIONS. SKILLED NURSE TO OBTAIN WOUND CULTURE PRN S/S OF INFECTION. WOUND CARE WILL BE PERFORMED BY TRAINED CAREGIVER ON DAYS WHEN SKILLED NURSE IS NOT SCHEDULED FOR A VISIT. DISCONTINUE WOUND CARE/SUPPLIES ONCE WOUND IS HEALED. [code = NEED FOR SKILLED TEACHING AND INTERVENTION RELATED TO DTI L HEEL SKILLED NURSE OR TRAINED PATIENT/CAREGIVER TO PERFORM WOUND CARE USING ASEPTIC TECHNIQUE, CLEANSE/IRRIGATE WITH NS PAT DRY WITH GUAZE, APPLY SKIN PREP TO PERIWOUND, APPLY BETADINE TO WOUND BED, LEAVE SHELIA. WOUND CARE TO BE PERFORMED EVERY DAY AND PRN IF SOILED OR DISLODGED. 1-2 PRN SKILLED NURSE VISITS FOR WOUND CARE DUE TO COMPLICATIONS. SKILLED NURSE TO OBTAIN WOUND CULTURE PRN S/S OF INFECTION. WOUND CARE WILL BE PERFORMED BY TRAINED CAREGIVER ON DAYS WHEN SKILLED NURSE IS NOT SCHEDULED FOR A VISIT. DISCONTINUE WOUND CARE/SUPPLIES ONCE WOUND IS HEALED.] Future Scheduled Test SKILLED NU RSE TO PERFORM AND RECORD BLOOD SUGAR READING PRN FOR SIGNS AND SYMPTOMS OF HYPO/HYPERGLYCEMIA. [code = SKILLED NURSE TO PERFORM AND RECORD BLOOD SUGAR READING PRN FOR SIGNS AND SYMPTOMS OF HYPO/HYPERGLYCEMIA.] Future Scheduled Test SKILLED NU RSE FOR O/A OF MUSCULOSKELETAL STATUS AND TEACHING ON MEASURES TO MANAGE AND MAINTAIN SAFETY WITH ACTIVITY [code = SKILLED NURSE FOR O/A OF MUSCULOSKELETAL STATUS AND TEACHING ON MEASURES TO MANAGE AND MAINTAIN SAFETY WITH ACTIVITY] Future Scheduled Test SKILLED NU RSE FOR O/A AND TEACHING OF ENDOCRINE SYSTEM TO IDENTIFY CHANGES ASSOCIATED WITH EXACERBATION OF HYPOTHYROIDISM FOR EARLY INTERVENTION OF COMPLICATIONS. [code = SKILLED NURSE FOR O/A AND TEACHING OF ENDOCRINE SYSTEM TO IDENTIFY CHANGES ASSOCIATED WITH EXACERBATION OF HYPOTHYROIDISM FOR EARLY INTERVENTION OF COMPLICATIONS.] Future Scheduled Test SKILLED NU RSE FOR O/A AND SKILLED TEACHING IN MANAGEMENT OF THROMBOSIS AND EMBOLISM CIRCULATORY/VASCULAR DISEASE. [code = SKILLED NURSE FOR O/A AND SKILLED TEACHING IN MANAGEMENT OF THROMBOSIS AND EMBOLISM CIRCULATORY/VASCULAR DISEASE.] Future Scheduled Test PHYSICAL T HERAPIST TO EVALUATE PATIENT FOR STRENGTHENING AND ENDURANCE [code = PHYSICAL THERAPIST TO EVALUATE PATIENT FOR STRENGTHENING AND ENDURANCE ] Future Scheduled Test SKILLED NU RSE TO INSTRUCT ON SAFETY MEASURES TO PREVENT INJURY SECONDARY TO SEIZURE DISORDER/IMPAIRED NEUROLOGICAL STATUS. [code = SKILLED NURSE TO INSTRUCT ON SAFETY MEASURES TO PREVENT INJURY SECONDARY TO SEIZURE DISORDER/IMPAIRED NEUROLOGICAL STATUS.] Future Scheduled Test SKILLED NU RSE TO PROVIDE TEACHING ON SIGNS AND SYMPTOMS AND MANAGEMENT OF HYPERTENSION. [code = SKILLED NURSE TO PROVIDE TEACHING ON SIGNS AND SYMPTOMS AND MANAGEMENT OF HYPERTENSION.] Future Scheduled Test SKILLED NU RSE FOR O/A AND SKILLED TEACHING RELATED TO ALTERED SKIN INTEGRITY D/T BLE EDEMA. [code = SKILLED NURSE FOR O/A AND SKILLED TEACHING RELATED TO ALTERED SKIN INTEGRITY D/T BLE EDEMA.] Future Scheduled Test SKILLED NU RSE FOR OBSERVATION AND ASSESSMENT TO IDENTIFY CHANGES ASSOCIATED WITH DEMENTIA AND TEACHING RELATED TO SAFETY MEASURES TO PREVENT INJURY, ELOPEMENT RISKS, BEHAVIOR CHANGES, ACTIVITIES, AND ENVIRONMENTAL CHANGES ALL SECONDARY TO IMPAIRED COGNITIVE STATUS. [code = SKILLED NURSE FOR OBSERVATION AND ASSESSMENT TO IDENTIFY CHANGES ASSOCIATED WITH DEMENTIA AND TEACHING RELATED TO SAFETY MEASURES TO PREVENT INJURY, ELOPEMENT RISKS, BEHAVIOR CHANGES, ACTIVITIES, AND ENVIRONMENTAL CHANGES ALL SECONDARY TO IMPAIRED COGNITIVE STATUS.] Future Scheduled Test SKILLED NU RSE TO INSTRUCT PATIENT/CAREGIVER ON WARNING SIGNS OF CVA, RISK FACTORS, AND METHODS TO MANAGE CONNIE CLEANER EFFECTS OF CVA. [code = SKILLED NURSE TO INSTRUCT PATIENT/CAREGIVER ON WARNING SIGNS OF CVA, RISK FACTORS, AND METHODS TO MANAGE CONNIE CLEANER EFFECTS OF CVA.] Future Scheduled Test SKILLED NU RSE FOR O/A AND SKILLED TEACHING RELATED TO SIGNS AND SYMPTOMS AND MANAGEMENT OF ANEMIA. [code = SKILLED NURSE FOR O/A AND SKILLED TEACHING RELATED TO SIGNS AND SYMPTOMS AND MANAGEMENT OF ANEMIA.] Future Scheduled Test SKILLED NU RSE FOR O/A AND TEACHING OF DIABETIC MANAGEMENT INCLUDING BLOOD SUGAR MONITORING/USE OF GLUCOMETER, DIABETIC DIET, LOWER EXTREMITY SKIN INSPECTION, PROPER SKIN/FOOT CARE, AND SIGNS AND SYMPTOMS HYPO/HYPERGLYCEMIA TO REPORT. [code = SKILLED NURSE FOR O/A AND TEACHING OF DIABETIC MANAGEMENT INCLUDING BLOOD SUGAR MONITORING/USE OF GLUCOMETER, DIABETIC DIET, LOWER EXTREMITY SKIN INSPECTION, PROPER SKIN/FOOT CARE, AND SIGNS AND SYMPTOMS HYPO/HYPERGLYCEMIA TO REPORT.] Future Scheduled Test SKILLED NU RSE FOR O/A AND SKILLED TEACHING RELATED TO SIGNS AND SYMPTOMS AND MANAGEMENT OF OSTEOPOROSIS. [code = SKILLED NURSE FOR O/A AND SKILLED TEACHING RELATED TO SIGNS AND SYMPTOMS AND MANAGEMENT OF OSTEOPOROSIS.] Future Scheduled Test VIRTUAL SIT FREQUENCY: 1-6 PER WEEK X 3 WEEKS AND 6 PRN VIRTUAL VISITS MAY BE PERFORMED UTILIZING TELEVisualmarks SYSTEM TO OPTIMIZE SKILLED SERVICES FURNISHED ON THE PLAN OF CARE. SKILLED NURSE TO ESTABLISH SUPPORT MEASURES TO MINIMIZE RISK OF REHOSPITALIZATION, AND INSTRUCT PATIENT/CAREGIVER ON METHODS TO REDUCE AVOIDABLE HOSPITALIZATION. [code = VIRTUAL VISIT FREQUENCY: 1-6 PER WEEK X 3 WEEKS AND 6 PRN VIRTUAL VISITS MAY BE PERFORMED UTILIZING TELECOMMUNICATIONS SYSTEM TO OPTIMIZE SKILLED SERVICES FURNISHED ON THE PLAN OF CARE. SKILLED NURSE TO ESTABLISH SUPPORT MEASURES TO MINIMIZE RISK OF REHOSPITALIZATION, AND INSTRUCT PATIENT/CAREGIVER ON METHODS TO REDUCE AVOIDABLE HOSPITALIZATION.] Future Scheduled Test PATIENT KLINE S A RISK OF HOSPITALIZATION AND ED USE. SKILLED NURSE TO ESTABLISH SUPPORT MEASURES TO MINIMIZE RISK OF HOSPITALIZATION AND ED USE, AND INSTRUCT PATIENT/CAREGIVER ON METHODS TO REDUCE AVOIDABLE HOSPITALIZATION AND ED USE. [code = PATIENT HAS A RISK OF HOSPITALIZATION AND ED USE. SKILLED NURSE TO ESTABLISH SUPPORT MEASURES TO MINIMIZE RISK OF HOSPITALIZATION AND ED USE, AND INSTRUCT PATIENT/CAREGIVER ON METHODS TO REDUCE AVOIDABLE HOSPITALIZATION AND ED USE.] Future Scheduled Test SKILLED NU RSE TO PROVIDE INSTRUCTION TO PATIENT/CAREGIVER RELATED TO DISCHARGE PLANNING. [code = SKILLED NURSE TO PROVIDE INSTRUCTION TO PATIENT/CAREGIVER RELATED TO DISCHARGE PLANNING.] Future Scheduled Test SKILLED NU RSE TO PERFORM HOME SAFETY AND FALL ASSESSMENT AND PROVIDE INSTRUCTION TO IMPLEMENT HOME SAFETY AND FALL PREVENTION STRATEGIES. [code = SKILLED NURSE TO PERFORM HOME SAFETY AND FALL ASSESSMENT AND PROVIDE INSTRUCTION TO IMPLEMENT HOME SAFETY AND FALL PREVENTION STRATEGIES.] Future Scheduled Test SKILLED NU RSE FOR OBSERVATION AND ASSESSMENT OF PATIENTS PAIN LEVEL AND EFFECTIVENESS OF PAIN MANAGEMENT REGIMEN. SKILLED NURSE TO INSTRUCT PATIENT/CAREGIVER REGARDING PHARMACOLOGIC AND NON-PHARMACOLOGIC PAIN CONTROL MEASURES. SKILLED NURSE TO REPORT TO PHYSICIAN IF PAIN IS UNCONTROLLED WITH CURRENT PAIN MANAGEMENT REGIMEN. [code = SKILLED NURSE FOR OBSERVATION AND ASSESSMENT OF PATIENTS PAIN LEVEL AND EFFECTIVENESS OF PAIN MANAGEMENT REGIMEN. SKILLED NURSE TO INSTRUCT PATIENT/CAREGIVER REGARDING PHARMACOLOGIC AND NON-PHARMACOLOGIC PAIN CONTROL MEASURES. SKILLED NURSE TO REPORT TO PHYSICIAN IF PAIN IS UNCONTROLLED WITH CURRENT PAIN MANAGEMENT REGIMEN.] Future Scheduled Test SKILLED NU RSE TO ASSESS PATIENT'S SKIN INTEGRITY AND INSTRUCT PATIENT/CAREGIVER ON MEASURES TO PREVENT PRESSURE ULCERS. [code = SKILLED NURSE TO ASSESS PATIENT'S SKIN INTEGRITY AND INSTRUCT PATIENT/CAREGIVER ON MEASURES TO PREVENT PRESSURE ULCERS.] Future Scheduled Test PHYSICAL T HERAPIST TO EVALUATE PATIENT SECONDARY TO FUNCTIONAL DEFICITS/SAFETY CONCERNS. PHYSICAL THERAPIST TO ASSESS BEST PRACTICE INTERVENTIONS TO ASSIST PATIENTS TO IMPROVE OR STABILIZE MEDICAL STATUS AND PREVENT RE-HOSPITALIZATION. MEASURES INCLUDING REVIEW AND IDENTIFICATION OF CONCERNS FOR THE FOLLOWING AREAS: DRUG REGIMEN, DIABETIC FOOT CARE, ENVIRONMENTAL SAFETY ISSUES AND FALLS, PRESSURE ULCERS, PAIN, AND DISEASE MANAGEMENT. PHYSICAL THERAPY TO ESTABLISH /UPGRADE/DOWNGRADE THERAPEUTIC EXERCISE PROGRAM AND INSTRUCT PATIENT/CAREGIVER ON EXERCISE PRECAUTIONS WITH WRITTEN HOME PROGRAM. MAY INCLUDE PROM, AAROM, AROM, RROM APPROPRIATE TO IMPROVE FUNCTIONAL STRENGTH AND RANGE OF MOTION. PHYSICAL THERAPY TO INSTRUCT PATIENT/CAREGIVER ON SAFE TRANSFER TECHNIQUES USING PROPER BODY MECHANICS AND EQUIPMENT. PHYSICAL THERAPY TO INSTRUCT PATIENT/CAREGIVER ON GAIT TRAINING TECHNIQUES USING APPROPRIATE ASSISTIVE DEVICE, PROPER BODY MECHANICS TO IMPROVE MOBILITY, AND PREVENT INJURY OF PATIENT AND/OR CAREGIVER. PHYSICAL THERAPY TO ASSESS AND RECOMMEND HOME SAFETY ADAPTATIONS AND EDUCATE PATIENT /CAREGIVER ON FALL PREVENTION STRATEGIES. PHYSICAL THERAPY TO INSTRUCT PATIENT/CAREGIVER ON BALANCE AND BALANCE STRATEGIES TO IMPROVE SAFE MOBILITY AND REDUCE RISK FOR FALL AND INJURY INCLUDING PARTICIPATION IN [facility] BALANCE SPECIALTY PROGRAM SUMMARY OF THERAPY EVAL/ASSESSMENT FINDINGS AND REASON(S) SKILLS OF A THERAPIST ARE INDICATED: PHYSICAL THERAPY EVALUATION (07/08/23) PATIENT IS A 77 YO FEMALE WITH PHYSICAL THERAPY REFERRAL AFTER HOSPITALIZATION ON 05/16/23 DUE TO WEAKNESS AND MD RD DX: COVID WITH METABOLIC ENCEPHALOPATHY, REHAB AT 05/24/23 [facility]. PMH: HTN, DEMENTIA, DM, CVA, MORBID OBESITY. FALL HISTORY: NONE REPORTED. PATIENT LIVES IN 1ST FLOOR APARTMENT WITH SUPPORTIVE SON TIA WHO IS PAID MANAGER CONTACT, 1 STEP TO NEGOTIATE. PLOF: PATIENT MOD I AMB WITH AND WITHOUT FWW IN HOME WITH TRANSFERS AND AMB, SIZE MARKER SON TIA ABLE TO LEAVE PATIENT FOR 3 HRS, PATIENT SIZE MARKER WITH OUTDOOR AMB. CLOF: AMB WITH FWW IN HOME, 15/10 SUPERVISION, 30 MIN DAILY PEDDLAR WITH ASSIST. DME: FWW, BARIATRIC ROLLATOR, TUB TRANSFER BENCH, GRAB BARS, BED RAIL SAFETY RECOMMENDATIONS: RECOMMEND HANDICAPED PLACARD ACQUISITON AND PT-1 DISABLE TRANSPORT SERVICES FORM, TEMITOPE WEBER RE[facility]TS [facility] THIS THERAPIST TO PROVIDE HANDICAPED PLACARD ACQUISITON AND PT-1 DISABLED TRANSPORT SERVICES FORMS. BILAT LE ROM WFL, BILAT LE STRENGTH 3+ TO 4-/5. TO INCREASE BILAT LE STRENGTH PATIENT COMPLETED BILAT LE SEATED THER EXER X 10 WITH VERBAL CUES FOR FORM. DISPENSED HEP SHEETS. CG ASSISTED PATIENT WITH PEDDLAR POSTIONING AND USAGE. PATIENT INDEP WITH BED MOBILITY. PATIENT ABLE TO REQUIRES SUPERVISION TO COMPLETE SIT-->STAND WITH FWW, VERBAL CUES TO INCREASE COM OVER MARY LOU AND AD PLACEMENT. PATIENT AMB 25' X 2 WITH FWW AND SUPERVISION, VERBAL CUES TO KEEP AD CLOSE TO BODY. TINETTI = , FALL RISK. PATIENT PRESENTS WITH THE FOLLOWING DEFICITS: BILAT LE WEAKNESS, DECREASED ENDURANCE, RESULTING IN DIFFICULTY WITH TRANSFERS AMB AND STEP NEGOTIATION. SKILLED [facility] FREQ 2X2WKS, 2XEVERYOTHERWK TO ADDDRESS DEFICITS, MAX SAFETY AND FUNCTIONAL LEVEL IN HOME ENVIRONMENT WITH THER EXER, ESTABLISH HEP, TRANSFER AND GAIT TRAINING, STEP NEGOTIATION AND BALANCE ACTIVITY. PATIENT AND CG INFORMED ABOUT PHYSICAL THERAPY POC INCLUDING FREQ, VERBALIZED ACCEPTANCE. MD NOTIFIED ABOUT PATIENT STATUS AND POC. [code = PHYSICAL THERAPIST TO EVALUATE PATIENT SECONDARY TO FUNCTIONAL DEFICITS/SAFETY CONCERNS. PHYSICAL THERAPIST TO ASSESS BEST PRACTICE INTERVENTIONS TO ASSIST PATIENTS TO IMPROVE OR STABILIZE MEDICAL STATUS AND PREVENT RE-HOSPITALIZATION. MEASURES INCLUDING REVIEW AND IDENTIFICATION OF CONCERNS FOR THE FOLLOWING AREAS: DRUG REGIMEN, DIABETIC FOOT CARE, ENVIRONMENTAL SAFETY ISSUES AND FALLS, PRESSURE ULCERS, PAIN, AND DISEASE MANAGEMENT. PHYSICAL THERAPY TO ESTABLISH /UPGRADE/DOWNGRADE THERAPEUTIC EXERCISE PROGRAM AND INSTRUCT PATIENT/CAREGIVER ON EXERCISE PRECAUTIONS WITH WRITTEN HOME PROGRAM. MAY INCLUDE PROM, AAROM, AROM, RROM APPROPRIATE TO IMPROVE FUNCTIONAL STRENGTH AND RANGE OF MOTION. PHYSICAL THERAPY TO INSTRUCT PATIENT/CAREGIVER ON SAFE TRANSFER TECHNIQUES USING PROPER BODY MECHANICS AND EQUIPMENT. PHYSICAL THERAPY TO INSTRUCT PATIENT/CAREGIVER ON GAIT TRAINING TECHNIQUES USING APPROPRIATE ASSISTIVE DEVICE, PROPER BODY MECHANICS TO IMPROVE MOBILITY, AND PREVENT INJURY OF PATIENT AND/OR CAREGIVER. PHYSICAL THERAPY TO ASSESS AND RECOMMEND HOME SAFETY ADAPTATIONS AND EDUCATE PATIENT /CAREGIVER ON FALL PREVENTION STRATEGIES. PHYSICAL THERAPY TO INSTRUCT PATIENT/CAREGIVER ON BALANCE AND BALANCE STRATEGIES TO IMPROVE SAFE MOBILITY AND REDUCE RISK FOR FALL AND INJURY INCLUDING PARTICIPATION IN [facility] BALANCE SPECIALTY PROGRAM SUMMARY OF THERAPY EVAL/ASSESSMENT FINDINGS AND REASON(S) SKILLS OF A THERAPIST ARE INDICATED: PHYSICAL THERAPY EVALUATION (07/08/23) PATIENT IS A 77 YO FEMALE WITH PHYSICAL THERAPY REFERRAL AFTER HOSPITALIZATION ON 05/16/23 DUE TO WEAKNESS AND MD RD DX: COVID WITH METABOLIC ENCEPHALOPATHY[facility] PM[facility]: HTN, DEMENTIA, DM, CVA, MORBID OBESITY. FALL HISTORY: NONE REPORTED. PATIENT LIVES IN 1ST FLOOR APARTMENT WITH SUPPORTIVE SON TIA WHO IS PAID MANAGER CONTACT, 1 STEP TO NEGOTIATE. PLOF: PATIENT MOD I AMB WITH AND WITHOUT FWW IN HOME WITH TRANSFERS AND AMB, SIZE MARKER SON TIA ABLE TO LEAVE PATIENT FOR 3 HRS, PATIENT SIZE MARKER WITH OUTDOOR AMB. CLOF: AMB WITH FWW IN HOME, 24/ SUPERVISION, 30 MIN DAILY PEDDLAR WITH ASSIST. DME: FWW, BARIATRIC ROLLATOR, TUB TRANSFER BENCH, GRAB BARS, BED RAIL SAFETY RECOMMENDATIONS: RECOMMEND HANDICAPED PLACARD ACQUISITON AND PT-1 DISABLE TRANSPORT SERVICES FORM, [employer] REPORTS HE IS UNABLE TO DRIVE OUTSIDE [place]. THIS THERAPIST TO PROVIDE HANDICAPED PLACARD ACQUISITON AND PT-1 DISABLED TRANSPORT SERVICES FORMS. BILAT LE ROM WFL, BILAT LE STRENGTH 3+ TO 4-/5. TO INCREASE BILAT LE STRENGTH PATIENT COMPLETED BILAT LE SEATED THER EXER X 10 WITH VERBAL CUES FOR FORM. DISPENSED HEP SHEETS. CG ASSISTED PATIENT WITH PEDDLAR POSTIONING AND USAGE. PATIENT INDEP WITH BED MOBILITY. PATIENT ABLE TO REQUIRES SUPERVISION TO COMPLETE SIT-->STAND WITH FWW, VERBAL CUES TO INCREASE COM OVER MARY LOU AND AD PLACEMENT. PATIENT AMB 25' X 2 WITH FWW AND SUPERVISION, VERBAL CUES TO KEEP AD CLOSE TO BODY. TINETTI = 15/28, FALL RISK. PATIENT PRESENTS WITH THE FOLLOWING DEFICITS: BILAT LE WEAKNESS, DECREASED ENDURANCE, RESULTING IN DIFFICULTY WITH TRANSFERS AMB AND STEP NEGOTIATION. SKILLED [facility] FREQ 2X2WKS, 2XEVERYOTHERWK TO ADDDRESS DEFICITS, MAX SAFETY AND FUNCTIONAL LEVEL IN HOME ENVIRONMENT WITH THER EXER, ESTABLISH HEP, TRANSFER AND GAIT TRAINING, STEP NEGOTIATION AND BALANCE ACTIVITY. PATIENT AND CG INFORMED ABOUT PHYSICAL THERAPY POC INCLUDING FREQ, VERBALIZED ACCEPTANCE. MD NOTIFIED ABOUT PATIENT STATUS AND POC.] Goal Patient Goal - TO GET STRONG Goal Provider Goal - A PLAN OF CARE WILL BE ESTABLISHED THAT MEETS PATIENT'S HALF-WAY NEEDS AND INCLUDES PATIENT GOAL FOR HOME HEALTH. Goal Provider Goal - PATIENT/CAREGIVER WILL VERBALIZE UNDERSTANDING OF EDUCATION PROVIDED ON MEDICATIONS BY THE END OF THE CERTIFICATION PERIOD. Goal Provider Goal - EXACERBATIONS OF GASTROINTESTINAL DISEASE WILL BE PROMPTLY IDENTIFIED AND INTERVENTIONS IMPLEMENTED TO MINIMIZE RISKS TO PATIENT BY END OF EPISODE. Goal Provider Goal - PATIENT/CAREGIVER WILL VERBALIZE/DEMONSTRATE MANAGEMENT OF RESPIRATORY DISEASE PROCESS. CHANGES IN RESPIRATORY STATUS WILL BE IDENTIFIED AND REPORTED TO PHYSICIAN FOR PROMPT INTERVENTION THROUGHOUT THE CERTIFICATION PERIOD. Goal Provider Goal - WOUND CARE WILL BE COMPLETED AND PATIENT WILL HAVE IMPROVED WOUND STATUS EVIDENCED BY NO SIGNS AND SYMPTOMS OF INFECTION, DECREASED WOUND SIZE, AND/OR NO COMPLICATIONS BY THE END OF THE CERTIFICATION PERIOD. Goal Provider Goal - BLOOD SUGAR READING WILL BE OBTAINED ORDERED THROUGHOUT CERTIFICATION PERIOD. Goal Provider Goal - PATIENT/CAREGIVER WILL VERBALIZE/DEMONSTRATE ABILITY TO MANAGE MUSCULOSKELETAL DISEASE WHILE MAINTAINING SAFETY THROUGHOUT THE EPISODE. Goal Provider Goal - PATIENT/CAREGIVER WILL VERBALIZE SIGNS AND SYMPTOMS OF EXACERBATION OF HYPOTHYROIDISM TO REPORT TO NURSE/PHYSICIAN THROUGHOUT THE CERTIFICATION PERIOD. Goal Provider Goal - PATIENT/CAREGIVER WILL VERBALIZE/DEMONSTRATE THE ABILITY TO MANAGE CIRCULATORY DISEASE PROCESS AND EXACERBATIONS WILL BE IDENTIFIED FOR EARLY INTERVENTION THROUGHOUT THE CERTIFICATION PERIOD. Goal Provider Goal - A PHYSICAL THERAPY EVALUATION TO BE COMPLETED WITH RECOMMENDATIONS AND/OR WRITTEN PLAN OF TREATMENT ESTABLISHED FOR PHYSICIANS SIGNATURE. Goal Provider Goal - PATIENT/CAREGIVER WILL VERBALIZE/DEMONSTRATE SEIZURE PRECAUTIONS AND CARE OF PATIENT TO PROMOTE SAFETY AND PREVENT INJURY BY THE END OF THE CERTIFICATION PERIOD. Goal Provider Goal - PATIENT/CAREGIVER WILL VERBALIZE SIGNS AND SYMPTOMS OF HYPERTENSION AND WILL BE ABLE TO DEMONSTRATE ABILITY TO MANAGE EXACERBATION BY END OF THE EPISODE. Goal Provider Goal - PATIENT/CAREGIVER WILL VERBALIZE/DEMONSTRATE UNDERSTANDING OF TEACHING RELATED TO ALTERED SKIN INTEGRITY BY END OF CERTIFICATION PERIOD. Goal Provider Goal - PATIENT/CAREGIVER WILL VERBALIZE /DEMONSTRATE APPROPRIATE ENVIRONMENTAL/SAFETY MODIFICATIONS IN RESPONSE TO BEHAVIOR/COGNITIVE CHANGES ASSOCIATED WITH DEMENTIA DIAGNOSIS THROUGHOUT THE CERTIFICATION PERIOD. Goal Provider Goal - PATIENT/CAREGIVER WILL DEMONSTRATE COMPLIANCE WITH TREATMENT REGIME AND VERBALIZE SIGNS AND SYMPTOMS TO REPORT WELL POSSIBLE COMPLICATIONS OF CVA BY END OF EPISODE. Goal Provider Goal - PATIENT/CARGIVER WILL VERBALIZE UNDERSTANDING OF ANEMIA INCLUDING SIGNS AND SYMPTOMS, MANAGEMENT OF COMPLICATIONS, AND PRESCRIBED TREATMENT REGIMEN BY END OF EPISODE. Goal Provider Goal - PATIENT/CAREGIVER WILL VERBALIZE/DEMONSTRATE KNOWLEDGE OF DIABETIC MANAGEMENT. CHANGES IN DIABETIC STATUS WILL BE IDENTIFIED AND REPORTED TO PHYSICIAN FOR PROMPT INTERVENTION THROUGHOUT THE CERTIFICATION PERIOD. Goal Provider Goal - PATIENT/CAREGIVER WILL VERBALIZE UNDERSTANDING OF MUSCULOSKELETAL DISEASE INCLUDING SIGNS AND SYMPTOMS, MANAGEMENT, AND PRESCRIBED TREATMENT REGIMEN BY END OF EPISODE. Goal Provider Goal - PATIENT/CAREGIVER WILL UTILIZE VIRTUAL VISITS TO ACHIEVE GOALS OUTLINED ON THE PLAN OF CARE. PATIENT WILL HAVE SUPPORT MEASURES ESTABLISHED TO PREVENT HOSPITALIZATION AND PATIENT/CAREGIVER WILL VERBALIZE/DEMONSTRATE METHODS TO REDUCE AVOIDABLE HOSPITALIZATION THROUGHOUT THE CERTIFICATION PERIOD. Goal Provider Goal - PATIENT WILL HAVE SUPPORT MEASURES ESTABLISHED TO PREVENT HOSPITALIZATION AND ED USE AND PATIENT/CAREGIVER WILL VERBALIZE/DEMONSTRATE METHODS TO REDUCE AVOIDABLE HOSPITALIZATION AND ED USE BY END OF EPISODE. Goal Provider Goal - PATIENT/CAREGIVER WILL VERBALIZE UNDERSTANDING OF DISCHARGE PLANNING INSTRUCTIONS BY DATE OF DISCHARGE. Goal Provider Goal - PATIENT/CAREGIVER WILL VERBALIZE/DEMONSTRATE EFFECTIVE HOME SAFETY AND FALL PREVENTION STRATEGIES THROUGHOUT CERTIFICATION PERIOD. Goal Provider Goal - PATIENT/CAREGIVER WILL DEMONSTRATE UNDERSTANDING OF PHARMACOLOGIC AND NONPHARMACOLOGIC PAIN CONTROL MEASURES AND PATIENT WILL HAVE IMPROVEMENT IN PAIN INTERFERING WITH ACTIVITY EVIDENCED BY PAIN CONTROLLED AT LEVEL OF 7 OR LESS BY END OF CERTIFICATION PERIOD. Goal Provider Goal - PATIENT/CAREGIVER WILL VERBALIZE UNDERSTANDING OF PRESSURE ULCER PREVENTION BY END OF THE EPISODE. Goal Provider Goal - PHYSICAL THERAPY EVALUATION TO BE COMPLETED WITH RECOMMENDATIONS AND/OR WRITTEN TREATMENT PLAN OF CARE ESTABLISHED FOR THE PHYSICIANS SIGNATURE PATIENT/CAREGIVER VERBALIZES UNDERSTANDING OF THE INITIAL BEST PRACTICE RECOMMENDATIONS. PHYSICIAN TO BE NOTIFIED APPROPRIATE FOR ANY CHANGES OR COMPLICATIONS THROUGHOUT THE CERTIFICATION PERIOD. PATIENT/CAREGIVER WILL PERFORM THERAPEUTIC EXERCISE/S AND DEMONSTRATE PARTICIPATION IN A HOME PROGRAM WITH SUPEVISION OF CG TO IMPROVE FUNCTION OF AMBULATION. PATIENT/CAREGIVER WILL DEMONSTRATE SAFE MOD I TRANSFERS USING APPROPRIATE ASSISTIVE DEVICE (FWW) BODY MECHANICS AND EQUIPMENT TO IMPROVE FUNCTION OF ADLS/IADLS. PATIENT/CAREGIVER WILL DEMONSTRATE IMPROVED GAIT TECHNIQUES TO MINIMIZE RISK OF INJURY AND DEMO ABILITY TO AMB 50' MOD I WITH FWW TO INCREASE FUNCTION OF TOILETING. PATIENT/CAREGIVER WILL DEMONSTRATE/VERBALIZE UNDERSTANDING OF RECOMMENDATIONS TO INCREASE SAFETY IN THE HOME AND FALL PREVENTION TO IMPROVE FUNCTION OF SAFE STEP NEGOTIATION WITH ASSIST OF CG. PATIENT/CAREGIVER WILL DEMONSTRATE IMPROVED BALANCE AND REDUCE THE RISK OF FALLS AND INJURY WITH TINETTI >=19/28 TO IMPROVE FUNCTION OF AMBULATION. Reason for Visit MINIMUM ASSIST WITH TRANSFER/AMBULATION/ADLS Encounters Start Date/Time End Date/Time Encounter Type Admission Type Attending [facility] Care [facility] Care Department Encounter ID Discharge Date Discharge Status Discharge Condition Discharge Reason Percent Goals Met 2023-06-25 00:00:00 2023-08-22 00:00:00 Outpatient NEW ADMISSION KRISH COY [facility] [id number] 2023-08-22 00:00:00 DISCHARGE TO HOME OR SELF CARE MINIMUM ASSIST WITH TRANSFER/A MBULATION/ ADLS GOALS MET ( ONLY) 96.00
--- OUTSIDE RECORDS SUMMARY | 2024-04-09 21:30 | XMS_ITS | Clinical Summary ---
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 Active 06-24 00:00: 00 FRETTED STRING INSTRUMENT REPAIRER (CURRENT) USE OF ANTITHROMBOT ICS/ANTIPLAT ELETS Active 06-24 00:00: 00 SENIOR LIVING (CURRENT) USE OF ORAL HYPOGLYCEMIC DRUGS Active [...] 70 mg tablet 06-24 00:00: 00 Yes [id number] 1 tablet WEEKLY 1 tablet WEEKLY (route: oral) Med Classific ation: Endocrine amlodipine 2.5 mg tablet 06-24 00:00: 00 07-29 23:59 :00 No [id number] 1 tablet DAILY 1 tablet DAILY (route: oral) Med Classific ation: Cardiovas cular Therapy Agents Aspirin Childrens 81 mg chewable tablet 06-24 00:00: 00 Yes [id number] 1 tablet DAILY 1 tablet DAILY (route: oral) Med Classific ation: Hematolog ical Agents clopidogrel 75 mg tablet 06-24 00:00: 00 Yes [id number] 1 tablet DAILY 1 tablet DAILY (route: oral) Med Classific ation: Hematolog ical Agents Colace 100 mg capsule 06-24 00:00: 00 Yes [id number] 1 capsule DAILY 1 capsule DAILY (route: oral) Med Classific ation: Gastroint estinal Therapy Agents Farxiga 5 mg tablet 06-24 00:00: 00 Yes [id number] 1 tablet DAILY 1 tablet DAILY (route: oral) Med Classific ation: Endocrine ferrous sulfate 325 mg (65 mg iron) tablet 06-24 00:00: 00 Yes [id number] 1 tablet DAILY 1 tablet DAILY (route: oral) Med Classific ation: Electroly te Balance-N utritiona l Products memantine 10 mg tablet 06-24 00:00: 00 Yes [id number] 1 tablet 2 TIMES DAILY 1 tablet 2 TIMES DAILY (route: oral) Med Classific ation: Cognitive Disorder Therapy metformin 500 mg tablet 06-24 00:00: 00 Yes [id number] 1 tablet 2 TIMES DAILY 1 tablet 2 TIMES DAILY (route: oral) Med Classific ation: Endocrine Miralax 17 gram oral powder packet 06-24 00:00: 00 Yes [id number] 1 packet DAILY 1 packet DAILY (route: oral) Med Classific ation: Gastroint estinal Therapy Agents multivitami n tablet 06-24 00:00: 00 Yes [id number] 1 tablet DAILY 1 tablet DAILY (route: oral) Med Classific ation: Electroly te Balance-N utritiona l Products omeprazole 20 mg capsule,del ayed release 06-24 00:00: 00 Yes [id number] 1 capsule DAILY 1 capsule DAILY (route: oral) Med Classific ation: Gastroint estinal Therapy Agents rosuvastati n 20 mg tablet 06-24 00:00: 00 07-29 23:59 :00 No [id number] 1 tablet BEDTIME 1 tablet BEDTIME (route: oral) Med Classific ation: Cardiovas cular Therapy Agents Vitamin C 250 mg tablet 06-24 00:00: 00 Yes [id number] 2 tablet DAILY 2 tablet DAILY (route: oral) Med Classific ation: Electroly te Balance-N utritiona l Products Trulicity 0.75 mg/0.5 mL subcutaneou s pen injector 06-26 00:00: 00 07-29 23:59 :00 No [id number] 0.75 mg WEEKLY 0.75 mg WEEKLY (route: subcutaneo us) Med Classific ation: Endocrine rosuvastati n 10 mg tablet 07-29 00:00: 00 Yes [id number] 10 mg BEDTIME 10 mg BEDTIME (route: oral) Med Classific ation: Cardiovas cular Therapy Agents Trulicity 1.5 mg/0.5 mL subcutaneou s pen injector 07-29 00:00: 00 Yes [id number] 1.5 mL WEEKLY 1.5 mL WEEKLY (route: [...] PERIWOUND, APPLY BETADINE TO WOUND BED, LEAVE PAVILION CUTTER. WOUND CARE TO BE PERFORMED EVERY DAY [...] CVA, RISK FACTORS, AND METHODS TO MANAGE FRETTED STRING INSTRUMENT REPAIRER EFFECTS OF CVA. [code = SKILLED NURSE TO INSTRUCT PATIENT/CAREGIVER ON WARNING SIGNS OF CVA, RISK FACTORS, AND METHODS TO MANAGE FRETTED STRING INSTRUMENT REPAIRER EFFECTS OF CVA.] Future Scheduled Test SKILLED [...] PRN VIRTUAL VISITS MAY BE PERFORMED UTILIZING TELELinkoTec SYSTEM TO OPTIMIZE SKILLED SERVICES FURNISHED ON [...] FOR FALL AND INJURY INCLUDING PARTICIPATION IN [facility] BALANCE SPECIALTY PROGRAM SUMMARY OF THERAPY EVAL/ASSESSMENT FINDINGS AND REASON(S) SKILLS OF A THERAPIST ARE INDICATED: PHYSICAL THERAPY EVALUATION (07/08/23) PATIENT IS A 77 YO FEMALE WITH PHYSICAL THERAPY REFERRAL AFTER HOSPITALIZATION ON 05/16/23 DUE TO WEAKNESS AND MD RD DX: COVID WITH METABOLIC ENCEPHALOPATHY, REHAB AT 05/24/23 [facility]. PMH: HTN, DEMENTIA, DM, CVA, MORBID OBESITY. FALL HISTORY: NONE REPORTED. PATIENT LIVES IN 1ST FLOOR APARTMENT WITH SUPPORTIVE SON TIA WHO IS PAID SENIOR INTERNET SALES CONSULTANT, 1 STEP TO NEGOTIATE. PLOF: PATIENT MOD I AMB WITH AND WITHOUT FWW IN HOME WITH TRANSFERS AND AMB, HOME ECONOMICS EXPERT SON TIA ABLE TO LEAVE PATIENT FOR 3 HRS, PATIENT HOME ECONOMICS EXPERT WITH OUTDOOR AMB. CLOF: AMB WITH FWW IN HOME, 15/10 SUPERVISION, 30 MIN DAILY PEDDLAR WITH ASSIST. DME: FWW, BARIATRIC ROLLATOR, TUB TRANSFER BENCH, GRAB BARS, BED RAIL SAFETY RECOMMENDATIONS: RECOMMEND HANDICAPED PLACARD ACQUISITON AND PT-1 DISABLE TRANSPORT SERVICES FORM, [employer] REPORTS HE IS UNABLE TO DRIVE OUTSIDE [employer]. THIS THERAPIST TO PROVIDE HANDICAPED PLACARD ACQUISITON [...] FOR FALL AND INJURY INCLUDING PARTICIPATION IN [facility] BALANCE SPECIALTY PROGRAM SUMMARY OF THERAPY EVAL/ASSESSMENT FINDINGS AND REASON(S) SKILLS OF A THERAPIST ARE INDICATED: PHYSICAL THERAPY EVALUATION (07/08/23) PATIENT IS A 77 YO FEMALE WITH PHYSICAL THERAPY REFERRAL AFTER HOSPITALIZATION ON 05/16/23 DUE TO WEAKNESS AND MD RD DX: COVID WITH METABOLIC ENCEPHALOPATHY, [facility] PMH: HTN, DEMENTIA, DM, CVA, MORBID OBESITY. FALL HISTORY: NONE REPORTED. PATIENT LIVES IN 1ST FLOOR APARTMENT WITH SUPPORTIVE SON TIA WHO IS PAID SENIOR INTERNET SALES CONSULTANT, 1 STEP TO NEGOTIATE. PLOF: PATIENT MOD I AMB WITH AND WITHOUT FWW IN HOME WITH TRANSFERS AND AMB, HOME ECONOMICS EXPERT SON TIA ABLE TO LEAVE PATIENT FOR 3 HRS, PATIENT HOME ECONOMICS EXPERT WITH OUTDOOR AMB. CLOF: AMB WITH FWW [...] CARE WILL BE ESTABLISHED THAT MEETS PATIENT'S RETIREMENT NEEDS AND INCLUDES PATIENT GOAL FOR HOME [...] End Date/Time Encounter Type Admission Type Attending [facility] Care [facility] Care Department Encounter ID Discharge Date Discharge Status Discharge Condition Discharge Reason Percent Goals Met 2023-06-25 00:00:00 2023-08-22 00:00:00 Outpatient NEW ADMISSION KRISH COY [facility] [id number] 2023-08-22 00:00:00 DISCHARGE TO HOME OR SELF CARE MINIMUM ASSIST WITH TRANSFER/A MBULATION/ ADLS GOALS MET ( ONLY) 96.00
--- OUTSIDE RECORDS SUMMARY | 2024-04-09 21:30 | XMS_ITS | Clinical Summary ---
Author Organization Unknown Care Team Providers Care Mmi Teacher Name Role Phone LENARD KWOK MD, MARIAH Unavailable Unavailable JACKSON CALI, KHURRAM Unavailable Unavail able MINDI RN, BRADEN Unavailable Unavailable ZBIGNIEW RN, KRISH Unavailable Unavailable Payers Payer Name Policy Type Policy Number Effective Date Expira tion Date MEDICARE - [place] - PD [id number] [facility]ICAID 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 Active 06-24 00:00: 00 VINYL FLOORING INSTALLER (CURRENT) USE OF ANTITHROMBOT ICS/ANTIPLAT ELETS Active 06-24 00:00: 00 RETIREMENT (CURRENT) USE OF ORAL HYPOGLYCEMIC DRUGS Active [...] 70 mg tablet 06-24 00:00: 00 Yes [id number] 1 tablet WEEKLY 1 tablet WEEKLY (route: oral) Med Classific ation: Endocrine amlodipine 2.5 mg tablet 06-24 00:00: 00 07-29 23:59 :00 No [id number] 1 tablet DAILY 1 tablet DAILY (route: oral) Med Classific ation: Cardiovas cular Therapy Agents Aspirin Childrens 81 mg chewable tablet 06-24 00:00: 00 Yes [id number] 1 tablet DAILY 1 tablet DAILY (route: oral) Med Classific ation: Hematolog ical Agents clopidogrel 75 mg tablet 06-24 00:00: 00 Yes [id number] 1 tablet DAILY 1 tablet DAILY (route: oral) Med Classific ation: Hematolog ical Agents Colace 100 mg capsule 06-24 00:00: 00 Yes [id number] 1 capsule DAILY 1 capsule DAILY (route: oral) Med Classific ation: Gastroint estinal Therapy Agents Farxiga 5 mg tablet 06-24 00:00: 00 Yes [id number] 1 tablet DAILY 1 tablet DAILY (route: oral) Med Classific ation: Endocrine ferrous sulfate 325 mg (65 mg iron) tablet 06-24 00:00: 00 Yes [id number] 1 tablet DAILY 1 tablet DAILY (route: oral) Med Classific ation: Electroly te Balance-N utritiona l Products memantine 10 mg tablet 06-24 00:00: 00 Yes [id number] 1 tablet 2 TIMES DAILY 1 tablet 2 TIMES DAILY (route: oral) Med Classific ation: Cognitive Disorder Therapy metformin 500 mg tablet 06-24 00:00: 00 Yes [id number] 1 tablet 2 TIMES DAILY 1 tablet 2 TIMES DAILY (route: oral) Med Classific ation: Endocrine Miralax 17 gram oral powder packet 06-24 00:00: 00 Yes [id number] 1 packet DAILY 1 packet DAILY (route: oral) Med Classific ation: Gastroint estinal Therapy Agents multivitami n tablet 06-24 00:00: 00 Yes [id number] 1 tablet DAILY 1 tablet DAILY (route: oral) Med Classific ation: Electroly te Balance-N utritiona l Products omeprazole 20 mg capsule,del ayed release 06-24 00:00: 00 Yes [id number] 1 capsule DAILY 1 capsule DAILY (route: oral) Med Classific ation: Gastroint estinal Therapy Agents rosuvastati n 20 mg tablet 06-24 00:00: 00 07-29 23:59 :00 No [id number] 1 tablet BEDTIME 1 tablet BEDTIME (route: oral) Med Classific ation: Cardiovas cular Therapy Agents Vitamin C 250 mg tablet 06-24 00:00: 00 Yes [id number] 2 tablet DAILY 2 tablet DAILY (route: oral) Med Classific ation: Electroly te Balance-N utritiona l Products Trulicity 0.75 mg/0.5 mL subcutaneou s pen injector 06-26 00:00: 00 07-29 23:59 :00 No [id number] 0.75 mg WEEKLY 0.75 mg WEEKLY (route: subcutaneo us) Med Classific ation: Endocrine rosuvastati n 10 mg tablet 07-29 00:00: 00 Yes [id number] 10 mg BEDTIME 10 mg BEDTIME (route: oral) Med Classific ation: Cardiovas cular Therapy Agents Trulicity 1.5 mg/0.5 mL subcutaneou s pen injector 07-29 00:00: 00 Yes [id number] 1.5 mL WEEKLY 1.5 mL WEEKLY (route: [...] PERIWOUND, APPLY BETADINE TO WOUND BED, LEAVE REGRIND MILL OPERATOR. WOUND CARE TO BE PERFORMED EVERY DAY [...] CVA, RISK FACTORS, AND METHODS TO MANAGE VINYL FLOORING INSTALLER EFFECTS OF CVA. [code = SKILLED NURSE TO INSTRUCT PATIENT/CAREGIVER ON WARNING SIGNS OF CVA, RISK FACTORS, AND METHODS TO MANAGE VINYL FLOORING INSTALLER EFFECTS OF CVA.] Future Scheduled Test SKILLED [...] PRN VIRTUAL VISITS MAY BE PERFORMED UTILIZING TELEGlobant SYSTEM TO OPTIMIZE SKILLED SERVICES FURNISHED ON [...] FOR FALL AND INJURY INCLUDING PARTICIPATION IN [facility] BALANCE SPECIALTY PROGRAM SUMMARY OF THERAPY EVAL/ASSESSMENT FINDINGS AND REASON(S) SKILLS OF A THERAPIST ARE INDICATED: PHYSICAL THERAPY EVALUATION (07/08/23) PATIENT IS A 77 YO FEMALE WITH PHYSICAL THERAPY REFERRAL AFTER HOSPITALIZATION ON 05/16/23 DUE TO WEAKNESS AND MD RD DX: COVID WITH METABOLIC ENCEPHALOPATHY, REHAB AT 05/24/23 [facility]. PMH: HTN, DEMENTIA, DM, CVA, MORBID OBESITY. FALL HISTORY: NONE REPORTED. PATIENT LIVES IN 1ST FLOOR APARTMENT WITH SUPPORTIVE SON TIA WHO IS PAID SUPERIOR COURT JUDGE, 1 STEP TO NEGOTIATE. PLOF: PATIENT MOD I AMB WITH AND WITHOUT FWW IN HOME WITH TRANSFERS AND AMB, CERTIFIED NUCLEAR MEDICINE TECHNOLOGIST SON TIA ABLE TO LEAVE PATIENT FOR 3 HRS, PATIENT CERTIFIED NUCLEAR MEDICINE TECHNOLOGIST WITH OUTDOOR AMB. CLOF: AMB WITH FWW IN HOME, 15/10 SUPERVISION, 30 MIN DAILY PEDDLAR WITH ASSIST. DME: FWW, BARIATRIC ROLLATOR, TUB TRANSFER BENCH, GRAB BARS, BED RAIL SAFETY RECOMMENDATIONS: RECOMMEND HANDICAPED PLACARD ACQUISITON AND PT-1 DISABLE TRANSPORT SERVICES FORM, [employer] REPORTS [facility] THIS THERAPIST TO PROVIDE HANDICAPED PLACARD [...] FOR FALL AND INJURY INCLUDING PARTICIPATION IN [facility] BALANCE SPECIALTY PROGRAM SUMMARY OF THERAPY EVAL/ASSESSMENT FINDINGS AND REASON(S) SKILLS OF A THERAPIST ARE INDICATED: PHYSICAL THERAPY EVALUATION (07/08/23) PATIENT IS A 77 YO FEMALE WITH PHYSICAL THERAPY REFERRAL AFTER HOSPITALIZATION ON 05/16/23 DUE TO WEAKNESS AND MD RD DX: COVID WITH METABOLIC ENCEPHALOPATHY[facility] PMH: HTN, DEMENTIA, DM, CVA, MORBID OBESITY. FALL HISTORY: NONE REPORTED. PATIENT LIVES IN 1ST FLOOR APARTMENT WITH SUPPORTIVE SON TIA WHO IS PAID SUPERIOR COURT JUDGE, 1 STEP TO NEGOTIATE. PLOF: PATIENT MOD I AMB WITH AND WITHOUT FWW IN HOME WITH TRANSFERS AND AMB, CERTIFIED NUCLEAR MEDICINE TECHNOLOGIST SON TIA ABLE TO LEAVE PATIENT FOR 3 HRS, PATIENT CERTIFIED NUCLEAR MEDICINE TECHNOLOGIST WITH OUTDOOR AMB. CLOF: AMB WITH FWW [...] CARE WILL BE ESTABLISHED THAT MEETS PATIENT'S JAIL NEEDS AND INCLUDES PATIENT GOAL FOR HOME [...] End Date/Time Encounter Type Admission Type Attending [facility] Care Department Encounter ID Discharge Date Discharge Status Discharge Condition Discharge Reason Percent Goals Met 2023-06-25 00:00:00 2023-08-22 00:00:00 Outpatient NEW ADMISSION KRISH COY [facility] [id number] 2023-08-22 00:00:00 DISCHARGE TO HOME OR SELF CARE MINIMUM ASSIST WITH TRANSFER/A MBULATION/ ADLS GOALS MET ( ONLY) 96.00
[2024-04-10 01:04] LABS: Glucose, Whole Blood 185 mg/dL (60-115)
--- NOTE | 2024-04-10 01:09 | ED_ITS ---
HPI - Nausea/Vomiting/Diarrhea General Chief complaint: Nausea/Vomiting/Diarrhea Stated complaint: High sugar/vomiting Time Seen by Provider: 04/10/24 01:05 Source: patient and family (Son) Mode of arrival: ambulatory Limitations: language barrier (Patient's speaks Israeli only, [facility] [place], son speaks Israeli and German) History of Present Illness ED Provider: Dr. Juan Phillips HPI Narrative: 78-year-old female with a history memory deficits, diabetes mellitus, hypertension, GERD, DVT who presents emergency department for evaluation of vomiting and elevated blood sugars. According to the patient's son, the patient has dementia and is not a reliable informant. The son states that he has been sick for the last several days with a viral illness with vomiting diarrhea and chills. He states that his mother had 1 episode of vomiting today and had very poor food and fluid intake throughout the day. The patient's blood sugar was elevated at 331, the son was concerned that the patient may have the same viral illness that he had therefore he brought her to the emergency department for evaluation. Related Data Home Medications ?Medication ?Instructions ?Recorded ?Confirmed aspirin 81 mg tablet,delayed 81 mg PO DAILY 05/21/23 02/17/24 release Previous Rx's ?Medication ?Instructions ?Recorded memantine 10 mg tablet 10 mg PO BID 30 days #60 tabs 04/17/23 docusate sodium 100 mg capsule 200 mg (2 x 100 mg) PO BEDTIME #60 05/16/23 (Colace) caps polyethylene glycol 3350 17 17 g PO DAILY 30 days #510 grams 05/16/23 gram/dose oral powder (Miralax) multivitamin-calcium, 1 tab PO DAILY #90 tabs 06/26/23 [id number] isoflavone 400 mcg-60 mg tablet (One-A-Day Menopause Formula) metformin 500 mg tablet 500 mg PO BIDWMEAL 90 days #180 08/12/23 tabs empagliflozin 25 mg tablet 25 mg PO DAILY 90 days #90 tabs 12/09/23 (Jardiance) rosuvastatin 10 mg tablet 10 mg PO DAILY 90 days #90 tabs 01/27/24 alendronate 70 mg tablet 70 mg PO QWEEK 90 days #13 tabs 02/22/24 dulaglutide 3 mg/0.5 mL 3 mg (0.5 mL) subcut QWEEK 90 days 01/07/25 subcutaneous pen injector #6.5 mL (Trulicity) clopidogrel 75 mg tablet 75 mg PO DAILY #90 tabs 04/01/24 ondansetron 4 mg disintegrating 4 mg PO Q6-8H PRN nausea and 04/10/24 tablet vomiting #14 tabs Allergies Allergy/AdvReac Type Severity Reaction Status Date / Time No Known Allergies Allergy Verified 04/09/24 17:45 [No Known Allergies*] Review of Systems 2 Review of Systems: Yes Other (Unreliable secondary to dementia) [facility] Past Medical History [facility] Narrative: Social history: Patient lives at home with her son. She denies tobacco, alcohol and drug use Medical History Hypertension, essential Stroke Stroke Type 2 diabetes mellitus Hyperlipidemia Dementia Family history of ovarian cancer Diabetes mellitus Microalbuminuria GERD (gastroesophageal reflux disease) Hyperlipidemia LDL goal <70 Type 2 diabetes mellitus with diabetic polyneuropathy Obesity due to excess calories Memory loss Cough Essential hypertension Long-term use of aspirin therapy History of DVT (deep vein thrombosis) Surgical History History of total abdominal hysterectomy and bilateral salpingo-oophorectomy History of cataract surgery Family History Family History Father No problems noted. Mother Colon cancer Son Diabetes Social History Social History Household Members: Family Household Members Other:: lives with g. son Housing: Apartment Do you presently have visiting nurse or other home services: No Unable to assess alcohol history related to: Unknown Alcohol intake: never Comment: family at bedside. Patient Tobacco Use Status: Never used Tobacco e-Cigarette/Vaping Use: Never Used Second Hand Smoke Exposure: No Advance Directives: Yes Advance Directives on File: Yes Advance Directives Date on File: 02/23/21 Do you have a plan to hurt others: No Plan service: No Current occupational status: disabled Cognitive needs: No Hearing needs: No Vision needs: No Physical Exam 2 Vital Signs: Vital Signs: Last Vital Signs Temp 99.0 F 04/10/24 03:15 Pulse 72 04/10/24 03:15 Resp 16 04/10/24 03:15 BP 116/56 L 04/10/24 03:15 Pulse Ox 96 04/10/24 03:15 O2 Del Method Room Air 04/10/24 03:15 BMI result Body Mass Index 34.0 Vital signs revealed an elevated heart rate of 108, low blood pressure of 89/53 otherwise unremarkable. Exam: General: Awake, alert in no distress, weight was 87 kg, elevated BMI of 34 kg per m2 Head: Normocephalic, atraumatic EENT: PERRL, Lids normal, sclera normal, conjunctiva normal, nose normal , ears normal, throat without erythema or exudates Neck: Supple, no adenopathy Lung: breath sounds symmetric, no wheezing, rales or rhonchi Chest: symmetric movement, nontender Heart: regular rate and rhythm, normal S1, S2 no murmurs or rubs Abdomen: soft, non-tender, nondistended, normal bowel sounds Back: no vertebral tenderness, no CVAT Extremities: no deformities, moves all extremities symmetrically Neuro: Awake, alert, oriented to person, normal speech Psych: Pleasant, cooperative Medications Administered Discontinued Medications Generic Name Dose Route Start Last Admin Trade Name Freq PRN Reason Stop Dose Admin Sodium Chloride 1,000 mls @ 999 mls/hr 04/10/24 01:29 04/10/24 02:56 Ns IV 04/10/24 02:29 Infused .Q1H1M STA Infusion Medical Decision Making Medical Decision Making MDM Narrative: 78-year-old female with a history memory deficits, diabetes mellitus, hypertension, GERD, DVT who presents emergency department for evaluation of poor food and fluid intake, elevated glucose, vomiting x1 today. Patient's son is sick with viral gastroenteritis with symptoms including nausea, vomiting, chills and diarrhea. Patient was vital signs revealed elevated heart rate and a low blood pressure. Physical examination was unremarkable Differential diagnosis: ?Includes but is not limited to viral syndrome, viral gastroenteritis, myocardial infarction, myocardial ischemia, anemia, electrolyte abnormalities Course: 03:07 hours My interpretation patient's laboratory evaluation as follows: CBC was normal. Potassium slightly elevated at 5.3. Chloride and bicarb low 109 and 18. BUN was elevated at 33-similar elevations in the past. Creatinine normal. Glucose elevated 185. AST and ALT elevated 35 and 53-similar elevations in the past. Alk-phos was elevated 175-similar elevations in the past. Patient was bilirubin was normal. High sensitive troponin I was below detectable limits. COVID-19, influenza and RSV were negative. Patient's presentation is consistent with a viral syndrome. Patient was treated with normal saline IV x1 L. The patient's blood pressure was 116/56 at the time of discharge Patient was prescribed Zofran 4 mg ODT every 6-8 hours as needed for nausea and vomiting. She was given printed and verbal instructions and discharged home in the care of her son. Admission/Observation Consideration of admission/observation: Escalation of care including admission/observation considered (Yes) Lab Data MDM Lab Attestation statement: I reviewed the patient's lab results. 04/09/24 18:58 04/09/24 18:58 Labs: Lab Results 04/09/24 04/10/24 Range/Units 18:58 00:58 WBC 11.9 H (4.8-10.8) X10*3/uL RBC 5.31 (4.20-5.50) X10*6/uL Hgb 15.2 (12.0-16.0) g/dl Hct 47.4 H (37.0-47.0) % MCV 89.3 (80.0-98.0) fL MCH 28.6 (27.0-33.0) pg MCHC 32.1 (31.0-35.0) g/dl RDW 14.7 (11.0-16.0) % Plt Count 172 (160-400) X10*3/uL MPV 9.9 (9.4-12.3) fL Immature Gran % (Auto) 0.3 (0.0-0.4) % Neut % (Auto) 95.0 H (45-73) % Lymph % (Auto) 1.7 L (20-40) % [place] % (Auto) 2.4 (2-11) % Eos % (Auto) 0.1 (0-4) % Baso % (Auto) 0.5 (0-2) % Lymph # (Auto) 0.2 L (1.2-4.9) X10*3/uL [place] # (Auto) 0.3 (0.1-1.2) X10*3/uL Eos # (Auto) 0.0 (0.0-0.4) X10*3/uL Baso # (Auto) 0.1 (0.0-0.2) X10*3/uL Abs Immat Gran (auto) 0.03 (0.00-0.03) X10*3/uL Absolute Neuts (auto) 11.3 H (2.0-8.3) x10*3/uL Absolute Nucleated RBC 0.000 (0.0-0.012) X10*3/uL Nucleated RBC % (auto) 0.0 (0.0-0.2) /100WBC Smear Tech's Comments VERIFIED Sodium 135 (135-145) mmol/L Potassium 5.3 H D (3.3-5.1) mmol/L Chloride 109 H (96-108) mmol/L Carbon Dioxide 18 L (22-29) mmol/L Anion Gap 13 (12-20) BUN 33 H (9-16) mg/dL Creatinine 0.91 (0.5-1.4) mg/dL Estim Creat Clear Calc 52.4 Estimated GFR 60 POC Glucose 185 H (60-115) mg/dL Random Glucose 242 H (60-115) mg/dL Calcium 9.0 D (8.4-10.2) mg/dL Total Bilirubin 0.3 (0.0-1.0) mg/dL AST 37 H (5-31) U/L ALT 53 H (0-31) U/L Alkaline Phosphatase 175 H (39-117) U/L Troponin I High Sens < 2.7 (<3.5-17.0) ng/L Total Protein 7.2 (6.5-8.0) g/dL Albumin 3.4 L (3.5-5.0) g/dL Influenza Type A (PCR) NEGATIVE (Negative) Influenza Type B (PCR) NEGATIVE (Negative) RSV RNA Qual (PCR) NEGATIVE (Negative) SARS-CoV-2 RNA (RT-PCR) NEGATIVE (Negative) Independent Interpretation I performed an independent interpretation of an: Rhythm Strip Interpretation: My independent interpretation the patient's 12 EKG done at 21:25 hours is as follows: Sinus tachycardia with a rate of 118, normal AR interval, prolonged QRS duration of 102 milliseconds, normal QTC, no ST segment elevation, no ST segment depression, RR prime in V1 through V6 consistent with incomplete right bundle-branch block, no PACs, no PVCs. Compared to an EKG dated 05/20/2023 no significant change. Independent Historian Clinical information obtained from an independent historian. History obtained from or confirmed by: Other (Son) Chronic Conditions Patient?s care impacted by: Diabetes Discharge Plan Discharge Clinical Impression: Viral syndrome, Vomiting Patient Disposition: Home, Self-Care Additional Instructions: Your blood work was unremarkable. Your COVID-19, influenza and RSV tests were negative. Your EKG was normal. Your symptoms are consistent with a viral infection. Increase your fluid intake to prevent dehydration. Take Zofran ODT 4 mg pills, 1 pill dissolved in your mouth every 8 hours as needed for nausea and vomiting. Follow-up with your doctor in 2 days. Please return to the emergency department if your symptoms get worse or if you develop any symptoms that are concerning to you. Prescriptions: New ondansetron 4 mg tablet,disintegrating 4 mg PO Q6-8H PRN (Reason: nausea and vomiting) Qty: 14 0RF No Action memantine 10 mg tablet 10 mg PO BID 30 Days Qty: 60 0RF metformin 500 mg tablet 500 mg PO BIDWMEAL 90 Days Qty: 180 3RF rosuvastatin 10 mg tablet 10 mg PO DAILY 90 Days Qty: 90 1RF alendronate 70 mg tablet 70 mg PO QWEEK 90 Days Qty: 13 1RF Trulicity 3 mg/0.5 mL pen injector 3 mg subcut QWEEK 90 Days Qty: 6.5 1RF clopidogrel 75 mg tablet 75 mg PO DAILY Qty: 90 0RF aspirin 81 mg Tablet,Delayed Release (Dr/Ec) 81 mg PO DAILY One-A-Day Menopause Formula 400-60 mcg-mg tablet 1 tab PO DAILY Qty: 90 0RF docusate sodium [Colace] 100 mg capsule 200 mg PO BEDTIME Qty: 60 5RF polyethylene glycol 3350 [Miralax] 17 gram/dose powder 17 g PO DAILY 30 Days Qty: 510 6RF Jardiance 25 mg tablet 25 mg PO DAILY 90 Days Qty: 90 1RF Interventions: LWBS Worksheet Last Done: 04/09/24 22:24 ED Discharge Assessment Last Done: 04/10/24 03:15 Discharge Date/Time: 04/10/24 03:15 Print Language: Israeli
[2024-04-10 01:21] VITALS: BP 98/47; PULSE 108; RESP 16; O2SAT 98
--- NOTE | 2024-04-10 01:21 | PC.NURSE ---
Hypotensive 90s/40s and 80s/50s. Checked bilaterally. aware and is at bedside with engine specialist at this time. Patient denies dizziness, has nausea/vomiting but hasn't vomited since coming to [facility]. POC glucose within normal range at this time.
[2024-04-10 01:22] VITALS: BP 89/53
[2024-04-10] MEDS: 0.9 % Sodium Chloride 1,000 ML 999 ML IV (01:55)
--- OUTSIDE RECORDS SUMMARY | 2024-04-10 02:05 | XMS_ITS | Clinical Summary ---
Author Organization Unknown Care Team Providers Care Sales Center Associate Name Role Phone LENARD KWOK MD, MARIAH Unavailable Unavailable JACKSON CALI, KHURRAM Unavailable Unavail able MINDI RN, BRADEN Unavailable Unavailable ZBIGNIEW RN, KRISH Unavailable Unavailable Payers Payer Name Policy Type Policy Number Effective Date Expira tion Date MEDIC[place] - [place] [id number] MEDICAID [facility] [id number] Problems Condition Name Condition Details Condition Category [...] OF LEFT HEEL Active 06-24 00:00: 00 PIPE ORGAN TUNER AND REPAIRER (CURRENT) USE OF ASPIRIN Active 06-24 00:00: 00 PIPE ORGAN TUNER AND REPAIRER (CURRENT) USE OF ANTITHROMBOT ICS/ANTIPLAT ELETS Active 06-24 00:00: 00 ALF (CURRENT) USE OF ORAL HYPOGLYCEMIC DRUGS Active [...] 70 mg tablet 06-24 00:00: 00 Yes [id number] 1 tablet WEEKLY 1 tablet WEEKLY (route: oral) Med Classific ation: Endocrine amlodipine 2.5 mg tablet 06-24 00:00: 00 07-29 23:59 :00 No [id number] 1 tablet DAILY 1 tablet DAILY (route: oral) Med Classific ation: Cardiovas cular Therapy Agents Aspirin Childrens 81 mg chewable tablet 06-24 00:00: 00 Yes [id number] 1 tablet DAILY 1 tablet DAILY (route: oral) Med Classific ation: Hematolog ical Agents clopidogrel 75 mg tablet 06-24 00:00: 00 Yes [id number] 1 tablet DAILY 1 tablet DAILY (route: oral) Med Classific ation: Hematolog ical Agents Colace 100 mg capsule 06-24 00:00: 00 Yes [id number] 1 capsule DAILY 1 capsule DAILY (route: oral) Med Classific ation: Gastroint estinal Therapy Agents Farxiga 5 mg tablet 06-24 00:00: 00 Yes [id number] 1 tablet DAILY 1 tablet DAILY (route: oral) Med Classific ation: Endocrine ferrous sulfate 325 mg (65 mg iron) tablet 06-24 00:00: 00 Yes [id number] 1 tablet DAILY 1 tablet DAILY (route: oral) Med Classific ation: Electroly te Balance-N utritiona l Products memantine 10 mg tablet 06-24 00:00: 00 Yes [id number] 1 tablet 2 TIMES DAILY 1 tablet 2 TIMES DAILY (route: oral) Med Classific ation: Cognitive Disorder Therapy metformin 500 mg tablet 06-24 00:00: 00 Yes [id number] 1 tablet 2 TIMES DAILY 1 tablet 2 TIMES DAILY (route: oral) Med Classific ation: Endocrine Miralax 17 gram oral powder packet 06-24 00:00: 00 Yes [id number] 1 packet DAILY 1 packet DAILY (route: oral) Med Classific ation: Gastroint estinal Therapy Agents multivitami n tablet 06-24 00:00: 00 Yes [id number] 1 tablet DAILY 1 tablet DAILY (route: oral) Med Classific ation: Electroly te Balance-N utritiona l Products omeprazole 20 mg capsule,del ayed release 06-24 00:00: 00 Yes [id number] 1 capsule DAILY 1 capsule DAILY (route: oral) Med Classific ation: Gastroint estinal Therapy Agents rosuvastati n 20 mg tablet 06-24 00:00: 00 07-29 23:59 :00 No [id number] 1 tablet BEDTIME 1 tablet BEDTIME (route: oral) Med Classific ation: Cardiovas cular Therapy Agents Vitamin C 250 mg tablet 06-24 00:00: 00 Yes [id number] 2 tablet DAILY 2 tablet DAILY (route: oral) Med Classific ation: Electroly te Balance-N utritiona l Products Trulicity 0.75 mg/0.5 mL subcutaneou s pen injector 06-26 00:00: 00 07-29 23:59 :00 No [id number] 0.75 mg WEEKLY 0.75 mg WEEKLY (route: subcutaneo us) Med Classific ation: Endocrine rosuvastati n 10 mg tablet 07-29 00:00: 00 Yes [id number] 10 mg BEDTIME 10 mg BEDTIME (route: oral) Med Classific ation: Cardiovas cular Therapy Agents Trulicity 1.5 mg/0.5 mL subcutaneou s pen injector 07-29 00:00: 00 Yes [id number] 1.5 mL WEEKLY 1.5 mL WEEKLY (route: [...] PERIWOUND, APPLY BETADINE TO WOUND BED, LEAVE INVENTORY CLERK. WOUND CARE TO BE PERFORMED EVERY DAY [...] CVA, RISK FACTORS, AND METHODS TO MANAGE PIPE ORGAN TUNER AND REPAIRER EFFECTS OF CVA. [code = SKILLED NURSE TO INSTRUCT PATIENT/CAREGIVER ON WARNING SIGNS OF CVA, RISK FACTORS, AND METHODS TO MANAGE PIPE ORGAN TUNER AND REPAIRER EFFECTS OF CVA.] Future Scheduled Test [...] PRN VIRTUAL VISITS MAY BE PERFORMED UTILIZING [employer] SYSTEM TO OPTIMIZE SKILLED SERVICES FURNISHED ON [...] FOR FALL AND INJURY INCLUDING PARTICIPATION IN [facility] SPECIALTY PROGRAM SUMMARY OF THERAPY EVAL/ASSESSMENT FINDINGS AND REASON(S) SKILLS OF A THERAPIST ARE INDICATED: PHYSICAL THERAPY EVALUATION (07/08/23) PATIENT IS A 77 YO FEMALE WITH PHYSICAL THERAPY REFERRAL AFTER HOSPITALIZATION ON 05/16/23 DUE TO WEAKNESS AND MD RD DX: COVID WITH METABOLIC ENCEPHALOPATHY, REHAB AT 05/24/23 [facility]. PMH: HTN, DEMENTIA, DM, CVA, MORBID OBESITY. FALL HISTORY: NONE REPORTED. PATIENT LIVES IN 1ST FLOOR APARTMENT WITH SUPPORTIVE SON TIA WHO IS PAID UNEMPLOYMENT EXAMINER, 1 STEP TO NEGOTIATE. PLOF: PATIENT MOD I AMB WITH AND WITHOUT FWW IN HOME WITH TRANSFERS AND AMB, SUPERVISOR CHASSIS ASSEMBLY SON TIA ABLE TO LEAVE PATIENT FOR 3 HRS, PATIENT SUPERVISOR CHASSIS ASSEMBLY WITH OUTDOOR AMB. CLOF: AMB WITH FWW IN HOME, 15/10 SUPERVISION, 30 MIN DAILY PEDDLAR WITH ASSIST. DME: FWW, BARIATRIC ROLLATOR, TUB TRANSFER BENCH, GRAB BARS, BED RAIL SAFETY RECOMMENDATIONS: RECOMMEND HANDICAPED PLACARD ACQUISITON AND PT-1 DISABLE TRANSPORT SERVICES FORM, [employer] REPORTS [facility] THIS THERAPIST TO PROVIDE HANDICAPED PLACARD [...] FOR FALL AND INJURY INCLUDING PARTICIPATION IN [facility] SPECIAL[facility] PROGRAM SUMMARY OF THERAPY EVAL/ASSESSMENT FINDINGS AND REASON(S) SKILLS OF A THERAPIST ARE INDICATED: PHYSICAL THERAPY EVALUATION (07/08/23) PATIENT IS A 77 YO FEMALE WITH PHYSICAL THERAPY REFERRAL AFTER HOSPITALIZATION ON 05/16/23 DUE TO WEAKNESS AND MD RD DX: COVID WITH METABOL[facility]CEPHALOPATH[facility] PMH: HTN, DEMENTIA, DM, CVA, MORBID OBESITY. FALL HISTORY: NONE REPORTED. PATIENT LIVES IN 1ST FLOOR APARTMENT WITH SUPPORTIVE SON TIA WHO IS PAID UNEMPLOYMENT EXAMINER, 1 STEP TO NEGOTIATE. PLOF: PATIENT MOD I AMB WITH AND WITHOUT FWW IN HOME WITH TRANSFERS AND AMB, SUPERVISOR CHASSIS ASSEMBLY SON TIA ABLE TO LEAVE PATIENT FOR 3 HRS, PATIENT SUPERVISOR CHASSIS ASSEMBLY WITH OUTDOOR AMB. CLOF: AMB WITH FWW [...] CARE WILL BE ESTABLISHED THAT MEETS PATIENT'S [facility] NEEDS AND INCLUDES PATIENT GOAL FOR HOME [...] End Date/Time Encounter Type Admission Type Attending [facility] Care [facility] Care Department Encounter ID Discharge Date Discharge Status Discharge Condition Discharge Reason Percent Goals Met 2023-06-25 00:00:00 2023-08-22 00:00:00 Outpatient NEW ADMISSION KRISH COY [facility] [id number] 2023-08-22 00:00:00 DISCHARGE TO HOME OR SELF CARE MINIMUM ASSIST WITH TRANSFER/A MBULATION/ ADLS GOALS MET ( ONLY) 96.00
[2024-04-10 03:06] VITALS: BP 116/56; PULSE 72; RESP 16; TEMP 37.2; O2SAT 96
[2024-04-10 03:15] VITALS: BP 116/56; PULSE 72; RESP 16; TEMP 37.2; O2SAT 96
== END 2024-04-10 03:15 | disposition home or self-care (01) ==
PROVIDERS: Emergency Medicine; Physician Assistant Medical; Emergency Provider Emergency Medicine Emergency Medical Services; PCP Internal Medicine
DX: B34.9 Viral infection, unspecified (principal); R11.2 Nausea with vomiting, unspecified; R05.9 Cough, unspecified; E11.9 Type 2 diabetes mellitus without complications; I10 Essential (primary) hypertension; E78.5 Hyperlipidemia, unspecified; Z86.718 Personal history of other venous thrombosis and embolism; Z03.818 Encounter for observation for suspected exposure to other biological agents ruled out
CPT/HCPCS: 0241U; 80053; 82947; 84484; 85025; 93005; 96360; 99284

== ENCOUNTER → 2024-04-09 20:34 | Outpatient (BNV) | payer MEDICARE, MEDICAID, SELFPAY | PROVIDERS: Emergency Provider Emergency Medicine Emergency Medical Services; PCP Internal Medicine; Visit Provider Internal Medicine Cardiovascular Disease | DX: R94.31 Abnormal electrocardiogram [ECG] [EKG] (principal) | CPT/HCPCS: 93010 ==

== ENCOUNTER 2024-04-16 10:30 | Outpatient (AMB) | payer MEDICARE, MEDICAID, SELFPAY ==
[2024-04-16 10:36] VITALS: BP 112/74; PULSE 71; TEMP 36.5; O2SAT 98; BMI 34.2
--- NOTE | 2024-04-16 10:36 | A.OFFPC_ITS ---
Vital Signs 04/16/24 10:36 Height 5 ft 3 in Weight 193 lb BMI 34.2 BP 112/74 Blood Pressure Location Lt brachial Position Sitting Pulse 71 Pulse Source Pulse Oximeter Temp 97.7 F Temp Source Oral Pulse Oximetry (%) 98 Oxygen Delivery Method Room Air Intake Visit Reasons: [facility] 04/09 vomiting//high blood sugar Turbo Electric Operator Required: Yes Accompanied by: Son Allergies No Known Allergies [No Known Allergies*] Allergy (Verified 04/16/24 10:54) Medication List - Last Reconciled 04/16/24 by SOKAR Law alendronate 70 mg PO QWEEK 90 days aspirin 81 mg PO DAILY clopidogrel 75 mg PO DAILY docusate sodium (Colace) 200 mg (2 x 100 mg) PO BEDTIME dulaglutide (Trulicity) 3 mg (0.5 mL) subcut QWEEK 90 days empagliflozin (Jardiance) 25 mg PO DAILY 90 days memantine 10 mg PO BID 30 days metformin 500 mg PO BIDWMEAL 90 days multivit, Ca, min-FA-soy isofl 400-60 mcg-mg (One-A-Day Menopause Formula) 1 tab PO DAILY ondansetron 4 mg PO Q6-8H PRN polyethylene glycol 3350 (Miralax) 17 grams PO DAILY 30 days rosuvastatin 10 mg PO DAILY 90 days Tobacco use date assessed: 04/16/24 Fall risk assessment: No Falls in past year Last assessed Fall Risk: 04/16/24 Dental Screening Dental Screen Date: 04/16/24 Did you have a dental visit in the last 12 months?: Yes Did you have a dental problem in the last 6 months where you did not have access to dental care?: No Was dental information given to patient?: Patient has dentist HPI [facility] 04/09 vomiting//high blood sugar HPI Details The patient 78-year-old female with significant past medical history memory deficits, diabetes mellitus, hypertension GERD, DVT who presents in the emergency department on 04/09 for vomiting and blood sugars (331) Patient of Dr. Parrish, was last seen on 02/17/24 The patient's son who is the primary caregiver is with patient The patient is presenting today for follow-up post hospital visit for vomit x1 and high blood sugars Patient denies chest pain, shortness of breath, heart palpitation Patient denies abdominal pain, nausea and vomiting, diarrhea and heartburn Son reports that the patient has not move her bowels for 3 days Partly because has been holding her Colace and MiraLax after returning from the hospital constipation: 3 days son reports that he has not given the patient her colace 200mg at bedtime or her miralax 17 grams daily reports that he was concern with patient going in the bed discussed with son that the patient had an acute event of possible viral gastroenteritis Since he symptoms have subsided, he needs to resume her regular medications Including her medication for constipation The patient son said he will give he the relax once he gets home and the colace tonight encouraged increasing hydration as well Diabetes: Reports that the patient blood sugars has been in the 120s Denies any symptoms A1c in office 7.7% patient goal is less than 7% however; this is trending in the right direction Encouraged some to continue treatment as prescribed [facility] Medical History Hypertension, essential Stroke Stroke Type 2 diabetes mellitus Hyperlipidemia Dementia Family history of ovarian cancer Diabetes mellitus Microalbuminuria GERD (gastroesophageal reflux disease) Hyperlipidemia LDL goal <70 Type 2 diabetes mellitus with diabetic polyneuropathy Obesity due to excess calories Memory loss Cough Essential hypertension Long-term use of aspirin therapy History of DVT (deep vein thrombosis) Surgical History History of total abdominal hysterectomy and bilateral salpingo-oophorectomy History of cataract surgery Family History Father No problems noted. Mother Colon cancer Son Diabetes Social History Household Members: Family Household Members Other:: lives with g. son Housing: Apartment Do you presently have visiting nurse or other home services: No Unable to assess alcohol history related to: Unknown Alcohol intake: never Comment: family at bedside. Patient Tobacco Use Status: Never used Tobacco e-Cigarette/Vaping Use: Never Used Second Hand Smoke Exposure: No Advance Directives Date on File: 02/23/21 service: No Current occupational status: disabled Cognitive needs: No Hearing needs: No Vision needs: No Female Reproductive History Menstrual Age of Menarche: 11 Questionnaire PHQ-9 Over the last 2 weeks, how often have you been bothered by any of the following problems? 1. Little interest or pleasure in doing things: not at all 2. Feeling down, depressed, or hopeless: not at all 3. Trouble falling or staying asleep, or sleeping too much: not at all 4. Feeling tired or having little energy: not at all 5. Poor appetite or overeating: not at all 6. Feeling bad about yourself - or that you are a failure or have let yourself or your family down: not at all 7. Trouble concentrating on things, such as reading the newspaper or watching television: not at all 8. Moving or speaking so slowly that other people could have noticed. Or the opposite - being so fidgety or restless that you have been moving around a lot more than usual: not at all 9. Thoughts that you would be better off or of hurting yourself in some way: not at all Total score: 0 Depression Screening Interpretation: Negative Depression Screening Done: Yes 93768 - PHQ-9 Billing: Yes Source: Developed by Drs. Han Hurley, Naya Forbes, Florencio Ahumada and colleagues, with an educational tony from [employer]. Thrive Questionnaire Date Thrive assessed: 04/16/24 I am a: Parent/Caregiver What is your living situation today?: I have a steady place to live Within the past 12 months, did the food you bought not last and you didn't have the money to get more?: Never true Within the past 12 months, did you worry whether your food would run out before you got money to buy more?: Never true Do you have trouble paying for medicines?: No Do you have trouble getting transportation to medical appointments?: No Do you have trouble paying your heating and electricity bill?: No Do you have trouble taking care of your child, family member or friend?: No Do you have trouble with day-to-day activities such as bathing, preparing meals, shopping, managing finances, etc.?: No Are you currently unemployed and looking for a job?: No Are you interested in more education?: No Please select the resources that you would like help with: None Currently or been in a relationship where the following occur: No concerns reported THRIVE Score: 0 AUDIT C Alcohol Use Questionnaire (AUDIT-C) 1. How often do you have a drink containing alcohol?: Monthly or less 2. How many drinks containing alcohol do you have on a typical day when you are drinking?: 1 or 2 3. How often do you have six or more drinks on one occasion?: Never Total Score: 1 RICK-7 AMB Questionnaire RICK-7 Date RICK - 7 assessed: 04/16/24 Feeling nervous, anxious, or on edge: 0 = Not at all Not being able to stop or control worryin = Not at all Worrying too much about different things: 0 = Not at all Trouble relaxin = Not at all Being so restless that it is hard to sit still: 0 = Not at all Becoming easily annoyed or irritable: 0 = Not at all Feeling afraid as if something awful might happen: 0 = Not at all Total RICK-7 score (0-4 normal; 5-9 mild; 10-14 moderate; 15-21 severe): 0 Source: Developed by Drs. Han Hurley, Naya Forbes, Florencio Ahumada and colleagues, with an educational tony from [employer]. RICK-7 Assessment Billing RICK-7 Assessment Tool: RICK-7 Assessment 21652 Review of Systems Const Details: Denies chills, Denies fatigue, Denies fever(s), Denies headache(s) and Denies weakness HEENT Denies change in vision, Denies dizziness, Denies headache(s), Denies hearing loss, Denies nasal congestion, Denies sinus pain, Denies sinus pressure and Denies sore throat Card Denies chest pain, Denies lightheadedness, Denies dyspnea and Denies other (palpitations) Resp Denies cough, Denies dyspnea and Denies wheezing GI Denies abdominal pain, Denies melena, Denies hematochezia, +constipation x3 days, Denies dyspepsia and Denies nausea Denies hematuria and Denies dysuria Musc Denies abnormal gait, Denies myalgias, Denies arthralgias, Denies numbness and Denies tingling Skin/Breast Denies rash, Denies unusual bruising and Denies wounds Neuro Denies abnormal gait, Denies dizziness, Denies headache(s), Denies memory loss, Denies numbness, Denies Sensory deficit (Neuro), Denies tingling and Denies weak ness Psych Denies anxiety, Denies depression and Denies memory loss Endo Denies cold intolerance, Denies fatigue, Denies heat intolerance, Denies polydipsia and Denies polyuria Rojas/Lymph Denies easy bleeding and Denies easy bruising Aller/Immun Denies wheezing Physical exam (Primary Care) Vital Signs: Last Vital Signs Temp 97.7 F 04/16/24 10:36 Pulse 71 04/16/24 10:36 BP 112/74 04/16/24 10:36 Pulse Ox 98 04/16/24 10:36 Oxygen Delivery Method Room Air 04/16/24 10:36 BMI result Body Mass Index 34.2 Tobacco/Smoking Status: Tobacco use Status Tobacco use date assessed 04/16/24 04/16/24 10:38 Patient Tobacco Use Status Never used Tobacco 04/16/24 10:38 e-Cigarette/Vaping Use Never Used 04/16/24 10:38 PHQ-9: PHQ-9 Score PHQ-9: Total score 0 04/16/24 11:01 Depression Screening Interpretation: Negative Thrive Assessment: Date of Thrive Assessment Date Thrive assessed 04/16/24 04/16/24 10:45 Currently or been in a relationship where the following occur: No concerns reported Const Other: General: no acute distress, well developed, alert and awake Nutritional Appearance: well nourished Orientation/consciousness: patient oriented x3 HENMT Head: Yes normocephalic and Yes atraumatic Ears: hearing grossly normal bilaterally and TM's normal bilaterally Throat: Yes oropharynx normal Eyes Pupils: Equal, round and reactive pupils present and Pupil accommodation reflex normal Neck Neck: Yes normal visual inspection Thyroid: Thyroid normal Lymphatic: no lymphadenopathy noted Chest Chest palpation & inspection: normal inspection of the chest Resp Effort & Inspection: normal respiratory effort Auscultation: clear to auscultation bilaterally Cardio Rate: regular rate Rhythm: regular rhythm Heart sounds: S1 normal heart sound present, S2 normal heart sound present, no gallops, no murmurs and no rubs GI Palpation (GI): Abdomen large and rounded, soft and nontender to palpation Auscultation: normal bowel sounds General: Yes no CVA tenderness Back/Spine/Pelvis Back: no CVA tenderness Skin General: warm and dry. Normal skin color. Normal skin turgor Lesions: no lesions Nails: normal Neuro General: patient oriented x3, gait normal Cranial nerves: Yes Equal, round and reactive pupils present Cognition (Neuro): normal cognition Gait exam (Neuro): Normal gait present Extrem General: Yes normal to inspection, No edema and No calf tenderness Psych Appearance: grossly normal Affect: normal affect Attitude: cooperative Thought process: Normal thought process present Results AMB Hemoglobin A1c AMB Hemoglobin A1c 7.7 % Last Edit by BETY Boyce on 04/16/24 11 :06 Results Reviewed Results Reviewed: Laboratory Tests 04/16/24 11:05 Hgb A1c (Clinic) 7.7 H Coding Level of Care Code Est Pt Level 4 (33157) Diagnoses Nausea and vomiting, unspecified vomiting type R11.2 Vomiting type: unspecified Nausea presence: with nausea Type 2 diabetes mellitus with diabetic polyneuropathy, without long-term current use of insulin E11.42 Diabetes mellitus compliance attorney insulin use: without compliance attorney use Gastroesophageal reflux disease, unspecified whether esophagitis present K21.9 Esophagitis presence: esophagitis presence not specified Essential hypertension I10 Additional Codes RICK-7 Assessment Billing - RICK-7 Assessment Tool: RICK-7 Assessment 12689 ([id number]) PHQ-9 - 22007 - PHQ-9 Billing: Yes ([id number]) Time Spent (min) 35 Assessment & Plan Assessment & Plan (1) Vomiting: Code(s): R11.10 - Vomiting, unspecified Category: Medical Qualifiers: Vomiting type: unspecified Nausea presence: with nausea Qualified Code(s): R11.2 - Nausea with vomiting, unspecified Plan: Resolved vomited x1. The patient was brought to the ED. Viral gastroenteritis was suspected The patient was treated with IV fluids with positive effect No more episodes, was sent home on PRN Zofran that has not been used (2) Type 2 diabetes mellitus with diabetic polyneuropathy: Code(s): E11.42 - Type 2 diabetes mellitus with diabetic polyneuropathy Category: Medical Qualifiers: Diabetes mellitus mcfp insulin use: without compliance attorney use Qualified Code(s): E11.42 - Type 2 diabetes mellitus with diabetic polyneuropathy Plan: Blood sugar was (3) GERD (gastroesophageal reflux disease): Code(s): K21.9 - Gastro-esophageal reflux disease without esophagitis Category: Medical Qualifiers: Esophagitis presence: esophagitis presence not specified Qualified Code(s): K21.9 - Gastro-esophageal reflux disease without esophagitis Plan: Reinforced dietary restrictions elevate the head of bed with sleeping, refraining from eating close to bedtime. Allow yourself 3-4 hours after eating before going to bed (4) Essential hypertension: Code(s): I10 - Essential (primary) hypertension Category: Medical Plan: bp 127/74 today in office reinforced low salt diet Orders: Orders AMB Hemoglobin A1c Today Z13.9 - Encounter for screening, unspecified Medications: Refilled dulaglutide (Trulicity) 3 mg (0.5 mL) subcut QWEEK 90 days 6.5 mL 1RF
== END 2024-04-16 11:06 | disposition home or self-care (01) ==
PROVIDERS: PCP Internal Medicine
DX: E11.42 Type 2 diabetes mellitus with diabetic polyneuropathy (principal); R11.2 Nausea with vomiting, unspecified; K21.9 Gastro-esophageal reflux disease without esophagitis; I10 Essential (primary) hypertension

== ENCOUNTER → 2024-04-16 10:30 | Outpatient (BNVA) | payer MEDICARE, MEDICAID, SELFPAY | PROVIDERS: PCP Internal Medicine | DX: R11.2 Nausea with vomiting, unspecified (principal); E11.42 Type 2 diabetes mellitus with diabetic polyneuropathy; K21.9 Gastro-esophageal reflux disease without esophagitis; I10 Essential (primary) hypertension | CPT/HCPCS: 83036; 96127; 99212 ==

== ENCOUNTER 2024-06-17 09:40 | Outpatient (AMB) | payer MEDICARE, MEDICAID, SELFPAY ==
--- NOTE | 2024-06-17 09:41 | MHC.OFFWIV ---
Intake Vital Signs 06/17/24 09:42 Weight 193 lb BP 130/80 Blood Pressure Location Lt brachial Pulse 98 Pulse Source Pulse Oximeter Pulse Oximetry (%) 95 Oxygen Delivery Method Room Air Intake Visit Reasons: EP-neck pain Intake Note: Patient here for neck pain that started yesterday. Patient Tobacco Use Status: Never used Tobacco Allergies No Known Allergies [No Known Allergies*] Allergy (Verified 06/17/24 09:44) Do you need a note to return to daycare/school/sports/work: No HPI HPI Comments History of Present Illness Details Son and patient declined video full time staff interpreter, he is asking to interpret for her. History of Present Illness - The patient is an 79-year-old female with a past med hx of demetia presenting with neck pain. - Her son is interpreting for her, she lives with him, he is unclear of any injury as she is a poor historian but she told him yesterday she had neck pain. He did not observe any injury, though she does use a walker. The patient is on clopidogrel, restricting the use of certain analgesics. She did not take any meds to make her pain better. - She denies fevers or upper respiratory symptoms. - The neck pain onset occurred suddenly one day prior to this visit, with no known injury or change in sleeping conditions. - Pain intensity is greater on the left side and is exacerbated by movement and associated with significant stiffness. - She has a prior history of stroke and dementia, which complicates gathering her history due to cognitive limitations. Physical Exam General: Cooperative, healthy appearing, comfortable, no acute distress and well developed Orientation: Patient oriented x3 Limitations: Telugu speaking, dementia. Head: Normal to inspection, no trauma noted Ears: Hearing grossly normal bilaterally Nose: Normal External nose present Face and sinus: Normal facial exam Eyes: Appearance normal, both eyes and all related structures Neck: Stiffness noted, mild ttp L>R trapezius and bilateral neck; able to do chin to chest with mild discomfort Respiratory: Normal respiratory effort and able to speak in complete sentences. Skin: No rashes or lesions noted Back/Spine: no TTP cervical spine, thoracic spine or lumbar spine Neuro: gait normal with help from son Extremities: Normal to inspection, no ecchymosis noted [facility] Medical History Hypertension, essential Stroke Stroke Type 2 diabetes mellitus Hyperlipidemia Dementia Family history of ovarian cancer Diabetes mellitus Microalbuminuria GERD (gastroesophageal reflux disease) Hyperlipidemia LDL goal <70 Type 2 diabetes mellitus with diabetic polyneuropathy Obesity due to excess calories Memory loss Cough Essential hypertension Long-term use of aspirin therapy History of DVT (deep vein thrombosis) Surgical History History of total abdominal hysterectomy and bilateral salpingo-oophorectomy History of cataract surgery Family History Father No problems noted. Mother Colon cancer Son Diabetes Social History Household Members: Family Household Members Other:: lives with shahram shaver Housing: Apartment Do you presently have visiting nurse or other home services: No Unable to assess alcohol history related to: Unknown Alcohol intake: never Comment: family at bedside. Patient Tobacco Use Status: Never used Tobacco e-Cigarette/Vaping Use: Never Used Second Hand Smoke Exposure: No Advance Directives Date on File: 02/23/21 service: No Current occupational status: disabled Cognitive needs: No Hearing needs: No Vision needs: No Female Reproductive History Menstrual Age of Menarche: 11 Review of Systems Const All systems reviewed & are unremarkable except as noted in HPI and below Physical Exam Vital Signs: Last Vital Signs Pulse 98 06/17/24 09:42 BP 130/80 06/17/24 09:42 Pulse Ox 95 06/17/24 09:42 Oxygen Delivery Method Room Air 06/17/24 09:42 Assessment & Plan Assessment & Plan (1) Musculoskeletal neck pain: Code(s): M54.2 - Cervicalgia Plan: To manage the patient?s neck pain, I will prescribe a muscle relaxant, advising its use at night to minimize sedation-related risks of falls, integrating her educational context, where her son assists in supervising medication administration. Due to her treatment with clopidogrel, I recommend acetaminophen for pain, and advise against NSAIDs due to potential bleeding risks. The use of a heating pad is suggested to alleviate neck stiffness. I have emphasized safety precautions post-medication, especially due to diminished cognitive capacity and risks of falls inherent in her medical history, ensuring supervision. Follow-up will be necessary if the symptoms do not improve or worsen; immediate attention is advisable should a fever arise, ensuring a proactive approach in case of complications. Patient was informed and verbally consented to the use of an ambient scribe for clinic note documentation during this visit. Medications: New cyclobenzaprine 5 mg PO .QHS PRN 5 tabs 0RF Muscle Spasm Coding Level of Care Code Est Pt Level 3 (60120) Diagnoses Musculoskeletal neck pain M54.2
[2024-06-17 09:42] VITALS: BP 130/80; PULSE 98; O2SAT 95
--- OUTSIDE RECORDS SUMMARY | 2024-06-17 10:48 | XMS_ITS | Clinical Summary ---
Author Organization [facility] Facility Address [address] [place] [id number] Care Team Providers Care Wind Tunnel Technician Name Role Phone Rachna Corral MD Primary Care Provider [phone] Allergies No known active allergies Medications alendronate (FOSAMAX) 70 MG tablet Take 70 mg by mouth 09/17/2021 Active amLODIPine (NORVASC) 2.5 MG tablet LESLYE SIMMONS TABLETA NICHOLE D 11/07/2021 Active atorvastatin (LIPITOR) 40 MG tablet Take 40 mg by mouth at bed time 09/04/2021 Active donepezil (ARICEPT) 10 MG tablet TAKE 1/2 TABLET BY MOUTH AFTER MEAL IN THE MORNING FOR 2 WEEKS THEN TAKE 1 TAB EVERYDAY FOR 30 DAYS 10/25/2021 Active Trulicity 3 MG/0.5ML solution pen-injector INJECT 1 PEN ONCE A WEEK 08/30/2021 Active metFORMIN XR (GLUCOPHAGE-XR) 500 MG 24 hr tablet TOMLeland DOS TABLETAS POR V A ORAL DOS VECES AL D A 10/07/2021 Active omeprazole (PriLOSEC) [address] capsule LESLYE SIMMONS C PSULA NICHOLE D 09/15/2021 Active Multiple Vitamin (multivitamin) tablet Take 1 tablet by mouth 1 (one) time each day Active aspirin (ST DARY) 81 MG EC tablet Take 81 mg by mouth 1 (one) time each day Active Active Problems Problem Noted Date Diagnosed Date Hypertension 11/16/2021 Chronic kidney disease, stage 2 (mild) 2 Type 2 diabetes mellitus wit h diabetic chronic kidney disease 11/16/2021 Chronic venous insufficiency 07/06/2018 Family History Medical History Relation Comments No Known Problems Father Cancer Mother Diabetes Son Relation Status Comments Father Mother Son Alive Social History Tobacco Use Types Packs/Day Years Used Date Smoking Tobacco: Never Passive Smoke Exposure: Never Smokeless Tobacco: Never Tobacco Cessation:Counseling Given: No Alcohol Use Standard Drinks/Week Comments Never 0 (1 standard drink = 0.6 oz pur e alcohol) Comments Unknown Sex and Gender Information Value Date Recorded Sex Assigned at Not on file Legal Sex Female 9:50 AM EDT Gender Identity Not on file Sexual Orientation Not on file Last Filed Vital Signs Vital Sign Reading Time Taken Comments Blood Pressure 119/59 11/19/2022 4:05 PM EDT Pulse 93 11/19/2022 4:05 PM EDT Temperature - - Respiratory Rate - - Oxygen Saturation 98% 11/19/2022 4:05 PM EDT Inhaled Oxygen Concentration - - Weight 95.3 kg (210 lb) 11/19/2022 4:05 PM EDT Height - - Body Mass Index - - Plan of Treatment Health Maintenance Due Date Last Done Comments Pneumococcal Vaccine: 65+ Ye ars (1 of 2 - PCV) 1950 Diabetes: Hemoglobin A1C 11/16/2021 Diabetes: Ophthalmology Exam 11/16/2021 Diabetes: Pedal Pulse Checked 11/16/2021 Diabetes: Sensory Foot Exam 11/16/2021 Diabetes: Visual Foot Exam 11/16/2021 Influenza Vaccine (#1) 2023 Hepatitis B Vaccine Aged Out No longe r eligible based on patient's age to complete this topic Insurance [address] [place] [id number] [place] [address] [place] [address] [place] Care Teams Wind Tunnel Technician Relationship Specialty Start Date End Date Rachna Corral MD [address] [place], [place] PCP - General Internal Medicine 07/21/21
--- OUTSIDE RECORDS SUMMARY | 2024-06-17 10:48 | XMS_ITS | Clinical Summary ---
Author Organization [facility] ity Address [address] [place] [address] Care Team Providers Care Signal Tower Operator Name Role Phone Rachna Lewis MD Primary Care Provider [phone] Family History Medical History Relation Name Comments Diabetes Son Relation Name Status Comments Son Alive Social History Tobacco Use Types Packs/Day Years Used Date Smoking Tobacco: Never Smokeless Tobacco: Never Comments Unknown Sex and Gender Information Value Date Recorded Sex Assigned at Not on file Legal Sex Female 5:36 AM EST Gender Identity Not on file Sexual Orientation Not on file Obstetrics History Plan of Treatment Health Maintenance Due Date Last Done Comments DTaP,Tdap,and Td Vaccines (1 - Tdap) 06[birth year]06/1964 Pneumococcal Vaccine: 50+ Ye ars (1 of 1 - PCV) 1994 Zoster Vaccines (1 of 2) 1994 RSV Immunization Patients 60 + Years Old (1 - 1-dose 75+ series) 06/06/2019 COVID-19 Vaccine (2023-2 5 season) 2023 Influenza Vaccine (#1) 2023 HIB Vaccines Aged Out No longer eligi ble based on patient's age to complete this topic HPV Vaccines Aged Out No longer eligi ble based on patient's age to complete this topic Hepatitis A Vaccines Aged Out No long er eligible based on patient's age to complete this topic Hepatitis B Vaccines Aged Out No long er eligible based on patient's age to complete this topic IPV Vaccines Aged Out No longer eligi ble based on patient's age to complete this topic MMR Vaccines Aged Out No longer eligi ble based on patient's age to complete this topic Meningococcal ACWY Vaccine Aged Out N o longer eligible based on patient's age to complete this topic Meningococcal B Vacine Aged Out No lo nger eligible based on patient's age to complete this topic RSV Immunization Patients Un marichuy 20 months Aged Out No longer eligible b ased on patient's age to complete this topic Varicella Vaccines Aged Out No longer eligible based on patient's age to complete this topic Care Teams Signal Tower Operator Relationship Specialty Start Date End Date Rachna Lewis MD [address] [place] [address] , [address] [facility] ANH Baker PCP - General Internal Medicine 07/31/18
== END 2024-06-17 10:16 | disposition home or self-care (01) ==
PROVIDERS: PCP Internal Medicine; Visit Provider Physician Assistant
DX: M54.2 Cervicalgia (principal)

== ENCOUNTER → 2024-06-17 09:40 | Outpatient (BNVA) | payer MEDICARE, MEDICAID, SELFPAY | PROVIDERS: PCP Internal Medicine; Visit Provider Physician Assistant | DX: M54.2 Cervicalgia (principal) | CPT/HCPCS: 99212 ==

== ENCOUNTER 2024-06-18 06:40 | Outpatient (REF) | payer MEDICARE, MEDICAID, SELFPAY ==
[2024-06-18 07:11] LABS: MANUAL DIFF FLAG NO
[2024-06-18 07:55] LABS: Basophils Percent Auto 0.3 % (0-2); Eosinophils Absolute Auto 0.1 X10*3/uL (0.0-0.4); Eosinophils Percent Auto 1.7 % (0-4); Hematocrit 43.8 % (37.0-47.0); Hemoglobin 13.9 g/dl (12.0-16.0); Imm Gran Abs Auto 0.01 X10*3/uL (0.00-0.03); Imm Gran Pct Auto 0.1 % (0.0-0.4); Lymphocytes Absolute Auto 1.7 X10*3/uL (1.2-4.9); Lymphocytes Percent Auto 22.2 % (20-40); Mean Corpuscular HGB Conc 31.7 g/dl (31.0-35.0); Mean Corpuscular Hemoglobin 28.4 pg (27.0-33.0); Mean Corpuscular Volume 89.4 fL (80.0-98.0); Mean Platelet Volume 9.6 fL (9.4-12.3); Monocytes Absolute Auto 0.6 X10*3/uL (0.1-1.2); Monocytes Percent Auto 7.5 % (2-11); Neutrophils Absolute Auto 5.2 x10*3/uL (2.0-8.3); Neutrophils Percent Auto 68.2 % (45-73); Platelet Count 271 X10*3/uL (160-400); Red Cell Distribution Width 14.7 % (11.0-16.0); White Blood Count 7.6 X10*3/uL (4.8-10.8)
[2024-06-18 08:07] LABS: Creatinine Urine 40.43 mg/dL; Microalbum/Creatinine Ratio Ur 17.3 ug/mg cr (<30)
[2024-06-18 08:20] LABS: Alanine Aminotransferase 40 U/L (0-31); Albumin Level 3.8 g/dL (3.5-5.0); Alkaline Phosphatase 177 U/L (39-117); Anion Gap 11 (12-20); Aspartate Amino Transferase 30 U/L (5-31); Bilirubin Total 0.4 mg/dL (0.0-1.0); Blood Urea Nitrogen 22 mg/dL (9-16); Carbon Dioxide 25 mmol/L (22-29); Chloride 111 mmol/L (96-108); Cholesterol 101 mg/dL (<200); Estimated Glomerular Filt Rate > 60; Glucose Fasting 139 mg/dL (60-99); Glucose Random 138 mg/dL (60-115); HDL Cholesterol 43 mg/dL (>40); Iron 43 mcg/dL (30-160); LDL Cholesterol Calculated 41 mg/dL (<100); Percent Iron Saturation 19 % (15-50); Potassium 4.3 mmol/L (3.3-5.1); Sodium 143 mmol/L (135-145); Total Iron Binding Capacity 221 mcg/dL (228-428); Total Protein 7.7 g/dL (6.5-8.0); Triglycerides 87 mg/dL (<150); Unsaturated Iron Binding 178 ug/dL
[2024-06-18 08:39] LABS: Vitamin D 25-OH Total 36.9 ng/mL (>30)
[2024-06-18 08:43] LABS: Folate 17.8 ng/mL (> or = 4.0); Vitamin B12 1147 pg/mL (200-900)
== END 2024-06-18 06:41 | disposition home or self-care (01) ==
LOC: HO.LAB 06:40
PROVIDERS: PCP Internal Medicine; Visit Provider Internal Medicine
DX: E55.9 Vitamin D deficiency, unspecified (principal); F01.A0 Vascular dementia, mild, without behavioral disturbance, psychotic disturbance, mood disturbance, and anxiety; R80.9 Proteinuria, unspecified; D64.9 Anemia, unspecified; E53.8 Deficiency of other specified B group vitamins; E78.5 Hyperlipidemia, unspecified
CPT/HCPCS: 36415; 80053; 80061; 82043; 82306; 82570; 82607; 82746; 83540; 85025

== ENCOUNTER 2024-06-24 11:01 | Outpatient (AMB) | payer MEDICARE, MEDICAID, SELFPAY ==
--- NOTE | 2024-06-24 11:08 | MHC.PC.OV ---
Vital Signs 06/24/24 11:09 Height 5 ft 3 in Weight 192 lb BMI 34.0 BP 114/62 Blood Pressure Location Lt brachial Position Sitting Intake Visit Reasons: dm Intake Note: Patient here for a follow up DM Residential Caregiver Required: Yes Residential Caregiver Language: Dining Car Hop Name: Rachna Lewis MD Information Interpreted: non-clinical & clinical Accompanied by: Son Allergies No Known Allergies [No Known Allergies*] Allergy (Verified 06/24/24 11:17) Medication List - Last Reconciled 06/24/24 by Rachna Lewis MD alendronate 70 mg PO QWEEK 90 days aspirin 81 mg PO DAILY clopidogrel 75 mg PO DAILY cyclobenzaprine 5 mg PO .QHS PRN docusate sodium (Colace) 200 mg (2 x 100 mg) PO BEDTIME dulaglutide (Trulicity) 3 mg (0.5 mL) subcut QWEEK 90 days empagliflozin (Jardiance) 25 mg PO DAILY 90 days memantine 10 mg PO BID 30 days metformin 500 mg PO BIDWMEAL 90 days multivit, Ca, min-FA-soy isofl 400-60 mcg-mg (One-A-Day Menopause Formula) 1 tab PO DAILY rosuvastatin 10 mg PO DAILY 90 days Tobacco use date assessed: 04/16/24 Fall risk assessment: No Falls in past year Last assessed Fall Risk: 06/24/24 Dental Screening Dental Screen Date: 04/16/24 HPI HPI Comments History of Present Illness Details The patient is an 79-year-old female presenting for a routine follow-up on her chronic medical conditions, including Type 2 Diabetes Mellitus, Hypercholesterolemia, and Osteoporosis. Her diabetes management shows recent A1c levels at 7.7%, with home glucose readings averaging 129 mg/dL. She perceives these levels as stable, with the expectation of revisiting laboratory values after six months. Her cholesterol management is effective, with LDL levels below 70 mg/dL. The patient?s treatment for osteoporosis involves Alendronate, consistent over the past five years, with the latest bone density scan conducted in December 2022. Furthermore, a notable finding is the elevated Vitamin B12 levels, despite the absence of direct Vitamin B12 supplementation, likely due to multivitamin intake with possible additional supplements. The patient is managed for essential hypertension and reports good control; meanwhile, cognitive concerns due to her vascular dementia which is follow by Neurology are addressed with Memantine. Management of constipation is sought through [id number] remedies. Treatment regimens include aspirin, clopidogrel, cyclobenzaprine, Trulicity, Jardiance, Metformin, and rosuvastatin. [facility] Medical History Hypertension, essential Stroke Stroke Type 2 diabetes mellitus Hyperlipidemia Dementia Family history of ovarian cancer Diabetes mellitus Microalbuminuria GERD (gastroesophageal reflux disease) Hyperlipidemia LDL goal <70 Type 2 diabetes mellitus with diabetic polyneuropathy Obesity due to excess calories Memory loss Cough Essential hypertension Long-term use of aspirin therapy History of DVT (deep vein thrombosis) Surgical History History of total abdominal hysterectomy and bilateral salpingo-oophorectomy History of cataract surgery Family History Father No problems noted. Mother Colon cancer Son Diabetes Social History Household Members: Family Household Members Other:: lives with g. son Housing: Apartment Do you presently have visiting nurse or other home services: No Unable to assess alcohol history related to: Unknown Alcohol intake: never Comment: family at bedside. Patient Tobacco Use Status: Never used Tobacco e-Cigarette/Vaping Use: Never Used Second Hand Smoke Exposure: No Advance Directives Date on File: 02/23/21 service: No Current occupational status: disabled Cognitive needs: No Hearing needs: No Vision needs: No Female Reproductive History Menstrual Age of Menarche: 11 Questionnaire Thrive Questionnaire Date Thrive assessed: 04/16/24 RICK-7 AMB Questionnaire RICK-7 Date RICK - 7 assessed: 04/16/24 Source: Developed by Drs. Han Hurley, Naya Forbes, Florencio Ahumada and colleagues, with an educational tony from [employer]. Review of Systems Const All systems reviewed & are unremarkable except as noted in HPI and below Card Denies chest pain at rest, Denies chest pain with activity, Denies edema, Denies irregular heart rhythm, Denies claudication, Denies dyspnea, Denies dyspnea on exertion, Denies orthopnea, Denies paroxysmal nocturnal dyspnea and Denies slow heart rate Resp Denies cough, Denies dyspnea and Denies dyspnea on exertion Physical exam (Primary Care) Vital Signs: Last Vital Signs BP 114/62 06/24/24 11:09 BMI result Body Mass Index 34.0 BMI Assessment/Plan discussion: High BMI High, discussed plan: lifestyle, weight reduction, dietary and physical activity Tobacco/Smoking Status: Tobacco use Status Tobacco use date assessed 04/16/24 06/24/24 11:15 Patient Tobacco Use Status Never used Tobacco 06/24/24 11:15 e-Cigarette/Vaping Use Never Used 06/24/24 11:15 Thrive Assessment: Date of Thrive Assessment Date Thrive assessed 04/16/24 06/24/24 11:15 Const Orientation/consciousness: patient oriented x3 Resp Effort & Inspection: normal respiratory effort Auscultation: clear to auscultation bilaterally Cardio Jugular venous distension: no JVD Rate: regular rate Rhythm: regular rhythm Heart sounds: S1 normal heart sound present and S2 normal heart sound present Neuro General: patient oriented x3 Extrem General: Yes full ROM Coding Level of Care Code Est Pt Level 4 (97339) Complex EM visit Add On G2211 Diagnoses Mild vascular dementia without behavioral disturbance, psychotic disturbance, mood disturbance, or anxiety F01.A0 Dementia severity: mild Dementia behavioral or psychological symptom: without behavioral, psychotic, or mood disturbance or anxiety Hypertension, essential I10 Osteopenia M85.80 Diabetes mellitus E11.9 Hyperlipidemia LDL goal <70 E78.5 Time Spent (min) 23 Assessment & Plan Assessment & Plan (1) Vascular dementia: Code(s): F01.50 - Vascular dementia, unspecified severity, without behavioral disturbance, psychotic disturbance, mood disturbance, and anxiety Category: Medical Qualifiers: Dementia severity: mild Dementia behavioral or psychological symptom: without behavioral, psychotic, or mood disturbance or anxiety Qualified Code(s): F01.A0 - Vascular dementia, mild, without behavioral disturbance, psychotic disturbance, mood disturbance, and anxiety (2) Hypertension, essential: Code(s): I10 - Essential (primary) hypertension Category: Medical (3) Osteopenia: Code(s): M85.80 - Other specified disorders of bone density and structure, unspecified site Category: Medical (4) Diabetes mellitus: Code(s): E11.9 - Type 2 diabetes mellitus without complications Category: Medical (5) Hyperlipidemia LDL goal <70: Code(s): E78.5 - Hyperlipidemia, unspecified Category: Medical Plan The patient's current management for Type 2 Diabetes Mellitus with Metformin, Trulicity, and Jardiance will continue, with home glucose readings noted and laboratories re-assessed in six months to monitor progress. Hypercholesterolemia continues to be well-managed with rosuvastatin, and no changes are warranted. Osteoporosis management with Alendronate remains on review. The elevated Vitamin requires adjustment in supplements, recommending cessation of Ashwagandha use. Constipation is under control with existing strategies. Memory support with Memantine stays as set unless symptoms evolve. The current antihypertensive therapy remains unchanged given good blood pressure control. Follow-up evaluations will monitor laboratory measures accordingly. Patient was informed and verbally consented to the use of an ambient scribe for clinic note documentation during this visit. I discussed the current satisfaction with maintaining the A1c at 7.7% and explained the continuation of existing diabetic medications, ensuring they align with the patient's tolerance and effectiveness. Follow-up glucose control was slated for six months, emphasizing re-assessment aims. The discussion of hypercholesterolemia management was positive, reflecting the LDL values within target. Addressing the multivitamin and supplement intake, I advised discontinuing Ashwagandha due to heightened B12 levels. Cognitive concerns are addressed with Memantine, which will continue under stable observation. Understanding the constipation management via [id number] means, I offered adjustments should symptoms persist. Follow-up in six months will involve comprehensive laboratory work to oversee the management efficacy across her conditions. Orders: Orders XR DEXA axial skeleton 6 Months Z78.0 - Asymptomatic menopausal state Vitamin B12 and Folate 6 Months E53.8 - Deficiency of other specified B group vitamins Lipid Panel 6 Months E78.5 - Hyperlipidemia, unspecified Microalbumin, Random (w Creat) 6 Months R80.9 - Proteinuria, unspecified Vitamin D 25-OH Total 6 Months E55.9 - Vitamin D deficiency, unspecified Comprehensive Breaks. Panel Fast 6 Months E11.9 - Type 2 diabetes mellitus without complications Patient Instructions: - Continue current diabetes medications: Metformin, Trulicity, and Jardiance. - Maintain rosuvastatin at 10 mg daily for cholesterol management. - Discontinue supplements containing Ashwagandha. - Manage constipation with iycg-ayq-lhummay remedies as needed. - Continue Memantine for memory support. - Return for follow-up and laboratory reevaluation in six months.
[2024-06-24 11:09] VITALS: BP 114/62; BMI 34.0
--- OUTSIDE RECORDS SUMMARY | 2024-06-24 13:19 | XMS_ITS | Clinical Summary ---
Author Organization [facility] ity Address [address] [place] [address] Care Team Providers Care Conveyor Console Operator Name Role Phone Rachna Lewis MD Primary Care Provider [phone] Family History Medical History Relation Name Comments [...] Vaccines (1 of 2) 1994 RSV Immunization Adult Patie nts (1 - 1-dose 75+ series) 06/06/2019 COVID-19 Vaccine ( - 2023-2 5 season) 2023 Influenza Vaccine (Season Ended) 2024 HIB Vaccines Aged Out No longer eligi [...] age to complete this topic Care Teams Conveyor Console Operator Relationship Specialty Start Date End Date Rachna Lewis MD [address] [place] [address] , [address] [facility] ANH Baker PCP - General Internal Medicine 07/31/18
--- OUTSIDE RECORDS SUMMARY | 2024-06-24 13:19 | XMS_ITS | Clinical Summary ---
Author Organization [facility] Facility Address [address] [place] [id number] Care Team Providers Care Flat Clothier Name Role Phone Rachna Corral MD Primary Care Provider [phone] Allergies No known active allergies Medications alendronate [...] 11/16/2021 Chronic kidney disease, stage 2 (mild) Type 2 diabetes mellitus wit h diabetic [...] Diabetes: Visual Foot Exam 11/16/2021 Influenza Vaccine (Season Ended) 2024 Hepatitis B Vaccine Aged Out No longe r eligible based on patient's age to complete this topic Insurance [address] [place] [id number] MEDICARE [place] [address] [place] [address] [place]ICARE [place] Care Teams Flat Clothier Relationship Specialty Start Date End Date Rachna Corral MD [address] [place], [place] PCP - General Internal Medicine 07/21/21
== END 2024-06-24 11:31 | disposition home or self-care (01) ==
LOC: HO.HMCH 11:02
PROVIDERS: PCP Internal Medicine; Visit Provider Internal Medicine
DX: F01.A0 Vascular dementia, mild, without behavioral disturbance, psychotic disturbance, mood disturbance, and anxiety (principal); I10 Essential (primary) hypertension; M85.80 Other specified disorders of bone density and structure, unspecified site; E11.9 Type 2 diabetes mellitus without complications; E78.5 Hyperlipidemia, unspecified

== ENCOUNTER → 2024-06-24 11:01 | Outpatient (BNVA) | payer MEDICARE, MEDICAID, SELFPAY | PROVIDERS: PCP Internal Medicine; Visit Provider Internal Medicine | DX: F01.A0 Vascular dementia, mild, without behavioral disturbance, psychotic disturbance, mood disturbance, and anxiety (principal); I10 Essential (primary) hypertension; M85.80 Other specified disorders of bone density and structure, unspecified site; E78.5 Hyperlipidemia, unspecified; E11.9 Type 2 diabetes mellitus without complications | CPT/HCPCS: 99212 ==

== ENCOUNTER 2024-09-15 09:00 | Outpatient (AMB) | payer MEDICARE, MEDICAID, SELFPAY ==
--- NOTE | 2024-09-15 09:02 | MHC.OFFVIS ---
Vital Signs 09/15/24 09:03 Height 5 ft 3 in Weight 189 lb 9.561 oz BMI 33.6 BP 99/55 L Blood Pressure Location Lt brachial Position Sitting Pulse 97 Intake Visit Reasons: pre colonoscopy/Venessa pt Intake Note: Denise presents in the office as a colonoscopy screening. Previously seen Venessa Fuller. CC: Here with her son - she is due for a colonoscopy. Branch Service Associate Required: Yes Branch Service Associate Name: Son Allergies No Known Allergies (No Known Allergies*) Allergy (Verified 09/15/24 09:06) Medication List - Last Reconciled 09/15/24 by Lulu Dave CNP alendronate 70 mg PO QWEEK 90 days aspirin 81 mg PO DAILY clopidogrel 75 mg PO DAILY 90 days cyclobenzaprine 5 mg PO .QHS PRN docusate sodium (Colace) 200 mg (2 x 100 mg) PO BEDTIME dulaglutide (Trulicity) 3 mg (0.5 mL) subcut QWEEK 90 days empagliflozin (Jardiance) 25 mg PO DAILY 90 days memantine 10 mg PO BID 30 days metformin 500 mg PO BIDWMEAL 90 days multivit, Ca, min-FA-soy isofl 400-60 mcg-mg (One-A-Day Menopause Formula) 1 tab PO DAILY rosuvastatin 10 mg PO DAILY 90 days HPI HPI pre colonoscopy/Venessa pt: Details: Patient is a 79-year-old female with PMH of hypertension, hyperlipidemia, diabetes, obesity, history of DVT on long-term aspirin and hx of CVA. Last visit with RAMO Packer 11/15/2022 for pre colonoscopy screening. Patient is accompanied by son who is translating during this visit. She underwent her last colonoscopy with EGD 05/02/2023 revealing two precancerous colon polyps and AVMs in the colon. Due to fair prep, visualization was inadequate, necessitating a repeat colonoscopy for better evaluation. Denise has a chronic history of constipation, having bowel movements every three to four days for the past several years. It does not cause her pain, nausea, or bloating, but she occasionally requires Miralax to achieve bowel movement. Denise's diet is low in fiber, and she struggles to find a good balance between managing constipation and maintaining proper stool consistency without inducing diarrhea. She is diabetic with an HbA1c of 7.7 as of March and is currently well-managed with her current regimen. Patient denies: fever/chills, n/v, appetite changes, pyrosis, regurgitation,dysphasia, unintentional wt loss, ab pain or melena/hematochezia. Social History: - Diet: Generally low in fiber, some dietary restrictions due to diabetes. - Alcohol: Does not consume alcohol. - Tobacco: No history of tobacco use. - Drugs: Does not use recreational drugs. - family hx as below - personal hx of CA -denies significant cardiopulmonary history -tolerated anesthesia in the past without difficulty. [facility] Medical History (Updated 09/15/24 @ 12:32 by Lulu Dave CNP) Constipation Colon cancer screening Hypertension, essential Stroke Stroke Type 2 diabetes mellitus Hyperlipidemia Dementia Family history of ovarian cancer Diabetes mellitus Microalbuminuria GERD (gastroesophageal reflux disease) Hyperlipidemia LDL goal <70 Type 2 diabetes mellitus with diabetic polyneuropathy Obesity due to excess calories Memory loss Cough Essential hypertension Long-term use of aspirin therapy History of DVT (deep vein thrombosis) Surgical History (Updated 09/15/24 @ 09:10 by BETY Martines) Hx of colonoscopy History of total abdominal hysterectomy and bilateral salpingo-oophorectomy History of cataract surgery Family History Father No problems noted. Mother Colon cancer Son Diabetes Social History Household Members: Family Household Members Other:: lives with g. son Housing: Apartment Do you presently have visiting nurse or other home services: No Unable to assess alcohol history related to: Unknown Alcohol intake: never Comment: family at bedside. Patient Tobacco Use Status: Never used Tobacco e-Cigarette/Vaping Use: Never Used Second Hand Smoke Exposure: No Advance Directives Date on File: 02/23/21 service: No Current occupational status: disabled Cognitive needs: No Hearing needs: No Vision needs: No Female Reproductive History Menstrual Age of Menarche: 11 Review of Systems Const Reports as per HPI ENT Reports as per HPI Card Reports as per HPI Resp Reports as per HPI GI Reports as per HPI Reports as per HPI Physical Exam Vital Signs: Last Vital Signs Pulse 97 09/15/24 09:03 BP 99/55 L 09/15/24 09:03 BMI result Body Mass Index 33.6 Const General: healthy appearing, no acute distress and well developed Nutritional Appearance: obese Orientation/consciousness: patient oriented x3 HEENT Head: Yes normal to inspection, Yes normocephalic and Yes atraumatic Face and sinus: Yes normal facial exam Eyes General: appearance normal, both eyes and all related structures Neck Neck: Yes normal visual inspection Resp Effort & Inspection: normal respiratory effort, able to speak in complete sentences, no tracheal deviation and symmetric chest movement Auscultation: clear to auscultation bilaterally Cardio Jugular venous distension: no JVD Rate: regular rate Rhythm: regular rhythm Heart sounds: S1 normal heart sound present, S2 normal heart sound present, no gallops and no murmurs GI Inspection: Yes normal to inspection, No distended, Yes obesity and Yes striae Palpation (GI): Soft to palpation, not firm, nontender and No hepatosplenomegaly present Auscultation: normal bowel sounds Neuro General: patient oriented x3 Gait exam (Neuro): Normal gait present Psych Appearance: grossly normal Mental Status: mental status grossly normal Speech and movement: Normal speech and movement present Affect: normal affect Attitude: cooperative Thought process: Normal thought process present Thought content: Normal thought content present Insight: Good insight present (Psych) Judgement: Good judgement present (Psych) Results Reviewed Results Reviewed: Operative Note Date of Service: 05/02/23 Narrative: Operative Information Procedure Description: EGD, Colonoscopy Indication: prior hx of anemia, improved with iron rx Anesthesia: MAC FLEXIBLE TRANSORAL UPPER GASTROINTESTINAL ENDOSCOPY AND COLONOSCOPY PROCEDURE NOTE UPPER ENDOSCOPY Consent: Indications for the procedure and potential complications of bleeding, perforation, reaction to medications and missed diagnosis were discussed with the patient and informed consent was obtained. Instrument: Olympus GIF H 190 J mid size upper endoscope Monitoring: Vital signs and clinical assessment, continuous EKG monitoring, Pulse oximetry, Carbon Dioxide monitoring and blood pressure monitoring were done throughout the procedure. Procedure: The patient was placed in the left lateral decubitis position and pre-procedure medications were administered and a bite block was placed. The endoscope was inserted into the mouth and advanced under direct vision to the third part of duodenum. A careful inspection was made as the upper endoscope was withdrawn including a retroflexed examination of the proximal stomach; Findings and interventions are described below. Findings: Larynx:normal Esophagus: GE junction at 37 cm, diaphragm hiatus at 37 cm, normal mucosa Stomach: Granular mucosa with milde rythema. Biopsies were obtained. Grade 2 flap valve on retroflexed examination of the cardia. x2 sessile polyps 4-6 mm in proximal body of stomach removed with cold forceps, few small fundic gland polyps also seen Duodenum: Mild bulbar duodenitis Intervention: Biopsies as noted above COLONOSCOPY Instrument: Olympus variable stiffness pediatric scope 190L Colonoscopy Monitoring: Vital signs and clinical assessment, continuous EKG monitoring, Pulse oximetry, Carbon Dioxide monitoring and blood pressure monitoring were done throughout the procedure. Colon withdrawal time was 12 minutes. Procedure: The patient was placed in the left lateral decubitis position and pre-procedure medications were administered. After a digital rectal examination of the ano-rectum, the video colonoscope was inserted into the rectum and advanced through the colon to the cecum/TI. The colonoscope was slowly withdrawn in a retrograde panoramic fashion and the colon mucosa was carefully examined including a retroflexed view of the rectum. Findings and interventions are described below. Procedure Difficulty: Findings: Terminal Ileum-not intubated Cecum: 4-5 mm sessile polyp removed with cold forceps, x 1 small AVM ablated with soft tip coag Ascending Colon: normal Transverse Colon - 4-6 mm sessile polyp removed with cold forceps Descending Colon:normal Sigmoid Colon: 8-10 mm sessile polyp removed with cold snare Rectum: Retroflexion with small internal hemorrhoids, grade I Anorectum - normal Colon preparation: [place] Bowel Preparation Scale Right colon; 1-2 Transverse colon: 2 Left colon; 2 Impression and Post Procedure Diagnosis: Endoscopy Findings: gastritis duodenitis Colonoscopy Findings: polyps internal hemorrhoids AVM Plan: Await Pathology results Repeat Colonoscopy in 1-2 years or earlier if clinically indicated High fiber diet leaflet avoid straining at stool, epsom salts and sitz bath, anusol supps or cream if H pylori pos then treat Above findings were reviewed with the patient and relevant handouts were provided if indicated. PATHOLOGY [facility]: [facility]02[facility]23 [facility] Re[facility]: 05/[facility]23 Diagnosis A. Colon, transverse, polypectomy: Tubular adenoma; negative for high-grade dysplasia or carcinoma. B. Cecum, polypectomy: Clinically polypoid colonic mucosa within normal limits. C. Colon, sigmoid, polypectomy: Tubular adenoma; negative for high-grade dysplasia or carcinoma. D. Duodenum, biopsy: Duodenal mucosa within normal limits. E. Stomach, biopsy: Antral-type and oxyntic mucosa with mild chronic inactive inflammation; no Helicobacter organisms seen. F. Stomach, polyps: Fundic gland and hyperplastic polyps with background mild chronic inactive inflammation; no Helicobacter organisms seen. Clinical History Pre-Op Dx: Personal h/o colonic polyps Post-Op Dx: Colon polyps, diverticulosis, AVM, gastric polyps, gastritis, duodenitis Assessment & Plan Assessment & Plan (1) Colon cancer screening: Comment: 05/02/23 colonoscopy, complete with fair prep-Tubular adenoma to transverse and sigmoid colon; internal hemorrhoids, AVM Code(s): Z12.11 - Encounter for screening for malignant neoplasm of colon Category: Medical Plan: 1 year recall secondary to fair prep and findings above. We reviewed age-related screening guidelines and associated risks of procedure, they are agreeable to proceeding with colonoscopy. -instructed to begin a low residual diet and to consume a daily dose of miralax three days prior to colonoscopy to improve prep quality. Medications: -prescriptions for laxative tablets and MiraLax sent to pharmacy; instructions for Gatorade purchase and clear liquid diet given. - understands diabetes medications, clopdiogrel and ASA will need to be held days prior to procedure. Nurse to review med holds per protocol. Patient educated on scheduling process, procedure preparation, including avoiding certain foods and ensuring clear liquid intake Advised on necessity for ride post-procedure due to sedation. (2) Constipation: Code(s): K59.00 - Constipation, unspecified Category: Medical Qualifiers: Constipation type: unspecified constipation type Qualified Code(s): K59.00 - Constipation, unspecified Plan: Chronic, suspect functional in nature. They are not keen on daily pharmacological management. Medications: Prescribe daily Miralax PRN, Consider every other day dosing if needed. Reinforced lifestyle modifications to promote regularity: -higher fiber diet, examples provided -adequate hydration with water -150 minutes of moderate intensity exercise per week (3) Diabetes mellitus: Code(s): E11.9 - Type 2 diabetes mellitus without complications Category: Medical Qualifiers: Diabetes mellitus complication status: with hyperglycemia Diabetes mellitus penitentiary insulin use: without penitentiary use Diabetes mellitus type: type 2 Qualified Code(s): E11.65 - Type 2 diabetes mellitus with hyperglycemia Plan: with hyperglycemia Additional Tests: Check HbA1c prior to procedure to ensure diabetes is well controlled. Medications: Continue current regimen issued by prescriber Plan follow up after colonoscopy or sooner as needed. Time: I spent a total of 50 minutes on the date of encounter which includes: Preparing to see the patient (reviewed previous documentation, test results and medical history) Performing a medically appropriate exam and/or evaluation Ordering medications, tests, and procedures Documenting clinical information in the health record Orders: Orders Hemoglobin A1c Today E11.9 - Type 2 diabetes mellitus without complications TSH reflex Free T4 Today K59.00 - Constipation, unspecified Medications: New polyethylene glycol 3350 (Miralax) per colonoscopy prep instructions 238 grams PO ONCE 238 grams 0RF bisacodyl Take four tablets once for 1 day per colonoscopy instructions 5 mg PO ONCE 4 tabs 0RF 1 day polyethylene glycol 3350 (Miralax) Take 17G (one cap full) daily with 8oz of water 17 grams PO DAILY PRN 510 grams 2RF constipation 30 days Refilled docusate sodium (Colace) 200 mg (2 x 100 mg) PO BEDTIME 60 caps 5RF Coding Level of Care Code Established Pt Est Pt Level 5 (13231) Patient Type Established Diagnoses Colon cancer screening Z12.11 Constipation, unspecified constipation type K59.00 Constipation type: unspecified constipation type Type 2 diabetes mellitus with hyperglycemia, without long-term current use of insulin E11.65 Diabetes mellitus complication status: with hyperglycemia Diabetes mellitus termite helper insulin use: without termite helper use Diabetes mellitus type: type 2
[2024-09-15 09:03] VITALS: BP 99/55; PULSE 97; BMI 33.6
--- OUTSIDE RECORDS SUMMARY | 2024-09-15 09:29 | XMS_ITS | Clinical Summary ---
Author Organization [facility] ity Address [address] [place] [address] Care Team Providers Care Lab Animal Technologist Name Role Phone Rachna Lewis MD Primary Care Provider [phone] Family History Medical History Relation Name Comments [...] age to complete this topic Meningococcal B Vaccine Aged Out No l onger eligible based on patient's age to complete this topic RSV Immunization Patients Un marichuy 20 months Aged Out No longer eligible b ased on patient's age to complete this topic Varicella Vaccines Aged Out No longer eligible based on patient's age to complete this topic Care Teams Lab Animal Technologist Relationship Specialty Start Date End Date Rachna Lewis MD [address] [place] [address] , [address] [facility] D/B/A: [facility] ANH Baker PCP - General Internal Medicine 07/31/18
== END 2024-09-15 10:07 | disposition home or self-care (01) ==
LOC: HO.HGI 09:01
PROVIDERS: PCP Internal Medicine; Visit Provider Nurse Practitioner Family
DX: Z86.0102 Personal history of hyperplastic colon polyps (principal); Z12.11 Encounter for screening for malignant neoplasm of colon; K59.00 Constipation, unspecified; E11.65 Type 2 diabetes mellitus with hyperglycemia
CPT/HCPCS: 99215

== ENCOUNTER → 2024-09-15 09:00 | Outpatient (BNVA) | payer MEDICARE, MEDICAID, SELFPAY | PROVIDERS: PCP Internal Medicine; Visit Provider Nurse Practitioner Family | DX: Z12.11 Encounter for screening for malignant neoplasm of colon (principal); K59.00 Constipation, unspecified; E11.65 Type 2 diabetes mellitus with hyperglycemia | CPT/HCPCS: 99212 ==

== ENCOUNTER 2024-12-08 11:32 | Outpatient (AMB) | payer MEDICARE, MEDICAID, SELFPAY ==
[2024-12-08 11:48] VITALS: BP 112/60; BMI 32.6
--- NOTE | 2024-12-08 11:48 | MHC.OFFVIS ---
Vital Signs 12/08/24 11:48 Height 5 ft 4 in Weight 190 lb BMI 32.6 BP 112/60 Intake Visit Reasons: Breast issues Allergies No Known Allergies (No Known Allergies*) Allergy (Verified 09/15/24 09:06) HPI Comments Details: Presenting complaining of a skin lesion underneath her left breast that has been increasing in size and is irritating Last screening mammogram was in 01/14 was BI-RADS 2 [facility] Medical History (Updated 12/08/24 @ 12:13 by Kevin Aguirre MD) Constipation Colon cancer screening Hypertension, essential Stroke Stroke Type 2 diabetes mellitus Hyperlipidemia Dementia Family history of ovarian cancer Diabetes mellitus Microalbuminuria GERD (gastroesophageal reflux disease) Hyperlipidemia LDL goal <70 Type 2 diabetes mellitus with diabetic polyneuropathy Obesity due to excess calories Memory loss Cough Essential hypertension Long-term use of aspirin therapy History of DVT (deep vein thrombosis) Surgical History Hx of colonoscopy History of total abdominal hysterectomy and bilateral salpingo-oophorectomy History of cataract surgery Family History Father No problems noted. Mother Colon cancer Son Diabetes Social History Household Members: Family Household Members Other:: lives with shahram shaver Housing: Apartment Do you presently have visiting nurse or other home services: No Unable to assess alcohol history related to: Unknown Alcohol intake: never Comment: family at bedside. Patient Tobacco Use Status: Never used Tobacco e-Cigarette/Vaping Use: Never Used Second Hand Smoke Exposure: No Advance Directives Date on File: 02/23/21 service: No Current occupational status: disabled Cognitive needs: No Hearing needs: No Vision needs: No Female Reproductive History Menstrual Age of Menarche: 11 Physical Exam Vital Signs: Last Vital Signs BP 112/60 12/08/24 11:48 BMI result Body Mass Index 32.6 Chest Chest palpation & inspection: normal inspection of the chest Breast/axilla inspection: inspection of breasts abnormal (Left mole 1.5 cm underneath the breast) and abnormal inspection of the axilla Breast/axilla palpation: normal palpation of the breasts Assessment & Plan Assessment & Plan (1) Skin mole: Comment: Left breast Code(s): D22.9 - Melanocytic nevi, unspecified Category: Medical Plan: Bilateral screening mammogram ordered. Explained to the patient the finding of a skin mole underneath her left breast. Will refer to dermatology for further management Orders: Referrals Dermatology Referral D22.9 - Melanocytic nevi, unspecified Coding Level of Care Code Est Pt Level 3 (08372) Diagnoses Skin mole D22.9
--- OUTSIDE RECORDS SUMMARY | 2024-12-08 15:42 | XMS_ITS | Clinical Summary ---
Author Organization [facility] ity Address [address] [place] [address] Care Team Providers Care Precision Lens Generator Name Role Phone Rachna Lewis MD Primary Care Provider Family History Medical History Relation Name Comments [...] nts (1 - 1-dose 75+ series) 06/06/2019 Depression Screening 03/25/2024 COVID-19 Vaccine (1 - 2023-2 5 season) 2024 Influenza Vaccine (#1) 2024 HIB Vaccines Aged Out No longer [...] age to complete this topic Care Teams Precision Lens Generator Relationship Specialty Start Date End Date Rachna Lewis MD [address] [place] [address] , [address] [facility] D/B/A: [facility] ANH Baker PCP - General Internal Medicine 07/31/18
--- OUTSIDE RECORDS SUMMARY | 2024-12-08 15:42 | XMS_ITS | Clinical Summary ---
Author Organization [facility] Facility Address [address] [place] [address] Care Team Providers Care Tour Escort Name Role Phone Rachna Corral MD Primary Care Provider [phone] Allergies No known active allergies Medications alendronate [...] Due Date Last Done Comments Pneumococcal Vaccine: 50+ Ye ars (1 of 2 - PCV) 06/06/1964 Diabetes: Hemoglobin A1C 11/16/2021 Diabetes: Ophthalmology Exam 11/16/2021 Diabetes: Pedal Pulse Checked 11/16/2021 Diabetes: Sensory Foot Exam 11/16/2021 Diabetes: Visual Foot Exam 11/16/2021 Influenza Vaccine (#1) 2024 Hepatitis B Vaccine Aged Out No longe r eligible based on patient's age to complete this topic Insurance [address] [place] [id number] Medicare Medicaid [place] [address] [place] [address] Medicare Medicaid [place] Care Teams Tour Escort Relationship Specialty Start Date End Date Rachna Corral MD [address] [place], [place] PCP - General Internal Medicine 07/21/21
== END 2024-12-08 12:14 | disposition home or self-care (01) ==
LOC: HO.HWS 11:32
PROVIDERS: PCP Internal Medicine; Visit Provider Obstetrics & Gynecology
DX: D22.9 Melanocytic nevi, unspecified (principal)
CPT/HCPCS: 99213

== ENCOUNTER → 2024-12-08 11:32 | Outpatient (BNVA) | payer MEDICARE, MEDICAID, SELFPAY | PROVIDERS: PCP Internal Medicine; Visit Provider Obstetrics & Gynecology | DX: D24.2 Benign neoplasm of left breast (principal) | CPT/HCPCS: 99212 ==

== ENCOUNTER 2024-12-24 06:28 | Outpatient (REF) | payer MEDICARE, MEDICAID, SELFPAY ==
--- OUTSIDE RECORDS SUMMARY | 2024-12-24 06:33 | XMS_ITS | Clinical Summary ---
Author Organization [facility] Facility Address [address] [place] [address] Care Team Providers Care Director Of Research Name Role Phone Rachna Corral MD Primary Care Provider [phone] Allergies No known active allergies Medications alendronate [...] age to complete this topic Insurance [address] [place] [id number] Medicare [place] [address] [place] [address] Medicare Medicaid [place] Care Teams Director Of Research Relationship Specialty Start Date End Date Rachna Corral MD [address] [place], [place] PCP - General Internal Medicine 07/21/21
--- OUTSIDE RECORDS SUMMARY | 2024-12-24 06:33 | XMS_ITS | Clinical Summary ---
Author Organization [facility] ity Address [address] [place] [address] Care Team Providers Care Roll Clamp Operator Name Role Phone Rachna Lewis MD Primary Care Provider [phone] Family History Medical History Relation Name Comments [...] age to complete this topic Care Teams Roll Clamp Operator Relationship Specialty Start Date End Date Rachna Lewis MD [address] [place] [address] , [address] [facility] D/B/A: [facility] ANH Baker PCP - General Internal Medicine 07/31/18
[2024-12-24 08:01] LABS: Alanine Aminotransferase 33 U/L (0-31); Albumin Level 4.1 g/dL (3.5-5.0); Alkaline Phosphatase 148 U/L (39-117); Anion Gap 13 (12-20); Aspartate Amino Transferase 30 U/L (5-31); Blood Urea Nitrogen 15 mg/dL (9-16); Calcium 9.6 mg/dL (8.4-10.2); Carbon Dioxide 25 mmol/L (22-29); Chloride 107 mmol/L (96-108); Cholesterol 107 mg/dL (<200); Estimated Glomerular Filt Rate > 60; HDL Cholesterol 43 mg/dL (>40); Potassium 4.1 mmol/L (3.3-5.1); Sodium 141 mmol/L (135-145); Total Protein 7.4 g/dL (6.5-8.0); Triglycerides 85 mg/dL (<150)
[2024-12-24 08:19] LABS: Folate 15.8 ng/mL (> or = 4.0); Vitamin B12 1284 pg/mL (200-900)
== END 2024-12-24 06:29 | disposition home or self-care (01) ==
LOC: HO.LAB 06:28
PROVIDERS: PCP Internal Medicine; Visit Provider Internal Medicine
DX: E11.9 Type 2 diabetes mellitus without complications (principal); E53.8 Deficiency of other specified B group vitamins; E78.5 Hyperlipidemia, unspecified; E55.9 Vitamin D deficiency, unspecified
CPT/HCPCS: 36415; 80053; 80061; 82043; 82306; 82570; 82607; 82746

== ENCOUNTER 2024-12-28 10:06 | Outpatient (REF) | payer MEDICARE, MEDICAID, SELFPAY ==
--- NOTE | ~2024-12-28 | MM_ITS ---
EXAMINATION: DXA BONE DENSITY AXIAL HISTORY: Z78.0 - Asymptomatic menopausal state TECHNIQUE: [employer] Dual energy absorptiometry (DEXA) of the lumbar spine, total left hip, and femoral neck was performed. COMPARISON: Comparison is made with the prior examination dated 12/26/2019.. FINDINGS: The bone mineral density of the lumbar spine is 1.052 g/cm2, corresponding to a T-score of -1.1, and a Z-score of -0.1. This is indicative of osteopenia. This represents a BMD change of 3.8% compared to the prior exam. This is statistically significant. The bone mineral density of the left total hip is 0.830 g/cm2, corresponding to a T-score of -1.4, and a Z-score of 0.0. This is indicative of osteopenia. This represents a BMD change of 5.5% compared to the prior exam. This is statistically significant. The bone mineral density of the left femoral neck is 0.807 g/cm2, corresponding to a T-score of -1.7, and a Z-score of 0.0. This is indicative of osteopenia. This represents a BMD change of 10.7% compared to the prior exam. MM/XR DEXA axial skeleton IMPRESSION: Based on bone mineral density, and according to World Health Organization (WHO) criteria, the diagnosis is consistent with osteopenia. Statistically, 68% of repeat scans fall within 1 SD (+/- 0.010 g/cm2 for AP spine L1-L4) and 1 SD (+/- 0.012 g/cm2 for femur total) FRAX is a trademark of the [employer]'s [employer] Met[employer] Disease, a World Health Organization (WHO) Collaborating Center. Electronically signed by: Han Sutton MD 12/28/2024 10:53 AM EDT
--- OUTSIDE RECORDS SUMMARY | 2024-12-28 11:45 | XMS_ITS | Clinical Summary ---
Author Organization [facility] Facility Address [address] [place] [address] Care Team Providers Care Inspector Canvas Products Name Role Phone Rachna oCrral MD Primary Care Provider [phone] Allergies No known active allergies Medications alendronate [...] age to complete this topic Insurance [address] [place] [id number] Medicare [place] [address] [place] [address] Medicare Medicaid [place] Care Teams Inspector Canvas Products Relationship Specialty Start Date End Date Rachna Corral MD [address] [place], [place] PCP - General Internal Medicine 07/21/21
--- OUTSIDE RECORDS SUMMARY | 2024-12-28 11:45 | XMS_ITS | Clinical Summary ---
Author Organization [facility] ity Address [address] [place] [address] Care Team Providers Care Duck Operator Name Role Phone Rachna Lewis MD Primary Care Provider [phone] Family History Medical History Relation Name Comments [...] age to complete this topic Care Teams Duck Operator Relationship Specialty Start Date End Date Rachna Lewis MD [address] [place] [address] , [address] [facility] D/B/A: [facility] ANH Baker PCP - General Internal Medicine 07/31/18
== END 2024-12-28 10:07 | disposition home or self-care (01) ==
LOC: HO.MAMMO 10:06
PROVIDERS: PCP Internal Medicine; Visit Provider Internal Medicine
DX: Z13.820 Encounter for screening for osteoporosis (principal); Z78.0 Asymptomatic menopausal state
CPT/HCPCS: 77080

== ENCOUNTER → 2024-12-28 10:30 | Outpatient (BNV) | payer MEDICARE, MEDICAID, SELFPAY | PROVIDERS: PCP Internal Medicine; Visit Provider Radiology Diagnostic Radiology | DX: E28.39 Other primary ovarian failure (principal) | CPT/HCPCS: 77080 ==

== ENCOUNTER 2024-12-31 08:02 | Outpatient (AMB) | payer MEDICARE, MEDICAID, SELFPAY ==
--- NOTE | 2024-12-31 08:08 | MHC.PC.OV ---
Vital Signs 12/31/24 08:11 Height 5 ft 4 in Weight 191 lb 2 oz BMI 32.8 BP 130/66 Blood Pressure Location Lt brachial Position Sitting Pulse 88 Pulse Source Pulse Oximeter Temp 96.6 F L Temp Source Temporal Artery Scan Pulse Oximetry (%) 96 Oxygen Delivery Method Room Air Intake Visit Reasons: bp,dm Intake Note: Patient is here to follow up on BP and DM. Pharmacy Aide Required: Yes Pharmacy Aide Language: Yoruba Information Interpreted: non-clinical & clinical Highway Construction Inspector: Present Accompanied by: Son Allergies No Known Allergies (No Known Allergies*) Allergy (Verified 12/31/24 08:10) Tobacco use date assessed: 12/31/24 Fall risk assessment: No Falls in past year Last assessed Fall Risk: 12/31/24 Dental Screening Dental Screen Date: 04/16/24 HPI HPI Comments History of Present Illness Details The patient is an 79-year-old female presenting with Type 2 Diabetes Mellitus management. Her hemoglobin A1c was recorded at 7.3%, which is slightly above the target of 7% but considered acceptable given her age and comorbidities. The patient also has a history of hyperlipidemia, with recent laboratory results showing LDL cholesterol levels below 70 mg/dL, meeting the target goal. She is currently on rosuvastatin, which is effectively managing her cholesterol levels. Hypertension is another condition being managed, with recent blood pressure readings at 130/66 mmHg, which is within the target range of less than 130/80 mmHg. The patient has been diagnosed with osteopenia, and recent bone density scans indicate improvement. She has been on Fosamax for three years as part of her treatment regimen. Dementia is also noted, for which she is taking memantine. The patient is oriented and able to perform daily activities independently. The patient experiences constipation, for which she uses Docusate and Miralax as needed. ON LICENSE OF [facility] Medical History Constipation Colon cancer screening Hypertension, essential Stroke Stroke Type 2 diabetes mellitus Hyperlipidemia Dementia Family history of ovarian cancer Diabetes mellitus Microalbuminuria GERD (gastroesophageal reflux disease) Hyperlipidemia LDL goal <70 Type 2 diabetes mellitus with diabetic polyneuropathy Obesity due to excess calories Memory loss Cough Essential hypertension Long-term use of aspirin therapy History of DVT (deep vein thrombosis) Surgical History Hx of colonoscopy History of total abdominal hysterectomy and bilateral salpingo-oophorectomy History of cataract surgery Family History Father No problems noted. Mother Colon cancer Son Diabetes Social History Household Members: Family Household Members Other:: lives with g. son Housing: Apartment Do you presently have visiting nurse or other home services: No Alcohol intake: never Comment: family at bedside. Patient Tobacco Use Status: Never used Tobacco e-Cigarette/Vaping Use: Never Used Second Hand Smoke Exposure: No Advance Directives Date on File: 02/23/21 service: No Current occupational status: disabled Cognitive needs: No Hearing needs: No Vision needs: No Female Reproductive History Menstrual Age of Menarche: 11 Questionnaire PHQ-9 Over the last 2 weeks, how often have you been bothered by any of the following problems? 1. Little interest or pleasure in doing things: not at all 2. Feeling down, depressed, or hopeless: not at all 3. Trouble falling or staying asleep, or sleeping too much: not at all 4. Feeling tired or having little energy: not at all 5. Poor appetite or overeating: not at all 6. Feeling bad about yourself - or that you are a failure or have let yourself or your family down: not at all 7. Trouble concentrating on things, such as reading the newspaper or watching television: not at all 8. Moving or speaking so slowly that other people could have noticed. Or the opposite - being so fidgety or restless that you have been moving around a lot more than usual: not at all 9. Thoughts that you would be better off or of hurting yourself in some way: not at all Total score: 0 Depression Screening Interpretation: Negative Depression Screening Done: Yes 37133 - PHQ-9 Billing: Yes Source: Developed by Drs. Han Hurley, Naya Forbes, Florencio Ahumada and colleagues, with an educational tony from [employer]. Thrive Questionnaire Date Thrive assessed: 04/16/24 I am a: Patient What is your living situation today?: I have a steady place to live Within the past 12 months, did the food you bought not last and you didn't have the money to get more?: Never true Within the past 12 months, did you worry whether your food would run out before you got money to buy more?: Never true Do you have trouble paying for medicines?: No Do you have trouble getting transportation to medical appointments?: No Do you have trouble paying your heating and electricity bill?: No Do you have trouble taking care of your child, family member or friend?: Yes Do you have trouble with day-to-day activities such as bathing, preparing meals, shopping, managing finances, etc.?: Yes Are you currently unemployed and looking for a job?: No Are you interested in more education?: No Please select the resources that you would like help with: None Currently or been in a relationship where the following occur: No concerns reported THRIVE Score: 0 AUDIT C Alcohol Use Questionnaire (AUDIT-C) 1. How often do you have a drink containing alcohol?: Never Total Score: 0 Score Reviewed/Action Taken: No RICK-7 AMB Questionnaire RICK-7 Date RICK - 7 assessed: 04/16/24 Feeling nervous, anxious, or on edge: 0 = Not at all Not being able to stop or control worryin = Not at all Worrying too much about different things: 0 = Not at all Trouble relaxin = Not at all Being so restless that it is hard to sit still: 0 = Not at all Becoming easily annoyed or irritable: 0 = Not at all Feeling afraid as if something awful might happen: 0 = Not at all Total RICK-7 score (0-4 normal; 5-9 mild; 10-14 moderate; 15-21 severe): 0 Source: Developed by Drs. Han Hurley, Naya Forbes, Florencio Ahumada and colleagues, with an educational tony from [employer]. RICK-7 Assessment Billing RICK-7 Assessment Tool: RICK-7 Assessment 60746 Review of Systems Const All systems reviewed & are unremarkable except as noted in HPI and below Card Denies chest pain at rest, Denies chest pain with activity, Denies edema, Denies irregular heart rhythm, Denies claudication, Denies dyspnea, Denies dyspnea on exertion, Denies orthopnea, Denies paroxysmal nocturnal dyspnea and Denies slow heart rate Resp Denies cough, Denies dyspnea and Denies dyspnea on exertion Physical exam (Primary Care) Vital Signs: Last Vital Signs Temp 96.6 F L 12/31/24 08:11 Pulse 88 12/31/24 08:11 BP 130/66 12/31/24 08:11 Pulse Ox 96 12/31/24 08:11 Oxygen Delivery Method Room Air 12/31/24 08:11 BMI result Body Mass Index 32.8 BMI Assessment/Plan discussion: High BMI High, discussed plan: lifestyle, weight reduction, dietary and physical activity Tobacco/Smoking Status: Tobacco use Status Tobacco use date assessed 12/31/24 12/31/24 08:21 Patient Tobacco Use Status Never used Tobacco 12/31/24 08:21 e-Cigarette/Vaping Use Never Used 12/31/24 08:21 PHQ-9: PHQ-9 Score PHQ-9: Total score 0 12/31/24 08:38 Depression Screening Interpretation: Negative Thrive Assessment: Date of Thrive Assessment Date Thrive assessed 04/16/24 12/31/24 08:21 Currently or been in a relationship where the following occur: No concerns reported Resp Effort & Inspection: normal respiratory effort Auscultation: clear to auscultation bilaterally Cardio Jugular venous distension: no JVD Rate: regular rate Rhythm: regular rhythm Heart sounds: S1 normal heart sound present and S2 normal heart sound present Extrem General: Yes full ROM Office Procedures Flu Questionnaire Does the patient have a severe egg allergy?: No Does the patient have severe life threatening allergies?: No Does the patient have a fever or illness today?: No Has the patient ever had Guillain-Ophiem Syndrome?: No Has the patient ever had any past reaction to a flu shot?: No Results AMB Hemoglobin A1c AMB Hemoglobin A1c 7.3 % Last Edit by BETY Khan on 12/31/24 08:28 Immunizations Fluarix [id number] (PF) 45 mcg (15 mcg x 3)/0.5 mL IM syringe Performing Provider: Rachna Lewis MD [place] [facility] [place] [facility] Administered by: BETY Boyce on 12/31/24 08:53 Dose Route Admin Location Dispensed Lot Number Expiration Date [facility] Mail Officer 0.5 mL IM Left Deltoid 0.5 mL [id number] 09/21/25 [id number] Kerecis VIS Given Date VIS Provided VIS Publication Date 12/31/24 Single Vaccine 24 Eligibility Eligibility Date Funding Source Not [facility] Eligible 12/31/24 Private Results Reviewed Results Reviewed: Laboratory Last Values Hgb A1c (Clinic) 7.3 % (4.0-6.0) H 12/31/24 08:07 Coding Level of Care Code Est Pt Level 4 (95523) Complex EM visit Add On G2211 Diagnoses Type 2 diabetes mellitus with diabetic polyneuropathy, without long-term current use of insulin E11.42 Diabetes mellitus mcfp insulin use: without long term care phlebotomist use Essential hypertension I10 Hyperlipidemia LDL goal <70 E78.5 Osteopenia M85.80 Mild vascular dementia without behavioral disturbance, psychotic disturbance, mood disturbance, or anxiety F01.A0 Dementia severity: mild Dementia behavioral or psychological symptom: without behavioral, psychotic, or mood disturbance or anxiety Additional Codes PHQ-9 - 92724 - PHQ-9 Billing: Yes ([id number]) RICK-7 Assessment Billing - RICK-7 Assessment Tool: RICK-7 Assessment 87133 ([id number]) Time Spent (min) 22 Assessment & Plan Assessment & Plan (1) Type 2 diabetes mellitus with diabetic polyneuropathy: Code(s): E11.42 - Type 2 diabetes mellitus with diabetic polyneuropathy Category: Medical Qualifiers: Diabetes mellitus long term care phlebotomist insulin use: without mcfp use Qualified Code(s): E11.42 - Type 2 diabetes mellitus with diabetic polyneuropathy (2) Essential hypertension: Code(s): I10 - Essential (primary) hypertension Category: Medical (3) Hyperlipidemia LDL goal <70: Code(s): E78.5 - Hyperlipidemia, unspecified Category: Medical (4) Osteopenia: Code(s): M85.80 - Other specified disorders of bone density and structure, unspecified site Category: Medical (5) Vascular dementia: Code(s): F01.50 - Vascular dementia, unspecified severity, without behavioral disturbance, psychotic disturbance, mood disturbance, and anxiety Category: Medical Qualifiers: Dementia severity: mild Dementia behavioral or psychological symptom: without behavioral, psychotic, or mood disturbance or anxiety Qualified Code(s): F01.A0 - Vascular dementia, mild, without behavioral disturbance, psychotic disturbance, mood disturbance, and anxiety Plan Plan Patient was informed and verbally consented to the use of an ambient scribe for clinic note documentation during this visit. 1. Type 2 diabetes mellitus without complications E11.9 HCC 19 The patient's hemoglobin A1c is 7.3%, slightly above the target of 7%, but acceptable given her age and comorbidities. Continue current management with metformin and Trulicity. 2. Hyperlipidemia, unspecified E78.5 LDL cholesterol is below 70 mg/dL, meeting target goals. Continue rosuvastatin therapy. 3. Essential (primary) hypertension I10 Blood pressure is well-controlled at 130/66 mmHg. Continue current antihypertensive regimen. 4. Osteopenia Bone density scan shows improvement. Continue Fosamax therapy. 5. Vascular dementia, unspecified severity, without behavioral disturbance, psychotic disturbance, mood disturbance, and anxiety F01.50 HCC 52 Patient is on memantine for cognitive impairment. Continue current management. Orders: Orders Vitamin D 25-OH Total 4 Months E55.9 - Vitamin D deficiency, unspecified Comprehensive [place]. Panel Fast 4 Months I10 - Essential (primary) hypertension AMB Hemoglobin A1c Today E11.42 - Type 2 diabetes mellitus with diabetic polyneuropathy, E11.65 - Type 2 diabetes mellitus with hyperglycemia Lipid Panel 4 Months E78.5 - Hyperlipidemia, unspecified Microalbumin, Random (w Creat) 4 Months R80.9 - Proteinuria, unspecified Influenza [id number] Immunization Today Z23 - Encounter for immunization
[2024-12-31 08:11] VITALS: BP 130/66; PULSE 88; TEMP 35.9; O2SAT 96; BMI 32.8
== END 2024-12-31 08:56 | disposition home or self-care (01) ==
LOC: HO.HMCH 08:03
PROVIDERS: PCP Internal Medicine; Visit Provider Internal Medicine
DX: E11.42 Type 2 diabetes mellitus with diabetic polyneuropathy (principal); F01.A0 Vascular dementia, mild, without behavioral disturbance, psychotic disturbance, mood disturbance, and anxiety; E11.65 Type 2 diabetes mellitus with hyperglycemia; I10 Essential (primary) hypertension; E78.5 Hyperlipidemia, unspecified; M85.80 Other specified disorders of bone density and structure, unspecified site; Z23 Encounter for immunization

== ENCOUNTER → 2024-12-31 08:02 | Outpatient (BNVA) | payer MEDICARE, MEDICAID, SELFPAY | PROVIDERS: PCP Internal Medicine; Visit Provider Internal Medicine | DX: E11.42 Type 2 diabetes mellitus with diabetic polyneuropathy (principal); E78.5 Hyperlipidemia, unspecified; M85.80 Other specified disorders of bone density and structure, unspecified site; F03.90 Unspecified dementia, unspecified severity, without behavioral disturbance, psychotic disturbance, mood disturbance, and anxiety; I10 Essential (primary) hypertension; F01.A0 Vascular dementia, mild, without behavioral disturbance, psychotic disturbance, mood disturbance, and anxiety; Z23 Encounter for immunization; Z79.899 Other long term (current) drug therapy | CPT/HCPCS: 83036; 90471; 90656; 96127; 99212 ==